=== PATIENT | female | born 1970 | race Caucasian/White ===

== ENCOUNTER 2019-08-19 17:18 | Emergency (ER) | payer MEDICARE, MEDICAID, SELFPAY | END 2019-08-19 21:50 | disposition home or self-care (01) | PROVIDERS: Emergency Provider Emergency Medicine; PCP Internal Medicine; Visit Provider Emergency Medicine | DX: M79.7 Fibromyalgia (principal); K50.90 Crohn's disease, unspecified, without complications; K74.60 Unspecified cirrhosis of liver; F17.210 Nicotine dependence, cigarettes, uncomplicated; R94.31 Abnormal electrocardiogram [ECG] [EKG]; R82.998 Other abnormal findings in urine | CPT/HCPCS: 36415; 71046; 80053; 81001; 81025; 82550; 83690; 84484; 85025; 85610; 85730; 87086; 87088; 93005; 96361; 96374; 96375; 99284; A9270; J2270; J2405; J7030 ==

== ENCOUNTER 2019-11-29 08:06 | Outpatient (CLI) | payer MEDICARE, MEDICAID, SELFPAY ==
[2019-11-29 08:34] LABS: Basophils Absolute Auto 0.1 K/mm3 (0.0-0.1); Basophils Percent Auto 0.7 % (0.2-1.2); Eosinophils Absolute Auto 0.1 K/mm3 (0-0.3); Eosinophils Percent Auto 1.1 % (0-4.4); Hematocrit 36.4 % (37.0-47.0); Hemoglobin 11.3 g/dL (12.0-15.0); Immature Granulocyte Absolute 0.04 K/mm3 (0.00-0.031); Immature Granulocyte Percent A 0.4 % (0-0.5); Lymphocytes Absolute Auto 1.31 K/mm3 (0.9-3.2); Lymphocytes Percent Auto 14.7 % (18.3-44.2); Mean Corpuscular Hemoglobin 23.7 pg (26-34); Mean Corpuscular Volume 76.5 fl (80-100); Mean Platelet Volume 9.1 fl (7.4-10.4); Monocytes Absolute Auto 0.8 K/mm3 (0.1-0.6); Monocytes Percent Auto 8.4 % (2.6-8.5); Neutrophils Absolute Auto 6.7 K/mm3 (1.3-6.7); Neutrophils Percent Auto 74.7 % (45.5-73.1); Platelet Count Result 533 k/mm3 (150-375); Red Blood Count 4.76 M/mm3 (4.2-5.4); Red Cell Distribution Width 18.6 % (11.5-14.5); White Blood Count 8.9 K/mm3 (4.5-10.0)
[2019-11-29 08:37] LABS: Blood Urea Nitrogen 11 mg/dL (8-26); Carbon Dioxide 21 mmol/L (22-30); Chloride 101 mmol/L (98-109); Estimated Glomerular Filt Rate > 60; Glucose 95 mg/dL (70-105); Potassium 3.9 mmol/L (3.5-4.9); Sodium 136 mmol/L (138-146)
[2019-11-29 11:58] LABS: Alanine Aminotransferase 24 U/L (4-35); Albumin Level 4.1 g/dL (3.5-5.1); Alkaline Phosphatase 335 U/L (38-126); Aspartate Amino Transferase 29 U/L (14-36); Bilirubin,Total 0.7 mg/dL (0.2-1.3); Blood Urea Nitrogen 12 mg/dL (7-17); Carbon Dioxide 19 mmol/L (22-30); Chloride 97 mmol/L (98-107); Estimated Glomerular Filt Rate > 60; Glucose 97 mg/dL (65-105); Potassium 4.1 mmol/L (3.4-5.0); Sodium 135 mmol/L (137-145)
== END 2019-11-29 08:07 | disposition home or self-care (01) ==
LOC: ANHLAB 08:16
PROVIDERS: PCP Internal Medicine; Visit Provider Internal Medicine Hematology & Oncology
DX: D64.9 Anemia, unspecified (principal)
CPT/HCPCS: 36415; 80048; 80053; 84443; 85025

== ENCOUNTER 2020-01-16 10:43 | Outpatient (CLI) | payer MEDICARE, MEDICAID, SELFPAY ==
[2020-01-16 10:58] LABS: Hematocrit 34.7 % (37.0-47.0); Hemoglobin 10.5 g/dL (12.0-15.0); Mean Corpuscular HGB Conc 30.3 g/dl (32-36); Mean Corpuscular Hemoglobin 23.6 pg (26-34); Mean Corpuscular Volume 78.2 fl (80-100); Mean Platelet Volume 9.3 fl (7.4-10.4); Platelet Count Result 379 k/mm3 (150-375); Red Blood Count 4.44 M/mm3 (4.2-5.4); White Blood Count 9.5 K/mm3 (4.5-10.0)
[2020-01-16 12:24] LABS: Iron 32 ug/dL (37-170)
[2020-01-16 12:33] LABS: Percent Iron Saturation 11 % (20-50)
[2020-01-16 13:31] LABS: Folic Acid 6.2 ng/mL (2.76->20)
== END 2020-01-16 10:44 | disposition home or self-care (01) ==
PROVIDERS: PCP Internal Medicine; Visit Provider Internal Medicine Hematology & Oncology
DX: D64.9 Anemia, unspecified (principal)
CPT/HCPCS: 36415; 82607; 82728; 82746; 83540; 83550; 85027

== ENCOUNTER 2020-03-20 13:12 | Outpatient (CLI) | payer MEDICARE, MEDICAID, SELFPAY ==
--- NOTE | ~2020-03-20 | XR_ITS ---
XR chest 2V DATE: 03/20/2020 14:53 INDICATION: Constipation TECHNIQUE: PA and lateral views COMPARISON: 08/19/2019 PA and lateral chest FINDINGS: Normal heart size. No hilar or mediastinal enlargement. No pleural effusion or pulmonary vascular congestion or pneumothorax. There is discoid atelectasis and/or scarring in both lung bases. Surgical clips, right upper quadrant, likely due to cholecystectomy. IMPRESSION: Bibasilar discoid atelectasis and/or scarring Reviewed, dictated and finalized at location A.
--- NOTE | ~2020-03-20 | XR_ITS ---
EXAMINATION: XR abdomen obstructive series DATE: 03/20/2020 14:52 INDICATION: Constipation TECHNIQUE: Upright and supine views of the abdomen were obtained. COMPARISON: None. FINDINGS: The bowel gas pattern is nonspecific. There are no dilated loops of bowel. Cholecystectomy clips are noted. There is an IUD in the pelvis. The visualized osseous structures are unremarkable. T here is atelectasis or scarring of the visualized lung bases. IMPRESSION: 1. Nonspecific bowel gas pattern without acute abnormality identified. Reviewed, dictated and finalized at location A.
[2020-03-20 13:31] LABS: Hematocrit 41.3 % (37.0-47.0); Hemoglobin 13.1 g/dL (12.0-15.0); Mean Corpuscular HGB Conc 31.7 g/dl (32-36); Mean Corpuscular Hemoglobin 26.4 pg (26-34); Mean Corpuscular Volume 83.1 fl (80-100); Mean Platelet Volume 9.3 fl (7.4-10.4); Platelet Count Result 363 k/mm3 (150-375); Red Blood Count 4.97 M/mm3 (4.2-5.4); Red Cell Distribution Width 19.2 % (11.5-14.5); White Blood Count 10.2 K/mm3 (4.5-10.0)
[2020-03-20 17:22] LABS: Iron 42 ug/dL (37-170)
[2020-03-20 17:33] LABS: Percent Iron Saturation 19 % (20-50)
[2020-03-20 18:30] LABS: Folic Acid 6.8 ng/mL (2.76->20); Vitamin B12 > 1000.0 pg/mL (239-931)
== END 2020-03-20 13:13 | disposition home or self-care (01) ==
PROVIDERS: PCP Internal Medicine; Visit Provider Internal Medicine Hematology & Oncology
DX: K59.00 Constipation, unspecified (principal); D64.9 Anemia, unspecified
CPT/HCPCS: 36415; 71046; 74019; 82607; 82728; 82746; 83540; 83550; 85027

== ENCOUNTER 2020-07-12 13:32 | Observation (INO) | payer MEDICARE, MEDICAID, SELFPAY ==
--- NOTE | ~2020-07-12 | XR_ITS ---
EXAMINATION: XR chest 1V portable EXAM DATE: 07/12/2020 17:05 INDICATION: Shortness of breath for 3 months. Right-sided abdominal pain. Weakness. TECHNIQUE: Portable AP frontal chest x-ray was obtained. Comparison is made to prior examination from 03/20/2020. FINDINGS: Some linear bibasilar scarring or atelectasis unchanged. The lungs are otherwise clear. Th ere are no pleural effusions. The cardiomediastinal silhouette is within normal limits. There is no pneumothorax suspected. The bones and soft tissues are unremarkable. IMPRESSION: Linear bibasilar atelectasis or scarring unchanged. Reviewed, dictated and finalized at location A.
--- NOTE | ~2020-07-12 | CT_ITS ---
EXAMINATION: CT abdomen pelvis w con DATE: 07/12/2020 16:25 INDICATION: Right abdominal pain TECHNIQUE: Computed tomography (CT) of the abdomen and pelvis was performed with 100 cc Omnipaque 350 intravenous contrast. Automated exposure control and iterative reconstruction technique were employe d. Exam dose: 320.60 mGy-cm total exam DLP. COMPARISON: 07/29/2019 CT abdomen pelvis FINDINGS: There is discoid atelectasis and/or scarring at both lung bases Normal heart size. There is trace pericardial fluid. No pleural effusion. Status post cholecystectomy. No hepatic, splenic, pancreatic, and adrenal space-occupying mass lesion . The left kidney appears normal. There is a large right parapelvic renal cyst. This was present on 07/29/2019. However, there is interv al patchy diminished attenuation of the parenchyma of the right kidney involving particularly the mid to upper right kidney, likely due to pyelonephritis. No urinary tract calculus or hydroureteronephrosis is evident. Normal caliber of the abdominal aorta. There are shotty nonenlarged periaortic and aortocaval lymph n odes, likely reactive. There is moderate diffuse thickening of the wall of the urinary bladder. An IUD is noted within the uterus. Status post right colectomy. No bowel obstruction or intraperitoneal free air is detected. A wire is again noted at the posterior aspect of the rectum with some surrounding soft tissue thicken ing; recommend correlation clinically. There are erosive changes at the sacroiliac joints bilaterally. There is moderate anterior wedge compression fracture deformity at T11. IMPRESSION: Abnormal patchy diminished attenuation of the mid to upper right renal parenchyma, likel y due to pyelonephritis Right parapelvic renal cyst Status post cholecystectomy Centimeters right colectomy IUD within uterus Erosive changes of the sacroiliac joints bilaterally Moderate anterior wedge compression fracture deformity at T11, apparently chronic Reviewed, dictated and finalized at Location A. Reviewed, dictated and finalized at location A. IMPRESSION: Abnormal patchy diminished attenuation of the mid to upper right r enal parenchyma, likely due to pyelonephritis Right parapelvic renal cyst Status post cholecystectomy Centimeters right colectomy IUD within uterus Erosive changes of the sacroiliac joints bilaterally Moderate anterior wedge compression fracture deformity at T11, apparently chron ic
--- NOTE | 2020-07-12 13:56 | ECG_ITS ---
Measurements Intervals [place] Rate: 104 P: 61 PA: 152 QRS: -40 QRSD: 85 T: 33 QT: 335 QTc: 441 Interpretive Statements SINUS TACHYCARDIA LEFT AXIS DEVIATION CANNOT RULE OUT SEPTAL INFARCT, AGE INDETERMINATE BORDERLINE T WAVE ABNORMALITY- INFERIOR LEADS ABNORMAL ECG Electronically Signed On 07-12-2020 14:44:02 CDT by Roosevelt Ford D.O.
--- NOTE | 2020-07-12 14:00 | ED.ABDPAIN ---
HPI - Abdominal Pain General Chief Complaint: Urogenital-Female Stated Complaint: Low BP/? UTI Time Seen by Provider: 07/12/20 13:36 Source: patient Mode of arrival: ambulatory Limitations: no limitations History of Present Illness HPI narrative: This patient is a 49 year old female who presents for evaluation of low blood pressure and UTI. She reports she has been having pain with urination for 1 week, but she did not think much of it. Today her home health nurse sent her to ER because her BP was low. Patient is unsure of the blood pressure. She reports chronic right upper abdominal pain that is unchanged. She does complain of being lightheaded and dizziness. She denies nausea, vomiting , fever or chills. She also denies chest pain, cough or sob. She notes she was [facility] involving her chrohn's disease. She states she has rectally that is draining. Related Data Home Medications Medication Instructions Recorded Confirmed duloxetine 30 mg PO BID 07/12/20 07/12/20 ziprasidone HCl [Geodon] 40 mg PO BID 07/12/20 07/12/20 Allergies Allergy/AdvReac Type Severity Reaction Status Date / Time infliximab Allergy Severe Anaphylactic Verified 07/12/20 14:14 Shock Review of Systems Review of Systems: All systems reviewed & are unremarkable except as noted in HPI and below Constitutional: Constitutional: Denies chills, Reports fatigue and Denies fever(s) Cardiovascular: Cardiovascular: Denies chest pain Respiratory: Respiratory: Denies cough and Denies dyspnea Gastrointestinal: Gastrointestinal: Reports abdominal pain and Reports nausea Genitourinary: Genitourinary: Reports dysuria PMF Past Medical History Medical History Anemia iron deficiency anemia Anxiety Arthritis Colostomy in place Crohn's colitis chronic diarrhea Crohn's related arthritis (~1984) Depression Elevated CK-MB level IBS (irritable bowel syndrome) Migraine Surgical History Surgical History H/O hernia repair History of colectomy on the right History of colostomy reversal Hx of cholecystectomy Family History Family History (Updated 07/12/20 @ 20:45 by Edna Hernandez NP) Daughter Accidental Social History Social History (Updated 07/12/20 @ 20:47 by Edna Hernandez NP) Social History: she is disabled and lives with her boyfriend. She had 1 daughter who due to an accidental at the age of 17. She is single. She is on disability. She occasionally uses marijuana maybe 1 to 2 times a month. She smokes half pack a cigarettes a day. She occasionally drinks alcoholic beverages 2 to 3 times a month. She desires to be a full code and does not have power criminal attorney. Smoking packs per day: 0.5 Smoking cigarettes per day: 10.0 Years smoked: 25 Smoking pack-years: 12.50 Tobacco type: cigarettes Alcohol intake: never Substance use: current Substance use type: marijuana Gender identity (if verbalized by the patient): Female Spiritual care concerns: No Exam Const: General: no acute distress and alert Orientation/consciousness: patient oriented x3 HENMT: Head: atraumatic Face and sinus: face symmetric Mouth: Yes Normal oral and palatal mucosa present, Yes lip normal and Yes oropharynx normal Throat: posterior oropharynx normal and tonsils normal Eyes: Pupils: Equal, round and reactive pupils present EOM: EOMs intact bilaterally Chest: Chest palpation & inspection: normal inspection of the chest Resp: Effort & Inspection: normal respiratory effort and no retractions Auscultation: clear to auscultation bilaterally Cardio: Rate: tachycardic Rhythm: regular rhythm Heart sounds: no murmurs GI: GI Palp: Yes Soft to palpation, Yes Tenderness to palpation present (GI) (RUQ), No Guarding due to palpation present (GI), No
[2020-07-12 14:09] VITALS: BP 101/63; PULSE 109; RESP 24; TEMP 36.5; O2SAT 97
[2020-07-12] MEDS: LACTATED RINGERS 1,000 ML 999 ML IV CONT ×2 (14:32→16:35)
[2020-07-12 14:44] LABS: Basophils Absolute Auto 0.1 K/mm3 (0.0-0.1); Basophils Percent Auto 0.4 % (0.2-1.2); Eosinophils Absolute Auto 0.2 K/mm3 (0-0.3); Eosinophils Percent Auto 1.1 % (0-4.4); Hematocrit 39.6 % (37.0-47.0); Hemoglobin 13.2 g/dL (12.0-15.0); Immature Granulocyte Absolute 0.06 K/mm3 (0.00-0.031); Immature Granulocyte Percent A 0.4 % (0-0.5); Lymphocytes Absolute Auto 1.78 K/mm3 (0.9-3.2); Lymphocytes Percent Auto 12.5 % (18.3-44.2); Mean Corpuscular HGB Conc 33.3 g/dl (32-36); Mean Corpuscular Hemoglobin 28.6 pg (26-34); Mean Corpuscular Volume 85.9 fl (80-100); Mean Platelet Volume 9.3 fl (7.4-10.4); Monocytes Absolute Auto 1.5 K/mm3 (0.1-0.6); Monocytes Percent Auto 10.7 % (2.6-8.5); Neutrophils Absolute Auto 10.7 K/mm3 (1.3-6.7); Neutrophils Percent Auto 74.9 % (45.5-73.1); Platelet Count Result 416 k/mm3 (150-375); Red Blood Count 4.61 M/mm3 (4.2-5.4); Red Cell Distribution Width 15.9 % (11.5-14.5); White Blood Count 14.3 K/mm3 (4.5-10.0)
[2020-07-12 14:51] LABS: INR 1.3; Prothrombin Time 15.8 Seconds (11.1-14.7)
[2020-07-12 14:52] LABS: Partial Thromboplastin Time 35.6 SECONDS (22.3-36.8)
[2020-07-12 14:55] LABS: Lactic Acid Reflex 1.9 mmol/L (0.7-2.1)
[2020-07-12 15:00] LABS: Alanine Aminotransferase 21 U/L (4-35); Albumin Level 3.6 g/dL (3.5-5.1); Alkaline Phosphatase 301 U/L (38-126); Anion Gap 10 mmol/L (8-16); Aspartate Amino Transferase 29 U/L (14-36); Bilirubin,Total 0.6 mg/dL (0.2-1.3); Blood Urea Nitrogen 14 mg/dL (7-17); Calcium 9.1 mg/dL (8.4-10.2); Carbon Dioxide 23 mmol/L (22-30); Chloride 102 mmol/L (98-107); Estimated Glomerular Filt Rate > 60; Glucose 136 mg/dL (65-105); Lipase 125 U/L (23-300); Potassium 2.7 mmol/L (3.4-5.0); Sodium 135 mmol/L (137-145)
[2020-07-12 15:03] LABS: Add Urine Microscopic? YES; Appearance Urine Clear (Clear); Bacteria Urine Trace /hpf; Bilirubin Urine Negative (Negative); Blood Urine 2+ (Negative); Color Urine Yellow (Yellow); Glucose Urine UA Negative (Negative); Ketones Urine Negative (Negative); Leukocyte Esterase Ur 3+ LEU/UL (Negative); Mucus Urine Rare /lpf; Nitrate Urine Positive (Negative); Protein Urine Negative (Negative); Specific Grav Ur 1.012 (1.001-1.035); Urobilinogen Urine Negative mg/dL (<2.0); WBC Clumps Urine Present /HPF; WBC Urine 31-50 /hpf
[2020-07-12 15:08] LABS: CRP 17.6 mg/dL (<1.0)
[2020-07-12 15:19] VITALS: BP 99/75; PULSE 90; RESP 20; O2SAT 99
[2020-07-12] MEDS: ONDANSETRON INJ 4 MG/2 ML VIAL IV PUSH (16:37)
[2020-07-12] MEDS: MORPHINE SULFATE 4 MG/ML INJ IV PUSH (16:37)
[2020-07-12 17:34] VITALS: BP 98/67; PULSE 92; RESP 24; O2SAT 96
[2020-07-12 17:45] VITALS: BP 97/69; PULSE 85; RESP 24; O2SAT 96
[2020-07-12 18:05] VITALS: BP 103/69; PULSE 58; RESP 14; TEMP 36.8; O2SAT 100
--- NOTE | 2020-07-12 18:10 | ADMGEN ---
This patient, Anne Winston, was admitted to 2 Medical Room 246-01. Patient/family oriented to hospital policies and general routines including ID bracelet, bed and alarms, visiting hours, pain management, procedures, bathroom and other care routines, personal items, smoking policy, room service/diet, and visiting hours. Valuables list has been completed. Information on how to activate the Rapid Response Team has been discussed. Patient/Family are encouraged to report perceived risks to care and to ask questions if they do not understand what they are told or what they should do.
[2020-07-12 18:47] VITALS: BMI 26.1
[2020-07-12] MEDS: SODIUM CHLORIDE 0.9% IV 1,000 ML 125 ML IV CONT (18:48)
[2020-07-12 20:00] VITALS: BP 103/66; PULSE 90; PULSE 91; RESP 20; TEMP 37; O2SAT 99
--- NOTE | 2020-07-12 20:37 | PM.IMHP ---
H&P: HPI History of Present Illness Date/Time: 07/12/20 20:37 Chief complaint: sepsis,pyelonephritis Narrative: Anne Winston is a 49 year old female Who has been dealing with Crohn's disease for many years. She had a colostomy at 1 time and then had a take down. The patient was at [facility] in April and had what she please to be a colectomy on April 16 of this year. The patient stated this surgery was performed due to her Crohn's disease. She stated she has not been on any medication for her Crohn since then. She was okay for a little bit and then started to have diarrhea again. She has chronic diarrhea from her Crohn's disease. She is not due to follow-up with her GI specialist until September. She started having some right flank pain with nausea and diarrhea. She was told today by home health that she was having some low blood pressure. She has been having some burning with urination for at least 1 week and the right flank pain. She also has chronic right upper abdominal pain which is unchanged. She has been complaining of feeling lightheaded and dizzy. No nausea vomiting no fever no chills. Her potassium was found to be 2.7 and is getting supplemented now. Abdominal and pelvis CT was read as abnormal patchy diminished attenuation of the mid to upper right renal parenchyma likely pyelonephritis. Status post colectomy status post cholecystectomy. IUD in the uterus. Erosive changes at the sacroiliac joints bilaterally. Moderate anterior wedge compression fracture deformity at T11 apparently chronic. Her white count was noted to be 14.3. Her C reactive protein is 17.6. Leukocyte esterase 3+ in her urine wbc's 31-50 in her urine. Patient is being admitted for pyelonephritis. She was started on lactated Ringer's, IV Tylenol supplement with potassium IV, IV ceftriaxone, Zofran, and morphine. Date of service 07/12/2020 Review of Systems Review of Systems: All systems reviewed & are unremarkable except as noted in HPI and below Constitutional: Constitutional: Reports as per HPI and Reports no additional constitutional complaints Eyes: Eyes: Reports as per HPI and Reports no additional eye complaints ENT: Reports system reviewed and no additional complaints, except as documented and Reports Normal hearing present Cardiovascular: Cardiovascular: Reports no additional cardiovascular complaints Respiratory: Respiratory: Reports no additional respiratory complaints and Reports no additional respiratory complaints Gastrointestinal: Gastrointestinal: Reports as per HPI and Reports no additional gastrointestinal complaints Musculoskeletal: Musculoskeletal: Reports no additional musculoskeletal complaints Integumentary/Breasts: Skin/Breast: Reports system reviewed and no additional complaints, except as docu and Reports as per HPI Neurologic: Reports system reviewed and no additional complaints, except as documented, Reports as per HPI and Reports Normal hearing present Psychiatric: Psychiatric: Reports no additional psychiatric complaints and Reports as per HPI Endocrine: Endocrine: Reports no additional endocrine complaints Hematologic/Lymphatic: Hematologic/Lymphatic: Reports no additional hematologic/lymphatic complaints Allergic/Immunologic: Allergic/Immunologic: Reports no additional allergic/immunologic complaints REPLACED BY [facility] Past Medical History Medical History (Updated 07/12/20 @ 20:54 by Edna Hernandez NP) Anemia iron deficiency anemia Anxiety Arthritis Colostomy in place Crohn's colitis chronic diarrhea Crohn's related arthritis (~1984) Depression Elevated CK-MB level IBS (irritable bowel syndrome) Migraine Surgical History Surgical History (Updated 07/12/20 @ 20:45 by Edna Hernandez NP) H/O hernia repair History of colectomy on the right History of colostomy reversal Hx of cholecystectomy Family History Family History (Updated 07/12/20 @ 20:45 by Edna Hernandez NP) Zonia
[2020-07-13] VITALS: PULSE 91
[2020-07-13 01:19] LABS: Anion Gap 5 mmol/L (8-16); Blood Urea Nitrogen 7 mg/dL (7-17); Calcium 8.2 mg/dL (8.4-10.2); Carbon Dioxide 25 mmol/L (22-30); Chloride 102 mmol/L (98-107); Estimated Glomerular Filt Rate > 60; Glucose 96 mg/dL (65-105); Potassium 3.7 mmol/L (3.4-5.0); Sodium 132 mmol/L (137-145)
[2020-07-13] MEDS: SODIUM CHLORIDE 0.9% IV 1,000 ML 125 ML IV CONT ×3 (03:22→21:13)
[2020-07-13 04:00] VITALS: BP 105/61; PULSE 100; PULSE 90; RESP 18; TEMP 35.6; O2SAT 94
[2020-07-13 05:02] LABS: Basophils Percent Auto 0.3 % (0.2-1.2); Eosinophils Absolute Auto 0.2 K/mm3 (0-0.3); Eosinophils Percent Auto 1.3 % (0-4.4); Hematocrit 33.5 % (37.0-47.0); Hemoglobin 10.9 g/dL (12.0-15.0); Immature Granulocyte Absolute 0.06 K/mm3 (0.00-0.031); Immature Granulocyte Percent A 0.5 % (0-0.5); Lymphocytes Absolute Auto 1.58 K/mm3 (0.9-3.2); Mean Corpuscular HGB Conc 32.5 g/dl (32-36); Mean Corpuscular Hemoglobin 28.3 pg (26-34); Mean Platelet Volume 9.2 fl (7.4-10.4); Monocytes Absolute Auto 1.2 K/mm3 (0.1-0.6); Monocytes Percent Auto 9.6 % (2.6-8.5); Neutrophils Absolute Auto 9.1 K/mm3 (1.3-6.7); Neutrophils Percent Auto 75.3 % (45.5-73.1); Platelet Count Result 328 k/mm3 (150-375); Red Blood Count 3.85 M/mm3 (4.2-5.4); Red Cell Distribution Width 15.9 % (11.5-14.5); White Blood Count 12.2 K/mm3 (4.5-10.0)
[2020-07-13 06:36] LABS: Alanine Aminotransferase 15 U/L (4-35); Albumin Level 2.8 g/dL (3.5-5.1); Alkaline Phosphatase 240 U/L (38-126); Anion Gap 7 mmol/L (8-16); Aspartate Amino Transferase 27 U/L (14-36); Bilirubin,Total 0.5 mg/dL (0.2-1.3); Blood Urea Nitrogen 6 mg/dL (7-17); Calcium 8.3 mg/dL (8.4-10.2); Carbon Dioxide 20 mmol/L (22-30); Chloride 106 mmol/L (98-107); Estimated Glomerular Filt Rate > 60; Glucose 95 mg/dL (65-105); Magnesium 1.5 mg/dL (1.6-2.3); Potassium 3.6 mmol/L (3.4-5.0); Sodium 133 mmol/L (137-145)
[2020-07-13 06:55] LABS: Thyroid Stimulating Hormone Reflex 0.971 uIU/mL (0.465-4.68)
[2020-07-13 08:00] VITALS: PULSE 77
--- NOTE | 2020-07-13 09:01 | PM.IMPN ---
Progress Note: A&P Assessment and Plan (1) Sepsis: Code(s): A41.9 - Sepsis, unspecified organism Status: Acute Assessment and Plan: Supported by tachycardia and leukocytosis. The source is likely acute pyelonephritis. Lactic acid was normal at 1.5. Blood cultures were obtained and are pending. Continue IV fluid hydration. (2) Pyelonephritis: Code(s): N12 - Tubulo-interstitial nephritis, not specified as acute or chronic Status: Acute Assessment and Plan: UA was grossly abnormal and CT abd/pelvis demonstrates patchy diminished attenuation of the mid to upper right renal parenchyma. She has right flank and abdominal pain. Clinical presentation is consistent with acute right pyelonephritis. Continue IV ceftriaxone. Continue tylenol PRN fever and analgesics PRN pain. Await urine cultures. (3) Hypokalemia: Code(s): E87.6 - Hypokalemia Status: Acute Assessment and Plan: Possibly secondary to chronic diarrhea. Potassium was 2.7 at presentation to the ED and improved to 3.6 today with replacement. Continue to monitor. Magnesium was also low and will be replaced. (4) Crohn's colitis: Code(s): K50.10 - Crohn's disease of large intestine without complications Status: Chronic Assessment and Plan: She reported a hx of colectomy [facility]. She is not on a maintenance regimen at this time. She does note chronic diarrhea but doesn't have any other acute complaints at this time. [facility] records were requested and GI was consulted. Input is appreciated. She is scheduled to follow-up with her pilot captain in September. (5) Anemia: Code(s): D64.9 - Anemia, unspecified Status: Chronic Assessment and Plan: She reports a hx of OSVALDO. Iron studies from 03/2020 were consistent with OSVALDO. She was seen by hematology and H&H were WNL at presentation. Mild decrease in H&H noted and likely dilutional. MCV normocytic. Continue to monitor closely. (6) Depression: Code(s): F32.9 - Major depressive disorder, single episode, unspecified Status: Chronic Assessment and Plan: Mood is stabe. Continue ziprasidone and duloxetine. (7) Alkaline phosphatase elevation: Code(s): R74.8 - Abnormal levels of other serum enzymes Status: Acute Assessment and Plan: Chronic. May be secondary to Chron's disease. Appreciate GI input. Time Spent With Patient Time with patient: 15 - 25 minutes Subjective Date/time seen: 07/13/20 09:01 Ms. Winston is a 49 y.o. female with PMH significant for Chron's colitis who is seen in follow-up for acute pyelonephritis. She c/o right flank pain/abdominal discomfort and nausea. She denies vomiting. Appetite is good and she was able to eat a majority of her breakfast today. She denies chest pain, palpitations, and dyspnea. She reports dysuria, urgency, and frequency. She denies headaches, dizziness, and lightheadedness. She reports chronic diarrhea due to her Chron's. No melena or hematochezia. She has no other complaints today. Review of Systems Review of Systems: All systems reviewed & are unremarkable except as noted in HPI and below Exam Narrative: Exam Narrative: General: Pleasant, well-developed and well-nourished 49 y.o. female lying semi-recumbent in bed eating breakfast in no acute distress. HEENT: Normocephalic and atraumatic. Sclerae anicteric. Conjunctivae and lids normal. EOMI. Oral mucosa moist. Neck: Supple without lymphadenopathy or masses. Cardiac: Regular rate and rhythm. S1 and S2 normal. Lungs: Lungs are clear to auscultation bilaterally. Abdomen: Bowel sounds positive. Abdomen is soft, non-distended, and tender to the right upper and lower quadrants as well as the suprapubic area. No guarding or rebound. : Right CVA tenderness. Musculoskeletal: No joint erythema, swelling, or tenderness. ROM within normal limits. Extremities: No significant lo
[2020-07-13] MEDS: DULoxetine HCL 30 MG CAPSULE.DR PO ×2 (09:13→16:11)
[2020-07-13] MEDS: ziprasidone HCL 20 MG CAPSULE 40 MG PO ×2 (09:13→16:11)
[2020-07-13] MEDS: MAGNESIUM SULF 2 GM/WATER 50ML 2 GM/50 ML BAG IVPB (09:14)
--- NOTE | 2020-07-13 11:12 | WPDGICN ---
Assessment and Plan Assessment and plan (1) Crohn's disease: Code(s): K50.90 - Crohn's disease, unspecified, without complications Status: Acute Assessment and Plan: Patient has a long history of Crohn's disease described as terminal ileitis as long with proximal colon inflammation perianal disease she is status post recent right hemicolectomy with resection of the ileum and proximal colon. She has a colonoscopy as recent as 1 month ago with no evidence of residual disease at present. All anti Crohn's disease medications have been held since that time. She is scheduled to follow-up with her established button sewer hand in September. Would recommend observation at this time. (2) History of colectomy: Code(s): Z90.49 - Acquired absence of other specified parts of digestive tract Status: Acute Assessment and Plan: Colectomy was performed in April of 2020. With resection of known Crohn's disease. She previously had a colostomy after perforation by previous endoscopy. (3) Pyelonephritis: Code(s): N12 - Tubulo-interstitial nephritis, not specified as acute or chronic Status: Acute (4) Alkaline phosphatase elevation: Code(s): R74.8 - Abnormal levels of other serum enzymes Status: Acute Assessment and Plan: Elevated alkaline phosphatase of uncertain etiology. Unlikely to be related to Crohn's disease. Would recommend fractionation of alkaline phosphatase to establish whether bone or liver fraction is causing elevation. GI Consult Note Consult date/time: 07/13/20 11:12 HPI: Anne Winston is a 49 year old female Seen in evaluation at the request of hospitalist service. Patient has a history of Crohn's disease for many years. Patient has a history of colon perforation after colonoscopy in the past and had a colostomy bag about 5 years ago. She has had Crohn's disease felt involved mainly the terminal ileum and proximal colon as well as perianal disease. She underwent right colon resection of her known Crohn's disease in April of this year. Since that time previous biologic agents were discontinued. Currently on no medications for her Crohn's disease she underwent a colonoscopy 1 month ago at [facility] that was unremarkable. With no evidence of residual Crohn's disease no active disease evident. Patient apparently did well except is developed right flank pain right-sided pain dysuria fever all consistent with pyelonephritis. For this reason she was admitted to the hospital. Review of Systems Review of Systems: All systems reviewed & are unremarkable except as noted in HPI and below PMFSH Past Medical History Medical History Anemia iron deficiency anemia Anxiety Arthritis Colostomy in place Crohn's colitis chronic diarrhea Crohn's related arthritis (~1984) Depression Elevated CK-MB level IBS (irritable bowel syndrome) Migraine Surgical History Surgical History H/O hernia repair History of colectomy on the right History of colostomy reversal Hx of cholecystectomy Family History Family History Daughter Accidental Social History Social History Social History: she is disabled and lives with her boyfriend. She had 1 daughter who due to an accidental at the age of 17. She is single. She is on disability. She occasionally uses marijuana maybe 1 to 2 times a month. She smokes half pack a cigarettes a day. She occasionally drinks alcoholic beverages 2 to 3 times a month. She desires to be a full code and does not have power civil rights attorney. Smoking packs per day: 0.5 Smoking cigarettes per day: 10.0 Years smoked: 25 Smoking pack-years: 12.50 Tobacco type: cigarettes Alcohol intake: never Substance use: c
[2020-07-13 14:00] VITALS: BP 125/83; PULSE 74; RESP 18; TEMP 36.9; O2SAT 98
[2020-07-13] MEDS: MORPHINE SULFATE 2 MG/ML INJ IV PUSH (14:48)
[2020-07-13] MEDS: CALCIUM CARBONATE (TUMS) 500 MG (200 MG ELEMENTAL) PO (17:04)
[2020-07-13] MEDS: KETOROLAC 15 MG/ML VIAL (*BKC) IV PUSH (21:53)
[2020-07-13 22:00] VITALS: BP 101/61; PULSE 97; RESP 20; TEMP 36.7; O2SAT 98
[2020-07-14] MEDS: SODIUM CHLORIDE 0.9% IV 1,000 ML 125 ML IV CONT ×3 (03:34→20:46)
[2020-07-14 06:00] VITALS: BP 109/76; PULSE 76; RESP 20; TEMP 36.6; O2SAT 99
[2020-07-14 06:08] LABS: Basophils Percent Auto 0.2 % (0.2-1.2); Eosinophils Absolute Auto 0.2 K/mm3 (0-0.3); Eosinophils Percent Auto 2.3 % (0-4.4); Hematocrit 34.1 % (37.0-47.0); Hemoglobin 10.8 g/dL (12.0-15.0); Immature Granulocyte Absolute 0.04 K/mm3 (0.00-0.031); Immature Granulocyte Percent A 0.5 % (0-0.5); Lymphocytes Absolute Auto 1.58 K/mm3 (0.9-3.2); Mean Corpuscular HGB Conc 31.7 g/dl (32-36); Mean Corpuscular Hemoglobin 28.2 pg (26-34); Mean Platelet Volume 9.7 fl (7.4-10.4); Monocytes Percent Auto 11.9 % (2.6-8.5); Neutrophils Absolute Auto 5.5 K/mm3 (1.3-6.7); Neutrophils Percent Auto 66.1 % (45.5-73.1); Platelet Count Result 302 k/mm3 (150-375); Red Blood Count 3.83 M/mm3 (4.2-5.4); Red Cell Distribution Width 16.1 % (11.5-14.5); White Blood Count 8.3 K/mm3 (4.5-10.0)
[2020-07-14] MEDS: KETOROLAC 15 MG/ML VIAL (*BKC) IV PUSH ×3 (06:35→18:37)
[2020-07-14 06:49] LABS: Erythrocyte Sedimentation Rate 69 mm/hr (0-20)
[2020-07-14 06:59] LABS: Anion Gap 6 mmol/L (8-16); Blood Urea Nitrogen 4 mg/dL (7-17); CRP 16.8 mg/dL (<1.0); Calcium 8.1 mg/dL (8.4-10.2); Carbon Dioxide 21 mmol/L (22-30); Chloride 109 mmol/L (98-107); Estimated Glomerular Filt Rate > 60; Glucose 98 mg/dL (65-105); Magnesium 1.9 mg/dL (1.6-2.3); Potassium 3.4 mmol/L (3.4-5.0); Sodium 136 mmol/L (137-145)
--- NOTE | 2020-07-14 07:34 | WPDGIPROGNO ---
Progress Note: A&P Additional Plan Patient continues to note right-sided abdominal pain. No difficulties with bowel movements. Pain with movement. Some dysuria described. Physical exam reveals her to be alert. Comfortable at rest. Abdomen bowel sounds are present soft tender in the right abdomen. She has concomitant flank pain. Impression 1. Crohn's disease. Status post resection of terminal ileum and right colon. Currently on no medications. Recent endoscopy revealed no active disease. She will follow-up with GI service at [facility] in September. No additional therapy warranted at this time. 2. Pyelonephritis. Currently under therapy directed by primary care service. Continue antibiotics intravenously for now. Subjective Date/time seen: 07/14/20 07:34 Objective Data Vital Signs Vital Signs: Vital Signs - 24 hr 07/13/20 08:00 07/13/20 14:00 07/13/20 22:00 Temperature 98.5 F 98.1 F Pulse Rate 77 74 97 Respiratory Rate 18 20 Blood Pressure 125/83 101/61 Pulse Oximetry 98 98 07/14/20 06:00 Temperature 97.9 F Pulse Rate 76 Respiratory Rate 20 Blood Pressure 109/76 Pulse Oximetry 99 Intake/Output Intake/Output: Intake & Output 07/11/20 07/12/20 07/13/20 07/14/20 23:59 23:59 23:59 23:59 Intake Total 2615 4840 2000 Output Total 2450 1300 Balance 2615 2390 700 Meds/Results Medications: Active Medications Generic Name Dose Route Start Last Admin Trade Name Freq PRN Reason Stop Dose Admin Hydrocodone Bitart/Acetaminophen 1 tab 07/12/20 18:46 07/14/20 03:32 [place] 5-325 Mg PO 1 tab Q6H PRN Administration Pain Rated 4-6 Calcium Carbonate 200 mg 07/13/20 16:59 07/13/20 17:04 Tums PO 200 mg Q6H PRN Administration Indigestion Duloxetine HCl 30 mg 07/13/20 09:00 07/13/20 16:11 Cymbalta PO 30 mg BID MIGUEL ANGEL Administration Sodium Chloride 1,000 mls @ 125 mls/hr 07/12/20 17:10 07/14/20 03:34 Normal Saline Iv IV CONT 125 mls/hr .Q8H MIGUEL ANGEL Administration Ceftriaxone Sodium/Dextrose 1 gm in 50 mls @ 100 mls/hr 07/13/20 16:00 07/13/20 16:45 Rocephin 1 Gm/D5w 50 Ml IVPB Infused Q24H MIGUEL ANGEL Infusion Ketorolac Tromethamine 15 mg 07/12/20 20:32 07/14/20 06:35 Toradol Inj IV PUSH 15 mg Q6H PRN Administration Pain Rated 4-6 Morphine Sulfate 2 mg 07/13/20 14:21 07/13/20 14:48 Morphine Sulfate Inj IV PUSH 2 mg Q4H PRN Administration Pain Rated 7-10 Ondansetron HCl 4 mg 07/12/20 17:09 Zofran Inj IV PUSH Q4H PRN Nausea Ziprasidone 40 mg 07/13/20 09:00 07/13/20 16:11 Geodon PO 40 mg BID MIGUEL ANGEL Administration Radiology Results: ITS Impressions Abdomen/Pelvis CT 07/12/20 16:28 IMPRESSION: Abnormal patchy diminished attenuation of the mid to upper right renal parenchyma, likely due to pyelonephritis Right parapelvic renal cyst Status post cholecystectomy Centimeters right colectomy IUD within uterus Erosive changes of the sacroiliac joints bilaterally Moderate anterior wedge compression fracture deformity at T11, apparently chronic Chest X-Ray 07/12/20 17:09 IMPRESSION: Linear bibasilar atelectasis or scarring unchanged. Labs Labs: Laboratory Results - last 24 hr 07/14/20 07/14/20 07/14/20 05:33 05:33 05:33 WBC 8.3 RBC 3.83 L Hgb 10.8 L Hct 34.1 L MCV 89.0 MCH 28.2 MCHC 31.7 L RDW 16.1 H Plt Count 302 MPV 9.7 Immature Gran % (Auto) 0.5 Neut % (Auto) 66.1 Lymph % (Auto) 19.0 [place] % (Auto) 11.9 H Eos % (Auto) 2.3 Baso % (Auto) 0.2 Lymph # (Auto) 1.58 [place] # (Auto) 1.0 H Eos # (Auto) 0.2 Baso # (Auto) 0.0 Abs Immat Gran (auto) 0.04 H Absolute Neuts (auto) 5.5 Absolute Nucleated RBC 0.0 Nucleated RBC % 0.0 ESR 69 H Sodium 136 L Potassium 3.4 Chloride 109 H Carbon Dioxide 21 L Anion Gap 6 L BUN 4 L Creatinine 0.50 L Estim Cre
[2020-07-14] MEDS: DULoxetine HCL 30 MG CAPSULE.DR PO ×2 (09:23→16:27)
[2020-07-14] MEDS: ziprasidone HCL 20 MG CAPSULE 40 MG PO ×2 (09:23→16:27)
--- NOTE | 2020-07-14 09:30 | PM.IMPN ---
Progress Note: A&P Assessment and Plan (1) Sepsis: Code(s): A41.9 - Sepsis, unspecified organism Status: Acute Assessment and Plan: Supported by tachycardia and leukocytosis. The source is likely acute pyelonephritis. Lactic acid was normal at 1.5. Blood cultures were obtained and reveal NGTD. Continue IV fluid hydration. (2) Pyelonephritis: Code(s): N12 - Tubulo-interstitial nephritis, not specified as acute or chronic Status: Acute Assessment and Plan: UA was grossly abnormal and CT abd/pelvis demonstrates patchy diminished attenuation of the mid to upper right renal parenchyma. She has right flank and abdominal pain. Clinical presentation is consistent with acute right pyelonephritis. Urine culture demonstrates E. coli susceptible to ceftriaxone. Continue IV ceftriaxone. Continue tylenol PRN fever and analgesics PRN pain. (3) Hypokalemia: Code(s): E87.6 - Hypokalemia Status: Acute Assessment and Plan: Possibly secondary to chronic diarrhea. Potassium was 2.7 at presentation to the ED and improved with replacement. Continue to monitor. Magnesium was also low replaced. Mag is normal today. (4) Crohn's colitis: Code(s): K50.10 - Crohn's disease of large intestine without complications Status: Chronic Assessment and Plan: She reported a hx of colectomy 04/16/2020 at [facility]. She is not on a maintenance regimen at this time. She does note chronic diarrhea but doesn't have any other acute complaints at this time. U records were requested and GI was consulted. Input is appreciated. GI has recommended she follow-up with GI at [facility] in September. (5) Anemia: Code(s): D64.9 - Anemia, unspecified Status: Chronic Assessment and Plan: She reports a hx of OSVALDO. Iron studies from 03/2020 were consistent with OSVALDO. She was seen by hematology and H&H were WNL at presentation. Mild decrease in H&H noted and likely dilutional. MCV normocytic. Continue to monitor closely. (6) Depression: Code(s): F32.9 - Major depressive disorder, single episode, unspecified Status: Chronic Assessment and Plan: Mood is stabe. Continue ziprasidone and duloxetine. (7) Alkaline phosphatase elevation: Code(s): R74.8 - Abnormal levels of other serum enzymes Status: Acute Assessment and Plan: Chronic. CT abd/pelvis demonstrated erosive change of the bilateral SI joints. Imaging findings and ALP elevation are concerning for underlying bone pathology/ankylosing spondylitis. ESR elevated at 69 and CRP elevated at 16.8. HLA-B27 was ordered and pending. Appreciate GI input. Fractionation of alkaline phosphatase was ordered to further delineate bone vs liver source. (8) Wheezing: Code(s): R06.2 - Wheezing Status: Acute Assessment and Plan: She has diffuse wheezes. CXR without acute abnormalities. She has 25 pack-year smoking hx. I have recommended she follow-up outpatient for formal pulmonary function testing if felt necessary by her PCP. Add albuterol PRN. She needs to stop smoking immediately and verbalized understanding. (9) Metabolic acidosis, NAG, bicarbonate losses: Code(s): E87.2 - Acidosis Status: Acute Assessment and Plan: Likely secondary to chronic diarrhea. Subjective Date/time seen: 07/14/20 09:30 Ms. Winston is a 49 y.o. female with PMH significant for Chron's colitis who is seen in follow-up for acute pyelonephritis. She feels better today. Appetite is good and she is not having any further nausea or vomiting. Her right upper abdominal and right flank pain have improved significantly. Dysuria is mild but much improved. She denies subjective fever and chills. Review of Systems Review of Systems: All systems reviewed & are unremarkable except as noted in HPI and below Exam Narrative: Exam Narrative: General: Pleasant, well-developed and well-
[2020-07-14 10:48] VITALS: PULSE 68; RESP 18
[2020-07-14] MEDS: ALBUTEROL SULFATE NEB 2.5 MG/0.5 ML INH INHALATION (10:48)
[2020-07-14 10:57] VITALS: PULSE 71; RESP 18
[2020-07-14 14:00] VITALS: BP 96/63; PULSE 78; RESP 18; TEMP 36.3; O2SAT 98
[2020-07-14 22:00] VITALS: BP 104/70; PULSE 81; RESP 18; TEMP 36.4; O2SAT 97
[2020-07-15] MEDS: KETOROLAC 15 MG/ML VIAL (*BKC) IV PUSH (00:28)
[2020-07-15] MEDS: SODIUM CHLORIDE 0.9% IV 1,000 ML 125 ML IV CONT (04:16)
[2020-07-15 05:39] LABS: Basophils Percent Auto 0.4 % (0.2-1.2); Eosinophils Absolute Auto 0.2 K/mm3 (0-0.3); Eosinophils Percent Auto 2.4 % (0-4.4); Hematocrit 30.1 % (37.0-47.0); Hemoglobin 9.5 g/dL (12.0-15.0); Immature Granulocyte Absolute 0.04 K/mm3 (0.00-0.031); Immature Granulocyte Percent A 0.5 % (0-0.5); Lymphocytes Absolute Auto 1.51 K/mm3 (0.9-3.2); Lymphocytes Percent Auto 17.8 % (18.3-44.2); Mean Corpuscular HGB Conc 31.6 g/dl (32-36); Mean Corpuscular Hemoglobin 28.1 pg (26-34); Mean Corpuscular Volume 89.1 fl (80-100); Mean Platelet Volume 9.6 fl (7.4-10.4); Monocytes Absolute Auto 0.7 K/mm3 (0.1-0.6); Monocytes Percent Auto 8.5 % (2.6-8.5); Neutrophils Percent Auto 70.4 % (45.5-73.1); Platelet Count Result 301 k/mm3 (150-375); Red Blood Count 3.38 M/mm3 (4.2-5.4); Red Cell Distribution Width 15.9 % (11.5-14.5); White Blood Count 8.5 K/mm3 (4.5-10.0)
[2020-07-15 05:58] LABS: Anion Gap 6 mmol/L (8-16); Blood Urea Nitrogen 4 mg/dL (7-17); Calcium 7.7 mg/dL (8.4-10.2); Carbon Dioxide 21 mmol/L (22-30); Chloride 110 mmol/L (98-107); Estimated Glomerular Filt Rate > 60; Glucose 94 mg/dL (65-105); Magnesium 1.6 mg/dL (1.6-2.3); Potassium 3.3 mmol/L (3.4-5.0); Sodium 137 mmol/L (137-145)
[2020-07-15 06:00] VITALS: BP 102/63; PULSE 76; RESP 16; TEMP 36.9; O2SAT 98
[2020-07-15] MEDS: DULoxetine HCL 30 MG CAPSULE.DR PO (07:43)
[2020-07-15] MEDS: POTASSIUM CHLORIDE 20 MEQ TABLET 40 MEQ PO (07:43)
[2020-07-15] MEDS: ziprasidone HCL 20 MG CAPSULE 40 MG PO (07:43)
--- NOTE | 2020-07-15 08:59 | PM.DS ---
DS: Admitting Diagnosis Admitting Diagnosis Admitting Diagnosis: sepsis,pyelonephritis DS: Discharge Diagnosis Discharge Diagnosis (1) Pyelonephritis: Code(s): N12 - Tubulo-interstitial nephritis, not specified as acute or chronic Status: Acute Assessment and Plan: Discharge Summary (Date of service 07/15/20): Mrs. Winston is a 49 y.o. female with PMH significant for Chron's disease s/p terminal ileum and right colon resection, anemia, anxiety, and depression who presented to the emergency department for the evaluation of right sided flank pain. UA was grossly abnormal and CT abd/pelvis demonstrated patchy diminished attenuation of the mid to upper right renal parenchyma. Urine culture demonstrated E. coli susceptible to ceftriaxone. Her symptoms improved significantly with antibiotic therapy and she was afebrile. She was tolerating PO intake well. She was discharged home on PO cefdinir. She was discharged in stable condition on the afternoon of 07/15/20. ALP was elevated. Dr. Gomez with GI was on board and ordered fractionation of ALP which showed elevated macrohepatic ALP with results available after the patient had already discharged. I called to notify her PCP's office of this finding and spoke with Dr. Lamb's nurse, David, at 4:44 PM 07/23/20. I asked her to notify Dr. Lamb of this finding. I provided my phone number so that he could call with any questions. She will need to follow-up with her PCP and GI for further evaluation given macrohepatic ALP isoenzyme can indicated metastatic carcinoma to the liver, hepatitis, cirrhosis, or other liver disease. HLA-B27 was also ordered given evidence of erosive change of the bilateral SI joints and could not be resulted given improper specimen. I discussed this with David as well and recommended they repeat this testing outpatient (2) Sepsis: Code(s): A41.9 - Sepsis, unspecified organism Status: Acute Assessment and Plan: Supported by tachycardia and leukocytosis. The source is likely acute pyelonephritis. Lactic acid was normal at 1.5. Blood cultures were obtained and revealed no growth. (3) Hypokalemia: Code(s): E87.6 - Hypokalemia Status: Resolved Assessment and Plan: Possibly secondary to chronic diarrhea. Potassium was 2.7 at presentation to the ED and improved with replacement. Magnesium was also low and replaced. Levels normalized. She was given orders for repeat labs. (4) Crohn's colitis: Code(s): K50.10 - Crohn's disease of large intestine without complications Status: Chronic Assessment and Plan: She reported a hx of colectomy 04/16/2020 at [facility]. She is not on a maintenance regimen. She noted chronic diarrhea but did not have any other acute complaints. GI was consulted and recommended she follow-up with GI at [facility] in September. (5) Anemia: Code(s): D64.9 - Anemia, unspecified Status: Chronic Assessment and Plan: She reports a hx of OSVALDO. Iron studies from 03/2020 were consistent with OSVALDO. She was seen by hematology and H&H were WNL at presentation. Mild decrease in H&H noted and likely dilutional. MCV normocytic. (6) Depression: Code(s): F32.9 - Major depressive disorder, single episode, unspecified Status: Chronic Assessment and Plan: Ziprasidone and duloxetine were continued. (7) Alkaline phosphatase elevation: Code(s): R74.8 - Abnormal levels of other serum enzymes Status: Acute Assessment and Plan: Chronic. CT abd/pelvis demonstrated erosive change of the bilateral SI joints. Imaging findings and ALP elevation are concerning for underlying bone pathology/ankylosing spondylitis. ESR elevated at 69 and CRP elevated at 16.8. HLA-B27 was ordered and pending. Fractionation of alkaline phosphatase was ordered by Dr. Gomez to further delineate bone vs liver source. At the time of this dictation, HLA-B27 could not be resulted
[2020-07-19 04:07] LABS: Alkaline Phosphatase 243 U/L (31-125); Macrohepatic Isoenzymes 23 % (<=0)
== END 2020-07-15 11:18 | disposition home health service (06) ==
LOC: ANHED 17:17 → ANH2MED 17:22
PROVIDERS: Internal Medicine Gastroenterology; Nurse Practitioner; Admitting Provider Hospitalist; Emergency Provider General Practice; PCP Internal Medicine; Visit Provider Physician Assistant
DX: A41.9 Sepsis, unspecified organism (principal); N12 Tubulo-interstitial nephritis, not specified as acute or chronic; E87.6 Hypokalemia; K50.10 Crohn's disease of large intestine without complications; D64.9 Anemia, unspecified; R74.8 Abnormal levels of other serum enzymes; E87.2 Acidosis; R06.2 Wheezing; F41.9 Anxiety disorder, unspecified; F32.9 Major depressive disorder, single episode, unspecified; F17.210 Nicotine dependence, cigarettes, uncomplicated; Z23 Encounter for immunization; Z90.49 Acquired absence of other specified parts of digestive tract
CPT/HCPCS: 36415; 51701; 71045; 74177; 80048; 80053; 81001; 81025; 83605; 83690; 83735; 84075; 84080; 84443; 85025; 85610; 85652; 85730; 86140; 86812; 87040; 87077; 87086; 87088; 87186; 90471; 90686; 93005; 94640; 96361; 96365; 96366; 96367; 96368; 96375; 96376; 99285; A9270; G0008; G0378; J0131; J0696; J1885; J2270; J2405; J3475; J3480; J7030; J7120; Q9967

== ENCOUNTER 2020-08-06 16:16 | Outpatient (CLI) | payer MEDICARE, MEDICAID, SELFPAY ==
--- NOTE | ~2020-08-06 | XR_ITS ---
EXAMINATION: XR hip BI 2V w AP pelvis, XR lumbar spine 2-3V DATE: 08/06/2020 17:12 INDICATION: Enteropathic arthropathy. TECHNIQUE: 1. Anteroposterior, lateral and cone-down lateral lumbosacral views of the lumbar spine were obtained . 2. Anteroposterior view of the pelvis and anteroposterior and frog-leg lateral views of the left hip and anteroposterior and frog-leg lateral views of the right hip and were obtained. COMPARISON: CT abdomen and pelvis dated 07/12/2020 FINDINGS: Lumbar spine: Negligible lumbar levocurvature. Sagittal alignment is normal.. Chronic T11 compression fracture with 20% anterior vertebral body height loss. Chronic Schmorl's node with surrounding sclerosis along the anterior inferior endplate of L1. Lumbar vertebral body heights are otherwise normal. Disc heights a re normal. Tiny endplate osteophytes at L3-L4 and L4-L5. Cholecystectomy clips at the right upper rich drant. Pelvis and bilateral hips: Bone alignment is normal. No fracture or suspected avascular necrosis. Bilateral hip joint spaces are normal. Relatively symmetric bilateral sacroiliitis with erosions along the articular cortices resul ting in mild widening of portions of the joint spaces and with underlying subarticular sclerosis whic h would be consistent with the provided history of enteropathic arthritis. Mild osteitis pubis. Right supra-acetabular bone island. IUD in expected position in the central pelvis. Loop of wire or suture projecting over the pubic symphysis located posterior to the rectum on prior CT. Heterotopic ossific ation in the subcutaneous fat at the anterior right thigh. IMPRESSION: 1. Chronic T11 compression fracture and chronic Schmorl's node along the inferior endplate of L1. 2. 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 Reviewed, dictated and finalized at location A. IMPRESSION: 1. Chronic T11 compression fracture and chronic Schmorl's node along the inferi or endplate of L1. 2. Symmetric bilateral sacroiliitis consistent with given history of enteropath ic arthritis.
--- NOTE | ~2020-08-06 | XR_ITS ---
EXAMINATION: HAND-FLACO ARTHRITIS 3+VIEWS DATE: 08/06/2020 17:12 INDICATION: Unspecified osteoarthritis at the hands. TECHNIQUE: Posteroanterior, lateral, and oblique views of the left and of the right hands as well as a ballcatchers view of both hands were obtained. COMPARISON: None. FINDINGS: Bone alignment is normal at both hands and wrists. No fracture. Mild polyarticular osteoarthritis ladan racterized by minimal joint space narrowing and small marginal osteophytes with typical distribution at the bilateral hands thickening at the triscaphe and first carpal metacarpal joints, multiple metac arpophalangeal joints with radial sided predominance and multiple interphalangeal joints with distal predominance. Single small well-defined lucency with thin sclerotic margins at the radial base of the right third proximal phalanx could represent either a chronic erosion or degenerative cystic change. No other lesions suspicious for erosions identified. Bone island at the head of the right third meta carpal. Soft tissues are unremarkable. IMPRESSION: 1. 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 2. Single lucent lesion at the base of the right third proximal phalanx most likely degenerative cyst ic change although differential includes chronic inflammatory erosion which could be seen in the sett ing of a crystalline arthropathy such as gout or calcium pyrophosphate deposition (CPPD) disease. Cou ld not absolutely exclude rheumatoid arthritis although this would be considered less likely. Reviewed, dictated and finalized at location A. IMPRESSION: 1. 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 2. Single lucent lesion at the base of the right third proximal phalanx most li amparo degenerative cystic change although differential includes chronic inflamma tory erosion which could be seen in the setting of a crystalline arthropathy gordon ch as gout or calcium pyrophosphate deposition (CPPD) disease. Could not absolu tely exclude rheumatoid arthritis although this would be considered less likely .
[2020-08-06 17:41] LABS: Hematocrit 40.6 % (37.0-47.0); Hemoglobin 13.2 g/dL (12.0-15.0); Mean Corpuscular HGB Conc 32.5 g/dl (32-36); Mean Corpuscular Hemoglobin 29.3 pg (26-34); Mean Corpuscular Volume 90.2 fl (80-100); Mean Platelet Volume 9.5 fl (7.4-10.4); Platelet Count Result 393 k/mm3 (150-375); Red Cell Distribution Width 16.8 % (11.5-14.5); White Blood Count 14.4 K/mm3 (4.5-10.0)
[2020-08-06 17:49] LABS: Alanine Aminotransferase 42 U/L (4-35); Alkaline Phosphatase 217 U/L (38-126); Anion Gap 10 mmol/L (8-16); Aspartate Amino Transferase 36 U/L (14-36); Bilirubin,Total 0.4 mg/dL (0.2-1.3); Blood Urea Nitrogen 16 mg/dL (7-17); CRP 3.5 mg/dL (<1.0); Calcium 9.4 mg/dL (8.4-10.2); Carbon Dioxide 26 mmol/L (22-30); Chloride 103 mmol/L (98-107); Creatine Kinase 22 U/L (30-135); Estimated Glomerular Filt Rate > 60; Glucose 92 mg/dL (65-105); Lactate Dehydrogenase 371 U/L (313-618); Potassium 3.7 mmol/L (3.4-5.0); Sodium 139 mmol/L (137-145)
[2020-08-06 18:01] LABS: Complement C3 117 mg/dL (88-165); Rheumatoid Factor < 8.6 IU/ML (<12)
[2020-08-06 18:15] LABS: Erythrocyte Sedimentation Rate 25 mm/hr (0-20)
[2020-08-10 09:55] LABS: ANA Cascade Screen Negative (Negative)
[2020-08-10 22:37] LABS: Anti Cyclic Citrullinated Pept <16 Units (<20)
[2020-08-11 12:33] LABS: Aldolase 7.6 U/L (<=8.1)
== END 2020-08-06 16:17 | disposition home or self-care (01) ==
PROVIDERS: PCP Internal Medicine; Visit Provider Internal Medicine
DX: M48.54XA Collapsed vertebra, not elsewhere classified, thoracic region, initial encounter for fracture (principal); M51.46 Schmorl's nodes, lumbar region; M19.042 Primary osteoarthritis, left hand; M19.041 Primary osteoarthritis, right hand; M89.9 Disorder of bone, unspecified; M07.60 Enteropathic arthropathies, unspecified site; K50.90 Crohn's disease, unspecified, without complications; R74.8 Abnormal levels of other serum enzymes; M79.7 Fibromyalgia
CPT/HCPCS: 36415; 72100; 73130; 73521; 80053; 82085; 82550; 83615; 85027; 85652; 86038; 86140; 86160; 86200; 86430

== ENCOUNTER 2020-09-24 07:38 | Outpatient (CLI) | payer MEDICARE, MEDICAID, SELFPAY ==
--- NOTE | ~2020-09-24 | DEXA_ITS ---
Bone Density Report Name: Anne Winston Age: 50 Sex: Female Ethnicity: White Date of : 1970 Indication: postmenopausal; height loss; prior fracture; Referring Provider: Toyin Lei Study: Bone densitometry was performed. Exam Date: September 24, 2020 Accession number: [id number] Bone Density: Region BMD T-score Z-score Classification AP Spine (L1-L4) 0.922 -1.1 -0.4 Osteopenia Femoral Neck (Left) 0.796 -0.5 0.3 Normal Total Hip (Left) 1.027 0.7 1.2 Normal Total Hip Bilateral Avg 1.024 0.7 1.2 Normal Femoral Neck (Right) 0.866 0.2 0.9 Normal Total Hip (Right) 1.019 0.6 1.1 Normal World Health Organization criteria for BMD impression classify patients as: Normal (T-score at or above -1.0), Osteopenia (T-score between -1.0 and -2.5), or Osteoporosis (T-score at or below -2.5). 10-year Fracture Risk: FRAX not reported because: Prior hip or vertebral fracture Previous Exams: Region Exam Age BMD T-score BMD Change BMD Change Date g/cm2 vs Baseline vs Previous AP Spine(L1-L4) 09/24/2020 50 0.922 -1.1 -0.008(-0.9%)# -0.054(-5.5%)# 01/06/2012 41 0.976 -0.6 0.046(4.9%)# -0.010(-1.0%)# 06/26/2008 37 0.987 -0.5 0.056(6.0%)* 0.056(6.0%)* 12/03/2005 35 0.931 -1.1 Total Hip(Left) 09/24/2020 50 1.027 0.7 -0.076(-6.9%)# -0.112(-9.9%)# 01/06/2012 41 1.140 1.6 0.036(3.3%)# -0.007(-0.6%)# 06/26/2008 37 1.147 1.7 0.043(3.9%)* 0.043(3.9%)* 12/03/2005 35 1.103 1.3 Total Hip(Right) 09/24/2020 50 1.019 0.6 -0.059(-5.5%)# -0.119(-10.5%) 01/06/2012 41 1.138 1.6 0.060(5.6%)# -0.003(-0.3%)# 06/26/2008 37 1.142 1.6 0.064(5.9%)* 0.064(5.9%)* 12/03/2005 35 1.078 1.1 *Denotes significance at 95% confidence level, LSC for AP Spine = 0.022 g/cm2, LSC for Total Hip = 0.027 g/cm2 Clinical Information Provided by Patient: Have had a previous hip or vertebral fracture Has had a low trauma fracture Smokes Patient maximum height was 60 Menopause Age: 30 No regular weight bearing exercise Does not regularly consume dairy products Drinks caffeinated beverages Onset of menses at age 12 Number of children 1 Impression: The patient has low bone mass, based on the Total Spine T-score. The patient has risk factors, including: smoking, previous fracture. No significant bone loss was observed. Discussion: INCREASED RISK OF FRACTURE DUE TO HISTORY OF FRACTURE. The patient'
== END 2020-09-24 07:39 | disposition home or self-care (01) ==
PROVIDERS: PCP Internal Medicine; Visit Provider Nurse Practitioner Adult Health
DX: Z78.0 Asymptomatic menopausal state (principal); M85.88 Other specified disorders of bone density and structure, other site
CPT/HCPCS: 77080

== ENCOUNTER 2020-10-11 15:53 | Emergency (ER) | payer MEDICARE, MEDICAID, SELFPAY ==
--- NOTE | ~2020-10-11 | XR_ITS ---
EXAMINATION: XR ribs LT 2V INDICATION: Left chest pain after fall TECHNIQUE: 3 views of the left ribs were obtained. COMPARISON: None. FINDINGS: There are acute fractures of the left fifth through seventh ribs. There is mild chronic ate lectasis of the left lung base. No pleural effusion or pneumothorax is identified. The cardiomediasti nal silhouette is normal. Mild osteoarthritis is noted in the left shoulder. Surgical clips in the ri [facility] upper quadrant are likely from prior cholecystectomy. IMPRESSION: 1. Acute fractures of the left fifth through seventh ribs. Reviewed, dictated and finalized at location A. EL SLAGMAN
--- NOTE | ~2020-10-11 | XR_ITS ---
EXAMINATION: XR lumbar spine 2-3V DATE: 10/11/2020 17:00 INDICATION: Low back pain TECHNIQUE: Anteroposterior and lateral views of the lumbar spine, and cone-down lateral view of the l umbosacral junction were obtained. COMPARISON: 08/06/2020 FINDINGS: There is no fracture, dislocation, or subluxation in the lumbar spine. A chronic T11 compre ssion fracture is unchanged. The lumbar vertebral body heights are maintained. A chronic Schmorl node is noted along the inferior endplate of L1. Surgical clips in the right upper quadrant are likely fr om prior cholecystectomy. Bilateral sacroiliitis is again seen, consistent with history of enteropath ic arthritis. An IUD is noted. IMPRESSION: 1. No acute osseous abnormality. Reviewed, dictated and finalized at location A. FRAME TENDER
[2020-10-11 15:58] VITALS: BP 107/89; PULSE 83; RESP 20; TEMP 36.3; O2SAT 99
--- NOTE | 2020-10-11 16:25 | ED.GENADULT ---
HPI - General Adult General Chief complaint: Back Pain/Injury Stated complaint: back pain Time Seen by Provider: 10/11/20 16:06 Source: patient Mode of arrival: ambulatory Limitations: no limitations History of Present Illness HPI narrative: Patient is here for evaluation and treatment of pain after a fall in her bathtub 3 days ago. States that she fell sideways and hit her left ribs and lower back. She is been taking Tylenol for pain. She has complex medical history and takes Cymbalta and gabapentin for pain as well. She denies any bowel or bladder dysfunction. She has not called her physician about this pain. Onset (ago): day(s) Location: chest (left ribs) Severity: severe Quality: sharp Pain Consistency: constant Relieving factors: none Exacerbating factors: movement Treatments prior to arrival: NSAID Related Data Home Medications Medication Instructions Recorded Confirmed ziprasidone HCl [Geodon] 40 mg PO BID 07/12/20 07/12/20 acetaminophen 500 mg tablet 500 mg PO Q6H PRN 08/21/20 diphenoxylate-atropine 2.5 1 tablet PO TID 08/21/20 mg-0.025 mg tablet docusate sodium 100 mg capsule 100 mg PO DAILY 08/21/20 duloxetine 60 mg capsule,delayed 60 mg PO DAILY 08/21/20 release ferrous sulfate 325 mg (65 mg 325 mg PO BID 08/21/20 iron) tablet hydroxyzine HCl 50 mg tablet 50 mg PO BID 08/21/20 mecobalamin (vitamin B12) 1,000 1,000 mcg PO DAILY 08/21/20 mcg chewable tablet topiramate 25 mg sprinkle capsule 25 mg PO BID 08/21/20 vedolizumab 300 mg intravenous 300 mg IV ONCE 08/21/20 solution zolpidem 10 mg tablet 10 mg PO ONCE 08/21/20 Allergies Allergy/AdvReac Type Severity Reaction Status Date / Time infliximab Allergy Severe Anaphylactic Verified 07/12/20 14:14 Shock Review of Systems Review of Systems: All systems reviewed & are unremarkable except as noted in HPI and below PMFSH Past Medical History Medical History (Updated 10/11/20 @ 17:21 by Lisa Christina PA-C) Anemia iron deficiency anemia Anxiety Arthritis Colostomy in place Crohn's colitis chronic diarrhea Crohn's related arthritis (~1984) Depression Elevated CK-MB level IBS (irritable bowel syndrome) Migraine Surgical History Surgical History H/O hernia repair History of colectomy on the right History of colostomy reversal Hx of cholecystectomy Family History Family History Daughter Accidental Social History Social History Social History: she is disabled and lives with her boyfriend. She had 1 daughter who due to an accidental at the age of 17. She is single. She is on disability. She occasionally uses marijuana maybe 1 to 2 times a month. She smokes half pack a cigarettes a day. She occasionally drinks alcoholic beverages 2 to 3 times a month. She desires to be a full code and does not have power state attorney. Smoking packs per day: 0.5 Smoking cigarettes per day: 10.0 Years smoked: 25 Smoking pack-years: 12.50 Tobacco type: cigarettes Alcohol intake: never Substance use: current Substance use type: marijuana Gender identity (if verbalized by the patient): Female Spiritual care concerns: No Exam Const: General: alert Orientation/consciousness: patient oriented x3 Other: appears in pain HENMT: Head: normal to inspection Eyes: Pupils: Equal, round and reactive pupils present Resp: Effort & Inspection: normal respiratory effort Auscultation: clear to auscultation bilaterally Cardio: Rate: regular rate Rhythm: regular rhythm GI: GI Palp: Yes Soft to palpation Skin: General skin exam: normal color Other: no bruising Neuro: Other: strenght is good, and equal in both lower extremities. Able to stand without assistance. Extrem: General: normal to inspection Course Course Em
[2020-10-11] MEDS: KETOROLAC (*BKC) 60 MG/2 ML VIAL IM (17:20)
== END 2020-10-11 17:30 | disposition home or self-care (01) ==
PROVIDERS: Emergency Provider Emergency Medicine; PCP Internal Medicine
DX: S22.42XA Multiple fractures of ribs, left side, initial encounter for closed fracture (principal); D50.9 Iron deficiency anemia, unspecified; M19.90 Unspecified osteoarthritis, unspecified site; Z93.3 Colostomy status; K50.90 Crohn's disease, unspecified, without complications; F32.9 Major depressive disorder, single episode, unspecified; F41.9 Anxiety disorder, unspecified; F17.210 Nicotine dependence, cigarettes, uncomplicated; W18.2XXA Fall in (into) shower or empty bathtub, initial encounter
CPT/HCPCS: 71100; 72100; 96372; 99284; J1885

== ENCOUNTER 2022-01-09 08:49 | Outpatient (CLI) | payer MEDICARE, MEDICAID, SELFPAY ==
[2022-01-09 09:29] LABS: Basophils Percent Auto 0.4 % (0.2-1.2); Eosinophils Absolute Auto 0.2 K/mm3 (0-0.3); Eosinophils Percent Auto 2.5 % (0-4.4); Hematocrit 43.3 % (37.0-47.0); Hemoglobin 13.8 g/dL (12.0-15.0); Immature Granulocyte Absolute 0.03 K/mm3 (0.00-0.031); Immature Granulocyte Percent A 0.4 % (0-0.5); Lymphocytes Absolute Auto 1.35 K/mm3 (0.9-3.2); Lymphocytes Percent Auto 15.8 % (18.3-44.2); Mean Corpuscular HGB Conc 31.9 g/dl (32-36); Mean Corpuscular Hemoglobin 27.7 pg (26-34); Mean Corpuscular Volume 86.8 fl (80-100); Mean Platelet Volume 9.7 fl (7.4-10.4); Monocytes Absolute Auto 0.7 K/mm3 (0.1-0.6); Monocytes Percent Auto 8.3 % (2.6-8.5); Neutrophils Absolute Auto 6.2 K/mm3 (1.3-6.7); Neutrophils Percent Auto 72.6 % (45.5-73.1); Platelet Count Result 314 k/mm3 (150-375); Red Blood Count 4.99 M/mm3 (4.2-5.4); Red Cell Distribution Width 15.9 % (11.5-14.5); White Blood Count 8.5 K/mm3 (4.5-10.0)
[2022-01-09 09:33] LABS: Blood Urea Nitrogen 26 mg/dL (8-26); Carbon Dioxide 27 mmol/L (22-30); Chloride 99 mmol/L (98-109); Estimated Glomerular Filt Rate > 60; Glucose 94 mg/dL (70-105); Potassium 3.5 mmol/L (3.5-4.9); Sodium 141 mmol/L (138-146)
[2022-01-09 11:50] LABS: Alanine Aminotransferase 33 U/L (4-35); Albumin Level 4.2 g/dL (3.5-5.1); Alkaline Phosphatase 190 U/L (38-126); Anion Gap 9 mmol/L (8-16); Aspartate Amino Transferase 42 U/L (14-36); Bilirubin,Total 0.4 mg/dL (0.2-1.3); Blood Urea Nitrogen 26 mg/dL (7-17); Calcium 9.2 mg/dL (8.4-10.2); Carbon Dioxide 29 mmol/L (22-30); Chloride 101 mmol/L (98-107); Estimated Glomerular Filt Rate > 60; Glucose 94 mg/dL (65-110); Potassium 3.5 mmol/L (3.4-5.0); Sodium 139 mmol/L (137-145)
== END 2022-01-09 08:50 | disposition home or self-care (01) ==
LOC: ANHLAB 09:13
PROVIDERS: PCP Internal Medicine; Visit Provider Internal Medicine Hematology & Oncology
DX: D50.8 Other iron deficiency anemias (principal)
CPT/HCPCS: 36415; 80053; 85025

== ENCOUNTER 2022-08-18 12:41 | Inpatient (IN) | payer MEDICARE, MEDICAID, SELFPAY ==
--- NOTE | ~2022-08-18 | CT_ITS ---
EXAMINATION: CT abdomen pelvis wo con DATE: 08/26/2022 09:51 INDICATION: Abdomen pain. Worsening nausea. TECHNIQUE: Computed tomography (CT) of the abdomen and pelvis was performed without intravenous contr ast. The dose-length product was 334.49 mGy-cm. Automated exposure control and iterative reconstructi on technique were employed. COMPARISON: CT dated 08/18/2022. FINDINGS: Lung bases are unremarkable. Heart size is normal. No significant pleural or pericardial ef fusion. No significant vascular abnormality. There is nodular appearance to the liver surface, suspic ious for cirrhosis. There are cholecystectomy clips. The spleen, pancreas, adrenal glands and left ki dney are unremarkable. There is nonobstructing right nephrolithiasis. There is mild dilation of the r ight renal pelvis without significant dilation of the ureter. Cannot exclude UPJ obstruction. There i s an IUD in the uterus. There are a few scattered air-fluid levels in the small bowel and colon, poss ibly ileus. No definite obstruction. There is mild retroperitoneal lymphadenopathy, likely reactive. No free air or free fluid. There are coarse dystrophic calcifications in the perianal location. There are small left perianal fistula. There is erosive changes along the sacroiliac joints, consistent wi th sacroiliitis. Mild chronic wedge compression deformity of T11. IMPRESSION: 1. Abnormal perianal soft tissue extending to the skin surface containing dystrophic calcifications a nd at least one perianal fistula. 2: Nonobstructing right nephrolithiasis with possible UPJ obstruction. 3: Cirrhosis of the liver. Reviewed, dictated and finalized at location B. IMPRESSION: 1. Abnormal perianal soft tissue extending to the skin surface containing dystr ophic calcifications and at least one perianal fistula. 2: Nonobstructing right nephrolithiasis with possible UPJ obstruction. 3: Cirrhosis of the liver.
--- NOTE | ~2022-08-18 | CT_ITS ---
EXAMINATION: CT abdomen pelvis w con DATE: 08/18/2022 15:06 INDICATION: Abdominal pain. TECHNIQUE: Computed tomography (CT) of the abdomen and pelvis was performed with 100 mL Omnipaque 350 intravenous contrast. Automated exposure control and iterative reconstruction technique were employe d. The dose-length product was 342.09 mGy-cm. COMPARISON: CT abdomen and pelvis 07/12/2020 FINDINGS: The visualized portions of the lung bases demonstrate mild atelectasis. No pleural effusion . The heart size is normal. No pericardial effusion. The liver demonstrates surface nodularity, consi stent with cirrhosis. There are changes of cholecystectomy. The spleen, pancreas, adrenal glands, and left kidney are normal. There is cortical thinning of right kidney. There is a 3.2 cm cyst in right kidney. There is an intrauterine device in expected position. There is diverticulosis of the colon wi thout evidence of diverticulitis. There is intermittent wall thickening of the descending colon. Ther e are changes of right hemicolectomy. There is mild retroperitoneal lymphadenopathy, likely reactive. There are multiple perianal fistulas. Some of the fistulas have loops of radiopaque material that ma y be for drainage. 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 There is a chronic burst fracture of T11. There is mild lumbar spondylosis. IMPRESSION: 1. Multiple perianal fistulas. Some of the fistulas have loops of radiopaque material that may be for drainage. 2. Intermittent wall thickening of the descending colon, consistent with Crohn disease. 3. Cirrhosis of the liver. Reviewed, dictated and finalized at location B. IMPRESSION: 1. Multiple perianal fistulas. Some of the fistulas have loops of radiopaque ma terial that may be for drainage. 2. Intermittent wall thickening of the descending colon, consistent with Crohn disease. 3. Cirrhosis of the liver.
--- NOTE | ~2022-08-18 | XR_ITS ---
XR chest 2V 08/28/2022 09:46 Indication: Shortness of breath. History of smoking. Procedure: PA and lateral views the chest Comparison: Comparison to multiple prior studies sequentially, with oldest reviewed study dated 08/02. Findings: There is a new masslike density overlying the left mid thorax, suspicious for bronchogenic carcinoma. Recommend correlation with CT. There is right upper lobe atelectasis/scarring. No pleural effusion or pneumothorax. There are multiple wedge deformities of the thoracic spine, likely chronic. Accentuated kyphosis. Impression: 1: New masslike density left upper thorax, concerning for bronchogenic carcinoma. Correlation with CT recommended. Reviewed, dictated and finalized at location B. Impression: 1: New masslike density left upper thorax, concerning for bronchogenic carcinom a. Correlation with CT recommended.
--- NOTE | ~2022-08-18 | CT_ITS ---
EXAMINATION: CT brain wo con DATE: 08/28/2022 09:50 INDICATION: Hyponatremia TECHNIQUE: Computed tomography (CT) of the head was performed without intravenous contrast. The dose- length product was 605.33 mGy-cm. Automated exposure control and iterative reconstruction technique w ere employed. COMPARISON: CT dated 07/01/2011 FINDINGS: Normal brain parenchymal volume. There are scattered mild periventricular and subcortical w mahin matter changes, most likely related to small vessel ischemic disease (microangiopathy). No ventr iculomegaly or midline shift. Basilar cisterns are patent. Normal mohan-white differentiation. No acut e hemorrhage, infarction, mass or mass effect. There is mild mucosal thickening of the left maxillary sinus. No depressed skull fractures. Mastoids are pneumatized. IMPRESSION: 1. No acute intracranial abnormality. 2: Mild chronic age-related findings. Reviewed, dictated and finalized at location B.
[2022-08-18 12:58] VITALS: BP 103/72; PULSE 76; RESP 18; TEMP 36.8; O2SAT 95
[2022-08-18 13:21] LABS: Basophils Absolute Auto 0.1 K/mm3 (0.0-0.1); Basophils Percent Auto 0.7 % (0.2-1.2); Eosinophils Absolute Auto 0.2 K/mm3 (0-0.3); Eosinophils Percent Auto 2.9 % (0-4.4); Hematocrit 41.2 % (37.0-47.0); Hemoglobin 13.7 g/dL (12.0-15.0); Immature Granulocyte Absolute 0.04 K/mm3 (0.00-0.031); Immature Granulocyte Percent A 0.5 % (0-0.5); Lymphocytes Absolute Auto 1.48 K/mm3 (0.9-3.2); Lymphocytes Percent Auto 19.4 % (18.3-44.2); Mean Corpuscular HGB Conc 33.3 g/dl (32-36); Mean Corpuscular Hemoglobin 30.4 pg (26-34); Mean Corpuscular Volume 91.6 fl (80-100); Mean Platelet Volume 8.7 fl (7.4-10.4); Monocytes Absolute Auto 0.7 K/mm3 (0.1-0.6); Monocytes Percent Auto 8.5 % (2.6-8.5); Neutrophils Absolute Auto 5.2 K/mm3 (1.3-6.7); Platelet Count Result 422 k/mm3 (150-375); Red Cell Distribution Width 14.4 % (11.5-14.5); White Blood Count 7.6 K/mm3 (4.5-10.0)
[2022-08-18 13:30] LABS: Alanine Aminotransferase 26 U/L (6-35); Albumin Level 3.9 g/dL (3.5-5.1); Alkaline Phosphatase 197 U/L (38-126); Anion Gap 13 mmol/L (8-16); Aspartate Amino Transferase 29 U/L (14-36); Bilirubin,Total 0.4 mg/dL (0.2-1.3); Blood Urea Nitrogen 30 mg/dL (7-17); Calcium 9.2 mg/dL (8.4-10.2); Carbon Dioxide 24 mmol/L (22-30); Chloride 104 mmol/L (98-107); Estimated Glomerular Filt Rate > 60; Glucose 131 mg/dL (65-110); Lipase 66 U/L (23-300); Potassium 3.8 mmol/L (3.4-5.0); Sodium 141 mmol/L (137-145)
[2022-08-18 13:48] LABS: Appearance Urine Slightly Cloudy (Clear); Bilirubin Urine Negative (Negative); Blood Urine Negative (Negative); Color Urine Yellow (Yellow); Glucose Urine UA Negative (Negative); Ketones Urine Trace mg/dL (Negative); Leukocyte Esterase Ur 1+ LEU/UL (Negative); Nitrate Urine Negative (Negative); Protein Urine Negative (Negative); Urobilinogen Urine 0.2 mg/dL (<2.0); pH Urine 5.5 (5.0-9.0)
[2022-08-18 13:57] LABS: Mucus Urine Rare /lpf; Squamous Epithelial Cell Urine Many /hpf (Few)
[2022-08-18 13:58] LABS: Add Urine Microscopic? YES
[2022-08-18 15:26] LABS: INR 1.4; Partial Thromboplastin Time 35.6 SECONDS (22.3-36.8); Prothrombin Time 16.7 Seconds (11.1-14.7)
--- NOTE | 2022-08-18 15:35 | ED.ABDPAIN ---
HPI - Abdominal Pain General Chief Complaint: Abdominal Pain Stated Complaint: left side pain, bright red blood in stool Time Seen by Provider: 08/18/22 14:47 Source: patient Mode of arrival: ambulatory Limitations: no limitations History of Present Illness HPI narrative: This is a 52 year old female that presents to the ER for bloody diarrhea noted since yesterday. Reports left side pain. Denies fever, vomiting, or dysuria. Related Data Home Medications Medication Instructions Recorded Confirmed duloxetine 60 mg capsule,delayed 60 mg PO DAILY 08/21/20 04/15/22 release ferrous sulfate 325 mg (65 mg 325 mg PO BID 08/21/20 04/15/22 iron) tablet (Feosol) hydroxyzine HCl 50 mg tablet 50 mg PO BID 08/21/20 04/15/22 zolpidem 10 mg tablet (Ambien) 10 mg PO ONCE 08/21/20 04/15/22 bupropion HCl 300 mg 24 hr tablet, 300 mg PO QAM 04/07/22 04/15/22 extended release celecoxib 100 mg capsule 100 mg PO BID 04/07/22 04/15/22 dicyclomine 10 mg capsule 10 mg PO BID PRN Diarrhea 04/07/22 04/15/22 gabapentin 300 mg capsule 300 mg PO TID 04/07/22 04/15/22 naltrexone 50 mg tablet 50 mg PO DAILY 04/07/22 04/15/22 tizanidine 4 mg tablet 4 mg PO BID PRN Muscle Spasm 04/07/22 04/15/22 topiramate 50 mg tablet 50 mg PO BID 04/07/22 04/15/22 trazodone 50 mg tablet 50 mg PO HS 04/07/22 04/15/22 vedolizumab 300 mg intravenous 300 mg IV MONTHLY 04/07/22 04/15/22 solution (Entyvio) ziprasidone HCl 60 mg capsule 60 mg PO DAILY 04/07/22 04/15/22 ziprasidone HCl 80 mg capsule 80 mg PO HS 04/07/22 04/15/22 Allergies Allergy/AdvReac Type Severity Reaction Status Date / Time infliximab Allergy Severe Anaphylactic Verified 04/07/22 12:10 Shock Review of Systems Review of Systems: CONSTITUTIONAL: Denies fever GASTROINTESTINAL: Reports abdominal pain, nausea, and diarrhea. Denies vomiting GENITOURINARY: Denies dysuria or hematuria. All systems reviewed & are unremarkable except as noted in HPI and below PMFSH Past Medical History Medical History (Updated 08/18/22 @ 18:18 by Shwetha Major PA-C) Anemia iron deficiency anemia Anxiety Arthritis Colostomy in place Crohn's colitis chronic diarrhea Crohn's related arthritis (~1984) Depression Elevated CK-MB level IBS (irritable bowel syndrome) Migraine Surgical History Surgical History H/O hernia repair History of colectomy on the right History of colostomy reversal Hx of cholecystectomy Family History Family History Daughter Accidental Social History Social History (Updated 08/18/22 @ 15:37 by Shwetha Major PA-C) Social History: she is disabled and lives with her boyfriend. She had 1 daughter who due to an accidental at the age of 17. She is single. She is on disability. She occasionally uses marijuana maybe 1 to 2 times a month. She smokes half pack a cigarettes a day. She occasionally drinks alcoholic beverages 2 to 3 times a month. She desires to be a full code and does not have power ip technology transactions attorney. Smoking packs per day: 0.5 Smoking cigarettes per day: 10.0 Years smoked: 30 Smoking pack-years: 15.00 Smoking status: Former smoker Tobacco type: cigarettes Alcohol intake: never Substance use: current Substance use type: marijuana Gender identity (if verbalized by the patient): Female Spiritual care concerns: No Exam Narrative: GENERAL: Well-appearing, well-nourished, and in no acute distress. HEAD: Normocephalic, atraumatic. EYES: EOMI. CHEST: Clear to auscultation. No respiratory distress. No wheezes rales or rhonchi HEART: Regular rate and rhythm. No murmur heard. Normal peripheral pulses. ABDOMEN: Soft, nondistended, normal active bowel sounds. Tender to palpation throughout the left side of the abdomen, without guarding EXTREMITIES: Normal range of motion. No edema. SKIN: Warm, dry, no rash. NEURO: No f
[2022-08-18] MEDS: SODIUM CHLORIDE 0.9% IV 500 ML 999 ML IV CONT (15:46)
[2022-08-18] MEDS: ONDANSETRON INJ 4 MG/2 ML VIAL IV PUSH ×2 (15:55→21:23)
[2022-08-18] MEDS: MORPHINE SULFATE (*CRX) 2 MG/ML INJ IV PUSH (15:55)
[2022-08-18 16:49] VITALS: BP 102/62; PULSE 62; RESP 18; O2SAT 99
[2022-08-18] MEDS: SODIUM CHLORIDE 0.9% IV 1,000 ML 999 ML IV CONT (17:19)
[2022-08-18] MEDS: DICYCLOMINE HCL INJ 20 MG/2 ML VIAL IM (17:22)
[2022-08-18 19:13] LABS: SARS-CoV-2 RNA PCR Negative
[2022-08-18 19:25] LABS: Hemoglobin 12.9 g/dL (12.0-15.0)
[2022-08-18 20:30] VITALS: BMI 30.2
--- NOTE | 2022-08-18 20:30 | PM.IMHP ---
H&P: HPI History of Present Illness Date/Time: 08/18/222029 Chief Complaint: Left sided pain, melana Narrative: Patient is a 52-year-old female with a past medical history of Crohn's disease, and anemia, depression who presented to the ED with complaints of bloody diarrhea since yesterday. patient stated that for a few hours she was having nothing but bloody diarrhea. She did state that she was able to go to bed last night and got up this morning she was having more maroon diarrhea however she is having severe pain of the abdomen. She has not had any nausea or vomiting. She also has anemia and couple days due to the fact that she did know what was going on with her. She also claims she had a scope about 3-4 weeks ago. She currently rates her pain a 10/10 states that she can not jump out the window to make herself feel better. Currently her H&H is stable she denies any kind of chest pain, shortness a breath. She did state that she is very weak and just does not have any energy. She also denies any headaches however she is having lightheadedness and dizziness. She denies any abnormal swelling of her bilateral lower extremities. She is currently stable at this time. GI has been consulted CT does show consistency with Crohn's disease. Patient is being admitted to the hospitalist service under observation Review of Systems Review of Systems: All systems reviewed & are unremarkable except as noted in HPI and below PMFSH Past Medical History Medical History Anemia iron deficiency anemia Anxiety Arthritis Colostomy in place Crohn's colitis chronic diarrhea Crohn's related arthritis (~1984) Depression Elevated CK-MB level IBS (irritable bowel syndrome) Migraine Surgical History Surgical History H/O hernia repair History of colectomy on the right History of colostomy reversal Hx of cholecystectomy Family History Family History Daughter Accidental Social History Social History Social History: she is disabled and lives with her boyfriend. She had 1 daughter who due to an accidental at the age of 17. She is single. She is on disability. She occasionally uses marijuana maybe 1 to 2 times a month. She smokes half pack a cigarettes a day. She occasionally drinks alcoholic beverages 2 to 3 times a month. She desires to be a full code and does not have power health care attorney. Smoking packs per day: 0.5 Smoking cigarettes per day: 10.0 Years smoked: 30 Smoking pack-years: 15.00 Smoking status: Former smoker Tobacco type: cigarettes Alcohol intake: never Substance use: current Substance use type: marijuana Gender identity (if verbalized by the patient): Female Spiritual care concerns: No Meds Home Medications and Allergies Home Medications Medication Instructions Recorded Confirmed Type duloxetine 60 mg capsule,delayed 60 mg PO DAILY 08/21/20 04/15/22 History release ferrous sulfate 325 mg (65 mg 325 mg PO BID 08/21/20 04/15/22 History iron) tablet (Feosol) hydroxyzine HCl 50 mg tablet 50 mg PO BID 08/21/20 04/15/22 History zolpidem 10 mg tablet (Ambien) 10 mg PO ONCE 08/21/20 04/15/22 History bupropion HCl 300 mg 24 hr tablet, 300 mg PO QAM 04/07/22 04/15/22 History extended release celecoxib 100 mg capsule 100 mg PO BID 04/07/22 04/15/22 History dicyclomine 10 mg capsule 10 mg PO BID PRN Diarrhea 04/07/22 04/15/22 History gabapentin 300 mg capsule 300 mg PO TID 04/07/22 04/15/22 History naltrexone 50 mg tablet 50 mg PO DAILY 04/07/22 04/15/22 History tizanidine 4 mg tablet 4 mg PO BID PRN Muscle Spasm 04/07/22 04/15/22 History topiramate 50 mg tablet 50 mg PO BID 04/07/22 04/15/22 History trazodone 50 mg tablet 50 mg PO HS 04/07/22 04/15/22 H
[2022-08-18] MEDS: HYDROmorphone HCL INJ (*CRX) 1 MG/ML SYR IV PUSH (21:23)
[2022-08-18] MEDS: PANTOPRAZOLE SODIUM IV 40 MG VIAL IV PUSH (21:27)
[2022-08-18 21:28] VITALS: BP 101/73; PULSE 78; RESP 19; TEMP 36.6; O2SAT 100
[2022-08-18] MEDS: SODIUM CHLORIDE 0.9% IV 1,000 ML 125 ML IV CONT (21:30)
[2022-08-19] VITALS (10 sets, daily range): BP systolic 88–140; BP diastolic 67–80; PULSE 74–90; RESP 15–18; TEMP 35.8–36.7; O2SAT 96–98
[2022-08-19] MEDS: HYDROmorphone HCL INJ (*CRX) 1 MG/ML SYR IV PUSH ×3 (00:56→11:30)
[2022-08-19 01:30] LABS: Hematocrit 35.1 % (37.0-47.0)
[2022-08-19] MEDS: SODIUM CHLORIDE 0.9% IV 1,000 ML 125 ML IV CONT ×3 (05:37→21:34)
[2022-08-19 06:14] LABS: Basophils Absolute Auto 0.1 K/mm3 (0.0-0.1); Basophils Percent Auto 0.7 % (0.2-1.2); Eosinophils Absolute Auto 0.3 K/mm3 (0-0.3); Eosinophils Percent Auto 3.6 % (0-4.4); Hematocrit 34.3 % (37.0-47.0); Hemoglobin 11.7 g/dL (12.0-15.0); Immature Granulocyte Absolute 0.04 K/mm3 (0.00-0.031); Immature Granulocyte Percent A 0.5 % (0-0.5); Lymphocytes Absolute Auto 2.17 K/mm3 (0.9-3.2); Lymphocytes Percent Auto 25.9 % (18.3-44.2); Mean Corpuscular HGB Conc 34.1 g/dl (32-36); Mean Corpuscular Hemoglobin 30.5 pg (26-34); Mean Corpuscular Volume 89.6 fl (80-100); Mean Platelet Volume 8.6 fl (7.4-10.4); Monocytes Absolute Auto 0.7 K/mm3 (0.1-0.6); Monocytes Percent Auto 8.5 % (2.6-8.5); Neutrophils Absolute Auto 5.1 K/mm3 (1.3-6.7); Neutrophils Percent Auto 60.8 % (45.5-73.1); Platelet Count Result 336 k/mm3 (150-375); Red Blood Count 3.83 M/mm3 (4.2-5.4); White Blood Count 8.4 K/mm3 (4.5-10.0)
[2022-08-19 06:33] LABS: Alanine Aminotransferase 24 U/L (6-35); Albumin Level 3.3 g/dL (3.5-5.1); Alkaline Phosphatase 180 U/L (38-126); Anion Gap 11 mmol/L (8-16); Aspartate Amino Transferase 25 U/L (14-36); Bilirubin,Total 0.2 mg/dL (0.2-1.3); Blood Urea Nitrogen 19 mg/dL (7-17); Calcium 8.2 mg/dL (8.4-10.2); Carbon Dioxide 18 mmol/L (22-30); Chloride 110 mmol/L (98-107); Estimated Glomerular Filt Rate > 60; Glucose 92 mg/dL (65-110); Magnesium 1.5 mg/dL (1.6-2.3); Potassium 3.9 mmol/L (3.4-5.0); Sodium 139 mmol/L (137-145)
[2022-08-19 07:21] LABS: Iron 102 ug/dL (37-170)
[2022-08-19 07:34] LABS: Percent Iron Saturation 45 % (20-50)
[2022-08-19 07:49] LABS: Transferrin 154 mg/dL (206-381)
[2022-08-19] MEDS: ENOXAPARIN 40 MG/0.4 ML SYRINGE SUB-Q (08:00)
[2022-08-19] MEDS: PANTOPRAZOLE SODIUM IV 40 MG VIAL IV PUSH (08:00)
[2022-08-19 08:27] LABS: Folic Acid 14.6 ng/mL (2.76->20)
[2022-08-19 12:39] LABS: Hematocrit 37.4 % (37.0-47.0); Hemoglobin 12.6 g/dL (12.0-15.0)
--- NOTE | 2022-08-19 13:08 | PM.IMPN ---
Progress Note: A&P Assessment and Plan (1) Acute GI bleeding: Code(s): K92.2 - Gastrointestinal hemorrhage, unspecified Status: Acute Assessment and Plan: Appreciate GI consultation, continue PPI, colonoscopy planned for tomorrow Pain uncontrolled, will discontinue Dilaudid and try fentanyl (2) Inflammatory bowel disease (Crohn's disease): Qualifiers: Digestive disease complication type: with rectal bleeding Gastrointestinal tract location: large intestine Qualified Code(s): K50.111 - Crohn's disease of large intestine with rectal bleeding Code(s): K50.90 - Crohn's disease, unspecified, without complications Status: Acute Assessment and Plan: Continue home medications, start prednisone (3) Iron deficiency anemia: Code(s): D50.9 - Iron deficiency anemia, unspecified Status: Acute Assessment and Plan: Monitor, stable (4) Anxiety and depression: Code(s): F41.9 - Anxiety disorder, unspecified; F32.A - Depression, unspecified Status: Acute Assessment and Plan: Continue home medications, stable Plan DVT prophylaxis with Lovenox GI prophylaxis with PPI Code status full code Subjective Date/time seen: 08/19/22 13:08 Interval history: Patient with significant pain bloody diarrhea. No overnight events noted. No chest pain or shortness of breath. No fevers or chills. Review of Systems Review of Systems: 12 point review of systems was assessed and was negative except as noted in the HPI Exam Narrative: General: No acute distress, alert and oriented per baseline HEENT: Atraumatic, normocephalic, mucous membranes moist CV: Regular rate and rhythm, S1, S2 Lungs: Clear to auscultation bilaterally, no rales or crackles noted, no wheezes, good air entry Abdomen: Soft, diffusely tender to palpation, no rebounding or guarding Extremities: Normal to inspection Skin: No rashes noted, no lesions or wounds seen Psych: Euthymic, normal affect Objective Data Vital Signs Vital Signs: Vital Signs - 24 hr 08/18/22 16:49 08/18/22 21:28 08/19/22 00:00 Temperature 97.9 F Pulse Rate 62 78 80 Respiratory Rate 18 19 Blood Pressure 102/62 101/73 Pulse Oximetry 99 100 Oxygen Delivery 08/19/22 04:00 08/19/22 05:44 08/19/22 06:18 Temperature 97.8 F Pulse Rate 78 77 81 Respiratory Rate 18 17 Blood Pressure 88/67 L 103/78 Pulse Oximetry 97 96 Oxygen Delivery 08/19/22 08:00 08/19/22 08:00 08/19/22 12:00 Temperature Pulse Rate 90 82 Respiratory Rate Blood Pressure Pulse Oximetry Oxygen Delivery Room Air Intake/Output Intake/Output: Intake & Output 08/16/22 08/17/22 08/18/22 08/19/22 23:59 23:59 23:59 23:59 Intake Total 1700 2200 Balance 1700 2200 Meds/Results Medications: Active Medications Generic Name Dose Route Start Last Admin Trade Name Freq PRN Reason Stop Dose Admin Hydrocodone Bitart/Acetaminophen 1 tab 08/18/22 19:33 Hydrocodone/Acetaminophen (*Crx) 5-325 Mg Tablet PO Q4H PRN Moderate Pain (4-6) Bupropion HCl 300 mg 08/19/22 14:00 Bupropion Hcl Xl (24 Hr) 150 Mg Tabcr PO QAM MIGUEL ANGEL Dicyclomine HCl 10 mg 08/19/22 13:03 Dicyclomine Hcl 10 Mg Capsule PO BID PRN Diarrhea Duloxetine HCl 60 mg 08/19/22 17:00 Duloxetine Hcl 60 Mg Capsule.Dr PO BID MIGUEL ANGEL Enoxaparin Sodium 40 mg 08/19/22 09:00 08/19/22 08:00 Enoxaparin 40 Mg/0.4 Ml Syringe SUB-Q 40 mg DAILY MIGUEL ANGEL Administration Ferrous Sulfate 325 mg 08/19/22 17:00 Ferrous Sulfate 324 Mg Tablet PO BID MIGUEL ANGEL Gabapentin 300 mg 08/19/22 17:00 Gabapentin 300 Mg Capsule PO TID MIGUEL ANGEL Hydromorphone HCl 1 mg 08/18/22 20:37 08/19/22 11:30 Hydromorphone Hcl Inj (*Crx) 1 Mg/Ml Syr IV PUSH 1 mg Q3H PRN Administration Pain Rated 7-10 Hydroxyzine HCl 50 mg 08/19/22 17:00 Hydroxyzine Hcl 25 Mg
--- NOTE | 2022-08-19 13:19 | WPDGICN ---
Assessment and Plan Assessment and plan (1) Acute GI bleeding: Code(s): K92.2 - Gastrointestinal hemorrhage, unspecified Status: Acute Assessment and Plan: Patient with new lower GI bleeding. Presumably from Crohn's disease she is known to have perianal disease. Previously had a right hemicolectomy. Currently on Entyvio plus Humira. She has had perirectal Seton placed in the past because of perianal Crohn's disease. Follow-up colonoscopy suggested because of significant lower GI bleeding. I will plan this tomorrow unless she has transfer back to [facility] where she should follow for ongoing medical care. despite patient significant lower GI bleeding her hemoglobin has remained stable. As stated will assess with colonoscopy. (2) History of colectomy: Code(s): Z90.49 - Acquired absence of other specified parts of digestive tract Status: Acute (3) Crohn's disease: Code(s): K50.90 - Crohn's disease, unspecified, without complications Status: Acute Assessment and Plan: Patient with Crohn's disease monitored and followed at [facility]. Currently on Entyvio plus Humira. Will add a course of Flagyl given her known perianal disease and unclear source of active rectal bleeding at this time. GI Consult Note Consult date/time: 08/19/22 13:19 Reason for consult: lower GI bleeding and Crohn's disease HPI: Anne Winston is a 52 year old female I am asked to see because of bloody stools. Patient gives a history of being diagnosed with Crohn's disease at least 25 years ago. Patient reports a right hemicolectomy and partial resection of the distal small bowel approximately 8 years ago. Most recently she has been followed at [facility]. She is known to have perianal Crohn's disease and has had setons placed intermittently by surgery depending on recurrent abscess formation over the last 4 years. She states within the last 1 month had a colonoscopy at [facility] and was told things look stable. Current medications include a combination of Entyvio plus Humira plus gabapentin. Patient reports previous significant allergy to Remicade. Patient's family history is noncontributory. Patient was in her usual state of health until Thursday when she began to pass a large amount of bloody diarrhea. This continued until she was admitted to the hospital. Her hemoglobin has remained stable however. White count also remains stable. Review of Systems Review of Systems: Review of systems noncontributory. [facility] Past Medical History Medical History Anemia iron deficiency anemia Anxiety Arthritis Colostomy in place Crohn's colitis chronic diarrhea Crohn's related arthritis (~1984) Depression Elevated CK-MB level IBS (irritable bowel syndrome) Migraine Surgical History Surgical History H/O hernia repair History of colectomy on the right History of colostomy reversal Hx of cholecystectomy Family History Family History Daughter Accidental Social History Social History Social History: she is disabled and lives with her boyfriend. She had 1 daughter who due to an accidental at the age of 17. She is single. She is on disability. She occasionally uses marijuana maybe 1 to 2 times a month. She smokes half pack a cigarettes a day. She occasionally drinks alcoholic beverages 2 to 3 times a month. She desires to be a full code and does not have power hand deicer element winder. Smoking packs per day: 0.5 Smoking cigarettes per day: 10.0 Years smoked: 25 Smoking pack-years: 12.50 Smoking status: Current every day smoker Tobacco type: cigarettes Alcohol intake: current Drinks per week: 2 Substance use:
[2022-08-19] MEDS: metroNIDAZOLE 1000MG/ISO 200ML 1,000 MG/200 ML BAG 100 MG IVPB (14:23)
[2022-08-19] MEDS: buPROPion HCL XL (24 HR) 150 MG TABCR 300 MG PO (14:23)
[2022-08-19] MEDS: predniSONE 20 MG TABLET 40 MG PO (14:23)
[2022-08-19] MEDS: fentaNYL CITRATE INJ (*CRX) 100 MCG/2 ML VIAL 25 MCG IV PUSH (14:47)
[2022-08-19] MEDS: PEG (High)/E-LYTE SOLN 4,000 ML BTL 4000 ML PO (15:12)
[2022-08-19] MEDS: HYDROcodone/acetaminophen (*CRX) 5-325 MG TABLET 1 TAB PO ×2 (16:06→21:35)
[2022-08-19] MEDS: DULoxetine HCL 60 MG CAPSULE.DR PO (16:06)
[2022-08-19] MEDS: GABAPENTIN 300 MG CAPSULE PO (16:06)
[2022-08-19] MEDS: FERROUS SULFATE 324 MG TABLET PO (16:06)
[2022-08-19] MEDS: MAGNESIUM SULF 2 GM/WATER 50ML 2 GM/50 ML BAG IVPB (16:06)
[2022-08-19] MEDS: hydrOXYzine HCL 25 MG TABLET 50 MG PO (16:06)
[2022-08-19] MEDS: DICYCLOMINE HCL 10 MG CAPSULE PO (18:59)
[2022-08-19] MEDS: PANTOPRAZOLE 40 MG TABLET PO (21:34)
[2022-08-19] MEDS: TOPIRAMATE 25 MG TABLET 50 MG PO (21:34)
[2022-08-19] MEDS: ZOLPIDEM TARTRATE (*CRX) 5 MG TABLET 10 MG PO (21:35)
[2022-08-19] MEDS: traZODone HCL 50 MG TABLET PO (21:35)
[2022-08-19] MEDS: ZIPRASIDONE HCL 80 MG CAPSULE PO (21:35)
[2022-08-20] VITALS (11 sets, daily range): BP systolic 103–120; BP diastolic 70–73; PULSE 73–88; RESP 16–24; TEMP 35.7–36.4; O2SAT 94–100
[2022-08-20] MEDS: GABAPENTIN 300 MG CAPSULE PO ×3 (09:08→18:09)
[2022-08-20] MEDS: PANTOPRAZOLE SODIUM IV 40 MG VIAL IV PUSH ×2 (09:08→20:23)
[2022-08-20] MEDS: DULoxetine HCL 60 MG CAPSULE.DR PO ×2 (09:08→18:10)
[2022-08-20] MEDS: TOPIRAMATE 25 MG TABLET 50 MG PO ×2 (09:09→20:23)
[2022-08-20] MEDS: fentaNYL CITRATE INJ (*CRX) 100 MCG/2 ML VIAL 25 MCG IV PUSH (10:09)
--- NOTE | 2022-08-20 11:40 | PC.NURSE ---
To GI Lab via [facility].
[2022-08-20] MEDS: LACTATED RINGERS 1,000 ML 150 ML IV CONT (12:00)
--- NOTE | 2022-08-20 12:10 | WPDANESEPPF ---
Anes - Initial Pre Proc Eval Procedure: Operation Date: 08/20/22 12:30 Proposed Procedures p Colonoscopy - Julian Gomez MD Date/Time: 08/20/22 12:10 Surgeon: Henrique Sy MD Pre Op Diagnosis: GI bleed, Crohn's flare Patient Data Age: 52 Gender: F Height: 1.42 m Weight: 61.2 kg Last Vital Signs Temp 97.6 F 08/20/22 12:05 Pulse 84 08/20/22 12:05 Resp 18 08/20/22 12:05 BP 120/70 08/20/22 12:05 Pulse Ox 100 08/20/22 12:05 O2 Del Method Room Air 08/20/22 12:05 Allergies Allergy/AdvReac Type Severity Reaction Status Date / Time infliximab Allergy Severe Anaphylactic Verified 04/07/22 12:10 Shock Home Medications Medication Instructions Recorded Confirmed Type duloxetine 60 mg capsule,delayed 60 mg PO BID 08/21/20 08/18/22 History release ferrous sulfate 325 mg (65 mg 325 mg PO BID 08/21/20 08/18/22 History iron) tablet (Feosol) hydroxyzine HCl 50 mg tablet 50 mg PO BID 08/21/20 08/18/22 History zolpidem 10 mg tablet (Ambien) 10 mg PO HS 08/21/20 08/18/22 History bupropion HCl 300 mg 24 hr tablet, 300 mg PO QAM 04/07/22 08/18/22 History extended release celecoxib 100 mg capsule 100 mg PO BID 04/07/22 08/18/22 History dicyclomine 10 mg capsule 10 mg PO BID PRN Diarrhea 04/07/22 08/18/22 History gabapentin 300 mg capsule 300 mg PO TID 04/07/22 08/18/22 History tizanidine 4 mg tablet 4 mg PO Q8-12H PRN Muscle Spasm 04/07/22 08/18/22 History topiramate 50 mg tablet 50 mg PO BID 04/07/22 08/18/22 History trazodone 50 mg tablet 50 mg PO HS 04/07/22 08/18/22 History ziprasidone HCl 80 mg capsule 80 mg PO 1XD 04/07/22 08/18/22 History azelastine 0.05 % eye drops 1 drp EACH EYE 2XD 08/18/22 08/18/22 History cariprazine 1.5 mg capsule 1.5 mg PO 1XD 08/18/22 08/18/22 History (Vraylar) esomeprazole magnesium 40 mg 40 mg PO QAM 08/18/22 08/18/22 History capsule,delayed release Laboratory Tests 08/19/22 08/20/22 12:30 06:25 Hgb 12.6 g/dL g/dL (12.0-15.0) Hct 37.4 % % (37.0-47.0) Magnesium 2.0 mg/dL mg/dL (1.6-2.3) Patient hx anesthesia problems: none Family hx anesthesia problems: none Results Review: All pre-operative results and documents have been reviewed as part of the pre-operative evaluation. [facility] Past Medical History Medical History Anemia iron deficiency anemia Anxiety Arthritis Colostomy in place Crohn's colitis chronic diarrhea Crohn's related arthritis (~1984) Depression Elevated CK-MB level IBS (irritable bowel syndrome) Migraine Surgical History Surgical History H/O hernia repair History of colectomy on the right History of colostomy reversal Hx of cholecystectomy Family History Family History Daughter Accidental Social History Social History Social History: she is disabled and lives with her boyfriend. She had 1 daughter who due to an accidental at the age of 17. She is single. She is on disability. She occasionally uses marijuana maybe 1 to 2 times a month. She smokes half pack a cigarettes a day. She occasionally drinks alcoholic beverages 2 to 3 times a month. She desires to be a full code and does not have power mergers and acquisitions attorney. Smoking packs per day: 0.5 Smoking cigarettes per day: 10.0 Years smoked: 25 Smoking pack-years: 12.50 Smoking status: Current every day smoker Tobacco type: cigarettes Alcohol intake: current Drinks per week: 2 Substance use: current Substance use type: marijuana Gender identity (if verbalized by the patient): Female Spiritual care concerns: No Has the Lack of Transportation Kept You From Medical Appointments or From Getting Medications?: No Within the Past 12 Months, Were You Worried Whether You
--- NOTE | 2022-08-20 13:35 | PC.NURSE ---
Back from GI Lab via stretcher.
--- NOTE | 2022-08-20 13:56 | PM.IMPN ---
Progress Note: A&P Assessment and Plan (1) Acute GI bleeding: Code(s): K92.2 - Gastrointestinal hemorrhage, unspecified Status: Acute Assessment and Plan: GI consulted. On PPI. Status post colonoscopy 08/20/2022: And your colic anastomosis was present in the right colon. Right colon was previously removed. The segment was removed due to Crohn's disease. Multiple superficial still at ulcers were visualized in the sigmoid colon. The ulcers appeared at the depth of 35 mm to 45 mm from the annulus. The ulcers produced a stigmata of bleeding. Multiple cold forceps biopsies were taken from the sigmoid for pathology. Send the biopsies to pathology. 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 Recommendation would to obtain stool cultures to rule out associated infection. Trial of Flagyl antibiotic which may help as anti-inflammatories and against the Crohn's disease. Start IV Solu-Medrol Will hold Lovenox Follow-up with [facility] [place] status with. (2) Inflammatory bowel disease (Crohn's disease): Qualifiers: Digestive disease complication type: with rectal bleeding Gastrointestinal tract location: large intestine Qualified Code(s): K50.111 - Crohn's disease of large intestine with rectal bleeding Code(s): K50.90 - Crohn's disease, unspecified, without complications Status: Acute Assessment and Plan: Continue home medications on Humira and Entyvio at home (3) Iron deficiency anemia: Code(s): D50.9 - Iron deficiency anemia, unspecified Status: Acute Assessment and Plan: Monitor, stable (4) Anxiety and depression: Code(s): F41.9 - Anxiety disorder, unspecified; F32.A - Depression, unspecified Status: Acute Assessment and Plan: Continue home medications, stable Plan DVT prophylaxis with Lovenox will hold Lovenox due to bleeding colonic ulcers GI prophylaxis with PPI Code status full code Subjective Date/time seen: 08/20/22 13:56 Interval history: Continues to have abdominal pain slightly better than on admission. No further bloody stool. She is going for colonoscopy today. Denies any chest pain or shortness of breath. Review of Systems Review of Systems: All systems reviewed & are unremarkable except as noted in HPI and below Exam Narrative: General: No acute distress, alert and oriented per baseline HEENT: Atraumatic, normocephalic, mucous membranes moist CV: Regular rate and rhythm, S1, S2 Lungs: Clear to auscultation bilaterally, no rales or crackles noted, no wheezes, good air entry Abdomen: Soft, diffusely tender to palpation, no rebounding or guarding Extremities: Normal to inspection Skin: No rashes noted, no lesions or wounds seen Psych: Euthymic, normal affect Objective Data Vital Signs Vital Signs: Vital Signs - 24 hr 08/19/22 14:00 08/19/22 16:00 08/19/22 22:00 Temperature 96.4 F L 98.0 F Pulse Rate 78 74 80 Respiratory Rate 15 18 Blood Pressure 99/69 L 140/80 Pulse Oximetry 97 98 Oxygen Delivery 08/19/22 20:00 08/20/22 00:00 08/20/22 04:00 Temperature Pulse Rate 75 77 76 Respiratory Rate Blood Pressure Pulse Oximetry Oxygen Delivery 08/20/22 09:05 08/20/22 12:05 08/20/22 12:57 Temperature 97.6 F Pulse Rate 84 77 Respiratory Rate 18 16 Blood Pressure 120/70 105/71 Pulse Oximetry 100 98 Oxygen Delivery Room Air Room Air Room Air 08/20/22 13:07 08/20/22 13:17 Temperature Pulse Rate 73 74 Respiratory Rate 16 20 Blood Pressure 106/71 103/73 Pulse Oximetry 94 99 Oxygen Delivery Room Air Room Air Intake/Output Intake/Output: Intake & Output 08/17/22 08/18/22 08/19/22 08/20/22 23:59 23:59 23:59 23:59 Intake Total 1700 4110 Output Total 300 Balance 1700 4110 -300 Meds/Results Medications: Active Medications Generic Name Dose Route Start
[2022-08-20] MEDS: HYDROcodone/acetaminophen (*CRX) 5-325 MG TABLET 1 TAB PO ×3 (14:38→22:12)
[2022-08-20] MEDS: FERROUS SULFATE 324 MG TABLET PO (14:41)
[2022-08-20] MEDS: buPROPion HCL XL (24 HR) 150 MG TABCR 300 MG PO (14:41)
[2022-08-20] MEDS: methylPREDNISolone SOD SUCC 125 MG VIAL 60 MG IV PUSH ×2 (14:42→22:12)
[2022-08-20] MEDS: hydrOXYzine HCL 25 MG TABLET 50 MG PO (18:13)
[2022-08-20] MEDS: ZIPRASIDONE HCL 80 MG CAPSULE PO (20:23)
[2022-08-20] MEDS: ZOLPIDEM TARTRATE (*CRX) 5 MG TABLET 10 MG PO (20:23)
[2022-08-20] MEDS: traZODone HCL 50 MG TABLET PO (20:24)
[2022-08-20] MEDS: SODIUM CHLORIDE 0.9% IV 1,000 ML 75 ML IV CONT ×2 (22:13→22:14)
[2022-08-21] VITALS (9 sets, daily range): BP systolic 104–139; BP diastolic 70–80; PULSE 71–114; RESP 16–20; TEMP 36.6–36.7; O2SAT 95–98
[2022-08-21] MEDS: HYDROcodone/acetaminophen (*CRX) 5-325 MG TABLET 1 TAB PO ×5 (05:29→22:05)
[2022-08-21] MEDS: methylPREDNISolone SOD SUCC 125 MG VIAL 60 MG IV PUSH ×3 (06:27→22:06)
[2022-08-21 06:56] LABS: Basophils Percent Auto 0.2 % (0.2-1.2); Hemoglobin 12.9 g/dL (12.0-15.0); Immature Granulocyte Absolute 0.14 K/mm3 (0.00-0.031); Immature Granulocyte Percent A 2.3 % (0-0.5); Lymphocytes Absolute Auto 0.62 K/mm3 (0.9-3.2); Lymphocytes Percent Auto 10.1 % (18.3-44.2); Mean Corpuscular HGB Conc 34.9 g/dl (32-36); Mean Corpuscular Hemoglobin 30.8 pg (26-34); Mean Corpuscular Volume 88.3 fl (80-100); Mean Platelet Volume 8.6 fl (7.4-10.4); Monocytes Absolute Auto 0.1 K/mm3 (0.1-0.6); Monocytes Percent Auto 1.3 % (2.6-8.5); Neutrophils Absolute Auto 5.3 K/mm3 (1.3-6.7); Neutrophils Percent Auto 86.1 % (45.5-73.1); Platelet Count Result 298 k/mm3 (150-375); Red Blood Count 4.19 M/mm3 (4.2-5.4); Red Cell Distribution Width 13.7 % (11.5-14.5); White Blood Count 6.1 K/mm3 (4.5-10.0)
[2022-08-21 07:17] LABS: Alanine Aminotransferase 26 U/L (6-35); Alkaline Phosphatase 190 U/L (38-126); Anion Gap 12 mmol/L (8-16); Aspartate Amino Transferase 23 U/L (14-36); Bilirubin,Total 0.3 mg/dL (0.2-1.3); Blood Urea Nitrogen 10 mg/dL (7-17); Calcium 9.1 mg/dL (8.4-10.2); Carbon Dioxide 18 mmol/L (22-30); Chloride 104 mmol/L (98-107); Estimated Glomerular Filt Rate > 60; Glucose 148 mg/dL (65-110); Magnesium 1.6 mg/dL (1.6-2.3); Potassium 3.7 mmol/L (3.4-5.0); Sodium 134 mmol/L (137-145)
--- NOTE | 2022-08-21 07:57 | WPDANESPN ---
Anes - Prog Note Post-Op Date/Time: 08/21/22 07:57 Cardiovascular status: normal Respiratory status: normal Airway patency: baseline Mental status: baseline Post-Op hydration status: normal Vital Signs: Last Vital Signs Temp 36.6 C 08/21/22 06:00 Pulse 71 08/21/22 06:00 Resp 20 08/21/22 06:00 BP 139/80 08/21/22 06:00 Pulse Ox 95 08/21/22 06:00 O2 Del Method Room Air 08/20/22 20:00 Pain Score (VAS): 0 I/O: Intake & Output 08/20/22 08/20/22 08/21/22 15:59 23:59 07:59 Intake Total 2350 550 Output Total 900 Balance 1450 550 Laboratory Tests 08/21/22 06:51 08/21/22 06:51 08/21/22 08/21/22 06:51 06:51 WBC 6.1 RBC 4.19 L Hgb 12.9 Hct 37.0 MCV 88.3 MCH 30.8 MCHC 34.9 RDW 13.7 Plt Count 298 MPV 8.6 Immature Gran % (Auto) 2.3 H Neut % (Auto) 86.1 H Lymph % (Auto) 10.1 L [place] % (Auto) 1.3 L Eos % (Auto) 0.0 Baso % (Auto) 0.2 Lymph # (Auto) 0.62 L [place] # (Auto) 0.1 Eos # (Auto) 0.0 Baso # (Auto) 0.0 Abs Immat Gran (auto) 0.14 H Absolute Neuts (auto) 5.3 Absolute Nucleated RBC 0.0 Nucleated RBC % 0.0 Sodium 134 L Potassium 3.7 Chloride 104 Carbon Dioxide 18 L Anion Gap 12 BUN 10 D Creatinine 0.60 L Estim Creat Clear Calc Not Reportable Estimated GFR > 60 Glucose 148 H Calcium 9.1 Magnesium 1.6 Total Bilirubin 0.3 AST 23 ALT 26 Alkaline Phosphatase 190 H Total Protein 8.0 Albumin 4.0 Post-procedural complaints: none Patient Feedback: Patient satisfied with anesthetic care.
--- NOTE | 2022-08-21 08:07 | WPDGIPROGNO ---
Progress Note: A&P Assessment and Plan (1) Crohn's disease: Code(s): K50.90 - Crohn's disease, unspecified, without complications Status: Acute Assessment and Plan: Patient appears to have active Crohn's colitis in the left colon. Significant ulcerations noted this is where bleeding and pain emanates. Infectious etiology could precipitate this. Therefore continuing Flagyl is indicated for 7-10 days. Steroids have been started as she is poorly responsive to current medications. When able to take tolerate diet we will change to oral prednisone and discharged on tapering dose. She should continue her biologic agents as previously prescribed at this time. Await final histology from colonoscopy biopsies. (2) Iron deficiency anemia: Code(s): D50.9 - Iron deficiency anemia, unspecified Status: Acute Assessment and Plan: Iron deficiency anemia most likely related to blood loss from active colitis diarrhea and bleeding associated with this. Iron replacement can start. Subjective Date/time seen: 08/21/22 08:07 Patient alert this morning. Continues to noted left-sided abdominal pain. This appears to correlate with colitis identified by endoscopy. Most likely Crohn's colitis but infectious etiology not excluded. Review of Systems Review of Systems: Review of systems noncontributory. Exam Narrative: Physical exam reveals patient to be alert. Comfortable at rest. HEENT exam reveals no icterus. Lungs are clear. Heart without murmur. Abdomen bowel sounds present soft mild tenderness on the left abdomen. Objective Data Vital Signs Vital Signs: Vital Signs - 24 hr 08/20/22 09:05 08/20/22 12:05 08/20/22 12:57 Temperature 97.6 F Pulse Rate 84 77 Respiratory Rate 18 16 Blood Pressure 120/70 105/71 Pulse Oximetry 100 98 Oxygen Delivery Room Air Room Air Room Air 08/20/22 13:07 08/20/22 13:17 08/20/22 14:00 Temperature 96.3 F L Pulse Rate 73 74 75 Respiratory Rate 16 20 18 Blood Pressure 106/71 103/73 107/72 Pulse Oximetry 94 99 98 Oxygen Delivery Room Air Room Air 08/20/22 16:00 08/20/22 21:50 08/20/22 20:00 Temperature 97.4 F L Pulse Rate 76 88 88 Respiratory Rate 24 H Blood Pressure 109/72 Pulse Oximetry 95 Oxygen Delivery 08/20/22 20:00 08/21/22 00:00 08/21/22 04:00 Temperature Pulse Rate 88 77 72 Respiratory Rate 24 H Blood Pressure Pulse Oximetry 95 Oxygen Delivery Room Air 08/21/22 06:00 Temperature 97.8 F Pulse Rate 71 Respiratory Rate 20 Blood Pressure 139/80 Pulse Oximetry 95 Oxygen Delivery Intake/Output Intake/Output: Intake & Output 08/18/22 08/19/22 08/20/22 08/21/22 23:59 23:59 23:59 23:59 Intake Total 1700 4110 2350 550 Output Total 1200 Balance 1700 4110 1150 550 Meds/Results Medications: Active Medications Generic Name Dose Route Start Last Admin Trade Name Freq PRN Reason Stop Dose Admin Hydrocodone Bitart/Acetaminophen 1 tab 08/18/22 19:33 08/21/22 05:29 Hydrocodone/Acetaminophen (*Crx) 5-325 Mg Tablet PO 1 tab Q4H PRN Administration Moderate Pain (4-6) Bupropion HCl 300 mg 08/19/22 14:00 08/20/22 14:41 Bupropion Hcl Xl (24 Hr) 150 Mg Tabcr PO 300 mg QAM MIGUEL ANGEL Administration Dicyclomine HCl 10 mg 08/19/22 13:03 08/19/22 18:59 Dicyclomine Hcl 10 Mg Capsule PO 10 mg BID PRN Administration Diarrhea Duloxetine HCl 60 mg 08/19/22 17:00 08/20/22 18:10 Duloxetine Hcl 60 Mg Capsule.Dr PO 60 mg BID MIGUEL ANGEL Administration Enoxaparin Sodium 40 mg 08/19/22 09:00 08/19/22 08:00 Enoxaparin 40 Mg/0.4 Ml Syringe SUB-Q 40 mg DAILY MIGUEL ANGEL Administration Fentanyl Citrate 25 mcg 08/19/22 14:30 08/20/22 10:09 Fentanyl Citrate Inj (*Crx) 100 Mcg/2 Ml Vial IV PUSH 25 mcg Q4H PRN Administration Pain Rated 7-10 Ferrous Sulfate 324 mg 08/19/22 17:00 08/20/22 18:10 Ferrous Sulfate 324 Mg Tablet PO Not Given BID
[2022-08-21] MEDS: DULoxetine HCL 60 MG CAPSULE.DR PO ×2 (08:16→16:48)
[2022-08-21] MEDS: buPROPion HCL XL (24 HR) 150 MG TABCR 300 MG PO (08:16)
[2022-08-21] MEDS: GABAPENTIN 300 MG CAPSULE PO ×3 (08:18→16:48)
[2022-08-21] MEDS: TOPIRAMATE 25 MG TABLET 50 MG PO ×2 (08:18→20:19)
[2022-08-21] MEDS: PANTOPRAZOLE SODIUM IV 40 MG VIAL IV PUSH ×2 (08:19→22:14)
[2022-08-21] MEDS: hydrOXYzine HCL 25 MG TABLET 50 MG PO ×2 (08:21→16:50)
[2022-08-21 09:00] LABS: Toxigenic C. Diff NEGATIVE (NEGATIVE)
[2022-08-21] MEDS: metroNIDAZOLE 500 MG/ISO 100ML 500 MG/100 ML BAG 100 MG IVPB ×3 (09:33→22:06)
--- NOTE | 2022-08-21 14:59 | PM.IMPN ---
Progress Note: A&P Assessment and Plan (1) Acute GI bleeding: Code(s): K92.2 - Gastrointestinal hemorrhage, unspecified Status: Acute Assessment and Plan: GI consulted. On PPI. Status post colonoscopy 08/20/2022: And your colic anastomosis was present in the right colon. Right colon was previously removed. The segment was removed due to Crohn's disease. Multiple superficial still at ulcers were visualized in the sigmoid colon. The ulcers appeared at the depth of 35 mm to 45 mm from the annulus. The ulcers produced a stigmata of bleeding. Multiple cold forceps biopsies were taken from the sigmoid for pathology. Send the biopsies to pathology. 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 Recommendation would to obtain stool cultures to rule out associated infection. Trial of Flagyl antibiotic which may help as anti-inflammatories and against the Crohn's disease. Start IV Solu-Medrol. Also had Flagyl as requested by GI Follow-up with [facility] which she follows up with (2) Inflammatory bowel disease (Crohn's disease): Qualifiers: Digestive disease complication type: with rectal bleeding Gastrointestinal tract location: large intestine Qualified Code(s): K50.111 - Crohn's disease of large intestine with rectal bleeding Code(s): K50.90 - Crohn's disease, unspecified, without complications Status: Acute Assessment and Plan: Continue home medications on Humira and Entyvio at home (3) Iron deficiency anemia: Code(s): D50.9 - Iron deficiency anemia, unspecified Status: Acute Assessment and Plan: Monitor, stable (4) Anxiety and depression: Code(s): F41.9 - Anxiety disorder, unspecified; F32.A - Depression, unspecified Status: Acute Assessment and Plan: Continue home medications, stable Plan DVT prophylaxis with Lovenox will hold Lovenox due to bleeding colonic ulcers GI prophylaxis with PPI Code status full code Subjective Date/time seen: 08/21/22 14:59 Interval history: patient continues to have abdominal pain. Still have blood in her stool. labs were reviewed. No shortness of breath or chest pain Review of Systems Review of Systems: All systems reviewed & are unremarkable except as noted in HPI and below Exam Narrative: General: No acute distress, alert and oriented per baseline HEENT: Atraumatic, normocephalic, mucous membranes moist CV: Regular rate and rhythm, S1, S2 Lungs: Clear to auscultation bilaterally, no rales or crackles noted, no wheezes, good air entry Abdomen: Soft, diffusely tender to palpation, no rebounding or guarding Extremities: Normal to inspection Skin: No rashes noted, no lesions or wounds seen Psych: Euthymic, normal affect Objective Data Vital Signs Vital Signs: Vital Signs - 24 hr 08/20/22 16:00 08/20/22 21:50 08/20/22 20:00 Temperature 97.4 F L Pulse Rate 76 88 88 Respiratory Rate 24 H Blood Pressure 109/72 Pulse Oximetry 95 Oxygen Delivery 08/20/22 20:00 08/21/22 00:00 08/21/22 04:00 Temperature Pulse Rate 88 77 72 Respiratory Rate 24 H Blood Pressure Pulse Oximetry 95 Oxygen Delivery Room Air 08/21/22 06:00 08/21/22 08:15 08/21/22 14:00 Temperature 97.8 F 98.1 F Pulse Rate 71 93 Respiratory Rate 20 17 Blood Pressure 139/80 107/77 Pulse Oximetry 95 97 Oxygen Delivery Room Air Intake/Output Intake/Output: Intake & Output 08/18/22 08/19/22 08/20/22 08/21/22 23:59 23:59 23:59 23:59 Intake Total 1700 4110 2350 1270 Output Total 1200 300 Balance 1700 4110 1150 970 Meds/Results Medications: Active Medications Generic Name Dose Route Start Last Admin Trade Name Freq PRN Reason Stop Dose Admin Hydrocodone Bitart/Acetaminophen 1 tab 08/18/22 19:33 08/21/22 13:27 Hydrocodone/Acetaminophen (*Crx) 5-325 Mg Tablet PO 1 tab
[2022-08-21] MEDS: traZODone HCL 50 MG TABLET PO (20:19)
[2022-08-21] MEDS: ZIPRASIDONE HCL 80 MG CAPSULE PO (20:19)
[2022-08-21] MEDS: ZOLPIDEM TARTRATE (*CRX) 5 MG TABLET 10 MG PO (20:22)
[2022-08-21 20:57] LABS: Glucose Point of Care 138 mg/dl (65-105)
[2022-08-21] MEDS: SODIUM CHLORIDE 0.9% IV 1,000 ML 75 ML IV CONT (22:15)
--- NOTE | 2022-08-21 22:18 | PC.NURSE ---
stool sample recollected and sent to lab for analysis.
[2022-08-22] VITALS (9 sets, daily range): BP systolic 106–129; BP diastolic 67–83; PULSE 67–88; RESP 16–20; TEMP 36.3–36.7; O2SAT 96–98
[2022-08-22] MEDS: HYDROcodone/acetaminophen (*CRX) 5-325 MG TABLET 1 TAB PO ×5 (03:00→20:03)
--- NOTE | 2022-08-22 04:14 | PC.NURSE ---
norco 5/325 mg PO given at 3am while system down, mar still down.
[2022-08-22] MEDS: methylPREDNISolone SOD SUCC 125 MG VIAL 60 MG IV PUSH ×3 (05:10→21:56)
[2022-08-22] MEDS: metroNIDAZOLE 500 MG/ISO 100ML 500 MG/100 ML BAG 100 MG IVPB ×3 (05:11→21:56)
[2022-08-22] MEDS: DULoxetine HCL 60 MG CAPSULE.DR PO ×2 (08:37→16:18)
[2022-08-22] MEDS: GABAPENTIN 300 MG CAPSULE PO ×3 (08:37→16:18)
[2022-08-22] MEDS: buPROPion HCL XL (24 HR) 150 MG TABCR 300 MG PO (08:38)
[2022-08-22] MEDS: FERROUS SULFATE 324 MG TABLET PO ×2 (08:38→16:18)
[2022-08-22] MEDS: DICYCLOMINE HCL 10 MG CAPSULE PO (08:38)
[2022-08-22] MEDS: hydrOXYzine HCL 25 MG TABLET 50 MG PO ×2 (08:38→16:18)
[2022-08-22] MEDS: TOPIRAMATE 25 MG TABLET 50 MG PO ×2 (08:38→20:03)
[2022-08-22] MEDS: PANTOPRAZOLE SODIUM IV 40 MG VIAL IV PUSH ×2 (08:39→20:03)
--- NOTE | 2022-08-22 12:01 | WPDGIPROGNO ---
Progress Note: A&P Assessment and Plan (1) Inflammatory bowel disease (Crohn's disease): Qualifiers: Digestive disease complication type: with rectal bleeding Gastrointestinal tract location: large intestine Qualified Code(s): K50.111 - Crohn's disease of large intestine with rectal bleeding Code(s): K50.90 - Crohn's disease, unspecified, without complications Status: Acute Assessment and Plan: Patient with ongoing left-sided abdominal pain and diarrhea peers to be related to Crohn's colitis. Patient has been on biologic agents in these will be continued. Currently followed at [facility]. Now on IV Solu-Medrol. Plan to change to oral prednisone with a tapering dose as her pain and diarrhea improved. Ultimately would advise that she follow-up with [facility] as previously scheduled. Given her flare of disease would ask that she follow-up over the next several weeks there. I will be out of town, follow-up with [facility] advised. 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 Because of perianal disease would give her a course of Flagyl for 7-10 days. Stool cultures are pending to exclude any infection contributing to her diarrhea. Subjective Date/time seen: 08/22/22 12:01 Patient alert. Still complains of left-sided abdominal pain and diarrhea stools. This appears to correlate with ulcers in the colon related to Crohn's disease. Review of Systems Review of Systems: Review of systems noncontributory. Exam Narrative: Physical exam reveals patient to be alert. Vital signs stable. HEENT exam unremarkable. Patient anicteric. Lungs are clear. Heart without murmur. Abdomen bowel sounds present soft [id number] tenderness in left abdomen. Objective Data Vital Signs Vital Signs: Vital Signs - 24 hr 08/21/22 14:00 08/21/22 16:00 08/21/22 21:12 Temperature 98.1 F 98.1 F Pulse Rate 93 88 84 Respiratory Rate 17 16 Blood Pressure 107/77 104/70 Pulse Oximetry 97 98 Oxygen Delivery 08/21/22 20:00 08/21/22 20:00 08/22/22 00:00 Temperature Pulse Rate 88 82 Respiratory Rate Blood Pressure Pulse Oximetry Oxygen Delivery Room Air 08/22/22 04:00 08/22/22 06:00 08/22/22 09:00 Temperature 98.1 F Pulse Rate 74 80 Respiratory Rate 16 Blood Pressure 106/67 Pulse Oximetry 98 Oxygen Delivery Room Air 08/22/22 08:00 Temperature Pulse Rate 86 Respiratory Rate Blood Pressure Pulse Oximetry Oxygen Delivery Intake/Output Intake/Output: Intake & Output 08/19/22 08/20/22 08/21/22 08/22/22 23:59 23:59 23:59 23:59 Intake Total 4110 2350 3170 440 Output Total 1200 300 250 Balance 4110 1150 2870 190 Meds/Results Medications: Active Medications Generic Name Dose Route Start Last Admin Trade Name Freq PRN Reason Stop Dose Admin Hydrocodone Bitart/Acetaminophen 1 tab 08/18/22 19:33 08/22/22 08:39 Hydrocodone/Acetaminophen (*Crx) 5-325 Mg Tablet PO 1 tab Q4H PRN Administration Moderate Pain (4-6) Bupropion HCl 300 mg 08/19/22 14:00 08/22/22 08:38 Bupropion Hcl Xl (24 Hr) 150 Mg Tabcr PO 300 mg QAM MIGUEL ANGEL Administration Dicyclomine HCl 10 mg 08/19/22 13:03 08/22/22 08:38 Dicyclomine Hcl 10 Mg Capsule PO 10 mg BID PRN Administration Diarrhea Duloxetine HCl 60 mg 08/19/22 17:00 08/22/22 08:37 Duloxetine Hcl 60 Mg Capsule.Dr PO 60 mg BID MIGUEL ANGEL Administration Enoxaparin Sodium 40 mg 08/19/22 09:00 08/19/22 08:00 Enoxaparin 40 Mg/0.4 Ml Syringe SUB-Q 40 mg DAILY MIGUEL ANGEL Administration Fentanyl Citrate 25 mcg 08/19/22 14:30 08/20/22 10:09 Fentanyl Citrate Inj (*Crx) 100 Mcg/2 Ml Vial IV PUSH 25
[2022-08-22] MEDS: SODIUM CHLORIDE 0.9% IV 1,000 ML 75 ML IV CONT (12:47)
--- NOTE | 2022-08-22 14:21 | PM.IMPN ---
Progress Note: A&P Assessment and Plan (1) Acute GI bleeding: Code(s): K92.2 - Gastrointestinal hemorrhage, unspecified Status: Acute Assessment and Plan: GI consulted. On PPI. Status post colonoscopy 08/20/2022: And your colic anastomosis was present in the right colon. Right colon was previously removed. The segment was removed due to Crohn's disease. Multiple superficial still at ulcers were visualized in the sigmoid colon. The ulcers appeared at the depth of 35 mm to 45 mm from the annulus. The ulcers produced a stigmata of bleeding. Multiple cold forceps biopsies were taken from the sigmoid for pathology. Send the biopsies to pathology. 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 Recommendation would to obtain stool cultures to rule out associated infection. Trial of Flagyl antibiotic which may help as anti-inflammatories and against the Crohn's disease. Started onIV Solu-Medrol. Also had Flagyl as requested by GI Follow-up with [facility] which she follows up with Stool studies pending Reviewed biopsy report will stop IV fluid today On regular diet as tolerated (2) Inflammatory bowel disease (Crohn's disease): Qualifiers: Digestive disease complication type: with rectal bleeding Gastrointestinal tract location: large intestine Qualified Code(s): K50.111 - Crohn's disease of large intestine with rectal bleeding Code(s): K50.90 - Crohn's disease, unspecified, without complications Status: Acute Assessment and Plan: Continue home medications on Humira and Entyvio at home (3) Iron deficiency anemia: Code(s): D50.9 - Iron deficiency anemia, unspecified Status: Acute Assessment and Plan: Monitor, stable (4) Anxiety and depression: Code(s): F41.9 - Anxiety disorder, unspecified; F32.A - Depression, unspecified Status: Acute Assessment and Plan: Continue home medications, stable Plan DVT prophylaxis with Lovenox will hold Lovenox due to bleeding colonic ulcers GI prophylaxis with PPI Code status full code Subjective Date/time seen: 08/22/22 14:21 Interval history: Patient feels a little better. Blood in stool is slowing down. reviewed biopsy results with the patient Review of Systems Review of Systems: All systems reviewed & are unremarkable except as noted in HPI and below Exam Narrative: General: No acute distress, alert and oriented per baseline HEENT: Atraumatic, normocephalic, mucous membranes moist CV: Regular rate and rhythm, S1, S2 Lungs: Clear to auscultation bilaterally, no rales or crackles noted, no wheezes, good air entry Abdomen: Soft, diffusely tender to palpation, no rebounding or guarding Extremities: Normal to inspection Skin: No rashes noted, no lesions or wounds seen Psych: Euthymic, normal affect Objective Data Vital Signs Vital Signs: Vital Signs - 24 hr 08/21/22 16:00 08/21/22 21:12 08/21/22 20:00 Temperature 98.1 F Pulse Rate 88 84 Respiratory Rate 16 Blood Pressure 104/70 Pulse Oximetry 98 Oxygen Delivery Room Air 08/21/22 20:00 08/22/22 00:00 08/22/22 04:00 Temperature Pulse Rate 88 82 74 Respiratory Rate Blood Pressure Pulse Oximetry Oxygen Delivery 08/22/22 06:00 08/22/22 09:00 08/22/22 08:00 Temperature 98.1 F Pulse Rate 80 86 Respiratory Rate 16 Blood Pressure 106/67 Pulse Oximetry 98 Oxygen Delivery Room Air Intake/Output Intake/Output: Intake & Output 08/19/22 08/20/22 08/21/22 08/22/22 23:59 23:59 23:59 23:59 Intake Total 4110 2350 3170 1440 Output Total 1200 300 250 Balance 4110 1150 2870 1190 Meds/Results Medications: Active Medications Generic Name Dose Route Start Last Admin Trade Name Freq PRN Reason Stop Dose Admin Hydrocodone Bitart/Acetaminophen 1 tab 08/18/22 19:33 08/22/22 12:47 [place]
[2022-08-22] MEDS: ZIPRASIDONE HCL 80 MG CAPSULE PO (20:03)
[2022-08-22] MEDS: traZODone HCL 50 MG TABLET PO (20:03)
[2022-08-22] MEDS: ZOLPIDEM TARTRATE (*CRX) 5 MG TABLET 10 MG PO (20:04)
[2022-08-23] VITALS (9 sets, daily range): BP systolic 104–127; BP diastolic 62–77; PULSE 69–87; RESP 18–20; TEMP 36.3–36.4; O2SAT 96–97
[2022-08-23] MEDS: HYDROcodone/acetaminophen (*CRX) 5-325 MG TABLET 1 TAB PO ×5 (01:08→21:31)
[2022-08-23] MEDS: DICYCLOMINE HCL 10 MG CAPSULE PO (01:10)
[2022-08-23] MEDS: TIZANIDINE HCL 4 MG TABLET PO (01:30)
[2022-08-23] MEDS: methylPREDNISolone SOD SUCC 125 MG VIAL 60 MG IV PUSH (05:40)
[2022-08-23] MEDS: metroNIDAZOLE 500 MG/ISO 100ML 500 MG/100 ML BAG 100 MG IVPB ×3 (05:41→21:46)
--- NOTE | 2022-08-23 08:04 | WPDGIPROGNO ---
Progress Note: A&P Assessment and Plan (1) Inflammatory bowel disease (Crohn's disease): Qualifiers: Digestive disease complication type: with rectal bleeding Gastrointestinal tract location: large intestine Qualified Code(s): K50.111 - Crohn's disease of large intestine with rectal bleeding Code(s): K50.90 - Crohn's disease, unspecified, without complications Status: Acute Assessment and Plan: Patient with ongoing left-sided abdominal pain and diarrhea peers to be related to Crohn's colitis. Patient has been on biologic agents in these will be continued. Currently followed at [facility]. Now on IV Solu-Medrol. Plan to change to oral prednisone with a tapering dose as her pain and diarrhea improved. Ultimately would advise that she follow-up with [facility] as previously scheduled. Given her flare of disease would ask that she follow-up over the next several weeks there. I will be out of town, follow-up with [facility] advised. 08/23/2022 still having pain when she tries to eat, so will go slowly on diet. The plan is to transition to oral steroids. Will start prednisone b.i.d. and taper Solu-Medrol. Dr. Gomez will be back in town Thursday, otherwise there is no GI coverage from now until then. 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 Because of perianal disease would give her a course of Flagyl for 7-10 days. Stool cultures are pending to exclude any infection contributing to her diarrhea. 08/23/2022 her stools are still quite loose. She has not used Imodium in the past, relies on dicyclomine. I told her it would be okay to take some to slow things down which might help with her discomfort as well Subjective Date/time seen: 08/23/22 08:04 She she started on regular diet and had a cheeseburger yesterday. She states that it was not good . She had significant mid abdominal pain. She decided on her own to go back to full liquids. She is having small stools but no longer seen blood like she was on admission. Review of Systems Review of Systems: All systems reviewed & are unremarkable except as noted in HPI and below Exam Const: General: alert Orientation/consciousness: patient oriented x3 Resp: Auscultation: clear to auscultation bilaterally Cardio: Rhythm: regular rhythm GI: GI Palp: Yes Soft to palpation and Yes Tenderness to palpation present (GI) ( Mild tenderness mid abdomen) Auscultation: normal bowel sounds Neuro: General: patient oriented x3 Objective Data Vital Signs Vital Signs: Vital Signs - 24 hr 08/22/22 09:00 08/22/22 14:00 08/22/22 12:00 Temperature 36.3 C L Pulse Rate 67 80 Respiratory Rate 20 Blood Pressure 109/73 Pulse Oximetry 97 Oxygen Delivery Room Air 08/22/22 16:00 08/22/22 20:33 08/22/22 20:00 Temperature 36.4 C L Pulse Rate 79 84 84 Respiratory Rate 20 20 Blood Pressure 129/83 Pulse Oximetry 96 96 Oxygen Delivery Room Air 08/22/22 20:00 08/23/22 00:00 08/23/22 04:00 Temperature Pulse Rate 88 77 76 Respiratory Rate Blood Pressure Pulse Oximetry Oxygen Delivery 08/23/22 06:00 Temperature 36.4 C Pulse Rate 69 Respiratory Rate 20 Blood Pressure 104/62 Pulse Oximetry 96 Oxygen Delivery Intake/Output Intake/Output: Intake & Output 08/20/22 08/21/22 08/22/22 08/23/22 23:59 23:59 23:59 23:59 Intake Total 2350 3170 3380 350 Output Total 1200 837 287 4465 Balance 1150 2870 3130 -650 Meds/Results Medications: Active Medications Generic Name Dose Route Start Last Admin Trade Name Freq PRN Reason Stop Dose Admin Bupropion HCl 300 mg 08/19/22 14:00 08/22/22 08:38 Bupropion Hcl Xl (24 Hr) 150
[2022-08-23] MEDS: buPROPion HCL XL (24 HR) 150 MG TABCR 300 MG PO (09:14)
[2022-08-23] MEDS: DULoxetine HCL 60 MG CAPSULE.DR PO ×2 (09:14→16:30)
[2022-08-23] MEDS: PANTOPRAZOLE SODIUM IV 40 MG VIAL IV PUSH ×2 (09:15→21:40)
[2022-08-23] MEDS: FERROUS SULFATE 324 MG TABLET PO ×2 (09:15→16:30)
[2022-08-23] MEDS: GABAPENTIN 300 MG CAPSULE PO ×3 (09:15→16:30)
[2022-08-23] MEDS: TOPIRAMATE 25 MG TABLET 50 MG PO ×2 (09:15→21:40)
[2022-08-23] MEDS: hydrOXYzine HCL 25 MG TABLET 50 MG PO ×2 (09:29→16:30)
[2022-08-23] MEDS: methylPREDNISolone SOD SUCC 40 MG VIAL IV PUSH ×2 (12:29→21:42)
--- NOTE | 2022-08-23 15:21 | PM.IMPN ---
Progress Note: A&P Assessment and Plan (1) Acute GI bleeding: Code(s): K92.2 - Gastrointestinal hemorrhage, unspecified Status: Acute Assessment and Plan: GI consulted. On PPI. Status post colonoscopy 08/20/2022: And your colic anastomosis was present in the right colon. Right colon was previously removed. The segment was removed due to Crohn's disease. Multiple superficial still at ulcers were visualized in the sigmoid colon. The ulcers appeared at the depth of 35 mm to 45 mm from the annulus. The ulcers produced a stigmata of bleeding. Multiple cold forceps biopsies were taken from the sigmoid for pathology. Send the biopsies to pathology. 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 Recommendation would to obtain stool cultures to rule out associated infection. Trial of Flagyl antibiotic which may help as anti-inflammatories and against the Crohn's disease. Started onIV Solu-Medrol. Also had Flagyl as requested by GI Follow-up with [facility] which she follows up with Stool studies with bending over and ferrous side. C diff is negative. Stool calprotectin pending Reviewed biopsy report On regular diet as tolerated (2) Inflammatory bowel disease (Crohn's disease): Qualifiers: Digestive disease complication type: with rectal bleeding Gastrointestinal tract location: large intestine Qualified Code(s): K50.111 - Crohn's disease of large intestine with rectal bleeding Code(s): K50.90 - Crohn's disease, unspecified, without complications Status: Acute Assessment and Plan: Continue home medications on Humira and Entyvio at home (3) Iron deficiency anemia: Code(s): D50.9 - Iron deficiency anemia, unspecified Status: Acute Assessment and Plan: Monitor, stable (4) Anxiety and depression: Code(s): F41.9 - Anxiety disorder, unspecified; F32.A - Depression, unspecified Status: Acute Assessment and Plan: Continue home medications, stable Plan DVT prophylaxis with Lovenox will hold Lovenox due to bleeding colonic ulcers GI prophylaxis with PPI Code status full code Subjective Date/time seen: 08/23/22 15:21 Interval history: She is about the same today. Bleeding in stool has slowed down. Abdominal pain persist. She did not tolerate her food that she is eating has slowed down to more soft diet now. No nausea vomiting. Remains afebrile. Review of Systems Review of Systems: All systems reviewed & are unremarkable except as noted in HPI and below Exam Narrative: General: No acute distress, alert and oriented per baseline HEENT: Atraumatic, normocephalic, mucous membranes moist CV: Regular rate and rhythm, S1, S2 Lungs: Clear to auscultation bilaterally, no rales or crackles noted, no wheezes, good air entry Abdomen: Soft, tender to palpation mostly to left lower quadrant, no rebounding or guarding Extremities: Normal to inspection Skin: No rashes noted, no lesions or wounds seen Psych: Euthymic, normal affect Objective Data Vital Signs Vital Signs: Vital Signs - 24 hr 08/22/22 16:00 08/22/22 20:33 08/22/22 20:00 Temperature 97.5 F L Pulse Rate 79 84 84 Respiratory Rate 20 20 Blood Pressure 129/83 Pulse Oximetry 96 96 Oxygen Delivery Room Air 08/22/22 20:00 08/23/22 00:00 08/23/22 04:00 Temperature Pulse Rate 88 77 76 Respiratory Rate Blood Pressure Pulse Oximetry Oxygen Delivery 08/23/22 06:00 08/23/22 08:00 08/23/22 08:00 Temperature 97.6 F Pulse Rate 69 83 Respiratory Rate 20 Blood Pressure 104/62 Pulse Oximetry 96 Oxygen Delivery Room Air 08/23/22 12:00 Temperature Pulse Rate 83 Respiratory Rate Blood Pressure Pulse Oximetry Oxygen Delivery Intake/Output Intake/Output: Intake & Output 08/20/22 08/21/22 08/22/22 08/23/22 23:59 23:59 23:59 23:59 Intake
[2022-08-23] MEDS: traZODone HCL 50 MG TABLET PO (21:41)
[2022-08-23] MEDS: ZIPRASIDONE HCL 80 MG CAPSULE PO (21:42)
[2022-08-23] MEDS: ZOLPIDEM TARTRATE (*CRX) 5 MG TABLET 10 MG PO (21:46)
[2022-08-24] VITALS (9 sets, daily range): BP systolic 120–134; BP diastolic 72–85; PULSE 67–94; RESP 16–18; TEMP 36.4–36.6; O2SAT 95–97
[2022-08-24] MEDS: HYDROcodone/acetaminophen (*CRX) 5-325 MG TABLET 1 TAB PO ×6 (03:01→20:53)
[2022-08-24] MEDS: methylPREDNISolone SOD SUCC 40 MG VIAL IV PUSH (05:18)
[2022-08-24] MEDS: metroNIDAZOLE 500 MG/ISO 100ML 500 MG/100 ML BAG 100 MG IVPB ×3 (05:18→20:54)
[2022-08-24 08:06] LABS: Basophils Absolute Auto 0.1 K/mm3 (0.0-0.1); Basophils Percent Auto 0.4 % (0.2-1.2); Hematocrit 38.2 % (37.0-47.0); Hemoglobin 13.7 g/dL (12.0-15.0); Immature Granulocyte Absolute 0.74 K/mm3 (0.00-0.031); Immature Granulocyte Percent A 6.5 % (0-0.5); Immature Platelet Fraction Pct 4.4 % (0.9-11.2); Lymphocytes Absolute Auto 1.16 K/mm3 (0.9-3.2); Lymphocytes Percent Auto 10.2 % (18.3-44.2); Mean Corpuscular HGB Conc 35.9 g/dl (32-36); Mean Corpuscular Hemoglobin 31.2 pg (26-34); Mean Platelet Volume 9.1 fl (7.4-10.4); Monocytes Absolute Auto 0.4 K/mm3 (0.1-0.6); Monocytes Percent Auto 3.6 % (2.6-8.5); Neutrophils Percent Auto 79.3 % (45.5-73.1); Platelet Count Result 293 k/mm3 (150-375); Red Blood Count 4.39 M/mm3 (4.2-5.4); Red Cell Distribution Width 13.6 % (11.5-14.5); White Blood Count 11.4 K/mm3 (4.5-10.0)
[2022-08-24 08:11] LABS: Alanine Aminotransferase 30 U/L (6-35); Albumin Level 3.8 g/dL (3.5-5.1); Alkaline Phosphatase 120 U/L (38-126); Anion Gap 16 mmol/L (8-16); Aspartate Amino Transferase 27 U/L (14-36); Bilirubin,Total 0.5 mg/dL (0.2-1.3); Blood Urea Nitrogen 14 mg/dL (7-17); Calcium 8.6 mg/dL (8.4-10.2); Carbon Dioxide 17 mmol/L (22-30); Chloride 91 mmol/L (98-107); Estimated Glomerular Filt Rate > 60; Glucose 127 mg/dL (65-110); Magnesium 1.6 mg/dL (1.6-2.3); Potassium 3.2 mmol/L (3.4-5.0); Sodium 124 mmol/L (137-145)
[2022-08-24] MEDS: GABAPENTIN 300 MG CAPSULE PO ×3 (08:17→16:11)
[2022-08-24] MEDS: predniSONE 20 MG TABLET 40 MG PO ×2 (08:18→16:11)
[2022-08-24] MEDS: TOPIRAMATE 25 MG TABLET 50 MG PO ×2 (08:18→20:54)
[2022-08-24] MEDS: DULoxetine HCL 60 MG CAPSULE.DR PO ×2 (08:18→16:11)
[2022-08-24] MEDS: buPROPion HCL XL (24 HR) 150 MG TABCR 300 MG PO (08:19)
[2022-08-24] MEDS: FERROUS SULFATE 324 MG TABLET PO ×2 (08:19→16:11)
[2022-08-24] MEDS: PANTOPRAZOLE SODIUM IV 40 MG VIAL IV PUSH ×2 (08:19→20:54)
[2022-08-24] MEDS: DICYCLOMINE HCL 10 MG CAPSULE PO (08:19)
[2022-08-24] MEDS: hydrOXYzine HCL 25 MG TABLET 50 MG PO ×2 (08:21→16:10)
[2022-08-24] MEDS: POTASSIUM CHLORIDE INJ 40 MEQ in SODIUM CHLORIDE 0.9% IV 500 ML 130 MEQ IVPB (09:09)
--- NOTE | 2022-08-24 13:36 | PM.IMPN ---
Progress Note: A&P Assessment and Plan (1) Acute GI bleeding: Code(s): K92.2 - Gastrointestinal hemorrhage, unspecified Status: Acute Assessment and Plan: GI consulted. On PPI. Status post colonoscopy 08/20/2022: And your colic anastomosis was present in the right colon. Right colon was previously removed. The segment was removed due to Crohn's disease. Multiple superficial still at ulcers were visualized in the sigmoid colon. The ulcers appeared at the depth of 35 mm to 45 mm from the annulus. The ulcers produced a stigmata of bleeding. Multiple cold forceps biopsies were taken from the sigmoid for pathology. Send the biopsies to pathology. 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 Recommendation would to obtain stool cultures to rule out associated infection. Trial of Flagyl antibiotic which may help as anti-inflammatories and against the Crohn's disease. Started onIV Solu-Medrol. Also had Flagyl as requested by GI Follow-up with [facility] which she follows up with Stool studies with bending over and ferrous side. C diff is negative. Stool calprotectin pending Reviewed biopsy report On regular diet as tolerated Will switch IV Solu-Medrol to prednisone as advised. (2) Inflammatory bowel disease (Crohn's disease): Qualifiers: Digestive disease complication type: with rectal bleeding Gastrointestinal tract location: large intestine Qualified Code(s): K50.111 - Crohn's disease of large intestine with rectal bleeding Code(s): K50.90 - Crohn's disease, unspecified, without complications Status: Acute Assessment and Plan: Continue home medications on Humira and Entyvio at home (3) Iron deficiency anemia: Code(s): D50.9 - Iron deficiency anemia, unspecified Status: Acute Assessment and Plan: Monitor, stable (4) Anxiety and depression: Code(s): F41.9 - Anxiety disorder, unspecified; F32.A - Depression, unspecified Status: Acute Assessment and Plan: Continue home medications, stable (5) Hyponatremia: Code(s): E87.1 - Hypo-osmolality and hyponatremia Status: Acute Assessment and Plan: sodium level dipped down to 124 today. Previous level few days back was 134 She looks euvolemic however will give a trial of normal saline infusion Will monitor sodium level regularly Check urine sodium and osmolality could also be SIADH due to ongoing nausea (6) Hypokalemia: Code(s): E87.6 - Hypokalemia Status: Resolved Assessment and Plan: replace Plan DVT prophylaxis with Lovenox will hold Lovenox due to bleeding colonic ulcers GI prophylaxis with PPI Code status full code Subjective Date/time seen: 08/24/22 13:36 Interval history: she thinks her bleeding per rectum has almost stopped now. Abdominal pain persist may be slightly better today. She only ate broth yesterday continues to feel nauseated. No fever chills. Lab abnormality noted this morning. Remains afebrile. Review of Systems Review of Systems: All systems reviewed & are unremarkable except as noted in HPI and below Exam Narrative: General: No acute distress, alert and oriented per baseline HEENT: Atraumatic, normocephalic, mucous membranes moist CV: Regular rate and rhythm, S1, S2 Lungs: Clear to auscultation bilaterally, no rales or crackles noted, no wheezes, good air entry Abdomen: Soft, tender to palpation mostly to left lower quadrant, no rebounding or guarding Extremities: Normal to inspection Skin: No rashes noted, no lesions or wounds seen Psych: Euthymic, normal affect Objective Data Vital Signs Vital Signs: Vital Signs - 24 hr 08/23/22 16:00 08/23/22 14:00 08/23/22 19:49 Temperature 97.4 F L 97.6 F Pulse Rate 85 83 85 Respiratory Rate 20 18 Blood Pressure 116/77 127/76 Pulse Oximetry 97 97 Oxygen Delivery
[2022-08-24] MEDS: SODIUM CHLORIDE 0.9% IV 1,000 ML 100 ML IV CONT (13:56)
[2022-08-24 15:25] LABS: Anion Gap 15 mmol/L (8-16); Blood Urea Nitrogen 14 mg/dL (7-17); Calcium 8.5 mg/dL (8.4-10.2); Carbon Dioxide 16 mmol/L (22-30); Chloride 95 mmol/L (98-107); Estimated Glomerular Filt Rate > 60; Glucose 140 mg/dL (65-110); Potassium 3.6 mmol/L (3.4-5.0); Sodium 126 mmol/L (137-145)
[2022-08-24 20:49] LABS: Anion Gap 12 mmol/L (8-16); Blood Urea Nitrogen 15 mg/dL (7-17); Calcium 8.2 mg/dL (8.4-10.2); Carbon Dioxide 15 mmol/L (22-30); Chloride 96 mmol/L (98-107); Estimated Glomerular Filt Rate > 60; Glucose 152 mg/dL (65-110); Potassium 3.4 mmol/L (3.4-5.0); Sodium 123 mmol/L (137-145)
[2022-08-24] MEDS: ZIPRASIDONE HCL 80 MG CAPSULE PO (20:54)
[2022-08-24] MEDS: traZODone HCL 50 MG TABLET PO (20:54)
[2022-08-24] MEDS: ZOLPIDEM TARTRATE (*CRX) 5 MG TABLET 10 MG PO (20:55)
[2022-08-25] VITALS (9 sets, daily range): BP systolic 130–138; BP diastolic 85–97; PULSE 68–93; RESP 20–21; TEMP 35.8–36.2; O2SAT 98–100
[2022-08-25] MEDS: HYDROcodone/acetaminophen (*CRX) 5-325 MG TABLET 1 TAB PO ×6 (02:50→20:39)
[2022-08-25] MEDS: SODIUM CHLORIDE 0.9% IV 1,000 ML 100 ML IV CONT (05:21)
[2022-08-25] MEDS: metroNIDAZOLE 500 MG/ISO 100ML 500 MG/100 ML BAG 100 MG IVPB ×3 (05:21→20:39)
--- NOTE | 2022-08-25 07:00 | WPDGIPROGNO ---
Progress Note: A&P Assessment and Plan (1) Inflammatory bowel disease (Crohn's disease): Qualifiers: Digestive disease complication type: with rectal bleeding Gastrointestinal tract location: large intestine Qualified Code(s): K50.111 - Crohn's disease of large intestine with rectal bleeding Code(s): K50.90 - Crohn's disease, unspecified, without complications Status: Acute Assessment and Plan: Patient with ongoing left-sided abdominal pain and diarrhea peers to be related to Crohn's colitis. Patient has been on biologic agents in these will be continued. Currently followed at [facility]. Now on IV Solu-Medrol. Plan to change to oral prednisone with a tapering dose as her pain and diarrhea improved. Ultimately would advise that she follow-up with [facility] as previously scheduled. Given her flare of disease would ask that she follow-up over the next several weeks there. I will be out of town, follow-up with [facility] advised. 08/23/2022 still having pain when she tries to eat, so will go slowly on diet. The plan is to transition to oral steroids. Will start prednisone b.i.d. and taper Solu-Medrol. 08/25/2022 still unable to eat without discomfort. Even when not eating she has significant diffuse abdominal pain. It is perplexing given the fact that her abdomen is soft with palpation. We will cut her back to clear liquid diet. Hopefully resting her got will ameliorate some of the symptoms. She has been switched over to oral steroids. 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 Because of perianal disease would give her a course of Flagyl for 7-10 days. Stool cultures are pending to exclude any infection contributing to her diarrhea. 08/23/2022 her stools are still quite loose. She has not used Imodium in the past, relies on dicyclomine. I told her it would be okay to take some to slow things down which might help with her discomfort as well (3) Hyponatremia: Code(s): E87.1 - Hypo-osmolality and hyponatremia Status: Acute Assessment and Plan: sodium has dropped gradually. One hundred twenty-three yesterday. Subjective Date/time seen: 08/25/22 07:00 she is still quite uncomfortable. She states that hydrocodone drops a pain level by about 2 points. She is still receiving it every 3 hours or so. I told her that I would like to increase the intervals in between and I think that if we rest her got we would have a better chance of making her comfortable. She admitted that she was not able to eat much on her regular diet in fact has been primarily ordering broth. She tried a cheeseburger which made her pain worse. She is no longer having diarrhea. When she does have a stool that is a small amount of semi-liquid material without blood. Exam Const: General: alert Orientation/consciousness: patient oriented x3 Resp: Auscultation: clear to auscultation bilaterally Cardio: Rhythm: regular rhythm GI: Inspection: normal to inspection and scar GI Palp: Yes abdominal tenderness ( Minimal tenderness with palpation), Yes Soft to palpation and No Guarding due to palpation present (GI) Auscultation: normal bowel sounds Neuro: General: patient oriented x3 Objective Data Vital Signs Vital Signs: Vital Signs - 24 hr 08/24/22 08:15 08/24/22 08:00 08/24/22 12:00 Temperature Pulse Rate 94 83 Respiratory Rate Blood Pressure Pulse Oximetry Oxygen Delivery Room Air 08/24/22 14:00 08/24/22 16:00 08/24/22 21:48 Temperature 36.6 C 36.4 C Pulse Rate 85 87 89 Respiratory Rate 16 18 Blood Pressure 129/82 134/85 Pulse Oximetry 97 97 Oxygen Delivery 08/24/22 20:00 08/24
[2022-08-25 07:59] LABS: Basophils Absolute Auto 0.1 K/mm3 (0.0-0.1); Basophils Percent Auto 0.5 % (0.2-1.2); Eosinophils Percent Auto 0.1 % (0-4.4); Hematocrit 36.5 % (37.0-47.0); Immature Granulocyte Absolute 0.71 K/mm3 (0.00-0.031); Immature Granulocyte Percent A 4.7 % (0-0.5); Lymphocytes Absolute Auto 1.65 K/mm3 (0.9-3.2); Lymphocytes Percent Auto 10.9 % (18.3-44.2); Mean Corpuscular HGB Conc 35.6 g/dl (32-36); Mean Corpuscular Hemoglobin 29.9 pg (26-34); Mean Corpuscular Volume 83.9 fl (80-100); Mean Platelet Volume 8.5 fl (7.4-10.4); Monocytes Absolute Auto 1.1 K/mm3 (0.1-0.6); Neutrophils Absolute Auto 11.7 K/mm3 (1.3-6.7); Neutrophils Percent Auto 76.8 % (45.5-73.1); Platelet Count Result 308 k/mm3 (150-375); Red Blood Count 4.35 M/mm3 (4.2-5.4); Red Cell Distribution Width 13.7 % (11.5-14.5); White Blood Count 15.2 K/mm3 (4.5-10.0)
[2022-08-25 08:12] LABS: Alanine Aminotransferase 26 U/L (6-35); Albumin Level 3.5 g/dL (3.5-5.1); Alkaline Phosphatase 127 U/L (38-126); Anion Gap 8 mmol/L (8-16); Aspartate Amino Transferase 27 U/L (14-36); Bilirubin,Total 0.4 mg/dL (0.2-1.3); Blood Urea Nitrogen 13 mg/dL (7-17); Calcium 8.3 mg/dL (8.4-10.2); Carbon Dioxide 19 mmol/L (22-30); Chloride 95 mmol/L (98-107); Estimated Glomerular Filt Rate > 60; Glucose 82 mg/dL (65-110); Potassium 2.9 mmol/L (3.4-5.0); Sodium 122 mmol/L (137-145)
[2022-08-25 08:13] LABS: Anion Gap 9 mmol/L (8-16); Blood Urea Nitrogen 13 mg/dL (7-17); Calcium 8.3 mg/dL (8.4-10.2); Carbon Dioxide 19 mmol/L (22-30); Chloride 95 mmol/L (98-107); Estimated Glomerular Filt Rate > 60; Glucose 82 mg/dL (65-110); Sodium 123 mmol/L (137-145)
[2022-08-25] MEDS: DULoxetine HCL 60 MG CAPSULE.DR PO ×2 (09:17→16:55)
[2022-08-25] MEDS: predniSONE 20 MG TABLET 40 MG PO ×2 (09:18→16:54)
[2022-08-25] MEDS: buPROPion HCL XL (24 HR) 150 MG TABCR 300 MG PO (09:18)
[2022-08-25] MEDS: DICYCLOMINE HCL 10 MG CAPSULE PO (09:18)
[2022-08-25] MEDS: GABAPENTIN 300 MG CAPSULE PO ×3 (09:18→16:54)
[2022-08-25] MEDS: FERROUS SULFATE 324 MG TABLET PO ×2 (09:19→16:55)
[2022-08-25] MEDS: PANTOPRAZOLE SODIUM IV 40 MG VIAL IV PUSH ×2 (09:19→20:38)
[2022-08-25] MEDS: TOPIRAMATE 25 MG TABLET 50 MG PO ×2 (09:19→20:38)
[2022-08-25] MEDS: hydrOXYzine HCL 25 MG TABLET 50 MG PO ×2 (09:28→16:54)
--- NOTE | 2022-08-25 15:46 | PM.IMPN ---
Progress Note: A&P Assessment and Plan (1) Acute GI bleeding: Code(s): K92.2 - Gastrointestinal hemorrhage, unspecified Status: Acute Assessment and Plan: GI consulted. On PPI. Status post colonoscopy 08/20/2022: And your colic anastomosis was present in the right colon. Right colon was previously removed. The segment was removed due to Crohn's disease. Multiple superficial still at ulcers were visualized in the sigmoid colon. The ulcers appeared at the depth of 35 mm to 45 mm from the annulus. The ulcers produced a stigmata of bleeding. Multiple cold forceps biopsies were taken from the sigmoid for pathology. Send the biopsies to pathology. 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 Recommendation would to obtain stool cultures to rule out associated infection. Trial of Flagyl antibiotic which may help as anti-inflammatories and against the Crohn's disease. Started onIV Solu-Medrol. Also had Flagyl as requested by GI Follow-up with [facility] which she follows up with Stool studies with bending over and ferrous side. C diff is negative. Stool calprotectin pending Reviewed biopsy report On regular diet as tolerated Will switch IV Solu-Medrol to prednisone as advised. (2) Inflammatory bowel disease (Crohn's disease): Qualifiers: Digestive disease complication type: with rectal bleeding Gastrointestinal tract location: large intestine Qualified Code(s): K50.111 - Crohn's disease of large intestine with rectal bleeding Code(s): K50.90 - Crohn's disease, unspecified, without complications Status: Acute Assessment and Plan: Continue home medications on Humira and Entyvio at home (3) Iron deficiency anemia: Code(s): D50.9 - Iron deficiency anemia, unspecified Status: Acute Assessment and Plan: Monitor, stable (4) Anxiety and depression: Code(s): F41.9 - Anxiety disorder, unspecified; F32.A - Depression, unspecified Status: Acute Assessment and Plan: Continue home medications, stable (5) Hyponatremia: Code(s): E87.1 - Hypo-osmolality and hyponatremia Status: Acute Assessment and Plan: sodium level dipped down to 124 Previous level few days back was 134 She looks euvolemic however will give a trial of normal saline infusion na level low at 122. will add salt tablet 1 gm bid. rehceck again in evening. nephrology consult. could also be SIADH due to ongoing nausea (6) Hypokalemia: Code(s): E87.6 - Hypokalemia Status: Resolved Assessment and Plan: replace Plan DVT prophylaxis with Lovenox will hold Lovenox due to bleeding colonic ulcers GI prophylaxis with PPI Code status full code Subjective Date/time seen: 08/25/22 15:46 Interval history: feeling a bit better. no nausea, vmoiting. was on liquid tyeserdea. abdomen is improving. no fever, chills. Review of Systems Review of Systems: All systems reviewed & are unremarkable except as noted in HPI and below Exam Narrative: General: No acute distress, alert and oriented per baseline HEENT: Atraumatic, normocephalic, mucous membranes moist CV: Regular rate and rhythm, S1, S2 Lungs: Clear to auscultation bilaterally, no rales or crackles noted, no wheezes, good air entry Abdomen: Soft, very mild tender to palpation mostly to left lower quadrant, no rebounding or guarding Extremities: Normal to inspection Skin: No rashes noted, no lesions or wounds seen Psych: Euthymic, normal affect Objective Data Vital Signs Vital Signs: Vital Signs - 24 hr 08/24/22 16:00 08/24/22 21:48 08/24/22 20:00 Temperature 97.6 F Pulse Rate 87 89 85 Respiratory Rate 18 Blood Pressure 134/85 Pulse Oximetry 97 Oxygen Delivery 08/24/22 20:00 08/25/22 00:00 08/25/22 04:00 Temperature Pulse Rate 73 68 Respiratory Rate Blood Pres
[2022-08-25] MEDS: POTASSIUM CHLORIDE 20 MEQ TABLET 40 MEQ PO (16:54)
[2022-08-25] MEDS: SODIUM CHLORIDE 500 MG TABLET 1000 MG PO (17:00)
[2022-08-25 17:14] LABS: Urea Random Urine 310 MG/DL
[2022-08-25 17:28] LABS: Sodium Urine Random 147 meq/L
[2022-08-25 18:37] LABS: Anion Gap 18 mmol/L (8-16); Blood Urea Nitrogen 11 mg/dL (7-17); Calcium 8.5 mg/dL (8.4-10.2); Carbon Dioxide 15 mmol/L (22-30); Chloride 90 mmol/L (98-107); Estimated Glomerular Filt Rate > 60; Glucose 124 mg/dL (65-110); Potassium 3.3 mmol/L (3.4-5.0); Sodium 123 mmol/L (137-145)
[2022-08-25 19:04] LABS: Thyroid Stimulating Hormone Reflex 0.146 uIU/mL (0.465-4.68)
[2022-08-25] MEDS: ZOLPIDEM TARTRATE (*CRX) 5 MG TABLET 10 MG PO (20:39)
[2022-08-25] MEDS: traZODone HCL 50 MG TABLET PO (20:39)
[2022-08-25] MEDS: ZIPRASIDONE HCL 80 MG CAPSULE PO (20:39)
[2022-08-26] VITALS (10 sets, daily range): BP systolic 96–127; BP diastolic 67–84; PULSE 71–100; RESP 16–18; TEMP 35.9–36.6; O2SAT 98–100; BMI 30.2
[2022-08-26] MEDS: HYDROcodone/acetaminophen (*CRX) 5-325 MG TABLET 1 TAB PO ×6 (03:15→22:34)
[2022-08-26 04:42] LABS: Free T4 Free Thyroxine Reflex 1.04 ng/dL (0.78-2.19)
[2022-08-26] MEDS: metroNIDAZOLE 500 MG/ISO 100ML 500 MG/100 ML BAG 100 MG IVPB ×3 (05:18→21:21)
[2022-08-26 05:33] LABS: Total Triiodothyronine (T3) 0.73 NG/ML (0.97-1.69)
[2022-08-26] MEDS: PANTOPRAZOLE SODIUM IV 40 MG VIAL IV PUSH ×2 (08:47→20:20)
[2022-08-26] MEDS: TOPIRAMATE 25 MG TABLET 50 MG PO ×2 (08:48→20:20)
[2022-08-26] MEDS: GABAPENTIN 300 MG CAPSULE PO ×3 (08:48→16:40)
[2022-08-26] MEDS: predniSONE 20 MG TABLET 40 MG PO ×2 (08:48→16:40)
[2022-08-26] MEDS: DICYCLOMINE HCL 10 MG CAPSULE PO ×2 (08:49→13:38)
[2022-08-26] MEDS: buPROPion HCL XL (24 HR) 150 MG TABCR 300 MG PO (08:49)
[2022-08-26] MEDS: FERROUS SULFATE 324 MG TABLET PO ×2 (08:49→16:39)
[2022-08-26] MEDS: hydrOXYzine HCL 25 MG TABLET 50 MG PO ×2 (09:05→16:40)
[2022-08-26] MEDS: SODIUM CHLORIDE 500 MG TABLET 1000 MG PO ×2 (09:09→16:41)
[2022-08-26] MEDS: DULoxetine HCL 60 MG CAPSULE.DR PO ×2 (09:09→16:39)
--- NOTE | 2022-08-26 09:34 | PM.IMPN ---
Progress Note: A&P Assessment and Plan (1) Acute GI bleeding: Code(s): K92.2 - Gastrointestinal hemorrhage, unspecified Status: Acute Assessment and Plan: GI consulted. On PPI. Status post colonoscopy 08/20/2022: And your colic anastomosis was present in the right colon. Right colon was previously removed. The segment was removed due to Crohn's disease. Multiple superficial still at ulcers were visualized in the sigmoid colon. The ulcers appeared at the depth of 35 mm to 45 mm from the annulus. The ulcers produced a stigmata of bleeding. Multiple cold forceps biopsies were taken from the sigmoid for pathology. Send the biopsies to pathology. 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 Recommendation would to obtain stool cultures to rule out associated infection. Trial of Flagyl antibiotic which may help as anti-inflammatories and against the Crohn's disease. Started onIV Solu-Medrol. Also had Flagyl as requested by GI Follow-up with [facility] which she follows up with Stool studies with pending over and ferrous side. C diff is negative. Stool calprotectin pending Reviewed biopsy report On regular diet as tolerated switched from IV Solu-Medrol to prednisone as advised. (2) Inflammatory bowel disease (Crohn's disease): Qualifiers: Digestive disease complication type: with rectal bleeding Gastrointestinal tract location: large intestine Qualified Code(s): K50.111 - Crohn's disease of large intestine with rectal bleeding Code(s): K50.90 - Crohn's disease, unspecified, without complications Status: Acute Assessment and Plan: Continue home medications on Humira and Entyvio at home (3) Iron deficiency anemia: Code(s): D50.9 - Iron deficiency anemia, unspecified Status: Acute Assessment and Plan: Monitor, stable (4) Anxiety and depression: Code(s): F41.9 - Anxiety disorder, unspecified; F32.A - Depression, unspecified Status: Acute Assessment and Plan: Continue home medications, stable (5) Hyponatremia: Code(s): E87.1 - Hypo-osmolality and hyponatremia Status: Acute Assessment and Plan: sodium level dipped down to 124 Previous level few days back was 134 She looks euvolemic however will give a trial of normal saline infusion na level low at 122. will add salt tablet 1 gm bid. rehceck again in evening. nephrology consult. could also be SIADH due to ongoing nausea nephrology consult for hyponatremia (6) Hypokalemia: Code(s): E87.6 - Hypokalemia Status: Resolved Assessment and Plan: replace (7) Metabolic acidosis, NAG, bicarbonate losses: Code(s): E87.2 - Acidosis Status: Acute Assessment and Plan: worsened. start bicarb drip. check lactic acid level. monitor roderick get repeat ct abdomen and pelvis today Plan DVT prophylaxis with Lovenox will hold Lovenox due to bleeding colonic ulcers GI prophylaxis with PPI Code status full code Subjective Date/time seen: 08/26/22 09:34 Interval history: patient feeling about the same. she is having some loose stools. had an episode of nausea and almost threw up with it this am, abodminal pain is rated at 3 this am. no fever, chlls. Review of Systems Review of Systems: All systems reviewed & are unremarkable except as noted in HPI and below Exam Narrative: General: No acute distress, alert and oriented per baseline HEENT: Atraumatic, normocephalic, mucous membranes moist CV: Regular rate and rhythm, S1, S2 Lungs: Clear to auscultation bilaterally, no rales or crackles noted, no wheezes, good air entry Abdomen: Soft, mild tender to palpation mostly to left lower quadrant, no rebounding or guarding Extremities: Normal to inspection Skin: No rashes noted, no lesions or wounds seen Psych: Euthymic, normal affect Objective Data Vit
[2022-08-26] MEDS: ONDANSETRON INJ 4 MG/2 ML VIAL IV PUSH (10:01)
[2022-08-26 10:30] LABS: Basophils Percent Auto 0.2 % (0.2-1.2); Eosinophils Percent Auto 0.1 % (0-4.4); Hematocrit 37.8 % (37.0-47.0); Hemoglobin 13.3 g/dL (12.0-15.0); Immature Granulocyte Absolute 0.39 K/mm3 (0.00-0.031); Immature Granulocyte Percent A 2.4 % (0-0.5); Lymphocytes Absolute Auto 1.04 K/mm3 (0.9-3.2); Lymphocytes Percent Auto 6.4 % (18.3-44.2); Mean Corpuscular HGB Conc 35.2 g/dl (32-36); Mean Corpuscular Hemoglobin 30.9 pg (26-34); Mean Corpuscular Volume 87.7 fl (80-100); Mean Platelet Volume 8.4 fl (7.4-10.4); Monocytes Absolute Auto 1.1 K/mm3 (0.1-0.6); Monocytes Percent Auto 6.6 % (2.6-8.5); Neutrophils Absolute Auto 13.6 K/mm3 (1.3-6.7); Neutrophils Percent Auto 84.3 % (45.5-73.1); Platelet Count Result 257 k/mm3 (150-375); Red Blood Count 4.31 M/mm3 (4.2-5.4); Red Cell Distribution Width 14.5 % (11.5-14.5); White Blood Count 16.2 K/mm3 (4.5-10.0)
[2022-08-26] MEDS: SODIUM BICARBONATE 8.4% 150 MEQ in DEXTROSE 5% 1,000 ML 950 ML 75 MEQ IV CONT (10:34)
[2022-08-26 10:42] LABS: Lactic Acid Reflex 2.7 mmol/L (0.7-2.0)
[2022-08-26 10:51] LABS: Alanine Aminotransferase 26 U/L (6-35); Albumin Level 3.7 g/dL (3.5-5.1); Alkaline Phosphatase 97 U/L (38-126); Anion Gap 13 mmol/L (8-16); Aspartate Amino Transferase 26 U/L (14-36); Bilirubin,Total 0.5 mg/dL (0.2-1.3); Blood Urea Nitrogen 9 mg/dL (7-17); Calcium 7.7 mg/dL (8.4-10.2); Carbon Dioxide 21 mmol/L (22-30); Chloride 86 mmol/L (98-107); Estimated Glomerular Filt Rate > 60; Glucose 99 mg/dL (65-110); Magnesium 1.5 mg/dL (1.6-2.3); Potassium 3.5 mmol/L (3.4-5.0); Sodium 120 mmol/L (137-145)
[2022-08-26] MEDS: MAGNESIUM SULF 2 GM/WATER 50ML 2 GM/50 ML BAG IVPB (11:24)
[2022-08-26] MEDS: POTASSIUM CHLORIDE INJ 40 MEQ in SODIUM CHLORIDE 0.9% IV 500 ML 130 MEQ IVPB (12:25)
[2022-08-26 13:28] LABS: Reflex Lactic Acid Yes or No Add Lactic
[2022-08-26 14:07] LABS: Lactic Acid 1.2 mmol/L (0.7-2.0)
--- NOTE | 2022-08-26 15:16 | PM.CNNEP ---
Assessment and Plan Assessment and plan (1) Hyponatremia: Code(s): E87.1 - Hypo-osmolality and hyponatremia Status: Acute Assessment and Plan: patient has a low sodium. This is been going on for at least 12 years. It is not low every time we check it but occasionally it is low. She is on duloxetine and Wellbutrin both of which can make the sodium level low. She also drinks lots of fluid, not only water but also ensure to support her nutrition. The Ensure does have some sodium and some osmoles in it in the form of calories so it is not quite like drinking free water but still there is some free water contained there in over and above the same amount of calories would be contained in solid food. she also may have been a bit dehydrated along the way as well because of her diarrhea. She might have some chronic decreased free water excretion due to her meds. If she does not drink a lot of fluid this may be hit in because she does not overwhelm her free water excretory ability. However if she eats less and drinks more water than this would on mask this issue and make the serum sodium drop. Being dehydrated would just make all of this worse. The patient could have low cortisol levels as well contributing to it. I will check a cortisol level. At this point I would continue the free water restriction. See what happens with the sodium level. Consider 3% saline if he keeps going down. (2) Acute GI bleeding: Code(s): K92.2 - Gastrointestinal hemorrhage, unspecified Status: Acute Assessment and Plan: The patient is being seen by Dr. Gomez. (3) Inflammatory bowel disease (Crohn's disease): Qualifiers: Digestive disease complication type: with rectal bleeding Gastrointestinal tract location: large intestine Qualified Code(s): K50.111 - Crohn's disease of large intestine with rectal bleeding Code(s): K50.90 - Crohn's disease, unspecified, without complications Status: Acute Assessment and Plan: The patient has Crohn's disease. This is likely causing her admission issues. (4) Metabolic acidosis: Code(s): E87.20 - Acidosis, unspecified Status: Acute Assessment and Plan: She has a metabolic acidosis. Her baseline anion gap seems to be anywhere from 5-10. Her anion gap was as high as 18 at 1 point but generally here has been 10-15. She did have a mildly high lactic acid level. she of course has the diarrhea which would also cause an anion gap. She is getting a bicarb drip. History of Present Illness Reason for Consult Consult date: 08/26/22 Chief Complaint Chief complaint: GI bleed, Crohn's flare History of Present Illness Narrative: Anne is a very pleasant 52-year-old lady who has multiple medical problems including Crohn's disease, anemia, chronic intermittent hyponatremia, anxiety, depression, irritable bowel syndrome, migraines, arthritis. The patient came into the hospital on the with the left-sided abdominal pain and bloody stools. She had several days of blood in the stool. She also had abdominal pain. It did not get better so she decided to come to the ER. She is followed at [facility] for her disorders but they did not have a bed so she was admitted here. GI saw the patient. He had a colonoscopy which did show some ulcerations in the sigmoid colon. She has been treated supportively and the GI bleeding is better. The pain in the belly is also better however not gone. On admission her sodium level was normal. On the it was mildly low at 134 but then on the it was 124. She was placed on a fluid restriction and the sodium level actually dropped to 120 today so renal consultation was requested. Her sugar is okay. She denies any NURSE SANE issues. She has never had a stroke or a tumor. She denies any pulmonary symptoms. She has never had lung problems or any lesions in her chest cavi
--- NOTE | 2022-08-26 15:35 | WPDGIPROGNO ---
Progress Note: A&P Assessment and Plan (1) Inflammatory bowel disease (Crohn's disease): Qualifiers: Digestive disease complication type: with rectal bleeding Gastrointestinal tract location: large intestine Qualified Code(s): K50.111 - Crohn's disease of large intestine with rectal bleeding Code(s): K50.90 - Crohn's disease, unspecified, without complications Status: Acute Assessment and Plan: Patient with ongoing left-sided abdominal pain and diarrhea peers to be related to Crohn's colitis. Patient has been on biologic agents in these will be continued. Currently followed at [facility]. Now on IV Solu-Medrol. Plan to change to oral prednisone with a tapering dose as her pain and diarrhea improved. Ultimately would advise that she follow-up with [facility] as previously scheduled. Given her flare of disease would ask that she follow-up over the next several weeks there. I will be out of town, follow-up with [facility] advised. 08/23/2022 still having pain when she tries to eat, so will go slowly on diet. The plan is to transition to oral steroids. Will start prednisone b.i.d. and taper Solu-Medrol. 08/25/2022 still unable to eat without discomfort. Even when not eating she has significant diffuse abdominal pain. It is perplexing given the fact that her abdomen is soft with palpation. We will cut her back to clear liquid diet. Hopefully resting her got will ameliorate some of the symptoms. She has been switched over to oral steroids. 08/26/2022 Patient is still not eating without discomfort. Plan to allow regular diet she can pick and shoes. Advance diet as tolerated. Anticipate going home on oral tapering dose of prednisone. She will continue her biologic agents in follow-up with [facility] GI service with whom she is established. 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 Because of perianal disease would give her a course of Flagyl for 7-10 days. Stool cultures are pending to exclude any infection contributing to her diarrhea. 08/23/2022 her stools are still quite loose. She has not used Imodium in the past, relies on dicyclomine. I told her it would be okay to take some to slow things down which might help with her discomfort as well (3) Hyponatremia: Code(s): E87.1 - Hypo-osmolality and hyponatremia Status: Acute Assessment and Plan: sodium has dropped gradually. One hundred twenty-three yesterday. Subjective Date/time seen: 08/26/22 15:35 Patient alert and fairly comfortable today. Diarrhea has lessened no further bleeding. She still complains of discomfort in the left abdomen but this has subsided over the weekend Review of Systems Review of Systems: review of systems noncontributory. Objective Data Vital Signs Vital Signs: Vital Signs - 24 hr 08/25/22 16:00 08/25/22 22:00 08/25/22 20:00 Temperature 97.2 F L Pulse Rate 81 93 79 Respiratory Rate 20 Blood Pressure 136/97 H Pulse Oximetry 98 Oxygen Delivery 08/25/22 20:00 08/26/22 00:00 08/26/22 04:00 Temperature Pulse Rate 100 74 Respiratory Rate Blood Pressure Pulse Oximetry Oxygen Delivery Room Air 08/26/22 06:00 08/26/22 08:00 08/26/22 12:00 Temperature 97.0 F L Pulse Rate 80 78 83 Respiratory Rate 16 Blood Pressure 127/84 Pulse Oximetry 100 Oxygen Delivery 08/26/22 14:00 Temperature 96.7 F L Pulse Rate 71 Respiratory Rate 16 Blood Pressure 96/73 L Pulse Oximetry 98 Oxygen Delivery Intake/Output Intake/Output: Intake & Output 08/23/22 08/24/22 08/25/22 08/26/22 23:59 23:59 23:59 23:59 Intake Total 2360 3940 3630 7794 Output Total
[2022-08-26 17:49] LABS: Cholesterol 106 mg/dL (0-200)
[2022-08-26 18:01] LABS: Anion Gap 13 mmol/L (8-16); Blood Urea Nitrogen 9 mg/dL (7-17); Calcium 7.6 mg/dL (8.4-10.2); Carbon Dioxide 17 mmol/L (22-30); Chloride 88 mmol/L (98-107); Estimated Glomerular Filt Rate > 60; Glucose 195 mg/dL (65-110); Potassium 3.4 mmol/L (3.4-5.0); Sodium 118 mmol/L (137-145)
[2022-08-26 18:21] LABS: Cortisol Random 5.99 ug/dL
[2022-08-26 18:32] LABS: Creatinine Urine 50.4 mg/dL; Total Protein Urine Random 16 mg/dL; Ur Ttl Prot Creatinine Ratio 0.32 mg/mg (0-0.20)
[2022-08-26] MEDS: SODIUM CHLORIDE 3% 180 ML 30 ML IV CONT (18:57)
[2022-08-26] MEDS: ZIPRASIDONE HCL 80 MG CAPSULE PO (20:20)
[2022-08-26] MEDS: traZODone HCL 50 MG TABLET PO (20:20)
[2022-08-26] MEDS: ZOLPIDEM TARTRATE (*CRX) 5 MG TABLET 10 MG PO (20:21)
[2022-08-26 22:56] LABS: Anion Gap 12 mmol/L (8-16); Blood Urea Nitrogen 9 mg/dL (7-17); Calcium 7.4 mg/dL (8.4-10.2); Carbon Dioxide 17 mmol/L (22-30); Chloride 89 mmol/L (98-107); Estimated Glomerular Filt Rate > 60; Glucose 88 mg/dL (65-110); Potassium 3.5 mmol/L (3.4-5.0); Sodium 118 mmol/L (137-145)
[2022-08-27] VITALS (7 sets, daily range): BP systolic 94–116; BP diastolic 65–71; PULSE 72–105; RESP 16–17; TEMP 35.9–36.7; O2SAT 99–100
[2022-08-27] MEDS: HYDROcodone/acetaminophen (*CRX) 5-325 MG TABLET 1 TAB PO ×7 (02:07→22:23)
[2022-08-27] MEDS: metroNIDAZOLE 500 MG/ISO 100ML 500 MG/100 ML BAG 100 MG IVPB (05:03)
[2022-08-27 07:06] LABS: Basophils Absolute Auto 0.1 K/mm3 (0.0-0.1); Basophils Percent Auto 0.4 % (0.2-1.2); Hematocrit 40.6 % (37.0-47.0); Hemoglobin 14.2 g/dL (12.0-15.0); Immature Granulocyte Absolute 0.31 K/mm3 (0.00-0.031); Immature Granulocyte Percent A 2.7 % (0-0.5); Lymphocytes Absolute Auto 0.47 K/mm3 (0.9-3.2); Mean Corpuscular Hemoglobin 30.2 pg (26-34); Mean Corpuscular Volume 86.4 fl (80-100); Mean Platelet Volume 8.7 fl (7.4-10.4); Monocytes Absolute Auto 0.5 K/mm3 (0.1-0.6); Monocytes Percent Auto 4.6 % (2.6-8.5); Neutrophils Absolute Auto 10.3 K/mm3 (1.3-6.7); Neutrophils Percent Auto 88.3 % (45.5-73.1); Platelet Count Result 267 k/mm3 (150-375); Red Cell Distribution Width 14.4 % (11.5-14.5); White Blood Count 11.6 K/mm3 (4.5-10.0)
--- NOTE | 2022-08-27 07:10 | PM.PNNEP ---
Progress Note: A&P Assessment and Plan (1) Hyponatremia: Code(s): E87.1 - Hypo-osmolality and hyponatremia Status: Acute Assessment and Plan: patient has a low sodium. This is been going on for at least 12 years. It is not low every time it but occasionally it is low. etiology of the low sodium is probably multifactorial. She is on duloxetine on Wellbutrin with her GI issues she is often dehydrated. If she eats fewer osmoles and drinks lots of water this could add to the issues as well. Cortisol level is only 5 but she is on steroids. TSH is okay. Will get a chest x-ray and a CT of the head to rule out other etiologies urine electrolytes are non pre renal. She was not on diuretics. Yesterday her sodium dropped from 120-118. The bicarbonate infusion was discontinued. She was given 3% saline overnight. Will see what her sodium level is today. She continues on fluid restriction as well. She is on salt tablets. Consider low-dose diuretics if her sodium still does not get better. (2) Acute GI bleeding: Code(s): K92.2 - Gastrointestinal hemorrhage, unspecified Status: Acute Assessment and Plan: The patient is being seen by Dr. Gomez. (3) Inflammatory bowel disease (Crohn's disease): Qualifiers: Digestive disease complication type: with rectal bleeding Gastrointestinal tract location: large intestine Qualified Code(s): K50.111 - Crohn's disease of large intestine with rectal bleeding Code(s): K50.90 - Crohn's disease, unspecified, without complications Status: Acute Assessment and Plan: The patient has Crohn's disease. This is likely causing her admission issues. She continues to have diarrhea (4) Metabolic acidosis: Code(s): E87.20 - Acidosis, unspecified Status: Acute Assessment and Plan: She continues to have diarrhea. she is on oral bicarb and off the bicarb drip. Subjective Date/time seen: 08/27/22 07:10 Interval history: Anne is feeling better today. Belly pain is improved no nausea. Review of Systems Cardiovascular: Cardiovascular: Reports no additional cardiovascular complaints Respiratory: Respiratory: Reports no additional respiratory complaints Gastrointestinal: Gastrointestinal: Reports no additional gastrointestinal complaints Genitourinary: Genitourinary: Reports no additional female genitourinary complaints Exam Narrative: WDWN in NAD skin no rash head ncat lungs clear cor reg no rub abd BS+ Mildly tender and soft ext no edema. Objective Data Vital Signs Vital Signs: Vital Signs - 24 hr 08/26/22 08:00 08/26/22 12:00 08/26/22 14:00 Temperature 35.9 C L Pulse Rate 78 83 71 Respiratory Rate 16 Blood Pressure 96/73 L Pulse Oximetry 98 Oxygen Delivery 08/26/22 16:00 08/26/22 17:35 08/26/22 19:11 Temperature 36.6 C Pulse Rate 76 85 Respiratory Rate 18 Blood Pressure 108/80 106/67 Pulse Oximetry 99 Oxygen Delivery 08/26/22 20:15 08/27/22 03:13 08/26/22 20:00 Temperature 36.4 C Pulse Rate 105 H 90 Respiratory Rate 16 Blood Pressure 109/66 Pulse Oximetry 100 Oxygen Delivery Room Air 08/27/22 00:00 08/27/22 04:00 Temperature Pulse Rate 75 72 Respiratory Rate Blood Pressure Pulse Oximetry Oxygen Delivery Intake/Output Intake/Output: Intake & Output 08/24/22 08/25/22 08/26/22 08/27/22 23:59 23:59 23:59 23:59 Intake Total 2660 2540 2294 420 Output Total 1700 3200 1900 500 Balance 960 -660 394 -80 Meds/Results Medications: Active Medications Generic Name Dose Route Start Last Admin Trade Name Freq PRN Reason Stop Dose Admin Hydrocodone Bitart/Acetaminophen 1 tab 08/23/22 08:04 08/27/22 05:04 Hydrocodone/Acetaminophen (*Crx) 5-325 Mg Tablet PO 1 tab Q3-4H PRN Administration Moderate Pain (4-6) Bupropion HCl 300 mg 08/19/22 14:00 08/03
[2022-08-27 07:20] LABS: Alanine Aminotransferase 24 U/L (6-35); Albumin Level 3.9 g/dL (3.5-5.1); Alkaline Phosphatase 105 U/L (38-126); Anion Gap 13 mmol/L (8-16); Aspartate Amino Transferase 19 U/L (14-36); Bilirubin,Total 0.4 mg/dL (0.2-1.3); Blood Urea Nitrogen 7 mg/dL (7-17); Calcium 7.9 mg/dL (8.4-10.2); Carbon Dioxide 20 mmol/L (22-30); Chloride 86 mmol/L (98-107); Estimated Glomerular Filt Rate > 60; Glucose 113 mg/dL (65-110); Magnesium 1.9 mg/dL (1.6-2.3); Phosphorus 2.1 mg/dL (2.5-4.5); Potassium 3.3 mmol/L (3.4-5.0); Sodium 119 mmol/L (137-145)
[2022-08-27 07:39] LABS: Anisocytosis 1+ (NORMAL); Platelet Estimate Adequate (Adequate)
[2022-08-27 07:44] LABS: Schistocytes None Seen (NORMAL)
--- NOTE | 2022-08-27 08:14 | WPDGIPROGNO ---
Progress Note: A&P Assessment and Plan (1) Crohn's disease: Code(s): K50.90 - Crohn's disease, unspecified, without complications Status: Acute Assessment and Plan: Patient with rather significant Crohn's disease. She has active colitis identified by colonoscopy in the left colon. Significant ulcerations are present. This accounts for her diarrhea and ongoing left-sided abdominal pain. Gradual improvement has been noted. Patient already on biologic agents. These will be continued. Steroids have been started now on oral prednisone. Will continue 40 mg p.o. daily until this improves and then taper by 5 mg once weekly. [facility]up at [facility] anticipated. Patient has a past medical history of right hemicolectomy for Crohn's disease. 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 Plan to switch to oral Flagyl for its anti-inflammatory effect also for benefit perianal Crohn's disease. This will be changed to oral medication is this is preferable. Suggest advancing diet as tolerated and increasing activity. Hopefully patient can be discharged soon. Fecal calprotectin was ordered but should be elevated as we know her colon is inflamed from visual exam at time colonoscopy. (2) History of colectomy: Code(s): Z90.49 - Acquired absence of other specified parts of digestive tract Status: Acute Assessment and Plan: Partial colectomy may contribute to her ongoing diarrhea. (3) Hyponatremia: Code(s): E87.1 - Hypo-osmolality and hyponatremia Status: Acute Assessment and Plan: Hyponatremia noted. Sodium 119 today. Nephrology following. She may need fluid restriction. Subjective Date/time seen: 08/27/22 08:14 patient alert this morning. Apparently had some nausea with regular diet yesterday. [place] regurgitation but no emesis. Currently placed on a clear liquid diet. Patient anxious to have somewhat more solid foods. She denies any blood in her stools. Diarrhea has lessened. She still has some left abdominal pain but this is lessened. Review of Systems Review of Systems: Review of systems noncontributory. Exam Narrative: Physical exam reveals patient be alert. Vital signs are stable. She is afebrile and anicteric. Lungs are clear. Heart without murmur. Abdomen is soft. Bowel sounds are present. Mild tenderness in the left abdomen is noted. Objective Data Vital Signs Vital Signs: Vital Signs - 24 hr 08/26/22 12:00 08/26/22 14:00 08/26/22 16:00 Temperature 96.7 F L Pulse Rate 83 71 76 Respiratory Rate 16 Blood Pressure 96/73 L Pulse Oximetry 98 Oxygen Delivery 08/26/22 17:35 08/26/22 19:11 08/26/22 20:15 Temperature 97.8 F Pulse Rate 85 Respiratory Rate 18 Blood Pressure 108/80 106/67 Pulse Oximetry 99 Oxygen Delivery Room Air 08/27/22 03:13 08/26/22 20:00 08/27/22 00:00 Temperature 97.6 F Pulse Rate 105 H 90 75 Respiratory Rate 16 Blood Pressure 109/66 Pulse Oximetry 100 Oxygen Delivery 08/27/22 04:00 Temperature Pulse Rate 72 Respiratory Rate Blood Pressure Pulse Oximetry Oxygen Delivery Intake/Output Intake/Output: Intake & Output 08/24/22 08/25/22 08/26/22 08/27/22 23:59 23:59 23:59 23:59 Intake Total 2660 2540 2294 420 Output Total 1700 3200 1900 500 Balance 960 -660 394 -80 Meds/Results Medications: Active Medications Generic Name Dose Route Start Last Admin Trade Name Freq PRN Reason Stop Dose Admin Hydrocodone Bitart/Acetaminophen 1 tab 08/23/22 08:04 08/27/22 07:32 Hydrocodone/Acetaminophen (*Crx) 5-325 Mg Tablet PO 1 tab Q3-4H PRN Administration Moderate Pain (4-6) Bupropion HCl 300 mg 08/19/22 14:00 08/26/22 08:49 Bupropion Hcl Xl (24 Hr) 150 Mg Tabcr PO 300 mg QAM MIGUEL ANGEL Administration Dicyclomine HCl 10 mg 08/19/22 13:03 08/26/22 13:38 Dicyclomine Hcl 10 Mg Capsule PO 10 mg BID PRN Administration
[2022-08-27] MEDS: FERROUS SULFATE 324 MG TABLET PO ×2 (09:00→17:50)
[2022-08-27] MEDS: GABAPENTIN 300 MG CAPSULE PO ×3 (09:00→17:50)
[2022-08-27] MEDS: TOPIRAMATE 25 MG TABLET 50 MG PO ×2 (09:00→21:44)
[2022-08-27] MEDS: DULoxetine HCL 60 MG CAPSULE.DR PO (09:00)
[2022-08-27] MEDS: SODIUM CHLORIDE 500 MG TABLET 1000 MG PO ×2 (09:00→17:49)
[2022-08-27] MEDS: SODIUM BICARBONATE TAB 650 MG TABLET 1300 MG PO ×2 (09:00→17:50)
[2022-08-27] MEDS: buPROPion HCL XL (24 HR) 150 MG TABCR 300 MG PO (09:00)
[2022-08-27] MEDS: PANTOPRAZOLE 40 MG TABLET PO (09:00)
[2022-08-27] MEDS: hydrOXYzine HCL 25 MG TABLET 50 MG PO ×2 (09:05→17:50)
[2022-08-27 10:34] LABS: Anion Gap 11 mmol/L (8-16); Blood Urea Nitrogen 7 mg/dL (7-17); Calcium 7.7 mg/dL (8.4-10.2); Carbon Dioxide 17 mmol/L (22-30); Chloride 89 mmol/L (98-107); Estimated Glomerular Filt Rate > 60; Glucose 148 mg/dL (65-110); Potassium 3.1 mmol/L (3.4-5.0); Sodium 117 mmol/L (137-145)
--- NOTE | 2022-08-27 10:43 | PM.IMPN ---
Progress Note: A&P Assessment and Plan (1) Acute GI bleeding: Code(s): K92.2 - Gastrointestinal hemorrhage, unspecified Status: Acute Assessment and Plan: GI bleed secondary to colitis and Crohn's exacerbation, appreciate GI consultation, continue PPI, prednisone and Flagyl per their recommendations follow-up with outpatient [facility] at discharge (2) Inflammatory bowel disease (Crohn's disease): Qualifiers: Digestive disease complication type: with rectal bleeding Gastrointestinal tract location: large intestine Qualified Code(s): K50.111 - Crohn's disease of large intestine with rectal bleeding Code(s): K50.90 - Crohn's disease, unspecified, without complications Status: Acute Assessment and Plan: Continue home medications on Humira and Entyvio at home also on prednisone daily (3) Iron deficiency anemia: Code(s): D50.9 - Iron deficiency anemia, unspecified Status: Acute Assessment and Plan: Monitor, stable (4) Anxiety and depression: Code(s): F41.9 - Anxiety disorder, unspecified; F32.A - Depression, unspecified Status: Acute Assessment and Plan: Continue home medications, stable (5) Hyponatremia: Code(s): E87.1 - Hypo-osmolality and hyponatremia Status: Acute Assessment and Plan: appreciate nephrology consultation, suspect SIADH, continue salt tabs, fluid restriction and monitoring, may need 3% saline infusion will place bupropion and Cymbalta on hold for now until sodium resolves a bit more (6) Hypokalemia: Code(s): E87.6 - Hypokalemia Status: Resolved Assessment and Plan: replace and recheck (7) Metabolic acidosis, NAG, bicarbonate losses: Code(s): E87.2 - Acidosis Status: Acute Assessment and Plan: started on bicarb tabs twice daily by Nephrology, stable (8) Colitis: Code(s): K52.9 - Noninfective gastroenteritis and colitis, unspecified Status: Acute Assessment and Plan: continue Flagyl, started on August 19, 2022, on day 9 today, would anticipate stopping abx at day 10-14? appreciate GI consultation Plan DVT prophylaxis with Lovenox GI prophylaxis with PPI Code status full code Subjective Date/time seen: 08/27/22 10:43 Interval history: No overnight events. No blood in stool. No cramping or abdominal pain. Requesting to have her diet advanced. No chest pain or shortness of breath. No fevers or chills. She does admit to some nausea with diarrhea. Review of Systems Review of Systems: 12 point review of systems was assessed and was negative except as noted in the HPI Exam Narrative: General: No acute distress, alert and oriented per baseline HEENT: Atraumatic, normocephalic, mucous membranes moist CV: Regular rate and rhythm, S1, S2 Lungs: Clear to auscultation bilaterally, no rales or crackles noted, no wheezes, good air entry Abdomen: Soft, nontender, nondistended Extremities: Normal to inspection Skin: No rashes noted, no lesions or wounds seen Psych: Euthymic, normal affect Objective Data Vital Signs Vital Signs: Vital Signs - 24 hr 08/26/22 12:00 08/26/22 14:00 08/26/22 16:00 Temperature 96.7 F L Pulse Rate 83 71 76 Respiratory Rate 16 Blood Pressure 96/73 L Pulse Oximetry 98 Oxygen Delivery 08/26/22 17:35 08/26/22 19:11 08/26/22 20:15 Temperature 97.8 F Pulse Rate 85 Respiratory Rate 18 Blood Pressure 108/80 106/67 Pulse Oximetry 99 Oxygen Delivery Room Air 08/27/22 03:13 08/26/22 20:00 08/27/22 00:00 Temperature 97.6 F Pulse Rate 105 H 90 75 Respiratory Rate 16 Blood Pressure 109/66 Pulse Oximetry 100 Oxygen Delivery 08/27/22 04:00 08/27/22 08:00 Temperature Pulse Rate 72 Respiratory Rate Blood Pressure Pulse Oximetry Oxygen Delivery Room Air Intake/Output Intake/Output: Intake & Outpu
[2022-08-27] MEDS: ONDANSETRON INJ 4 MG/2 ML VIAL IV PUSH ×2 (12:06→17:49)
[2022-08-27] MEDS: metroNIDAZOLE 250 MG TABLET 500 MG PO ×2 (14:25→21:44)
[2022-08-27 16:57] LABS: Anion Gap 11 mmol/L (8-16); Blood Urea Nitrogen 8 mg/dL (7-17); Calcium 7.9 mg/dL (8.4-10.2); Carbon Dioxide 19 mmol/L (22-30); Chloride 86 mmol/L (98-107); Estimated Glomerular Filt Rate > 60; Glucose 66 mg/dL (65-110); Potassium 3.2 mmol/L (3.4-5.0); Sodium 116 mmol/L (137-145)
[2022-08-27 21:11] LABS: Anion Gap 9 mmol/L (8-16); Blood Urea Nitrogen 8 mg/dL (7-17); Calcium 7.9 mg/dL (8.4-10.2); Carbon Dioxide 23 mmol/L (22-30); Chloride 85 mmol/L (98-107); Estimated Glomerular Filt Rate > 60; Glucose 81 mg/dL (65-110); Potassium 3.2 mmol/L (3.4-5.0); Sodium 117 mmol/L (137-145)
[2022-08-27] MEDS: traZODone HCL 50 MG TABLET PO (21:44)
[2022-08-27] MEDS: ZOLPIDEM TARTRATE (*CRX) 5 MG TABLET 10 MG PO (21:44)
[2022-08-27] MEDS: ZIPRASIDONE HCL 80 MG CAPSULE PO (21:44)
--- NOTE | 2022-08-27 23:59 | PC.NURSE ---
[facility] called to see if patient still needed a bed, No bed available at this time.
[2022-08-28] VITALS (7 sets, daily range): BP systolic 91–101; BP diastolic 59–65; PULSE 69–88; RESP 16–20; TEMP 35.8–36.1; O2SAT 98–99
[2022-08-28] MEDS: metroNIDAZOLE 250 MG TABLET 500 MG PO ×3 (05:18→21:39)
[2022-08-28] MEDS: HYDROcodone/acetaminophen (*CRX) 5-325 MG TABLET 1 TAB PO ×4 (05:18→21:40)
--- NOTE | 2022-08-28 08:17 | PM.PNNEP ---
Progress Note: A&P Assessment and Plan (1) Hyponatremia: Code(s): E87.1 - Hypo-osmolality and hyponatremia Status: Acute Assessment and Plan: patient has a low sodium. This is been going on for at least 12 years. It is not low every time it but occasionally it is low. etiology of the low sodium is probably multifactorial. She is on duloxetine on Wellbutrin with her GI issues she is often dehydrated. If she eats fewer osmoles and drinks lots of water this could add to the issues as well. Cortisol level is only 5 but she is on steroids. TSH is okay. Will get a chest x-ray and a CT of the head to rule out other etiologies urine electrolytes are non pre renal. She was not on diuretics. sodium level is not improving with current measures. will make sure nursing calls with every sodium level. will give 3% saline again today to bring the sodium up into the 120s. will enhance the fluid restriction.. she is on trazodone. will hold this. continue the NaCl tabs and add furosemide. (2) Acute GI bleeding: Code(s): K92.2 - Gastrointestinal hemorrhage, unspecified Status: Acute Assessment and Plan: The patient is being seen by Dr. Gomez. (3) Inflammatory bowel disease (Crohn's disease): Qualifiers: Digestive disease complication type: with rectal bleeding Gastrointestinal tract location: large intestine Qualified Code(s): K50.111 - Crohn's disease of large intestine with rectal bleeding Code(s): K50.90 - Crohn's disease, unspecified, without complications Status: Acute Assessment and Plan: The patient has Crohn's disease. This is likely causing her admission issues. She continues to have diarrhea (4) Metabolic acidosis: Code(s): E87.20 - Acidosis, unspecified Status: Acute Assessment and Plan: She continues to have diarrhea. co2 is up to 23 today. on sodium bicarb tabs. check another bicarb tomorrow. Subjective Date/time seen: 08/28/22 08:17 Interval history: Anne is feeling better today. Belly pain is improved but still somewhat troublesome no nausea. Exam Narrative: WDWN in NAD. thinking okay skin no rash head ncat lungs clear cor reg no rub abd BS+ Mildly tender and soft ext no edema. Objective Data Vital Signs Vital Signs: Vital Signs - 24 hr 08/27/22 14:02 08/27/22 12:00 08/27/22 22:00 Temperature 36.7 C 35.9 C L Pulse Rate 75 72 81 Respiratory Rate 16 17 Blood Pressure 94/65 L 116/71 Pulse Oximetry 100 99 08/28/22 06:00 Temperature 35.8 C L Pulse Rate 73 Respiratory Rate 16 Blood Pressure 94/59 L Pulse Oximetry 99 Intake/Output Intake/Output: Intake & Output 08/25/22 08/26/22 08/27/22 08/28/22 23:59 23:59 23:59 23:59 Intake Total 2540 2294 2270 550 Output Total 3200 1900 1600 1050 Balance -660 394 670 -500 Meds/Results Medications: Active Medications Generic Name Dose Route Start Last Admin Trade Name Freq PRN Reason Stop Dose Admin Hydrocodone Bitart/Acetaminophen 1 tab 08/23/22 08:04 08/28/22 05:18 Hydrocodone/Acetaminophen (*Crx) 5-325 Mg Tablet PO 1 tab Q3-4H PRN Administration Moderate Pain (4-6) Bupropion HCl 300 mg 08/19/22 14:00 08/27/22 09:00 Bupropion Hcl Xl (24 Hr) 150 Mg Tabcr PO 300 mg QAM MIGUEL ANGEL Administration Dicyclomine HCl 10 mg 08/19/22 13:03 08/26/22 13:38 Dicyclomine Hcl 10 Mg Capsule PO 10 mg BID PRN Administration Diarrhea Duloxetine HCl 60 mg 08/19/22 17:00 08/27/22 09:00 Duloxetine Hcl 60 Mg Capsule.Dr PO 60 mg BID MIGUEL ANGEL Administration Enoxaparin Sodium 40 mg 08/19/22 09:00 08/19/22 08:00 Enoxaparin 40 Mg/0.4 Ml Syringe SUB-Q 40 mg DAILY MIGUEL ANGEL Administration Fentanyl Citrate 25 mcg 08/19/22 14:30 08/20/22 10:09 Fentanyl Citrate Inj (*Crx) 100 Mcg/2 Ml Vial IV PUSH 25 mcg Q4H PRN Administration Pain Rated 7-10
[2022-08-28] MEDS: FUROSEMIDE 10 MG TABLET PO ×3 (08:56→21:41)
[2022-08-28] MEDS: GABAPENTIN 300 MG CAPSULE PO ×3 (08:56→18:09)
[2022-08-28] MEDS: SODIUM CHLORIDE 3% 180 ML 30 ML IV CONT (08:56)
[2022-08-28] MEDS: SODIUM CHLORIDE 500 MG TABLET 1000 MG PO ×2 (08:58→18:08)
[2022-08-28] MEDS: SODIUM BICARBONATE TAB 650 MG TABLET 1300 MG PO ×2 (09:01→18:09)
[2022-08-28] MEDS: predniSONE 20 MG TABLET 40 MG PO (09:01)
[2022-08-28] MEDS: FERROUS SULFATE 324 MG TABLET PO ×2 (09:04→18:09)
[2022-08-28] MEDS: TOPIRAMATE 25 MG TABLET 50 MG PO ×2 (09:04→21:39)
[2022-08-28] MEDS: PANTOPRAZOLE 40 MG TABLET PO (09:05)
[2022-08-28] MEDS: hydrOXYzine HCL 25 MG TABLET 50 MG PO ×2 (09:05→18:09)
[2022-08-28] MEDS: ONDANSETRON INJ 4 MG/2 ML VIAL IV PUSH ×2 (10:31→21:41)
--- NOTE | 2022-08-28 11:37 | PM.IMPN ---
Progress Note: A&P Assessment and Plan (1) Acute GI bleeding: Code(s): K92.2 - Gastrointestinal hemorrhage, unspecified Status: Acute Assessment and Plan: GI bleed secondary to colitis and Crohn's exacerbation, appreciate GI consultation, continue PPI, prednisone and Flagyl per their recommendations, improving follow-up with outpatient [facility] at discharge (2) Inflammatory bowel disease (Crohn's disease): Qualifiers: Digestive disease complication type: with rectal bleeding Gastrointestinal tract location: large intestine Qualified Code(s): K50.111 - Crohn's disease of large intestine with rectal bleeding Code(s): K50.90 - Crohn's disease, unspecified, without complications Status: Acute Assessment and Plan: Continue home medications on Humira and Entyvio at home also on prednisone while here (3) Iron deficiency anemia: Code(s): D50.9 - Iron deficiency anemia, unspecified Status: Acute Assessment and Plan: Monitor, stable (4) Anxiety and depression: Code(s): F41.9 - Anxiety disorder, unspecified; F32.A - Depression, unspecified Status: Acute Assessment and Plan: Continue home medications, stable (5) Hyponatremia: Code(s): E87.1 - Hypo-osmolality and hyponatremia Status: Acute Assessment and Plan: appreciate nephrology consultation, suspect SIADH, continue salt tabs, fluid restriction and monitoring, may need 3% saline infusion will place bupropion, trazodone, Cymbalta on hold for now until sodium resolves a bit more (6) Hypokalemia: Code(s): E87.6 - Hypokalemia Status: Resolved Assessment and Plan: replace and recheck (7) Metabolic acidosis, NAG, bicarbonate losses: Code(s): E87.2 - Acidosis Status: Acute Assessment and Plan: started on bicarb tabs twice daily by Nephrology, stable (8) Colitis: Code(s): K52.9 - Noninfective gastroenteritis and colitis, unspecified Status: Acute Assessment and Plan: continue Flagyl, started on August 19, 2022, on day 10 today, would anticipate stopping abx at day 10-14? appreciate GI consultation Plan DVT prophylaxis with Lovenox GI prophylaxis with PPI Code status full code Subjective Date/time seen: 08/28/22 11:37 Interval history: Still with significant mucousy diarrhea. No blood in her stool. No overnight events noted. No chest pain or shortness of breath. No fevers or chills. Some nausea, no emesis. Review of Systems Review of Systems: 12 point review of systems was assessed and was negative except as noted in the HPI Exam Narrative: General: No acute distress, alert and oriented per baseline HEENT: Atraumatic, normocephalic, mucous membranes moist CV: Regular rate and rhythm, S1, S2 Lungs: Clear to auscultation bilaterally, no rales or crackles noted, no wheezes, good air entry Abdomen: Soft, nontender, nondistended Extremities: Normal to inspection Skin: No rashes noted, no lesions or wounds seen Psych: Euthymic, normal affect Objective Data Vital Signs Vital Signs: Vital Signs - 24 hr 08/27/22 14:02 08/27/22 12:00 08/27/22 22:00 Temperature 98.0 F 96.6 F L Pulse Rate 75 72 81 Respiratory Rate 16 17 Blood Pressure 94/65 L 116/71 Pulse Oximetry 100 99 Oxygen Delivery 08/28/22 06:00 08/28/22 08:00 08/28/22 08:00 Temperature 96.5 F L Pulse Rate 73 69 Respiratory Rate 16 Blood Pressure 94/59 L Pulse Oximetry 99 Oxygen Delivery Room Air Intake/Output Intake/Output: Intake & Output 08/25/22 08/26/22 08/27/22 08/28/22 23:59 23:59 23:59 23:59 Intake Total 2540 2294 2270 990 Output Total 3200 1900 1600 1050 Balance -660 394 670 -60 Meds/Results Medications: Active Medications Generic Name Dose Route Start Last Admin Trade Name Freq PRN Reason Stop Dose Admin Hydrocodone Bitart/Acetaminophen
--- NOTE | 2022-08-28 12:22 | WPDGIPROGNO ---
Progress Note: A&P Assessment and Plan (1) Hyponatremia: Code(s): E87.1 - Hypo-osmolality and hyponatremia Status: Acute Assessment and Plan: Patient with low sodium. This may be making her feel poorly. Appreciate Nephrology consultation. Fluid restriction in progress. (2) History of colectomy: Code(s): Z90.49 - Acquired absence of other specified parts of digestive tract Status: Acute Assessment and Plan: Patient has a history of right hemicolectomy because of Crohn's disease. Perhaps this contributes to her ongoing diarrhea. (3) Crohn's disease: Code(s): K50.90 - Crohn's disease, unspecified, without complications Status: Acute Assessment and Plan: Patient with a known history of Crohn's disease. She has a prior history of right hemicolectomy. Perianal disease with setons currently in place after drainage of fistulas. (4) Crohn's colitis: Code(s): K50.10 - Crohn's disease of large intestine without complications Status: Chronic Assessment and Plan: Patient found to have active Crohn's colitis with ulcerations in the left colon at time of recent colonoscopy. This accounts for diarrhea and bleeding. Likely accounts for abdominal pain. Plan to advance diet as tolerated. Continue biologic agents. She currently is on prednisone oral steroid agents supplementing this. Anticipate follow-up with [facility] GI service where she is currently established. Subjective Date/time seen: 08/28/22 12:22 Patient reports ongoing loose stools. No blood described in her stools. She continues to complain of abdominal pain cramping but this occurs an hour and half after eating. Currently on full liquid diet pairs to be tolerating it adequately. No fever described. Review of Systems Review of Systems: Review of systems noncontributory. Exam Narrative: Physical exam reveals patient be alert. Vital signs stable. She is afebrile. HEENT exam reveals no icterus. Lungs are clear. Heart without murmur. Abdomen is soft. Bowel sounds are present she appears more tender on the left abdomen. No masses encountered. Objective Data Vital Signs Vital Signs: Vital Signs - 24 hr 08/27/22 14:02 08/27/22 22:00 08/28/22 06:00 Temperature 98.0 F 96.6 F L 96.5 F L Pulse Rate 75 81 73 Respiratory Rate 16 17 16 Blood Pressure 94/65 L 116/71 94/59 L Pulse Oximetry 100 99 99 Oxygen Delivery 08/28/22 08:00 08/28/22 08:00 Temperature Pulse Rate 69 Respiratory Rate Blood Pressure Pulse Oximetry Oxygen Delivery Room Air Intake/Output Intake/Output: Intake & Output 08/25/22 08/26/22 08/27/22 08/28/22 23:59 23:59 23:59 23:59 Intake Total 2540 2294 2270 990 Output Total 3200 1900 1600 1050 Balance -660 394 670 -60 Meds/Results Medications: Active Medications Generic Name Dose Route Start Last Admin Trade Name Freq PRN Reason Stop Dose Admin Hydrocodone Bitart/Acetaminophen 1 tab 08/23/22 08:04 08/28/22 05:18 Hydrocodone/Acetaminophen (*Crx) 5-325 Mg Tablet PO 1 tab Q3-4H PRN Administration Moderate Pain (4-6) Bupropion HCl 300 mg 08/19/22 14:00 08/27/22 09:00 Bupropion Hcl Xl (24 Hr) 150 Mg Tabcr PO 300 mg QAM MIGUEL ANGEL Administration Dicyclomine HCl 10 mg 08/19/22 13:03 08/26/22 13:38 Dicyclomine Hcl 10 Mg Capsule PO 10 mg BID PRN Administration Diarrhea Duloxetine HCl 60 mg 08/19/22 17:00 08/27/22 09:00 Duloxetine Hcl 60 Mg Capsule.Dr PO 60 mg BID MIGUEL ANGEL Administration Enoxaparin Sodium 40 mg 08/19/22 09:00 08/19/22 08:00 Enoxaparin 40 Mg/0.4 Ml Syringe SUB-Q 40 mg DAILY MIGUEL ANGEL Administration Fentanyl Citrate 25 mcg 08/19/22 14:30 08/20/22 10:09 Fentanyl Citrate Inj (*Crx) 100 Mcg/2 Ml Vial IV PUSH 25 mcg Q4H PRN Administration Pain Rated 7-10 Ferrous Sulfate 324 mg 08/19/22 17:00 08/28/22 09:04 Ferrous Sulfate 324 Mg Tablet P
[2022-08-28 13:28] LABS: Sodium 119 mmol/L (137-145)
[2022-08-28] MEDS: SODIUM CHLORIDE 3% 120 ML 60 ML IV CONT (14:39)
[2022-08-28 18:03] LABS: Osmolality, Urine 458 mOsm/kg (50-1200)
[2022-08-28 18:04] LABS: Sodium 124 mmol/L (137-145)
[2022-08-28] MEDS: ZIPRASIDONE HCL 80 MG CAPSULE PO (21:39)
[2022-08-28] MEDS: ZOLPIDEM TARTRATE (*CRX) 5 MG TABLET 10 MG PO (21:40)
[2022-08-28 22:08] LABS: Sodium 126 mmol/L (137-145)
[2022-08-29] VITALS (7 sets, daily range): BP systolic 78–108; BP diastolic 58–70; PULSE 70–103; RESP 18–19; TEMP 36–37.2; O2SAT 98–99
[2022-08-29] MEDS: HYDROcodone/acetaminophen (*CRX) 5-325 MG TABLET 1 TAB PO ×4 (04:43→20:45)
[2022-08-29] MEDS: metroNIDAZOLE 250 MG TABLET 500 MG PO ×2 (06:14→14:52)
[2022-08-29] MEDS: FUROSEMIDE 10 MG TABLET PO (06:14)
[2022-08-29 07:31] LABS: Basophils Absolute Auto 0.1 K/mm3 (0.0-0.1); Basophils Percent Auto 0.4 % (0.2-1.2); Eosinophils Percent Auto 0.3 % (0-4.4); Hematocrit 36.4 % (37.0-47.0); Hemoglobin 13.1 g/dL (12.0-15.0); Immature Granulocyte Absolute 0.25 K/mm3 (0.00-0.031); Immature Granulocyte Percent A 1.8 % (0-0.5); Lymphocytes Absolute Auto 1.63 K/mm3 (0.9-3.2); Mean Corpuscular Hemoglobin 30.7 pg (26-34); Mean Corpuscular Volume 85.2 fl (80-100); Mean Platelet Volume 8.8 fl (7.4-10.4); Monocytes Absolute Auto 1.3 K/mm3 (0.1-0.6); Monocytes Percent Auto 9.4 % (2.6-8.5); Neutrophils Absolute Auto 10.3 K/mm3 (1.3-6.7); Neutrophils Percent Auto 76.1 % (45.5-73.1); Platelet Count Result 277 k/mm3 (150-375); Red Blood Count 4.27 M/mm3 (4.2-5.4); Red Cell Distribution Width 15.1 % (11.5-14.5); White Blood Count 13.6 K/mm3 (4.5-10.0)
[2022-08-29 07:32] LABS: Alanine Aminotransferase 25 U/L (6-35); Albumin Level 3.5 g/dL (3.5-5.1); Alkaline Phosphatase 84 U/L (38-126); Anion Gap 11 mmol/L (8-16); Aspartate Amino Transferase 37 U/L (14-36); Bilirubin,Total 0.5 mg/dL (0.2-1.3); Blood Urea Nitrogen 10 mg/dL (7-17); Calcium 8.1 mg/dL (8.4-10.2); Carbon Dioxide 25 mmol/L (22-30); Chloride 90 mmol/L (98-107); Estimated Glomerular Filt Rate > 60; Glucose 83 mg/dL (65-110); Potassium 2.8 mmol/L (3.4-5.0); Sodium 126 mmol/L (137-145)
--- NOTE | 2022-08-29 07:56 | PM.IMPN ---
Progress Note: A&P Assessment and Plan (1) Acute GI bleeding: Code(s): K92.2 - Gastrointestinal hemorrhage, unspecified Status: Acute Assessment and Plan: GI bleed secondary to colitis and Crohn's exacerbation, appreciate GI consultation, continue PPI, prednisone and Flagyl per their recommendations, improving follow-up with outpatient [facility] at discharge (2) Inflammatory bowel disease (Crohn's disease): Qualifiers: Digestive disease complication type: with rectal bleeding Gastrointestinal tract location: large intestine Qualified Code(s): K50.111 - Crohn's disease of large intestine with rectal bleeding Code(s): K50.90 - Crohn's disease, unspecified, without complications Status: Acute Assessment and Plan: Continue home medications on Humira and Entyvio at home also on prednisone while here (3) Iron deficiency anemia: Code(s): D50.9 - Iron deficiency anemia, unspecified Status: Acute Assessment and Plan: Monitor, stable (4) Anxiety and depression: Code(s): F41.9 - Anxiety disorder, unspecified; F32.A - Depression, unspecified Status: Acute Assessment and Plan: Continue home medications, stable (5) Hyponatremia: Code(s): E87.1 - Hypo-osmolality and hyponatremia Status: Acute Assessment and Plan: appreciate nephrology consultation, suspect SIADH, continue salt tabs, fluid restriction and monitoring, may need 3% saline infusion being given desmopressin and D5W today, monitor will place bupropion, trazodone, Cymbalta on hold for now until sodium resolves a bit more (6) Hypokalemia: Code(s): E87.6 - Hypokalemia Status: Resolved Assessment and Plan: replace and recheck (7) Metabolic acidosis, NAG, bicarbonate losses: Code(s): E87.2 - Acidosis Status: Acute Assessment and Plan: started on bicarb tabs twice daily by Nephrology, stable (8) Colitis: Code(s): K52.9 - Noninfective gastroenteritis and colitis, unspecified Status: Acute Assessment and Plan: continue Flagyl, started on August 19, 2022, on day 11 today, would anticipate stopping abx at day 10-14? appreciate GI consultation Plan DVT prophylaxis with Lovenox GI prophylaxis with PPI Code status full code Subjective Date/time seen: 08/29/22 07:56 Interval history: No blood in her stool. No overnight events noted. No chest pain or shortness of breath. No fevers or chills. Some nausea, no emesis. Continued diarrhea. Review of Systems Review of Systems: 12 point review of systems was assessed and was negative except as noted in the HPI Exam Narrative: General: No acute distress, alert and oriented per baseline HEENT: Atraumatic, normocephalic, mucous membranes moist CV: Regular rate and rhythm, S1, S2 Lungs: Clear to auscultation bilaterally, no rales or crackles noted, no wheezes, good air entry Abdomen: Soft, nontender, nondistended Extremities: Normal to inspection Skin: No rashes noted, no lesions or wounds seen Psych: Euthymic, normal affect Objective Data Vital Signs Vital Signs: Vital Signs - 24 hr 08/28/22 08:00 08/28/22 08:00 08/28/22 12:00 Temperature Pulse Rate 69 80 Respiratory Rate Blood Pressure Pulse Oximetry Oxygen Delivery Room Air 08/28/22 14:00 08/28/22 16:00 08/28/22 20:00 Temperature 97.0 F L Pulse Rate 88 86 78 Respiratory Rate 20 Blood Pressure 101/65 Pulse Oximetry 98 Oxygen Delivery Intake/Output Intake/Output: Intake & Output 08/26/22 08/27/22 08/28/22 08/29/22 23:59 23:59 23:59 23:59 Intake Total 2294 2270 1770 Output Total 1900 1600 2950 Balance 394 670 -1180 Meds/Results Medications: Active Medications Generic Name Dose Route Start Last Admin Trade Name Freq PRN Reason Stop Dose Admin Hydrocodone Bitart/Acetaminophen 1 tab 08/23/22
[2022-08-29] MEDS: SODIUM CHLORIDE 500 MG TABLET 1000 MG PO (09:30)
[2022-08-29] MEDS: hydrOXYzine HCL 25 MG TABLET 50 MG PO ×2 (09:31→16:22)
[2022-08-29] MEDS: SODIUM BICARBONATE TAB 650 MG TABLET 1300 MG PO (09:32)
[2022-08-29] MEDS: GABAPENTIN 300 MG CAPSULE PO ×3 (09:32→16:22)
[2022-08-29] MEDS: TOPIRAMATE 25 MG TABLET 50 MG PO ×2 (09:32→20:44)
[2022-08-29] MEDS: PANTOPRAZOLE 40 MG TABLET PO (09:32)
[2022-08-29] MEDS: FERROUS SULFATE 324 MG TABLET PO ×2 (09:33→16:22)
[2022-08-29] MEDS: predniSONE 20 MG TABLET 40 MG PO (09:33)
[2022-08-29] MEDS: POTASSIUM CHLORIDE 20 MEQ TABLET 40 MEQ PO (10:00)
--- NOTE | 2022-08-29 11:35 | PM.PNNEP ---
Progress Note: A&P Assessment and Plan (1) Hyponatremia: Code(s): E87.1 - Hypo-osmolality and hyponatremia Status: Acute Assessment and Plan: patient has a low sodium. This is been going on for at least 12 years. It is not low every time it but occasionally it is low. etiology of the low sodium is probably multifactorial. She is on duloxetine on Wellbutrin with her GI issues she is often dehydrated. If she eats fewer osmoles and drinks lots of water this could add to the issues as well. Cortisol level is only 5 but she is on steroids. TSH is okay. Will get a chest x-ray and a CT of the head to rule out other etiologies urine electrolytes are non pre renal. She was not on diuretics. She is off of her trazodone and antidepressants. She is on fluid restriction, sodium bicarbonate, furosemide, and sodium chloride tablets. sodium level finally osmani to 126. This is an increment from 119-126 which is 7. Will repeat the sodium soon and the nurses will call me. (2) Acute GI bleeding: Code(s): K92.2 - Gastrointestinal hemorrhage, unspecified Status: Acute Assessment and Plan: The patient is being seen by Dr. Gomez. (3) Inflammatory bowel disease (Crohn's disease): Qualifiers: Digestive disease complication type: with rectal bleeding Gastrointestinal tract location: large intestine Qualified Code(s): K50.111 - Crohn's disease of large intestine with rectal bleeding Code(s): K50.90 - Crohn's disease, unspecified, without complications Status: Acute Assessment and Plan: The patient has Crohn's disease. This is likely causing her admission issues. She continues to have diarrhea (4) Metabolic acidosis: Code(s): E87.20 - Acidosis, unspecified Status: Acute Assessment and Plan: She continues to have diarrhea. co2 is up to 25. Stop the sodium chloride. Subjective Date/time seen: 08/29/22 11:35 Interval history: Anne is feeling better today. Belly pain is improved but still somewhat troublesome but I always have belly pain eager for discharge. Exam Narrative: WDWN in NAD. thinking okay skin no rash head ncat lungs clear cor reg no rub abd BS+ Mildly tender and soft ext no edema. Objective Data Vital Signs Vital Signs: Vital Signs - 24 hr 08/28/22 12:00 08/28/22 14:00 08/28/22 16:00 Temperature 36.1 C L Pulse Rate 80 88 86 Respiratory Rate 20 Blood Pressure 101/65 Pulse Oximetry 98 08/28/22 20:00 08/28/22 22:00 08/29/22 06:00 Temperature 35.8 C L 36.0 C L Pulse Rate 78 74 83 Respiratory Rate 20 19 Blood Pressure 91/62 L 102/68 Pulse Oximetry 98 99 Intake/Output Intake/Output: Intake & Output 08/26/22 08/27/22 08/28/22 08/29/22 23:59 23:59 23:59 23:59 Intake Total 2294 2270 1770 200 Output Total 1900 1600 2950 950 Balance 394 912 -7145 -475 Meds/Results Medications: Active Medications Generic Name Dose Route Start Last Admin Trade Name Freq PRN Reason Stop Dose Admin Hydrocodone Bitart/Acetaminophen 1 tab 08/23/22 08:04 08/29/22 09:31 Hydrocodone/Acetaminophen (*Crx) 5-325 Mg Tablet PO 1 tab Q3-4H PRN Administration Moderate Pain (4-6) Bupropion HCl 300 mg 08/19/22 14:00 08/27/22 09:00 Bupropion Hcl Xl (24 Hr) 150 Mg Tabcr PO 300 mg QAM MIGUEL ANGEL Administration Dicyclomine HCl 10 mg 08/19/22 13:03 08/26/22 13:38 Dicyclomine Hcl 10 Mg Capsule PO 10 mg BID PRN Administration Diarrhea Duloxetine HCl 60 mg 08/19/22 17:00 08/27/22 09:00 Duloxetine Hcl 60 Mg Capsule.Dr PO 60 mg BID MIGUEL ANGEL Administration Enoxaparin Sodium 40 mg 08/19/22 09:00 08/19/22 08:00 Enoxaparin 40 Mg/0.4 Ml Syringe SUB-Q 40 mg DAILY MIGUEL ANGEL Administration Ferrous Sulfate 324 mg 08/19/22 17:00 08/29/22 09:33 Ferrous Sulfate 324 Mg Tablet PO 324 mg BID MIGUEL ANGEL Administration Furos
[2022-08-29 11:49] LABS: Magnesium 1.8 mg/dL (1.6-2.3); Sodium 128 mmol/L (137-145)
--- NOTE | 2022-08-29 12:07 | PCNFU ---
Nutrition Follow-Up Complete: Inadequate oral intake related to diet order and altered GI function as evidenced by NPO status and pt report of not tolerating solid foods at this time. Goal:Advance diet as tolerated. Pt is progressing towards goal. Continue with same goal Pt current nutrition is Full liquids, noted a 1000ml fluid restriction. Nutrition recommendation: Add Ensure compact TID to trays Last recorded weight is 61.2 kg -stable. Bowel Motility: +BM 08/27 Labs Reviewed: Na:126, K:2.8 Meds Noted: lasiz, lovenox, protonix, prednisone Skin: WNL Additional Notes: Pt diet advanced to full liquids, 1000ml restriction. Intake good and tolerating however noted difficult to get in needed calories due to fluid restriction. Recommend Ensure Compact TID on trays, 120ml per shake. Monitor for diet advancement, tolerance, intake, wt, labs. Follow up in 3 days.
--- NOTE | 2022-08-29 13:14 | WPDGIPROGNO ---
Progress Note: A&P Assessment and Plan (1) Inflammatory bowel disease (Crohn's disease): Qualifiers: Digestive disease complication type: with rectal bleeding Gastrointestinal tract location: large intestine Qualified Code(s): K50.111 - Crohn's disease of large intestine with rectal bleeding Code(s): K50.90 - Crohn's disease, unspecified, without complications Status: Acute Assessment and Plan: Patient known to have Crohn's disease. Previous right hemicolectomy. She has perianal disease with setons in place. Documented to have ulcerations in the left colon by recent colonoscopy. This likely attributed to the left abdominal pain and diarrhea. The symptoms improving. She remains on biologic agents start is an outpatient previously. Now on supplemental prednisone. Anticipate her to follow up with GI service at [facility] where she is followed. Because of ongoing pain will obtain an upper GI and small-bowel follow-through to search for Crohn's disease in this portion of her intestines. (2) History of colectomy: Code(s): Z90.49 - Acquired absence of other specified parts of digestive tract Status: Acute Assessment and Plan: Patient with prior history of right hemicolectomy. Likely contributes to her diarrhea. (3) Hyponatremia: Code(s): E87.1 - Hypo-osmolality and hyponatremia Status: Acute Assessment and Plan: Patient followed by Nephrology. Currently on a fluid restriction. Low sodium, likely contributes to her nausea. Subjective Date/time seen: 08/29/22 13:14 Patient up ambulating in the room today. Noticed diarrhea has lessened. Denies any bleeding. Abdominal pain remains on the left side of the abdomen but milder. Patient complains more of nausea at present. Review of Systems Review of Systems: Review of systems noncontributory. Exam Narrative: Physical exam reveals patient to be alert. Vital signs stable. She is anicteric afebrile. Lungs are clear. Heart without murmur. Abdomen bowel sounds present soft mild tenderness on left abdomen. Objective Data Vital Signs Vital Signs: Vital Signs - 24 hr 08/28/22 14:00 08/28/22 16:00 08/28/22 20:00 Temperature 97.0 F L Pulse Rate 88 86 78 Respiratory Rate 20 Blood Pressure 101/65 Pulse Oximetry 98 08/28/22 22:00 08/29/22 06:00 Temperature 96.5 F L 96.8 F L Pulse Rate 74 83 Respiratory Rate 20 19 Blood Pressure 91/62 L 102/68 Pulse Oximetry 98 99 Intake/Output Intake/Output: Intake & Output 08/26/22 08/27/22 08/28/22 08/29/22 23:59 23:59 23:59 23:59 Intake Total 2294 2270 1770 200 Output Total 1900 1600 2950 950 Balance 394 728 -3599 -602 Meds/Results Medications: Active Medications Generic Name Dose Route Start Last Admin Trade Name Freq PRN Reason Stop Dose Admin Hydrocodone Bitart/Acetaminophen 1 tab 08/23/22 08:04 08/29/22 09:31 Hydrocodone/Acetaminophen (*Crx) 5-325 Mg Tablet PO 1 tab Q3-4H PRN Administration Moderate Pain (4-6) Bupropion HCl 300 mg 08/19/22 14:00 08/27/22 09:00 Bupropion Hcl Xl (24 Hr) 150 Mg Tabcr PO 300 mg QAM MIGUEL ANGEL Administration Desmopressin Acetate 0.1 mg 08/29/22 13:00 Desmopressin Acetate 0.1 Mg Tablet PO DAILY MIGUEL ANGEL Dicyclomine HCl 10 mg 08/19/22 13:03 08/26/22 13:38 Dicyclomine Hcl 10 Mg Capsule PO 10 mg BID PRN Administration Diarrhea Duloxetine HCl 60 mg 08/19/22 17:00 08/27/22 09:00 Duloxetine Hcl 60 Mg Capsule.Dr PO 60 mg BID MIGUEL ANGEL Administration Enoxaparin Sodium 40 mg 08/19/22 09:00 08/19/22 08:00 Enoxaparin 40 Mg/0.4 Ml Syringe SUB-Q 40 mg DAILY MIGUEL ANGEL Administration Ferrous Sulfate 324 mg 08/19/22 17:00 08/29/22 09:33 Ferrous Sulfate 324 Mg Tablet PO 324 mg BID MIGUEL ANGEL Administration Gabapentin 300 mg 08/19/22 17:00 08/29/22 09:32 Gabapentin 300 Mg Capsule PO 300 mg TID MIGUEL ANGEL Administration Hydroxyzine
[2022-08-29] MEDS: DESMOPRESSIN ACETATE 0.1 MG TABLET PO (14:51)
[2022-08-29] MEDS: POTASSIUM CHLORIDE 20 MEQ TABLET 80 MEQ PO (14:51)
--- NOTE | 2022-08-29 17:29 | PC.NURSE ---
pt stated that she believes that she had about 1 tablespoon of blood in her stool when she went prior. I asked if it was diarrhea to which she initially replied yes but as she continued discussing it she stated that it was quite large and was formed. She further stated that it was more like a couple of streak of bright red blood.
[2022-08-29 18:46] LABS: Sodium 123 mmol/L (137-145)
--- NOTE | 2022-08-29 18:57 | PM.TDS ---
Transfer Discharge Sum: Prov Provider Date of admission: 08/19/22 09:10 Primary care physician: Elizabeth Lamb, Admitting clinician: Wolfgang Valencia MD Consults: 08/18/22 18:13 Consult to Physician Routine Comment: spoke to dr @0900 (,) Consulting Provider: Julian Gomez Reason for consultation: GI bleed, Crohn's flare. Has provider been notified: Yes 08/26/22 09:30 Consult to Physician Routine Comment: spoke to office @0529 (,) Consulting Provider: Cyril Jessica scallop [facility]red[facility] group to consult: nephrology Reason for consultation: hyponatremia Has provider been notified: Yes DS: Admitting Diagnosis Discharge Date August 29, 2022 Admitting Diagnosis abdominal pain with diarrhea DS: Discharge Diagnosis Discharge Diagnosis (1) Acute GI bleeding: Code(s): K92.2 - Gastrointestinal hemorrhage, unspecified Status: Acute Assessment and Plan: GI bleed secondary to colitis and Crohn's exacerbation, appreciate GI consultation, continue PPI, prednisone and Flagyl per their recommendations, improving follow-up with outpatient [facility] at discharge (2) Inflammatory bowel disease (Crohn's disease): Qualifiers: Digestive disease complication type: with rectal bleeding Gastrointestinal tract location: large intestine Qualified Code(s): K50.111 - Crohn's disease of large intestine with rectal bleeding Code(s): K50.90 - Crohn's disease, unspecified, without complications Status: Acute Assessment and Plan: Continue home medications on Humira and Entyvio at home also on prednisone while here stool studies negative for infectious etiology (3) Iron deficiency anemia: Code(s): D50.9 - Iron deficiency anemia, unspecified Status: Acute Assessment and Plan: Monitor, stable (4) Anxiety and depression: Code(s): F41.9 - Anxiety disorder, unspecified; F32.A - Depression, unspecified Status: Acute Assessment and Plan: Continue home medications, stable (5) Hyponatremia: Code(s): E87.1 - Hypo-osmolality and hyponatremia Status: Acute Assessment and Plan: appreciate nephrology consultation, suspect SIADH?, continue salt tabs, fluid restriction and monitoring, may need 3% saline infusion being given desmopressin and D5W today, monitor will place bupropion, trazodone, Cymbalta on hold for now until sodium resolves a bit more (6) Hypokalemia: Code(s): E87.6 - Hypokalemia Status: Resolved Assessment and Plan: replace and recheck (7) Metabolic acidosis, NAG, bicarbonate losses: Code(s): E87.2 - Acidosis Status: Acute Assessment and Plan: started on bicarb tabs twice daily by Nephrology, stable (8) Colitis: Code(s): K52.9 - Noninfective gastroenteritis and colitis, unspecified Status: Acute Assessment and Plan: continue Flagyl, started on August 19, 2022, on day 11 today, would anticipate stopping abx at day 10-14? appreciate GI consultation (9) Cirrhosis: Code(s): K74.60 - Unspecified cirrhosis of liver Status: Acute Assessment and Plan: stable (10) Chest mass: Code(s): R22.2 - Localized swelling, mass and lump, trunk Status: Acute Assessment and Plan: mass noted on chest x-ray concerning for bronchogenic carcinoma, patient will need a CT chest to follow-up on this (11) Perianal fistula due to Crohn's disease: Code(s): K50.913 - Crohn's disease, unspecified, with fistula Status: Acute Assessment and Plan: appreciate GI consultation (12) Nephrolithiasis: Code(s): N20.0 - Calculus of kidney Status: Acute Assessment and Plan: good urine output, appears to be nonobstructing, monitor Plan DVT prophylaxis with Lovenox GI prophylaxis with PPI Code status full code Transfer Discharge Sum: Med Medication
[2022-08-29 20:10] LABS: Calprotectin, Stool 1690 mcg/g
[2022-08-29] MEDS: ZIPRASIDONE HCL 80 MG CAPSULE PO (20:44)
[2022-08-29] MEDS: ZOLPIDEM TARTRATE (*CRX) 5 MG TABLET 10 MG PO (20:45)
[2022-08-30] MEDS: HYDROcodone/acetaminophen (*CRX) 5-325 MG TABLET 1 TAB PO (01:04)
[2022-08-30] MEDS: metroNIDAZOLE 250 MG TABLET 500 MG PO (01:04)
--- NOTE | 2022-08-30 03:38 | NBADM ---
Addendum entered by Joanne Sullivan RN 09/01/22 13:23: Initial note put in by RN by mistake. Note was intended to be and admission note. Addendum entered by Joanne Sullivan RN 09/01/22 13:20: This patient, Anne Winston, was admitted to 3 Med Surg Room 319-01. Patient/family oriented to hospital policies and general routines including ID bracelet, bed and alarms, visiting hours, pain management, procedures, bathroom and other care routines, personal items, smoking policy, room service/diet, and visiting hours. Information on how to activate the Rapid Response Team has been discussed. Patient/Family are encouraged to report perceived risks to care and to ask questions if they do not understand what they are told or what they should do. Original Note: This patient Anne Winston was born on [birth year] at 09:10. Apgars / .
--- NOTE | 2022-08-30 03:38 | PC.NURSE ---
Patient left going to [facility] at 0225am picked up by [facility] and taken on stretcher. Patient IV was removed from left forearm, no complaint of pain, discomfort or SOB and patient VS were stable. Patient took all belongings she has in possession.
== END 2022-08-30 02:30 | disposition short-term general hospital (02) | DRG 386 ==
LOC: ANHED 18:18 → ANH3MEDSUR 19:10
PROVIDERS: Internal Medicine; Internal Medicine Gastroenterology; Internal Medicine Nephrology; Nurse Practitioner; Physician Assistant; Admitting Provider Internal Medicine; Emergency Provider Emergency Medicine; PCP Internal Medicine; Visit Provider Student in an Organized Health Care Education/Training Program
PROC: 0DJD8ZZ Inspection of Lower Intestinal Tract, Via Natural or Artificial Opening Endoscopic (ICD-10-PCS; CPT 45378; principal; 2022-08-20 12:30)
DX: K50.111 Crohn's disease of large intestine with rectal bleeding (principal); E22.2 Syndrome of inappropriate secretion of antidiuretic hormone; K63.3 Ulcer of intestine; E87.20 Acidosis, unspecified; K50.113 Crohn's disease of large intestine with fistula; K52.9 Noninfective gastroenteritis and colitis, unspecified; D50.9 Iron deficiency anemia, unspecified; E87.6 Hypokalemia; F41.9 Anxiety disorder, unspecified; F32.A Depression, unspecified; F17.210 Nicotine dependence, cigarettes, uncomplicated; K74.60 Unspecified cirrhosis of liver; K63.89 Other specified diseases of intestine; M19.90 Unspecified osteoarthritis, unspecified site; N20.0 Calculus of kidney; R22.2 Localized swelling, mass and lump, trunk; Z93.3 Colostomy status; Z90.49 Acquired absence of other specified parts of digestive tract; Z20.822 Contact with and (suspected) exposure to COVID-19
CPT/HCPCS: 36415; 70450; 71046; 74176; 74177; 80048; 80053; 81001; 81025; 82465; 82533; 82570; 82607; 82728; 82746; 82948; 83540; 83550; 83605; 83690; 83735; 83935; 83993; 84100; 84156; 84295; 84300; 84439; 84443; 84466; 84480; 84540; 85014; 85018; 85025; 85055; 85610; 85730; 86140; 87045; 87086; 87088; 87177; 87209; 87269; 87272; 87427; 87493; 88305; 88342; 89055; 96361; 96365; 96372; 96375; 96376; 99285; A9270; C9113; C9803; G0378; J0131; J0500; J1170; J1650; J2270; J2405; J2704; J2920; J2930; J3010; J3475; J3480; J7030; J7040; J7060; J7070; J7120; J7131; J7512; Q9967; U0003; U0005

== ENCOUNTER 2022-09-12 10:53 | Inpatient (IN) | payer MEDICARE, MEDICAID, SELFPAY ==
[2022-09-12] VITALS (40 sets, daily range): BP systolic 80–124; BP diastolic 58–82; PULSE 107–159; RESP 18–39; TEMP 36.7–37; O2SAT 95–100; BMI 27.1
--- NOTE | ~2022-09-12 | US_ITS ---
EXAMINATION: US venous doppler [facility] DATE: 09/24/2022 18:21 INDICATION: Difference in temperature and pulse to BLE . TECHNIQUE: Grayscale images without and with compression and Doppler images of the bilateral lower ex tremity veins were obtained. COMPARISON: None FINDINGS: The right common femoral vein, profunda (deep) femoral vein, femoral vein, popliteal vein, peroneal v ein, posterior tibial veins, gastrocnemius vein, and greater saphenous vein are patent. The left common femoral vein, profunda femoral vein, femoral vein, popliteal vein, peroneal vein, pos terior tibial veins, gastrocnemius vein, and greater saphenous vein are patent. IMPRESSION: 1. Patent bilateral lower extremity veins. No evidence of deep venous thrombosis. Reviewed, dictated and finalized at location K. DING SERVICES TECHNICIAN IMPRESSION: 1. Patent bilateral lower extremity veins. No evidence of deep venous thrombos is.
--- NOTE | ~2022-09-12 | XR_ITS ---
EXAMINATION: XR chest 1V portable DATE: 09/19/2022 05:56 INDICATION: Acute respiratory failure. ARDS. TECHNIQUE: A single frontal view of the chest was obtained. COMPARISON: Chest one view 09/18/2022 FINDINGS: The patient is rotated to her left. There are airspace opacities in all lung zones bilatera lly. There are small pleural effusions. No pneumothorax. The heart size is normal. The endotracheal t ube tip is 1.4 cm above the chris. The nasogastric tube tip is beyond the inferior margin of the rad iograph, but at least to the stomach. There is a right internal jugular port with tip at superior cav oatrial junction. A left upper extremity peripherally inserted central venous catheter (PICC) is seen with tip in the superior vena cava. IMPRESSION: 1. Stable diffuse lung disease, consistent with pulmonary edema versus pneumonia versus acute respira tory distress syndrome (ARDS). 2. Stable small pleural effusions. Reviewed, dictated and finalized at location A. D MARKETING TEAM LEADER IMPRESSION: 1. Stable diffuse lung disease, consistent with pulmonary edema versus pneumoni a versus acute respiratory distress syndrome (ARDS). 2. Stable small pleural effusions.
--- NOTE | ~2022-09-12 | XR_ITS ---
EXAMINATION: XR chest 1V portable DATE: 09/20/2022 06:09 INDICATION: Intubated TECHNIQUE: frontal view of the chest was obtained. COMPARISON: Chest radiograph dated 09/19/2022 FINDINGS: Endotracheal tube tip 2.7 cm above the chris. Nasogastric tube extends below the left hemidiaphragm with distal tip collimated off the study. Right internal jugular central venous port catheter with d istal tip at the caudal superior vena cava. Left upper extremity peripherally inserted central venous catheter (PICC) tip at the mid superior vena cava. Patient is rotated towards the left. No significant change in scattered airspace opacities throughout both lungs. Unchanged small bilateral pleural effusions. No pneumothorax. Heart size is normal. IMPRESSION: 1. Unchanged scattered opacities throughout both lungs which could represent pulmonary edema, pneumon ia or acute respiratory distress syndrome (ARDS). 2. Small bilateral pleural effusions. Reviewed, dictated and finalized at location A. NESS SERVICES ASSISTANT IMPRESSION: 1. Unchanged scattered opacities throughout both lungs which could represent pu lmonary edema, pneumonia or acute respiratory distress syndrome (ARDS). 2. Small bilateral pleural effusions.
--- NOTE | ~2022-09-12 | XR_ITS ---
EXAMINATION: XR chest 1V portable DATE: 09/23/2022 05:50 INDICATION: Acute respiratory failure. ARDS. TECHNIQUE: A single frontal view of the chest was obtained. COMPARISON: Chest single view 09/22/2022 FINDINGS: There are patchy airspace opacities in all lung zones bilaterally. No pleural effusion or p neumothorax. The heart size is normal. The endotracheal tube tip is 3.2 cm above the chris. A left u pper extremity peripherally inserted central venous catheter (PICC) is seen with tip in the superior vena cava. There is a right internal jugular port with tip at superior cavoatrial junction. The nasog astric tube tip is beyond the inferior margin of the radiograph, but at least to the stomach. Surgica l clips in the right upper quadrant are likely from cholecystectomy. IMPRESSION: 1. Diffuse lung disease with slight improvement, consistent with pneumonia versus pulmonary edema gee joe acute respiratory distress syndrome (ARDS). Reviewed, dictated and finalized at location A. ETARY IMPRESSION: 1. Diffuse lung disease with slight improvement, consistent with pneumonia vers us pulmonary edema versus acute respiratory distress syndrome (ARDS).
--- NOTE | ~2022-09-12 | XR_ITS ---
EXAMINATION: XR chest ET placement DATE: 09/16/2022 09:09 INDICATION: Intubation. TECHNIQUE: A single frontal view of the chest was obtained. COMPARISON: Chest single view 3:24 AM FINDINGS: There are airspace opacities throughout the lungs bilaterally. No pleural effusion or pneum othorax. The heart size is normal. The endotracheal tube tip is in right mainstem bronchus. The nasog astric tube tip is beyond the inferior margin of the radiograph, but at least to the stomach. A left upper extremity peripherally inserted central venous catheter (PICC) is seen with tip in the superior vena cava. There is a right internal jugular port with tip in proximal right atrium. IMPRESSION: 1. Endotracheal tube tip in right mainstem bronchus. 2. Stable diffuse lung disease, consistent with pneumonia without or with superimposed pulmonary derrick a. Reviewed, dictated and finalized at location A. BOATBUILDER APPRENTICE IMPRESSION: 1. Endotracheal tube tip in right mainstem bronchus. 2. Stable diffuse lung disease, consistent with pneumonia without or with super imposed pulmonary edema.
--- NOTE | ~2022-09-12 | XR_ITS ---
EXAMINATION: XR chest 1V portable DATE: 09/21/2022 05:29 INDICATION: Acute respiratory failure. ARDS. TECHNIQUE: frontal view of the chest was obtained. COMPARISON: Chest radiograph dated 09/20/2022 FINDINGS: Endotracheal tube tip 3.4 cm above the chris. Nasogastric tube extends into the stomach with distal tip collimated beyond the inferior margin of the [id number]. Right internal jugular central venous port catheter with distal tip at the caudal superior vena cava. Left upper extremity peripherally in serted central venous catheter (PICC) tip at the mid superior vena cava. Persistent patchy airspace opacities throughout both lungs which could represent pulmonary edema, pne umonia, acute respiratory distress syndrome (ARDS) or some combination thereof. Likely small bilatera l pleural effusions. No pneumothorax. Heart size is normal. IMPRESSION: 1. Unchanged scattered opacities throughout both lungs which could represent pulmonary edema, pneumon ia or acute respiratory distress syndrome (ARDS). 2. Likely small bilateral pleural effusions. Reviewed, dictated and finalized at location A. N WINDER IMPRESSION: 1. Unchanged scattered opacities throughout both lungs which could represent pu lmonary edema, pneumonia or acute respiratory distress syndrome (ARDS). 2. Likely small bilateral pleural effusions.
--- NOTE | ~2022-09-12 | CT_ITS ---
EXAMINATION: CT chest abdomen pelvis wo con DATE: 09/23/2022 09:13 INDICATION: Fever. TECHNIQUE: Computed tomography (CT) of the chest, abdomen, and pelvis was performed without intraveno us contrast. Automated exposure control and iterative reconstruction technique were employed. The dos e-length product was 947.18 mGy-cm. COMPARISON: Chest CT 09/12/2022, CT abdomen and pelvis 09/12/2022 FINDINGS: CHEST CT: There are airspace opacities in all lobes with relative sparing of left lower lobe. There is crazy pa ving in right upper lobe, right middle lobe, and right lower lobe. There are mild groundglass opaciti es in left lower lobe. There are small right and trace left pleural effusions. The heart size is norm al. No pericardial effusion. There is a right internal jugular port with tip in right atrium. A left upper extremity peripherally inserted central venous catheter (PICC) is seen with tip at the superior cavoatrial junction. There is an endotracheal tube tip in expected position above the chris. The na sogastric tube tip is in the distal stomach. There is kyphosis of thoracic spine. There are chronic b urst fractures of T6, T9, and T11. ABDOMEN/PELVIS CT: The liver demonstrates surface nodularity, consistent with cirrhosis. There are changes of cholecyste ctomy. The spleen, pancreas, adrenal glands, and left kidney are normal. There is a 3.4 cm cyst in ri ght kidney. There is a 3 mm stone in right kidney. There is an intrauterine device in expected positi on. There are multiple perianal fistulas. Some of the fistulas have loops of radiopaque material that may be for drainage. There is diverticulosis of the colon without evidence of diverticulitis. There is intermittent wall thickening of descending colon. There are no pathologically enlarged lymph nodes . There is no free intraperitoneal fluid. Body wall edema is noted. There is a benign bone island in right ilium. 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 IMPRESSION: 1. Diffuse lung disease, likely some combination of pneumonia, pulmonary edema, and diffuse alveolar damage. 2. Small right and trace left pleural effusions. 3. Cirrhosis of the liver. 4. Multiple perianal fistulas again seen. Some of the fistulas have loops of radiopaque material that may be for drainage. 5. Intermittent wall thickening of the descending colon, consistent with Crohn disease. Reviewed, dictated and finalized at location A. HYSICAL DATA TECHNICIAN IMPRESSION: 1. Diffuse lung disease, likely some combination of pneumonia, pulmonary edema, and diffuse alveolar damage. 2. Small right and trace left pleural effusions. 3. Cirrhosis of the liver. 4. Multiple perianal fistulas again seen. Some of the fistulas have loops of ra diopaque material that may be for drainage. 5. Intermittent wall thickening of the descending colon, consistent with Crohn disease.
--- NOTE | ~2022-09-12 | XR_ITS ---
EXAMINATION: XR chest 1V portable DATE: 09/22/2022 05:38 INDICATION: Acute respiratory failure. ARDS. TECHNIQUE: A single frontal view of the chest was obtained. COMPARISON: Chest single view 09/21/2022 FINDINGS: The patient is rotated to her left. There are airspace opacities in all lung zones bilatera lly. No pleural effusion or pneumothorax. The heart size is normal. The endotracheal tube tip is 1.5 cm above the chris. The nasogastric tube tip is beyond the inferior margin of the radiograph, but at least to the stomach. There is a right internal jugular port with tip at superior cavoatrial junctio n. A left upper extremity peripherally inserted central venous catheter (PICC) is seen with tip in th e superior vena cava. IMPRESSION: 1. Diffuse lung disease with worsening on the right, consistent with pneumonia versus pulmonary edema versus acute respiratory distress syndrome (ARDS). Reviewed, dictated and finalized at location A. ARD/STEWARDESS TH[employer] CLASS
--- NOTE | ~2022-09-12 | CT_ITS ---
EXAMINATION: CTA chest PE protocol DATE: 09/12/2022 16:42 INDICATION: Shortness of breath. Chest pain. Fever. Tachycardia, tachypnea. Lung cancer. Neutropenia. TECHNIQUE: Computed tomography angiography (CTA) of the chest was performed with 100 mL Omnipaque-350 intravenous contrast timed to evaluate the pulmonary arteries. Coronal maximum intensity projection 3D-reconstructions were created by the technologist. Automated exposure control and iterative reconst ruction technique were employed. Exam dose: 296.69 mGy-cm total exam DLP. COMPARISON: 09/12/2022 2 view chest FINDINGS: Examination is limited by motion artifact. The pulmonary arteries are moderately opacified. There is evidence of scattered segmental and subsegmental pulmonary artery filling defects including right upper and particularly right lower lobes. There is left perihilar soft tissue density likely due to mass lesion and/or adenopathy encasing and constricting the left upper lobe bronchus and pulmonary artery, with left postobstructive upper lobe atelectasis/consolidation. Probable discoid scarring in both apical areas. There is discoid atelectasis and/or scarring in the m iddle and both lower lobes. No thoracic aortic aneurysm or dissection. Borderline heart size. No pericardial effusion. Normal morphology of the adrenal glands. Status post cholecystectomy. Severe anterior wedge compression fracture deformity of T6 and moderate loss of height and anterior w edging of T9 and T11. IMPRESSION: Right upper and primarily right lower lobe segmental and subsegmental pulmonary emboli Left perihilar mass and/or adenopathy with encasement and constriction of the left upper lobe pulmona ry artery and bronchus, with postobstructive left upper lobe atelectasis/consolidation Reviewed, dictated and finalized at Location A. Reviewed, dictated and finalized at location A. STRATEGY IMPRESSION: Right upper and primarily right lower lobe segmental and subsegmen lani pulmonary emboli Left perihilar mass and/or adenopathy with encasement and constriction of the l eft upper lobe pulmonary artery and bronchus, with postobstructive left upper l obe atelectasis/consolidation
--- NOTE | ~2022-09-12 | XR_ITS ---
EXAMINATION: XR chest 1V portable DATE: 09/17/2022 06:16 INDICATION: Intubation. TECHNIQUE: A single frontal view of the chest was obtained. COMPARISON: Chest single view 09/16/2022 FINDINGS: There are airspace opacities throughout the lungs bilaterally. There are small pleural effu sions. No pneumothorax. The heart size is normal. The endotracheal tube tip is 3.9 cm above the nikia a. A left upper extremity peripherally inserted central venous catheter (PICC) is seen with tip in th e superior vena cava. There is a right internal jugular port with tip at superior cavoatrial junction . The nasogastric tube tip is beyond the inferior margin of the radiograph, but at least to the stoma ch. Surgical clips in the right upper quadrant are likely from cholecystectomy. IMPRESSION: 1. Stable diffuse lung disease, consistent with pneumonia without or with superimposed pulmonary derrick a. 2. Small pleural effusions. Reviewed, dictated and finalized at location A. NT KILN OPERATOR IMPRESSION: 1. Stable diffuse lung disease, consistent with pneumonia without or with super imposed pulmonary edema. 2. Small pleural effusions.
--- NOTE | ~2022-09-12 | XR_ITS ---
XR chest 1V portable DATE: 09/25/2022 06:02 INDICATION: Left lung cancer. Pneumonia. Pulmonary embolism. Mechanical ventilation. TECHNIQUE: Portable upright AP chest on 09/21/2022 at 0518 hours COMPARISON: 09/24/2022 portable AP chest at 0540 hours 09/23/2022 CT chest FINDINGS: ET and NG tubes in satisfactory position. Left upper extremity PIC catheter tip overlies gordon perior vena cava. Right Port-A-Cath catheter tip is situated near the superior cavoatrial junction. Extensive bilateral patchy pulmonary infiltrates and consolidation, mild improvement, primarily in th e right, since 09/24/2022. No pleural effusion or pulmonary vascular congestion or pneumothorax is evident. Diffuse osteopenia. IMPRESSION: Mild improvement of pulmonary infiltrates, primarily in the right, since 09/24/2022 Reviewed, dictated and finalized at location A. ALL PROFESSIONAL
--- NOTE | ~2022-09-12 | US_ITS ---
EXAMINATION: US art doppler w press LE BI DATE: 09/24/2022 19:40 INDICATION: Differences in temperature and pulses to the bilateral lower extremities TECHNIQUE: Segmental pressures and plethysmographic and Doppler waveforms of the brachial and lower e xtremity arteries were obtained. COMPARISON: None. FINDINGS: Right brachial artery pressure of 104 mm Hg. Left brachial artery pressures unable to be obtained due to the presence of an intravenous catheter at the left upper extremity. The right and left high-thig h pressure indices are 1.21 and 1.19, respectively (normal > 1.2). The right ankle-brachial index (KEZIA) is 1.22 (normal >= 0.9-1). The right great toe-brachial index (T BI) was unable to be obtained due to no dopplerable pulse at the right great toe (normal >= 0.6-0.8). The segmental pressure gradients in the more proximal right lower limb are normal (normal gradients <= 20-30 mmHg between adjacent levels on the same leg or the same levels on the two legs). Arterial w aveforms are triphasic at the right common femoral, superficial femoral, popliteal and dorsalis pedis arteries and biphasic in the right posterior tibial artery with brisk systolic upstrokes throughout. The left KEZIA is 0.95. The left TBI is 0.57. The left lower extremity segmental pressure gradients are increased between the left dorsalis pedis artery and the left [id number] popliteal artery. Arter ial waveforms are biphasic with brisk systolic upstrokes throughout. IMPRESSION: 1. 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 2. Normal right KEZIA but no dopplerable pulse in the right great toe. Reviewed, dictated and finalized at location A. H CHECKER IMPRESSION: 1. 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 2. Normal right KEZIA but no dopplerable pulse in the right great toe.
--- NOTE | ~2022-09-12 | XR_ITS ---
EXAMINATION: XR abdomen obstructive series DATE: 09/17/2022 10:28 INDICATION: Adynamic ileus. TECHNIQUE: Upright and supine views of the abdomen on 3 radiographs were obtained. COMPARISON: Abdomen radiograph 09/16/2022 FINDINGS: There are no dilated loops of bowel. There is a paucity of stool in the colon. A catheter o verlies the bladder. There is an intrauterine device in expected position. The nasogastric tube tip i s in the proximal duodenum. Surgical clips in the right upper quadrant are likely from cholecystectom y. No free intraperitoneal gas. There are airspace opacities in all lung zones bilaterally. There is a right internal jugular port with tip at superior cavoatrial junction. A left upper extremity periph erally inserted central venous catheter (PICC) is seen with tip in the superior vena cava. IMPRESSION: 1. Normal bowel gas pattern. 2. Nasogastric tube tip in the proximal duodenum. 3. Diffuse lung disease, consistent with pneumonia without or with pulmonary edema. Reviewed, dictated and finalized at location A. RAL CARGO CLERK IMPRESSION: 1. Normal bowel gas pattern. 2. Nasogastric tube tip in the proximal duodenum. 3. Diffuse lung disease, consistent with pneumonia without or with pulmonary ed julio.
--- NOTE | ~2022-09-12 | XR_ITS ---
EXAMINATION: XR chest 1V portable DATE: 09/16/2022 09:41 INDICATION: Endotracheal tube repositioning. TECHNIQUE: A single frontal view of the chest was obtained. COMPARISON: Chest single view 09/16/2022 at 8:59 AM FINDINGS: There are airspace opacities in all lung zones bilaterally. There is mild elevation of left hemidiaphragm. No pleural effusion or pneumothorax. The heart size is normal. The endotracheal tube tip is 3.5 cm above the chris. There is a right internal jugular port with tip at superior cavoatria l junction. The nasogastric tube tip is beyond the inferior margin of the radiograph, but at least to the stomach. Surgical clips in the right upper quadrant are likely from cholecystectomy. A left uppe r extremity peripherally inserted central venous catheter (PICC) is seen with tip in the superior katey a cava. IMPRESSION: 1. Stable diffuse lung disease, consistent with pneumonia without or with superimposed pulmonary derrick a. Reviewed, dictated and finalized at location A. K WRITING MACHINE OPERATOR IMPRESSION: 1. Stable diffuse lung disease, consistent with pneumonia without or with super imposed pulmonary edema.
--- NOTE | ~2022-09-12 | XR_ITS ---
EXAMINATION: XR chest 1V portable DATE: 09/24/2022 06:16 INDICATION: Intubation. TECHNIQUE: A single frontal view of the chest was obtained. COMPARISON: Chest single view 09/23/2022 FINDINGS: The patient is rotated to her left. There are airspace opacities in all lung zones bilatera lly. No pleural effusion or pneumothorax. The heart size is normal. The endotracheal tube tip is 3.0 cm above the chris. The nasogastric tube tip is beyond the inferior margin of the radiograph, but at least to the stomach. There is a right internal jugular port with tip in proximal right atrium. IMPRESSION: 1. Stable diffuse lung disease, consistent with pneumonia versus pulmonary edema versus acute respira tory distress syndrome (ARDS). Reviewed, dictated and finalized at location A. RAL DISTRICT CLERK IMPRESSION: 1. Stable diffuse lung disease, consistent with pneumonia versus pulmonary derrick a versus acute respiratory distress syndrome (ARDS).
--- NOTE | ~2022-09-12 | US_ITS ---
EXAMINATION: US venous doppler [facility] DATE: 09/13/2022 10:03 INDICATION: Shortness of breath TECHNIQUE: Gu scale images without and with compression and Doppler images of the bilateral lower e xtremity veins were obtained. COMPARISON: None FINDINGS: The right common femoral vein, profunda femoral vein, femoral vein, popliteal vein, peroneal trunk, p osterior tibial veins, and greater saphenous vein are patent. The left common femoral vein, profunda femoral vein, femoral vein, popliteal vein, peroneal trunk, po sterior tibial veins, and greater saphenous vein are patent. IMPRESSION: 1. Patent bilateral lower extremity veins. No evidence of deep venous thrombosis. Reviewed, dictated and finalized at location A. SSMENT MANAGER IMPRESSION: 1. Patent bilateral lower extremity veins. No evidence of deep venous thrombosi s.
--- NOTE | ~2022-09-12 | CT_ITS ---
EXAMINATION: CT abdomen pelvis w con DATE: 09/12/2022 13:41 INDICATION: Left lower quadrant abdominal pain. TECHNIQUE: Computed tomography (CT) of the abdomen and pelvis was performed with 100 mL Omnipaque 350 intravenous contrast. Automated exposure control and iterative reconstruction technique were employe d. The dose-length product was 254.80 mGy-cm. COMPARISON: CT abdomen and pelvis 08/26/2022 FINDINGS: The visualized portions of the lung bases demonstrate mild atelectasis. There are airspace opacities in lingula. There is a small left pleural effusion. The heart size is normal. There is a ca theter tip in right atrium. No pericardial effusion. There is surface nodularity of the liver, consis tent with cirrhosis. The spleen is normal. There are changes of cholecystectomy. The pancreas, adrena l glands, and left kidney are normal. There is a 3.2 cm cyst in right kidney. There is an intrauterin e device in expected position. There is diverticulosis of the colon without evidence of diverticuliti s. There is intermittent wall thickening of the descending colon. There is an ileocolic anastomosis. There are multiple perianal fistulas. Some of the fistulas have loops of radiopaque material that may be for drainage. There are no pathologically enlarged lymph nodes. There is no free intraperitoneal fluid. 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 There is a chronic burst fracture of T11. There is a chronic compression fracture of T9. IMPRESSION: 1. Airspace opacities in lingula, consistent with atelectasis versus pneumonia. 2. Small left pleural effusion. 3. Cirrhosis of the liver. 4. Intermittent wall thickening of the descending colon, consistent with Crohn disease. 5. Multiple perianal fistulas again seen. Some of the fistulas have loops of radiopaque material that may be for drainage. Reviewed, dictated and finalized at location A. NT PROSECUTION PARALEGAL IMPRESSION: 1. Airspace opacities in lingula, consistent with atelectasis versus pneumonia. 2. Small left pleural effusion. 3. Cirrhosis of the liver. 4. Intermittent wall thickening of the descending colon, consistent with Crohn disease. 5. Multiple perianal fistulas again seen. Some of the fistulas have loops of ra diopaque material that may be for drainage.
--- NOTE | ~2022-09-12 | XR_ITS ---
EXAMINATION: XR chest 1V portable DATE: 09/18/2022 05:54 INDICATION: Intubation. TECHNIQUE: A single frontal view of the chest was obtained. COMPARISON: Chest single view 09/17/2022 FINDINGS: There are airspace opacities in all lung zones bilaterally. There are small pleural effusio ns. No pneumothorax. The heart size is normal. The endotracheal tube tip is 3.5 cm above the chris. The nasogastric tube tip is beyond the inferior margin of the radiograph, but at least to the stomach . A left upper extremity peripherally inserted central venous catheter (PICC) is seen with tip in the superior vena cava. There is a right internal jugular port with tip at superior cavoatrial junction. IMPRESSION: 1. Stable diffuse lung disease, consistent with pulmonary edema versus pneumonia versus acute respira tory distress syndrome (ARDS). 2. Small pleural effusions with worsening on the right. Reviewed, dictated and finalized at location A. PULLER IMPRESSION: 1. Stable diffuse lung disease, consistent with pulmonary edema versus pneumoni a versus acute respiratory distress syndrome (ARDS). 2. Small pleural effusions with worsening on the right.
--- NOTE | ~2022-09-12 | XR_ITS ---
EXAMINATION: XR chest 1V portable DATE: 09/16/2022 03:33 INDICATION: Increased oxygen demand. TECHNIQUE: A single frontal view of the chest was obtained. COMPARISON: Chest single view 09/12/2022, chest CT 09/12/2022 FINDINGS: There are airspace opacities throughout the lungs bilaterally. There is a small left pleura l effusion. No pneumothorax. The heart size is normal. There is a right internal jugular port with ti p in superior vena cava. A left upper extremity peripherally inserted central venous catheter (PICC) is seen with tip in the superior vena cava. Surgical clips in the right upper quadrant are likely fro m cholecystectomy. IMPRESSION: 1. Diffuse lung disease with marked worsening on the right, consistent with pneumonia without or with superimposed pulmonary edema. 2. Small left pleural effusion. Reviewed, dictated and finalized at location A. ITY ASSURANCE CLERK IMPRESSION: 1. Diffuse lung disease with marked worsening on the right, consistent with pne umonia without or with superimposed pulmonary edema. 2. Small left pleural effusion.
--- NOTE | ~2022-09-12 | XR_ITS ---
EXAMINATION: XR chest 2V DATE: 09/12/2022 12:38 INDICATION: Lung cancer presenting with chest pain, shortness of breath and fever TECHNIQUE: AP and lateral views of the chest were obtained. COMPARISON: Chest radiograph dated 08/28/2022 FINDINGS: New right internal jugular central venous port catheter with distal tip at the caudal superior vena c hannah. Volume loss in the left hemithorax with increased elevation of the left hemidiaphragm. There is increasing diffuse hazy airspace opacity throughout the left hemithorax with new patchy airspace opac ities at the anterolateral left lung and some linear likely lingular atelectasis at the anterobasilar left lower lung. Decrease in size of a central masslike opacity projecting over the left hilum. Pos sible small left pleural effusion at the posterior sulcus. Right lung is now clear. No pneumothorax o r right-sided pleural effusion. The left side of the previously normal cardiac silhouette is obscured . Increasing thoracic kyphosis with a few age-indeterminate compression fractures in the mid and lowe r thoracic spine unchanged since the study from 2 weeks prior but which appear new since 08/19/2019. IMPRESSION: 1. Decreased left lung volume with elevation left hemidiaphragm and increased diffuse hazy opacity th roughout the left lung which likely represents atelectasis as there is only a possible very small lef t pleural effusion evident on the lateral projection. 2. Decrease in size of a left perihilar mass may represent response to treatment of a reported lung c ancer. 3. New patchy airspace opacities at the anterolateral left hemithorax which could represent either at electasis or pneumonia. Reviewed, dictated and finalized at location A. E ASSEMBLER IMPRESSION: 1. Decreased left lung volume with elevation left hemidiaphragm and increased d iffuse hazy opacity throughout the left lung which likely represents atelectasi s as there is only a possible very small left pleural effusion evident on the l ateral projection. 2. Decrease in size of a left perihilar mass may represent response to treatmen t of a reported lung cancer. 3. New patchy airspace opacities at the anterolateral left hemithorax which cou ld represent either atelectasis or pneumonia.
--- NOTE | ~2022-09-12 | XR_ITS ---
EXAMINATION: XR abdomen NG/feed tube insert DATE: 09/16/2022 09:09 INDICATION: Orogastric tube placement. TECHNIQUE: A semiupright view of the abdomen was obtained. COMPARISON: Abdomen radiographs 03/20/2020 FINDINGS: The lower abdomen is excluded. The nasogastric tube tip is in the distal stomach or proxima l duodenum. IMPRESSION: 1. Nasogastric tube tip in the distal stomach or proximal duodenum. Reviewed, dictated and finalized at location A. SIS WIRER
--- NOTE | 2022-09-12 11:14 | ECG_ITS ---
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
[2022-09-12 11:59] LABS: Eosinophils Percent Auto 1.6 % (0-4.4); Hematocrit 33.3 % (37.0-47.0); Hemoglobin 10.9 g/dL (12.0-15.0); Lymphocytes Absolute Auto 0.53 K/mm3 (0.9-3.2); Lymphocytes Percent Auto 86.9 % (18.3-44.2); Mean Corpuscular HGB Conc 32.7 g/dl (32-36); Mean Corpuscular Hemoglobin 30.5 pg (26-34); Mean Corpuscular Volume 93.3 fl (80-100); Mean Platelet Volume 9.8 fl (7.4-10.4); Monocytes Percent Auto 6.6 % (2.6-8.5); Neutrophils Percent Auto 4.9 % (45.5-73.1); Platelet Count Result 104 k/mm3 (150-375); Red Blood Count 3.57 M/mm3 (4.2-5.4); Red Cell Distribution Width 13.5 % (11.5-14.5)
--- NOTE | 2022-09-12 11:59 | ED.FEVER ---
HPI - Fever General Chief Complaint: Fever <SHAKA Gresham Last Filed: 09/12/22 19:15> Stated Complaint: fever and headache <SHAKA Gresham Last Filed: 09/12/22 19:15> Time Seen by Provider: 09/12/22 11:14 <Rika Preciado PA-C - Last Filed: 09/12/22 19:15> Source: patient and family <SHAKA Gresham Last Filed: 09/12/22 19:15> Mode of arrival: ambulatory <SHAKA Gresham Last Filed: 09/12/22 19:15> Limitations: no limitations <SHAKA Gresham Last Filed: 09/12/22 19:15> History of Present Illness HPI Narrative: Patient is a 52-year-old female who presents the ED with multiple complaints. Patient was recently hospitalized for GIB associated with Crohn's disease, diagnosed with lung cancer, transferred to [facility], and received her first round of chemotherapy last week. Oncologist is Dr. Alton Recinos at [facility]. Family members at bedside assisted in providing information. They report patient had nausea and vomiting last night, a subjective fever and headache this morning, and increased shortness of breath with exertion. Patient was given Zofran and Tylenol 500 mg prior to arrival, afebrile upon arrival. Patient was recently provided with oxygen, wears 2 L nasal cannula when ambulating. She has not had to increase her oxygen requirements. Patient denies any abdominal pain, chest pain, diarrhea, constipation. <SHAKA Gresham Last Filed: 09/12/22 19:15> Related Data Home Medications: Home Medications Medication Instructions Recorded Confirmed duloxetine 60 mg capsule,delayed 60 mg PO BID 08/21/20 08/18/22 release ferrous sulfate 325 mg (65 mg 325 mg PO BID 08/21/20 08/18/22 iron) tablet (Feosol) hydroxyzine HCl 50 mg tablet 50 mg PO BID 08/21/20 08/18/22 zolpidem 10 mg tablet (Ambien) 10 mg PO HS 08/21/20 08/18/22 bupropion HCl 300 mg 24 hr tablet, 300 mg PO QAM 04/07/22 08/18/22 extended release celecoxib 100 mg capsule 100 mg PO BID 04/07/22 08/18/22 dicyclomine 10 mg capsule 10 mg PO BID PRN Diarrhea 04/07/22 08/18/22 gabapentin 300 mg capsule 300 mg PO TID 04/07/22 08/18/22 tizanidine 4 mg tablet 4 mg PO Q8-12H PRN Muscle Spasm 04/07/22 08/18/22 topiramate 50 mg tablet 50 mg PO BID 04/07/22 08/18/22 trazodone 50 mg tablet 50 mg PO HS 04/07/22 08/18/22 ziprasidone HCl 80 mg capsule 80 mg PO 1XD 04/07/22 08/18/22 azelastine 0.05 % eye drops 1 drp EACH EYE 2XD 08/18/22 08/18/22 cariprazine 1.5 mg capsule 1.5 mg PO 1XD 08/18/22 08/18/22 (Vraylar) esomeprazole magnesium 40 mg 40 mg PO QAM 08/18/22 08/18/22 capsule,delayed release <SHAKA Gresham Last Filed: 09/12/22 19:15> Allergies/Adverse Reactions: Allergies Allergy/AdvReac Type Severity Reaction Status Date / Time infliximab Allergy Severe Anaphylactic Verified 04/07/22 12:10 Shock <Rika Preciado PA-C - Last Filed: 09/12/22 19:15> Review of Systems Review of Systems: CONSTITUTIONAL: Reports subjective fever. ENT: Denies rhinorrhea, congestion, sore throat. CARDIOVASCULAR: Denies chest pain. RESPIRATORY: Reports MURPHY. GASTROINTESTINAL: Reports N/V. Denies abdominal pain, constipation, or diarrhea. NEUROLOGIC: Reports LORENZO. Denies numbness, or weakness. <Rika Preciado PA-C - Last Filed: 09/12/22 19:15> All systems reviewed & are unremarkable except as noted in HPI and below <SHAKA Gresham Last Filed: 09/12/22 19:15> [facility] Past Medical History Medical History: Medical History Anemia iron deficiency anemia Anxiety Arthritis Cirrhosis Colostomy in place Crohn's colitis chronic diarrhea Crohn's related arthritis (~1984) Depression Elevated CK-MB level IBS (irritable bowel syndrome) Metabolic acidosis Migraine <Rika Preciado PA-C - Last Filed: 09/12/22 19:15> Surgical History Surgical Histo
[2022-09-12 12:10] LABS: Alanine Aminotransferase 59 U/L (6-35); Albumin Level 3.7 g/dL (3.5-5.1); Alkaline Phosphatase 125 U/L (38-126); Anion Gap 10 mmol/L (8-16); Aspartate Amino Transferase 44 U/L (14-36); Blood Urea Nitrogen 30 mg/dL (7-17); Calcium 9.1 mg/dL (8.4-10.2); Carbon Dioxide 23 mmol/L (22-30); Chloride 98 mmol/L (98-107); Estimated Glomerular Filt Rate > 60; Glucose 109 mg/dL (65-110); Lactic Acid Reflex 1.3 mmol/L (0.7-2.0); Potassium 3.6 mmol/L (3.4-5.0); Sodium 131 mmol/L (137-145)
[2022-09-12 12:19] LABS: White Blood Count 0.6 K/mm3 (4.5-10.0)
[2022-09-12 12:20] LABS: INR 1.3; Prothrombin Time 15.6 Seconds (11.1-14.7)
[2022-09-12 12:21] LABS: Partial Thromboplastin Time 28.3 SECONDS (22.3-36.8)
[2022-09-12 12:23] LABS: Troponin I < 0.012 ng/mL (0.000-0.034)
[2022-09-12 12:44] LABS: Hypochromasia 1+ (NORMAL)
[2022-09-12 12:45] LABS: Schistocytes None Seen (NORMAL); Tear Drop Cells 1+ (NORMAL)
[2022-09-12 12:47] LABS: Influenza A QL RT-PCR Negative (Negative); Influenza B QL RT-PCR Negative (Negative); SARS-CoV-2 RNA PCR Negative
[2022-09-12 13:22] LABS: Appearance Urine Slightly Cloudy (Clear); Bilirubin Urine Negative (Negative); Blood Urine Negative (Negative); Glucose Urine UA Negative (Negative); Ketones Urine Negative (Negative); Leukocyte Esterase Ur Negative LEU/UL (Negative); Nitrate Urine Negative (Negative); Protein Urine Negative (Negative); Specific Grav Ur 1.015 (1.001-1.035); Urobilinogen Urine 0.2 mg/dL (<2.0)
[2022-09-12 13:38] LABS: Mucus Urine Rare /lpf; Squamous Epithelial Cell Urine Rare /hpf (Few); WBC Urine 0-3 /hpf
[2022-09-12] MEDS: oxyCODONE HCL (*CRX) 5 MG TAB IR PO (14:13)
[2022-09-12 14:31] LABS: Add Urine Microscopic? YES; Color Urine Dark Yellow (Yellow)
[2022-09-12] MEDS: SODIUM CHLORIDE 0.9% IV 1,000 ML 999 ML IV CONT ×2 (18:01→22:28)
[2022-09-12] MEDS: HEPARIN SODIUM 5,000 UNITS/ML VIAL 3500 UNITS IV PUSH (18:12)
[2022-09-12] MEDS: HEPARIN SOD/D5W 100 UNITS/ML 25,000 UNITS/250 ML BAG 8 UNITS IV CONT (18:12)
[2022-09-12] MEDS: fentaNYL CITRATE INJ (*CRX) 100 MCG/2 ML VIAL 50 MCG IV PUSH (19:56)
--- NOTE | 2022-09-12 21:10 | PM.IMHP ---
H&P: HPI History of Present Illness Date/Time: 09/12/22 21:10 Chief Complaint: fever and headache Narrative: this is a 52 year old female with multiple complaints. The patient was recently transferred from this Hospital on 08/29/2022. She went to [facility] . This patient has had a history of a previous right hemicolectomy. The patient had been admitted here last month for GI bleed. She has no of Crohn's disease and a previous hemo collected the patient initially was sent to [facility] due to her Crohn's. While she was here on her chest x-ray a new masslike density in the left upper thorax was concerning for bronchogenic carcinoma. The patient has been receiving chemotherapy she had her 1st from last week. Her oncologist is Dr. Alton Eaton at [facility]. The patient was having nausea vomiting last night. She had a subjective fever and headache this morning she was increased with shortness of breath. The patient wears oxygen at 2 L per nasal cannula at home. The patient was given Zofran and Tylenol pop on arrival. The patient does complain of some abdominal pain. Her temperature was 37.0? C. Patient has had tachycardia today. Her respirations have been than the upper 20s. Heart rates been in the 120s to 130s. U suggested that the patient be placed on cefepime and vancomycin. The patient was given a oxycodone earlier started on cefepime and 1 L of IV fluids. She was also given fentanyl and started on heparin drip in the emergency room. Patient's white count is 0.6. Hemoglobin 10.9 and 33.3. Platelets 104. Sodium 131. She is negative for influenza a B and COVID. Chest CT when his read as IMPRESSION:? Right upper and primarily right lower lobe segmental and subsegmental pulmonary emboli Left perihilar mass and/or adenopathy with encasement and constriction of the left upper lobe pulmonary artery and bronchus, with postobstructive left upper lobe atelectasis/consolidation. It was reported that the patient is being accepted at [facility] we are just awaiting a bed. The patient initially was admitted for observation status and is now inpatient status. Date of service is 09/12/2022. Review of Systems Review of Systems: See HPI the patient is rolling around in the bed in pain and is not giving me much information. All systems reviewed & are unremarkable except as noted in HPI and below Constitutional: Constitutional: Reports as per HPI and Reports no additional constitutional complaints Eyes: Eyes: Reports as per HPI and Reports no additional eye complaints ENT: Reports system reviewed and no additional complaints, except as documented and Reports Normal hearing present Cardiovascular: Cardiovascular: Reports no additional cardiovascular complaints Respiratory: Respiratory: Reports no additional respiratory complaints and Reports no additional respiratory complaints Gastrointestinal: Gastrointestinal: Reports as per HPI and Reports no additional gastrointestinal complaints Musculoskeletal: Musculoskeletal: Reports no additional musculoskeletal complaints Integumentary/Breasts: Skin/Breast: Reports system reviewed and no additional complaints, except as docu and Reports as per HPI Neurologic: Reports system reviewed and no additional complaints, except as documented, Reports as per HPI and Reports Normal hearing present Psychiatric: Psychiatric: Reports no additional psychiatric complaints and Reports as per HPI Endocrine: Endocrine: Reports no additional endocrine complaints Hematologic/Lymphatic: Hematologic/Lymphatic: Reports no additional hematologic/lymphatic complaints Allergic/Immunologic: Allergic/Immunologic: Reports no additional allergic/immunologic complaints [facility] Past Medical History Medical History (Updated 09/12/22 @ 23:07 by Edna Hernandez NP) Anemia iron deficiency anemia Anxiety Arthritis Cirrhosis Colostomy in place Counseling on health promotion and disease prevention Crohn's colitis chronic diarrh
[2022-09-12] MEDS: GABAPENTIN 300 MG CAPSULE PO (21:23)
[2022-09-12] MEDS: SODIUM CHLORIDE 0.9% IV 1,000 ML 100 ML IV CONT (22:29)
--- NOTE | 2022-09-12 23:39 | ADMGEN ---
This patient, Anne Winston, was admitted to IMU Room 201-01 on 09/12/22 at 2307. Patient/family oriented to hospital policies and general routines including ID bracelet, bed and alarms, visiting hours, pain management, procedures, bathroom and other care routines, personal items, smoking policy, room service/diet, and visiting hours. Information on how to activate the Rapid Response Team has been discussed. Patient/Family are encouraged to report perceived risks to care and to ask questions if they do not understand what they are told or what they should do.
[2022-09-13] VITALS (21 sets, daily range): BP systolic 76–105; BP diastolic 43–64; PULSE 99–121; RESP 16–24; TEMP 36.2–37.6; O2SAT 97–100
--- NOTE | 2022-09-13 | ECHO_ITS ---
Patient Info Name: Anne Winston Age: 52 years : 1970 Gender: Female Ht: 58 in Wt: 125 lbs BSA: 1.54 m2 HR: 114 bpm BP: 99 / 64 mmHg Heart Rhythm: Sinus Rhythm Technical Quality: Fair Exam Date: 09/13/2022 8:39 AM Exam Location: [facility] Room: 201 Patient Status: Inpatient Admit Date: 09/12/2022 Staff Ordering Physician: Edna Hernandez NP Avionic Technician: Rea Treviño RDCS Attending Provider: Ginger John MD Referring Physician: David COX; Exam Type: CA echo doppler color flow Study Info Indications - PE Complete two-dimensional, color flow and Doppler transthoracic echocardiogram is performed. Summary 1. Complete two-dimensional, color flow and Doppler transthoracic echocardiogram is performed. 2. Normal left ventricular size and hyperdynamic systolic function. 3. Normal right ventricular size and contractility. 4. No valvular dysfunction. 5. No stigmata of pulmonary hypertension. 6. Lack of tricuspid regurgitation jet results an inability to accurately measure RV systolic pressure. Left Ventricle Left ventricular chamber dimension is normal. Left ventricular systolic function is hyperdynamic, estimated at >70%. The left ventricular diastolic function is grade I diastolic dysfunction. Right Ventricle Right ventricular chamber dimension is normal. Left Atria Left atrial chamber dimension is mildly enlarged. Right Atria Right atrial chamber dimension is normal. Aortic Valve The aortic valve is normal. Pulmonic Valve The pulmonic valve is normal. Mitral Valve The mitral valve has normal leaflets. Tricuspid Valve The tricuspid valve leaflets are normal. Pericardium/Pleural The pericardium appears normal. Aorta The aortic root size at the sinus of Valsalva is normal. Left Ventricular Outflow Tract Name Value Normal LVOT 2D LVOT Diameter 1.9 cm LVOT Doppler LVOT Peak Gradient 11 mmHg LVOT Mean Gradient 8 mmHg LVOT VTI 24 cm LVOT VTI/AV VTI Ratio 0.9 LVOT Stroke Volume 68 ml LVOT CO 22.4 l/min LVOT CI 14.6 l/min/m2 Pulmonic Valve Name Value Normal PV Doppler PV Peak Gradient 5 mmHg Mitral Valve Name Value Normal MV Doppler MV Decel [place] 414 cm/s2 MV PHT 56 ms MV Area (PHT) 3.9 cm2 4.0-5.0 M
[2022-09-13 00:41] LABS: Partial Thromboplastin Time 52.2 SECONDS (22.3-36.8)
[2022-09-13] MEDS: HEPARIN SODIUM 5,000 UNITS/ML VIAL 3500 UNITS IV PUSH (01:02)
[2022-09-13] MEDS: DICYCLOMINE HCL INJ 20 MG/2 ML VIAL IM (01:06)
[2022-09-13] MEDS: IPRATROPIUM BR 0.02% INH SOLN 0.5 MG/2.5 ML VIAL INHALATION ×3 (02:30→20:31)
[2022-09-13] MEDS: CENTRAL LINE FLUSH 10 ML IV PUSH ×3 (05:58→21:14)
[2022-09-13] MEDS: oxyCODONE HCL (*CRX) 2.5 MG TAB IR PO ×3 (06:50→18:46)
[2022-09-13 07:14] LABS: Hematocrit 25.5 % (37.0-47.0); Hemoglobin 8.5 g/dL (12.0-15.0); Immature Platelet Fraction Pct 3.7 % (0.9-11.2); Lymphocytes Percent Auto 76.9 % (18.3-44.2); Mean Corpuscular HGB Conc 33.3 g/dl (32-36); Mean Corpuscular Hemoglobin 30.8 pg (26-34); Mean Corpuscular Volume 92.4 fl (80-100); Mean Platelet Volume 10.3 fl (7.4-10.4); Monocytes Percent Auto 11.5 % (2.6-8.5); Neutrophils Percent Auto 11.6 % (45.5-73.1); Platelet Count Result 59 k/mm3 (150-375); Red Blood Count 2.76 M/mm3 (4.2-5.4); Red Cell Distribution Width 13.7 % (11.5-14.5)
[2022-09-13 07:33] LABS: Partial Thromboplastin Time 77.3 SECONDS (22.3-36.8)
--- NOTE | 2022-09-13 07:37 | PM.IMPN ---
Progress Note: A&P Assessment and Plan (1) Pulmonary embolism: Qualifiers: Pulmonary embolism type: multiple subsegmental (without acute cor pulmonale) Qualified Code(s): I26.94 - Multiple subsegmental pulmonary emboli without acute cor pulmonale Code(s): I26.99 - Other pulmonary embolism without acute cor pulmonale Status: Acute Assessment and Plan: Heparin drip, check echo and Dopplers pending Update: Platelets dropped in half, heparin drip discontinued, antibiotics ordered, Arixtra injection given (2) Mass of hilum: Code(s): R91.8 - Other nonspecific abnormal finding of lung field Status: Acute Assessment and Plan: PE with possible postobstructive pneumonia secondary to her underlying malignancy, oncology consultation pending Patient being treated for aggressive small cell lung cancer at [facility], due for chemotherapy (3) Pneumonia: Qualifiers: Laterality: left Lung location: upper lobe of lung Pneumonia type: due to unspecified organism Qualified Code(s): J18.9 - Pneumonia, unspecified organism Code(s): J18.9 - Pneumonia, unspecified organism Status: Acute Assessment and Plan: Continue vancomycin and cefepime, follow-up blood and sputum cultures (4) Perianal fistula due to Crohn's disease: Code(s): K50.913 - Crohn's disease, unspecified, with fistula Status: Acute Assessment and Plan: Transfer pending at [facility] Consult GI, patient due for Entyvio infusion, will see if we can get this for her (5) Hyponatremia: Code(s): E87.1 - Hypo-osmolality and hyponatremia Status: Acute Assessment and Plan: Stable, monitor (6) Anxiety and depression: Code(s): F41.9 - Anxiety disorder, unspecified; F32.A - Depression, unspecified Status: Acute Assessment and Plan: Continue Cymbalta (7) Anemia: Code(s): D64.9 - Anemia, unspecified Status: Chronic Assessment and Plan: Stable, baseline between 10 and 11 Plan DVT prophylaxis with heparin GI prophylaxis with PPI Code status full code Subjective Date/time seen: 09/13/22 07:37 Interval history: No overnight events noted. No chest pain or shortness of breath. No nausea, vomiting. No fevers or chills. Patient states she feels a little bit weak, she continues to have diarrhea, unchanged from last admission. She did miss her dose of Entyvio. She is due for chemotherapy. Review of Systems Review of Systems: 12 point review of systems was assessed and was negative except as noted in the HPI Exam Narrative: General: Weak appearing ill female, nontoxic, alert and oriented per baseline HEENT: Atraumatic, normocephalic, mucous membranes moist CV: Regular rate and rhythm, S1, S2 Lungs: Clear to auscultation bilaterally, no rales or crackles noted, no wheezes, good air entry Abdomen: Soft, nontender, nondistended Extremities: Normal to inspection Skin: No rashes noted, no lesions or wounds seen Psych: Euthymic, normal affect Objective Data Vital Signs Vital Signs: Vital Signs - 24 hr 09/12/22 10:56 09/12/22 11:56 09/12/22 11:31 Temperature 98.1 F Pulse Rate 123 H 112 H Respiratory Rate 28 H 28 H Blood Pressure 109/71 107/76 Pulse Oximetry 99 100 Oxygen Delivery Nasal Cannula Nasal Cannula Oxygen Flow Rate 2 2 09/12/22 14:47 09/12/22 15:01 09/12/22 15:16 Temperature Pulse Rate 115 H 117 H 114 H Respiratory Rate 25 H 22 H 26 H Blood Pressure 124/81 112/75 117/76 Pulse Oximetry 100 100 Oxygen Delivery Oxygen Flow Rate 09/12/22 15:17 09/12/22 15:30 09/12/22 15:31 Temperature Pulse Rate 116 H 117 H 117 H Respiratory Rate 33 H 25 H 34 H Blood Pressure 119/82 Pulse Oximetry Oxygen Delivery Oxygen Flow Rate 09/12/22 15:51 09/12/22 16:00 09/12/22 16:17 Temperature Pulse Rate 126 H 137 H 142 H Respiratory Rate 33 H 27 H 30 H Blood Pressure Pulse Oximet
[2022-09-13 07:38] LABS: White Blood Count 0.3 K/mm3 (4.5-10.0)
[2022-09-13] MEDS: PANTOPRAZOLE 40 MG TABLET PO (10:49)
[2022-09-13] MEDS: DULoxetine HCL 60 MG CAPSULE.DR PO ×2 (10:50→17:17)
[2022-09-13] MEDS: FERROUS SULFATE 324 MG TABLET PO ×2 (10:50→17:13)
[2022-09-13] MEDS: DICYCLOMINE HCL 10 MG CAPSULE PO ×2 (10:50→21:10)
[2022-09-13] MEDS: hydrOXYzine HCL 25 MG TABLET 50 MG PO ×2 (10:50→17:15)
[2022-09-13] MEDS: GABAPENTIN 300 MG CAPSULE PO ×3 (10:50→17:14)
[2022-09-13] MEDS: ZIPRASIDONE HCL 80 MG CAPSULE PO (10:50)
[2022-09-13] MEDS: buPROPion HCL XL (24 HR) 150 MG TABCR 300 MG PO (10:51)
[2022-09-13] MEDS: TOPIRAMATE 25 MG TABLET 50 MG PO ×2 (10:51→17:16)
[2022-09-13] MEDS: FONDAPARINUX SODIUM 5 MG/0.4 ML SYRINGE SUB-Q (11:29)
[2022-09-13] MEDS: FONDAPARINUX SODIUM 2.5 MG/0.5 ML SYRINGE SUB-Q (11:29)
[2022-09-13 12:40] LABS: Partial Thromboplastin Time 49.2 SECONDS (22.3-36.8)
[2022-09-13] MEDS: ACETAMINOPHEN 500 MG TABLET PO ×2 (14:12→21:10)
[2022-09-13] MEDS: traZODone HCL 50 MG TABLET PO (21:10)
[2022-09-14] VITALS (40 sets, daily range): BP systolic 72–136; BP diastolic 38–93; PULSE 59–129; RESP 17–36; TEMP 36.2–37.8; O2SAT 97–100
--- NOTE | 2022-09-14 00:49 | PC.NURSE ---
[facility] noninvasive hemodynamic monitoring reads at 5.5%. Pt is not fluid responsive.
--- NOTE | 2022-09-14 01:41 | PM.EVENT ---
Event Note Event Note Event Note: 09/14/2022 at 01:00 52-year-old female with past medical history of Crohn's disease with recent GI bleed and was recently started on chemotherapy for newly diagnosed lung cancer who presented to the ER with neutropenia and fever. Transfer was arranged for the [facility] to [facility] but no beds were available. Patient was admitted to IMU until a bed was available. The patient was treated with broad-spectrum antibiotics with cefepime and vancomycin. She received total of 3 L fluid bolus yesterday and 1 L of fluids at 100 mL else an hour that was stopped earlier today. She continues to have frequent watery diarrhea. Her temperature is 99.6. Her heart rate has not improved. She is on 3 L nasal cannula from her usual 2 L nasal cannula. The patient was lethargic and more somnolent than earlier in the day. Patient complains of rectal pain and lung pain. The patient had worsening thrombocytopenia earlier in the day and her heparin drip was discontinued and Arixtra was ordered. Nursing staff called to notify me the patient was hypotensive with systolic blood pressures 72/38. A cheetah score was performed and was 5% which indicated the patient was not fluid responsive. The patient had not received any pain medications since before shift change. Given the known GI losses for the patient I did reorder IV fluids with normal saline at 150 mL an hour. However at this time I feel the patient would be best served by transfer to the ICU and being placed on pressors with Levophed. I called [facility] transfer line and updated the mess to the change in the patient's condition. I am waiting for return call from the government sales manager. On physical exam patient was mildly tachypneic without accessory muscle use, skin was hot to touch, patient was tachycardic without obvious murmur, generalized pallor was noted, abdomen was distended with hyperactive bowel sounds, patient did not remark as stabbing pain with palpation. 30 minute spent in critical care activities Due to a high probability of clinically significant, life threatening deterioration, the patient required my highest level of preparedness to intervene emergently and I personally spent this critical care time directly and personally managing the patient. This critical care time included obtaining a history; examining the patient; pulse oximetry; ordering and review of studies; arranging urgent treatment with development of a management plan; evaluation of patient's response to treatment; frequent reassessment; and discussions with other providers. It was exclusive of separately billable procedures and treating other patients and teaching time. Please see Assessment and Plan section and the rest of the note for further information on patient assessment and treatment.
[2022-09-14] MEDS: NOREPINEPHRINE 8 MG/D5W 250 ML 8 MG/250 ML BAG 9.38 MG IV CONT (02:05)
--- NOTE | 2022-09-14 02:17 | PC.NURSE ---
This patient, Anne Winston, was transferred to ICU-01 on 09/14/22 at 0145. Personal belongings sent with patient. Report given to JORDAN Tadeo. Appropriate documentation sent with patient.
--- NOTE | 2022-09-14 02:18 | PC.NURSE ---
0208-Attempted to call Pt's sister, Marietta Winston with no answer. Left message to return call. 0210-Spoke to Pt's friend, Vesta Barakat and she was notified of Pt's transfer to ICU and updated with Pt's condition. Vesta states that she will attempt to get in touch with Pt's sister and Pt's mom regarding transfer and update them on her condition.
--- NOTE | 2022-09-14 02:25 | PC.NURSE ---
This patient, Anne Winston, was received from IMU 201 on 09/14/22 at 0145. Report received from Lima Beltran RN.
[2022-09-14] MEDS: SODIUM CHLORIDE 0.9% IV 1,000 ML 150 ML IV CONT ×4 (02:50→23:51)
[2022-09-14 06:10] LABS: Vancomycin Trough 11.4 ug/mL (10.0-20.0)
[2022-09-14 06:26] LABS: Eosinophils Percent Auto 2.9 % (0-4.4); Hematocrit 27.5 % (37.0-47.0); Hemoglobin 8.9 g/dL (12.0-15.0); Lymphocytes Absolute Auto 0.19 K/mm3 (0.9-3.2); Lymphocytes Percent Auto 55.9 % (18.3-44.2); Mean Corpuscular HGB Conc 32.4 g/dl (32-36); Mean Corpuscular Hemoglobin 30.6 pg (26-34); Mean Corpuscular Volume 94.5 fl (80-100); Mean Platelet Volume 10.6 fl (7.4-10.4); Monocytes Absolute Auto 0.1 K/mm3 (0.1-0.6); Monocytes Percent Auto 32.4 % (2.6-8.5); Neutrophils Percent Auto 8.8 % (45.5-73.1); Platelet Count Result 58 k/mm3 (150-375); Red Blood Count 2.91 M/mm3 (4.2-5.4); Red Cell Distribution Width 13.7 % (11.5-14.5)
[2022-09-14 06:39] LABS: Alanine Aminotransferase 37 U/L (6-35); Albumin Level 2.9 g/dL (3.5-5.1); Alkaline Phosphatase 98 U/L (38-126); Anion Gap 9 mmol/L (8-16); Aspartate Amino Transferase 23 U/L (14-36); Bilirubin,Total 1.3 mg/dL (0.2-1.3); Blood Urea Nitrogen 7 mg/dL (7-17); Calcium 6.8 mg/dL (8.4-10.2); Carbon Dioxide 21 mmol/L (22-30); Chloride 102 mmol/L (98-107); Estimated Glomerular Filt Rate > 60; Glucose 92 mg/dL (65-110); Magnesium 1.2 mg/dL (1.6-2.3); Potassium 2.1 mmol/L (3.4-5.0); Sodium 132 mmol/L (137-145)
[2022-09-14 06:50] LABS: White Blood Count 0.3 K/mm3 (4.5-10.0)
[2022-09-14] MEDS: CENTRAL LINE FLUSH 10 ML IV PUSH ×3 (07:01→21:13)
[2022-09-14] MEDS: IPRATROPIUM BR 0.02% INH SOLN 0.5 MG/2.5 ML VIAL INHALATION ×3 (07:37→19:23)
[2022-09-14 08:01] LABS: Phosphorus 2.5 mg/dL (2.5-4.5)
[2022-09-14] MEDS: KCL 40 MEQ/WATER 100 ML 100 ML 25 ML IVPB ×2 (08:22→16:24)
[2022-09-14] MEDS: MAGNESIUM SULF 4 GM/WATER100ML 4 GM/100 ML BAG IVPB (08:22)
[2022-09-14] MEDS: PANTOPRAZOLE 40 MG TABLET PO (08:29)
[2022-09-14] MEDS: TOPIRAMATE 25 MG TABLET 50 MG PO ×2 (08:29→16:28)
[2022-09-14] MEDS: ZIPRASIDONE HCL 80 MG CAPSULE PO (08:29)
[2022-09-14] MEDS: FONDAPARINUX SODIUM 5 MG/0.4 ML SYRINGE SUB-Q (08:30)
[2022-09-14] MEDS: buPROPion HCL XL (24 HR) 150 MG TABCR 300 MG PO (08:30)
[2022-09-14] MEDS: hydrOXYzine HCL 25 MG TABLET 50 MG PO ×2 (08:30→16:28)
[2022-09-14] MEDS: FONDAPARINUX SODIUM 2.5 MG/0.5 ML SYRINGE SUB-Q (08:30)
[2022-09-14] MEDS: FERROUS SULFATE 324 MG TABLET PO ×2 (08:30→16:29)
[2022-09-14] MEDS: GABAPENTIN 300 MG CAPSULE PO ×3 (08:30→16:29)
[2022-09-14] MEDS: DULoxetine HCL 60 MG CAPSULE.DR PO ×2 (08:30→16:29)
[2022-09-14] MEDS: POTASSIUM CHLORIDE 20 MEQ TABLET 80 MEQ PO (08:31)
[2022-09-14] MEDS: ACETAMINOPHEN 500 MG TABLET PO (08:31)
--- NOTE | 2022-09-14 08:41 | PM.IMPN ---
Progress Note: A&P Assessment and Plan (1) Septic shock: Code(s): A41.9 - Sepsis, unspecified organism; R65.21 - Severe sepsis with septic shock Status: Acute Assessment and Plan: neutropenia, hypotensive on pressors, likely 2/2 post obstructive pneumonia, on broad spectrum abx with IV vanc + imipenem on stress dosing steroids (2) Pulmonary embolism: Qualifiers: Pulmonary embolism type: multiple subsegmental (without acute cor pulmonale) Qualified Code(s): I26.94 - Multiple subsegmental pulmonary emboli without acute cor pulmonale Code(s): I26.99 - Other pulmonary embolism without acute cor pulmonale Status: Acute Assessment and Plan: Heparin drip, check echo and Dopplers pending Update: Platelets dropped in half, heparin drip discontinued, antibiotics ordered, Arixtra injection given (3) Mass of hilum: Code(s): R91.8 - Other nonspecific abnormal finding of lung field Status: Acute Assessment and Plan: PE with possible postobstructive pneumonia secondary to her underlying malignancy, oncology consultation pending Patient being treated for aggressive small cell lung cancer at [facility], due for chemotherapy (4) Pneumonia: Qualifiers: Laterality: left Lung location: upper lobe of lung Pneumonia type: due to unspecified organism Qualified Code(s): J18.9 - Pneumonia, unspecified organism Code(s): J18.9 - Pneumonia, unspecified organism Status: Acute Assessment and Plan: Continue vancomycin and cefepime, follow-up blood and sputum cultures (5) Perianal fistula due to Crohn's disease: Code(s): K50.913 - Crohn's disease, unspecified, with fistula Status: Acute Assessment and Plan: Transfer pending at [facility] Consult GI, patient due for Entyvio infusion, will see if we can get this for her (6) Hyponatremia: Code(s): E87.1 - Hypo-osmolality and hyponatremia Status: Acute Assessment and Plan: Stable, monitor (7) Anxiety and depression: Code(s): F41.9 - Anxiety disorder, unspecified; F32.A - Depression, unspecified Status: Acute Assessment and Plan: Continue Cymbalta (8) Anemia: Code(s): D64.9 - Anemia, unspecified Status: Chronic Assessment and Plan: Stable, baseline between 10 and 11 Plan DVT prophylaxis with heparin GI prophylaxis with PPI Code status full code Subjective Date/time seen: 09/14/22 08:41 Interval history: Patient feels very weak today. Overnight patient was transferred to the ICU for pressors due to hypotension. No chest pain or shortness of breath. No nausea, vomiting. No fevers or chills. She continues to have diarrhea. Review of Systems Review of Systems: 12 point review of systems was assessed and was negative except as noted in the HPI Exam Narrative: General: Weak appearing ill female, somnolent HEENT: Atraumatic, normocephalic, mucous membranes moist CV: Regular rate and rhythm, S1, S2 Lungs: Clear to auscultation bilaterally, no rales or crackles noted, no wheezes, good air entry Abdomen: Soft, nontender, nondistended Extremities: Normal to inspection Skin: No rashes noted, no lesions or wounds seen Psych: unable to assess due to somnolence Objective Data Vital Signs Vital Signs: Vital Signs - 24 hr 09/13/22 12:00 09/13/22 16:00 09/13/22 10:00 Temperature 98.2 F 97.2 F L Pulse Rate 119 H 110 H 108 H Respiratory Rate 20 22 H Blood Pressure 100/64 95/43 L Pulse Oximetry 99 100 Oxygen Delivery Oxygen Flow Rate 09/13/22 12:00 09/13/22 14:00 09/13/22 16:00 Temperature Pulse Rate 111 H 110 H 110 H Respiratory Rate Blood Pressure Pulse Oximetry Oxygen Delivery Oxygen Flow Rate 09/13/22 16:00 09/13/22 20:28 09/13/22 20:36 Temperature Pulse Rate 110 H 108 H 114 H Respiratory Rate 22 H 16 16 Blood Pressure Pulse Oximetry 100 Oxygen Delivery Nasal C
--- NOTE | 2022-09-14 09:12 | WPDCNINT ---
Assessment and Plan Assessment and plan (1) Septic shock: Code(s): A41.9 - Sepsis, unspecified organism; R65.21 - Severe sepsis with septic shock Status: Acute Assessment and Plan: Septic shock secondary to pneumonia which is likely postobstructive, peritonitis from perianal fistula and colitis She had received adequate amount of IV fluids on presentation and last night when she was hypotensive she was deemed not responsive to further IV fluid bolus by NICOM assessment Continue IV fluid infusion at current rate Add hydrocortisone stress dose At 25% albumin for intravascular volume expansion and minimize third-spacing Continue Levophed titration May need vasopressin Blood cultures have been sent and are pending Continue vancomycin. Change cefepime to imipenem Check lactic acid level (2) Perianal fistula due to Crohn's disease: Code(s): K50.913 - Crohn's disease, unspecified, with fistula Status: Acute Assessment and Plan: Patient has perianal fistula from a Crohn's disease CT scan showed Multiple perianal fistulas again seen. Some of the fistulas have loops of radiopaque material that may be for drainage. Change antibiotics to imipenem Will consult general surgery to see if patient needs drainage considering septic shock, significant pain and tenderness on abdomen Check lactic acid level (3) Neutropenia: Qualifiers: Neutropenia type: secondary to cancer chemotherapy Qualified Code(s): D70.1 - Agranulocytosis secondary to cancer chemotherapy; T45.1X5A - Adverse effect of antineoplastic and immunosuppressive drugs, initial encounter Code(s): D70.9 - Neutropenia, unspecified Status: Acute Assessment and Plan: Discussed with oncology. Will start filgrastim (4) Pneumonia: Qualifiers: Laterality: left Lung location: upper lobe of lung Pneumonia type: due to unspecified organism Qualified Code(s): J18.9 - Pneumonia, unspecified organism Code(s): J18.9 - Pneumonia, unspecified organism Status: Acute Assessment and Plan: Postobstructive pneumonia secondary to small-cell lung cancer See above (5) Small cell lung cancer: Code(s): C34.90 - Malignant neoplasm of unspecified part of unspecified bronchus or lung Status: Acute Assessment and Plan: Currently on chemotherapy (6) Pulmonary embolism: Qualifiers: Pulmonary embolism type: multiple subsegmental (without acute cor pulmonale) Qualified Code(s): I26.94 - Multiple subsegmental pulmonary emboli without acute cor pulmonale Code(s): I26.99 - Other pulmonary embolism without acute cor pulmonale Status: Acute Assessment and Plan: CT on admission showed PE She was started on heparin drip but heparin has been discontinued due to drop in her platelet count Currently on Arixtra Echocardiogram review a does not show RV strain She is hypertensive but this is likely secondary to sepsis and not from PE She is not a candidate for tPA due to anemia thrombocytopenia recent GI bleeding (7) Thrombocytopenia: Code(s): D69.6 - Thrombocytopenia, unspecified Status: Acute Assessment and Plan: Multifactorial thrombocytopenia secondary to myelosuppression, sepsis, medication She was on heparin and heparin was discontinued due to further drop in platelet count This is clinically does not fit with heparin-induced thrombocytopenia although it could be possible due to prior exposure from heparin Heparin induced antibody was sent Heparin was changed to Arixtra by internal medicine physician Will order serotonin release assay (8) Anemia: Code(s): D64.9 - Anemia, unspecified Status: Acute Assessment and Plan: Monitor hemoglobin and transfuse as necessary (9) Crohn's disease: Code(s): K50.90 - Crohn's disease, unspecified, without complications Status: Acute Assessment and Plan: Currently treatment is on hold
[2022-09-14] MEDS: oxyCODONE HCL (*CRX) 2.5 MG TAB IR PO ×2 (09:59→18:10)
[2022-09-14 10:00] LABS: Lactic Acid Reflex 3.3 mmol/L (0.7-2.0)
[2022-09-14] MEDS: FILGRASTIM-SNDZ 480 MCG/0.8 ML SYRINGE SUB-Q (10:01)
[2022-09-14] MEDS: HYDROCORTISONE SODIUM SUCCINATE 100 MG/2 ML VIAL IV PUSH ×2 (10:02→16:29)
[2022-09-14] MEDS: CALCIUM GLUC 2,000 MG/NS 100ML 2,000 MG/100 ML BAG 100 MG IVPB (10:08)
[2022-09-14] MEDS: ALBUMIN HUMAN 25% 25 GM/100 ML 100 ML IVPB ×3 (10:08→21:12)
[2022-09-14] MEDS: MORPHINE SULFATE (*CRX) 4 MG/ML INJ IV PUSH (12:00)
--- NOTE | 2022-09-14 12:22 | PM.CNGS ---
Assessment and Plan Assessment and plan (1) Perianal fistula due to Crohn's disease: Code(s): K50.913 - Crohn's disease, unspecified, with fistula Status: Acute Assessment and Plan: I was asked to evaluate patient's current situation with the perianal area. Careful exam with patient's nurse in her ICU bed reveals for vessel loops that were acting as setons. The most posterior 1 does have drainage around it and the patient is having significant liquid stools. ( Studies are being sent for C diff). There is generalized irritation of the surrounding skin most likely secondary to frequent stooling. I agree with a barrier cream to help with this. I do not see any undrained fistulas that require surgical intervention at this time. These are probably more inflamed at the moment in view of her pancytopenia and neutropenia related to her chemotherapy. Unfortunately this patient has multiple medical issues going on at the same time. However I do not believe that surgical intervention is needed to handle any things shown by her recent CT scan of the abdomen pelvis or from our examination this date. Have suggested that if she can tolerate we start her on b.i.d. Metamucil to try to solidify her stools. She did not know of any contraindications for this and has not tried it before. Agree with barrier cream that the nurses are applying to the perianal skin. Review of the patient's CT scan from 2 days ago also reveals some generalized soft tissue thickening near these known fistulous openings. However no obvious separate perianal abscess is present. Patient may have increased inflammation related to poor immune systems secondary to her pancytopenia careful local care and cleansing is indicated. Would recommend that when the patient transfers to [facility] that consult be placed for her her colorectal surgeon Dr. Montemayor (2) Pancytopenia: Code(s): D61.818 - Other pancytopenia Status: Acute Assessment and Plan: Most likely secondary to her recent chemotherapy. However, she states that she has not had chemotherapy for almost 4 weeks so hopefully her neutropenia would be recovering. Discussed with Dr. Jones and he does have her on Neupogen. I agree with this. (3) Pulmonary embolism: Qualifiers: Pulmonary embolism type: multiple subsegmental (without acute cor pulmonale) Qualified Code(s): I26.94 - Multiple subsegmental pulmonary emboli without acute cor pulmonale Code(s): I26.99 - Other pulmonary embolism without acute cor pulmonale Status: Acute Assessment and Plan: Recently identified on CT of the chest. Possible etiologies are clotting difficulties due to her cancer but also recent placement of a Port-A-Cath. Since the catheter is in the Superior vena cava system clotting around that could be an issue. (4) Anemia: Code(s): D64.9 - Anemia, unspecified Status: Acute Assessment and Plan: Follow H&H s. --- Apparently had recent GI bleed at last admission. History of Present Illness Consult details Consult date: 09/14/22 Reason for consult: other (Opinion regarding perianal inflammation and setons) Requesting physician: Hugo Jones MD Narrative: This is a 52 year old female with multiple complaints.? she is now inl ICU due to suspected sepsis and hypotension. She has a history of Crohn's disease and follows with a colorectal surgeon at [facility]. The patient was recently transferred from [facility] to [facility] on 08/29/2022.?? This patient has had a history of a previous right hemicolectomy due to her Crohn's.? The patient had been admitted here last month for GI bleed.? She has a known Hx of Crohn's disease and a previous Rt. hemicolectomy. The patient initially was sent to [facility] due to her Crohn's to care for her fairly severe disease which included multiple perianal fistulas. She states
[2022-09-14 12:35] LABS: Toxigenic C. Diff NEGATIVE (NEGATIVE)
[2022-09-14 12:45] LABS: Reflex Lactic Acid Yes or No Add Lactic
[2022-09-14 13:29] LABS: Lactic Acid 2.6 mmol/L (0.7-2.0)
--- NOTE | 2022-09-14 13:53 | WPDGICN ---
Assessment and Plan Assessment and plan (1) Septic shock: Code(s): A41.9 - Sepsis, unspecified organism; R65.21 - Severe sepsis with septic shock Status: Acute Assessment and Plan: she is currently in icu, had recent chemotherapy and now neutropenic fever on pressors and antibiotics by platform worker (2) Perianal fistula due to Crohn's disease: Code(s): K50.913 - Crohn's disease, unspecified, with fistula Status: Acute Assessment and Plan: recent colonoscopy by Dr Gomez, she normally sees GI in [facility]- pending transfer she says that entyvio is due (3) Neutropenic fever: Code(s): D70.9 - Neutropenia, unspecified; R50.81 - Fever presenting with conditions classified elsewhere Status: Acute Assessment and Plan: treated, will get neupogen monitor cbc (4) Small cell lung cancer: Code(s): C34.90 - Malignant neoplasm of unspecified part of unspecified bronchus or lung Status: Acute Assessment and Plan: immunocompromised, recent chemotherapy (5) Pulmonary embolism: Qualifiers: Pulmonary embolism type: multiple subsegmental (without acute cor pulmonale) Qualified Code(s): I26.94 - Multiple subsegmental pulmonary emboli without acute cor pulmonale Code(s): I26.99 - Other pulmonary embolism without acute cor pulmonale Status: Acute Assessment and Plan: new finding (6) Cirrhosis: Code(s): K74.60 - Unspecified cirrhosis of liver Status: Acute Assessment and Plan: she is seeing gi in [facility] Consult Note Consult date/time: 09/14/22 13:53 Reason for consult: crohn's, septic shock HPI: Anne Winston is a 52 year old female with Crohn's disease diagnosed at least 25 years ago with right hemicolectomy and partial resection of the distal small bowel approximately 8 years ago.? Most recently she has been followed at [facility].? Also perianal Crohn's disease and has had setons placed intermittently by surgery depending on recurrent abscess formation over the last 4 years with recent colonoscopy by Dr Gomez when she was admitted here to hospital, found to have ulcerations in the left colon and actually she was [facility] medical treatment about 2 weeks ago. Current medications include a combination of Entyvio (every 4 weeks per patient and last done about 5 weeks ago) plus Humira plus gabapentin. Also recent diagnosis of lung cancer for which she just recently received chemotherapy in [facility]. she is back again to the hospital with new onset of?fever and headache,also pain in the left lower quadrant of abdomen which is 8/10, sharp and radiates to her back.? ER evaluation with Chest CT showed PE, left upper lobe consolidation and CT abdomen showed cirrhosis of liver multiple perianal fistulas along with intermittent wall thickening of descending colon.? Patient was admitted on floor, treated with IV fluids and antibiotics but she was found to be neutropenic and then hypotensive, was transferred to ICU for vasopressor support. Patient is awaiting for transfer back again to [facility].? Review of Systems Review of Systems: CONSTITUTIONAL: Reports subjective fever. ENT: Denies rhinorrhea, congestion, sore throat. CARDIOVASCULAR: Denies chest pain. RESPIRATORY: Reports MURPHY. GASTROINTESTINAL: Reports N/V. Denies abdominal pain, constipation, or diarrhea. NEUROLOGIC: Reports LORENZO. Denies numbness, or weakness. Eyes: Eyes: Denies blurry vision ENT: Reports Normal hearing present Genitourinary: Genitourinary: Denies hematuria Psychiatric: Psychiatric: Denies behavioral changes [facility] Past Medical History Medical History (Updated 09/14/22 @ 14:01 by Rocael Triana MD) Anemia iron deficiency anemia Anxiety Arthritis Cirrhosis Colostomy in place Counseling on health promotion and disease prevention Crohn's colitis chronic diarrhea Crohn's related a
[2022-09-14 15:32] LABS: Anion Gap 13 mmol/L (8-16); Blood Urea Nitrogen 4 mg/dL (7-17); Calcium 8.1 mg/dL (8.4-10.2); Carbon Dioxide 18 mmol/L (22-30); Chloride 109 mmol/L (98-107); Estimated Glomerular Filt Rate > 60; Glucose 221 mg/dL (65-110); Magnesium 2.8 mg/dL (1.6-2.3); Phosphorus 1.6 mg/dL (2.5-4.5); Potassium 2.5 mmol/L (3.4-5.0); Sodium 140 mmol/L (137-145)
[2022-09-14] MEDS: POTASSIUM CHLORIDE 20 MEQ TABLET 40 MEQ PO (16:30)
[2022-09-15] VITALS (30 sets, daily range): BP systolic 94–145; BP diastolic 60–95; PULSE 84–103; RESP 16–33; TEMP 36–36.6; O2SAT 91–100
[2022-09-15] MEDS: HYDROCORTISONE SODIUM SUCCINATE 100 MG/2 ML VIAL IV PUSH ×3 (00:22→16:59)
[2022-09-15] MEDS: oxyCODONE HCL (*CRX) 2.5 MG TAB IR PO ×3 (01:01→19:37)
[2022-09-15] MEDS: IPRATROPIUM BR 0.02% INH SOLN 0.5 MG/2.5 ML VIAL INHALATION ×4 (02:08→19:40)
[2022-09-15] MEDS: ALBUMIN HUMAN 25% 25 GM/100 ML 100 ML IVPB (03:13)
[2022-09-15] MEDS: MORPHINE SULFATE (*CRX) 4 MG/ML INJ IV PUSH ×5 (03:21→22:33)
[2022-09-15 05:13] LABS: Alanine Aminotransferase 21 U/L (6-35); Albumin Level 3.2 g/dL (3.5-5.1); Alkaline Phosphatase 58 U/L (38-126); Anion Gap 13 mmol/L (8-16); Aspartate Amino Transferase 12 U/L (14-36); Bilirubin,Total 0.4 mg/dL (0.2-1.3); Blood Urea Nitrogen 7 mg/dL (7-17); Calcium 7.6 mg/dL (8.4-10.2); Carbon Dioxide 17 mmol/L (22-30); Chloride 115 mmol/L (98-107); Estimated Glomerular Filt Rate > 60; Glucose 103 mg/dL (65-110); Potassium 2.6 mmol/L (3.4-5.0); Sodium 145 mmol/L (137-145)
[2022-09-15] MEDS: CENTRAL LINE FLUSH 10 ML IV PUSH ×5 (05:51→22:34)
[2022-09-15] MEDS: POTASSIUM PHOS,M-BASIC-D-BASIC 40 MMOL in SODIUM CHLORIDE 0.9% IV 250 ML 43.89 MMOL IVPB (06:33)
[2022-09-15] MEDS: SODIUM BICARBONATE 8.4% 100 MEQ in DEXTROSE 5% 1,000 ML 1,000 ML 150 MEQ IV CONT (06:34)
[2022-09-15] MEDS: POTASSIUM CHLORIDE 20 MEQ TABLET 80 MEQ PO (06:36)
[2022-09-15] MEDS: buPROPion HCL XL (24 HR) 150 MG TABCR 300 MG PO (08:25)
[2022-09-15] MEDS: FONDAPARINUX SODIUM 2.5 MG/0.5 ML SYRINGE SUB-Q (08:25)
[2022-09-15] MEDS: DULoxetine HCL 60 MG CAPSULE.DR PO ×2 (08:25→16:59)
[2022-09-15] MEDS: ZIPRASIDONE HCL 80 MG CAPSULE PO (08:25)
[2022-09-15] MEDS: hydrOXYzine HCL 25 MG TABLET 50 MG PO ×2 (08:25→16:59)
[2022-09-15] MEDS: FONDAPARINUX SODIUM 5 MG/0.4 ML SYRINGE SUB-Q (08:25)
[2022-09-15] MEDS: PANTOPRAZOLE 40 MG TABLET PO (08:25)
[2022-09-15] MEDS: TOPIRAMATE 25 MG TABLET 50 MG PO ×2 (08:25→16:59)
[2022-09-15] MEDS: GABAPENTIN 300 MG CAPSULE PO ×3 (08:25→16:59)
[2022-09-15] MEDS: FERROUS SULFATE 324 MG TABLET PO ×2 (08:25→16:59)
[2022-09-15] MEDS: FILGRASTIM-SNDZ 480 MCG/0.8 ML SYRINGE SUB-Q (08:26)
[2022-09-15 08:45] LABS: Immature Granulocyte Absolute 0.03 K/mm3 (0.00-0.031); Immature Granulocyte Percent A 7.3 % (0-0.5); Immature Platelet Fraction Pct 5.8 % (0.9-11.2); Lymphocytes Absolute Auto 0.21 K/mm3 (0.9-3.2); Lymphocytes Percent Auto 51.2 % (18.3-44.2); Mean Corpuscular HGB Conc 32.1 g/dl (32-36); Mean Corpuscular Hemoglobin 30.8 pg (26-34); Mean Platelet Volume 10.9 fl (7.4-10.4); Monocytes Absolute Auto 0.1 K/mm3 (0.1-0.6); Neutrophils Absolute Auto 0.1 K/mm3 (1.3-6.7); Neutrophils Percent Auto 19.5 % (45.5-73.1); Platelet Count Result 38 k/mm3 (150-375); Red Blood Count 2.01 M/mm3 (4.2-5.4); Red Cell Distribution Width 14.2 % (11.5-14.5)
[2022-09-15 09:02] LABS: Phosphorus 2.2 mg/dL (2.5-4.5)
[2022-09-15] MEDS: KCL 20 MEQ/0.45% NS 1,000 ML 100 ML IV CONT (09:08)
--- NOTE | 2022-09-15 09:21 | WPDINTPN ---
Progress Note: A&P Assessment and Plan (1) Septic shock: Code(s): A41.9 - Sepsis, unspecified organism; R65.21 - Severe sepsis with septic shock Status: Acute Assessment and Plan: Septic shock secondary to pneumonia which is likely postobstructive, peritonitis from perianal fistula and colitis She had received adequate amount of IV fluids on presentation and last night when she was hypotensive she was deemed not responsive to further IV fluid bolus by NICOM assessment Continue IV fluid but decrease the rate 5 mL/hour Continue hydrocortisone stress dose Received 4 doses of 25% albumin for intravascular volume expansion and minimize third-spacing Blood cultures have been sent and are pending 09/14 Cefepime changed to imipenem Continue vancomycin and imipenem (2) Perianal fistula due to Crohn's disease: Code(s): K50.913 - Crohn's disease, unspecified, with fistula Status: Acute Assessment and Plan: Patient has perianal fistula from a Crohn's disease CT scan showed Multiple perianal fistulas again seen. Some of the fistulas have loops of radiopaque material that may be for drainage. 11/14 Change antibiotics to imipenem Patient was seen by general surgery and Dr. Mcbride recommends conservative management (3) Neutropenia: Qualifiers: Neutropenia type: secondary to cancer chemotherapy Qualified Code(s): D70.1 - Agranulocytosis secondary to cancer chemotherapy; T45.1X5A - Adverse effect of antineoplastic and immunosuppressive drugs, initial encounter Code(s): D70.9 - Neutropenia, unspecified Status: Acute Assessment and Plan: Discussed with oncology. Patient was started on filgrastim (4) Pneumonia: Qualifiers: Laterality: left Lung location: upper lobe of lung Pneumonia type: due to unspecified organism Qualified Code(s): J18.9 - Pneumonia, unspecified organism Code(s): J18.9 - Pneumonia, unspecified organism Status: Acute Assessment and Plan: Postobstructive pneumonia secondary to small-cell lung cancer See above (5) Small cell lung cancer: Code(s): C34.90 - Malignant neoplasm of unspecified part of unspecified bronchus or lung Status: Acute Assessment and Plan: Currently on chemotherapy (6) Pulmonary embolism: Qualifiers: Pulmonary embolism type: multiple subsegmental (without acute cor pulmonale) Qualified Code(s): I26.94 - Multiple subsegmental pulmonary emboli without acute cor pulmonale Code(s): I26.99 - Other pulmonary embolism without acute cor pulmonale Status: Acute Assessment and Plan: CT on admission showed PE She was started on heparin drip but heparin has been discontinued due to drop in her platelet count Currently on Arixtra Echocardiogram review a does not show RV strain She was hypotensive earlier but this is likely secondary to sepsis and not from PE She is not a candidate for tPA due to anemia thrombocytopenia recent GI bleeding (7) Thrombocytopenia: Code(s): D69.6 - Thrombocytopenia, unspecified Status: Acute Assessment and Plan: Multifactorial thrombocytopenia secondary to myelosuppression, sepsis, medication She was on heparin and heparin was discontinued due to further drop in platelet count This is clinically does not fit with heparin-induced thrombocytopenia although it could be possible due to prior exposure from heparin. Platelet count continues to decrease despite discontinuation of heparin Heparin induced antibody was sent and is pending Serotonin release assays pending Heparin was changed to Arixtra by internal medicine physician I will transfuse 1 unit of platelets since patient is on anticoagulation for PE and at risk of bleeding (8) Anemia: Code(s): D64.9 - Anemia, unspecified Status: Acute Assessment and Plan: Hemoglobin down to 6.2 will transfuse 1 unit of PRBC (9) Crohn's disease: Code(s): K50.90 - [facility]
[2022-09-15 09:23] LABS: White Blood Count 0.4 K/mm3 (4.5-10.0)
[2022-09-15 09:24] LABS: Hematocrit 19.3 % (37.0-47.0); Hemoglobin 6.2 g/dL (12.0-15.0)
[2022-09-15 09:25] LABS: Anisocytosis 1+ (NORMAL); Platelet Estimate Decreased (Adequate)
[2022-09-15 09:26] LABS: Burr Cells 1+ (NORMAL)
[2022-09-15 10:38] LABS: Schistocytes None Seen (NORMAL)
[2022-09-15] MEDS: SODIUM BICARBONATE TAB 650 MG TABLET PO ×2 (10:55→16:59)
[2022-09-15] MEDS: MORPHINE SULFATE (*CRX) 2 MG/ML INJ IV PUSH (10:56)
[2022-09-15] MEDS: LIDOCAINE HCL 1% PF INJ 5 ML VIAL INFILTRATE (11:15)
[2022-09-15] MEDS: CALCIUM GLUC 2,000 MG/NS 100ML 2,000 MG/100 ML BAG 100 MG IVPB (12:18)
--- NOTE | 2022-09-15 12:51 | PDONCCN ---
HPI - Date of Consult Date/Time: 09/15/22 12:51 Requesting Physician: Ginger John MD Primary Care Provider: Elizabeth LambMD - Consult Narrative Reason for consult: Pancytopenia Narrative: Anne Winston is a 52 year old female with history of recently diagnosed limited stage small cell lung cancer currently receiving chemotherapy at [facility] along with radiation therapy treatment. She also has a history of Crohn's disease and liver cirrhosis. Patient was seen in the office on March 12 for her history of microcytic anemia and pancytopenia. This patient has history of vitamin B12 deficiency and receives monthly B12 injections. She now came into the hospital with low-grade fever and chills along with diarrhea. She is complaining of tiredness and fatigue. She denies any melena hematochezia. Labs showed profound neutropenia as well as anemia with hemoglobin [place] 6.2[place] [address]. Patient was started on filgrastim for febrile neutropenia. I have reviewed CT chest finding that showed left perihilar mass and adenopathy as well as right upper and right lower lobes segmental and subsegmental pulmonary embolism. Doppler study showed no evidence of DVT. CT abdomen and pelvis was also performed due to left lower quadrant abdominal pain that showed finding of liver cirrhosis but no evidence of metastatic disease. Review of Systems - Review of Systems All systems reviewed & are unremarkable except as noted in HPI and bel - Neurologic Reports system reviewed and no additional complaints, except as documented, Reports hearing normal, Denies abnormal speech, Denies behavioral changes, Denies confusion [facility] Medical History: Medical History (Last Updated 09/14/22 @ 14:01 by Rocael Triana MD) Anemia iron deficiency anemia Anxiety Arthritis Cirrhosis Colostomy in place Counseling on health promotion and disease prevention Crohn's colitis chronic diarrhea Crohn's related arthritis Onset Date: ~1984 Depression Elevated CK-MB level Encounter for medication management Hypokalemia IBS (irritable bowel syndrome) Metabolic acidosis Migraine Nephrolithiasis Neutropenic fever Surgical History: Surgical History (Last Reviewed 09/14/22 @ 09:17 by Hugo Jones MD) H/O hernia repair History of colectomy on the right History of colostomy reversal History of lung biopsy Hx of cholecystectomy Family History: Family History (Last Reviewed 09/14/22 @ 09:17 by Hugo Jones MD) Daughter Accidental - Social History Social History: Social History (Last Reviewed 09/14/22 @ 09:17 by Hugo Jones MD) Gender Identity: Gender identity (if verbalized by the patient): Female Alcohol Use: Alcohol intake: never Drinks per week: 2 Substance Use: Substance use: current Substance use type: marijuana Last use: 08/12/22 Others: Spiritual care concerns: No Smoking Status: Smoking status: Former smoker Tobacco type: cigarettes Second hand tobacco smoke exposure: Yes Approximate Smoking End Date: 06/2022 Smoking Pack-years: Smoking packs per day: 0.5 Smoking cigarettes per day: 10.0 Years smoked: 20 Smoking pack-years: 10.00 Social Determinants of Health: Has the Lack of Transportation Kept You From Medical Appointments or From Getting Medications?: No Within the Past 12 Months, Were You Worried Whether Your Food Would Run Out Before You Got Money to Buy More?: Never True What is Your Housing Situation Today?: I Have Housing Are You Worried That in the Next 2 Months, You May Not Have Your Own Housing to Live In?: No Do You Have Trouble Paying Your Heating Or Electricity Bill?: No Do You Have Trouble Paying For Medicines?: No Are You Currently Unemployed and Looking for Work?: No Highest Level of Education Completed: High School Diploma/GED Do You Have Trouble With
[2022-09-15 14:09] LABS: Anion Gap 16 mmol/L (8-16); Blood Urea Nitrogen 8 mg/dL (7-17); Calcium 8.9 mg/dL (8.4-10.2); Carbon Dioxide 17 mmol/L (22-30); Chloride 113 mmol/L (98-107); Estimated Glomerular Filt Rate > 60; Glucose 116 mg/dL (65-110); Phosphorus 2.6 mg/dL (2.5-4.5); Potassium 3.4 mmol/L (3.4-5.0); Sodium 146 mmol/L (137-145)
[2022-09-15] MEDS: SODIUM CHLORIDE 0.9% IV 250 ML 30 ML IV CONT (14:43)
[2022-09-15] MEDS: POTASSIUM CHLORIDE 20 MEQ PACKET (FOR LIQUID) 40 MEQ PO (14:43)
[2022-09-15] MEDS: KCL 40 MEQ/WATER 100 ML 100 ML 25 ML IVPB (15:15)
--- NOTE | 2022-09-15 15:34 | WPDGIPROGNO ---
Progress Note: A&P Assessment and Plan (1) Small cell lung cancer: Code(s): C34.90 - Malignant neoplasm of unspecified part of unspecified bronchus or lung Status: Acute Assessment and Plan: Patient with new diagnosis of small cell lung cancer. Currently undergoing therapy by Oncology. Appears to be admitted with pancytopenia on basis of chemotherapy. May have a neutropenic fever or infection given her immunocompromised status. (2) Pancytopenia: Code(s): D61.818 - Other pancytopenia Status: Acute (3) Mass of hilum: Code(s): R91.8 - Other nonspecific abnormal finding of lung field Status: Acute (4) Pancytopenia: Code(s): D61.818 - Other pancytopenia Status: Acute (5) Perianal fistula due to Crohn's disease: Code(s): K50.913 - Crohn's disease, unspecified, with fistula Status: Acute Assessment and Plan: Patient with perianal Crohn's disease. She has had previous surgery. This currently appears fairly stable. Antibiotics such as Flagyl may be beneficial. Given that she is on other antibiotics will defer implementing this was immediately. She was discharged from our institution on Flagyl month ago. (6) History of colectomy: Code(s): Z90.49 - Acquired absence of other specified parts of digestive tract Status: Acute Assessment and Plan: Previous right hemicolectomy because of Crohn's disease. (7) Crohn's disease: Code(s): K50.90 - Crohn's disease, unspecified, without complications Status: Acute Assessment and Plan: Known to have active Crohn's disease in the left colon by recent colonoscopy. Currently not on medications aside from biologic agents. Currently routine use Entyvio and Humira on an intermittent routine basis. I would not add steroids at this time. Continue supportive care. Ultimately patient should be followed up with her established GI service [facility]. (8) Cirrhosis: Code(s): K74.60 - Unspecified cirrhosis of liver Status: Acute Assessment and Plan: Imaging studies suggest patient may have underlying cirrhosis of the liver. No evidence of metastatic disease. This appears compensated at this point. Etiology unclear. Subjective Date/time seen: 09/15/22 15:34 pain patient in the ICU. Appears very weak. Has a cough. Noted to have a low blood pressure. Patient currently has been undergoing chemotherapy for lung cancer. She reports she has continued loose stools but no blood in her stools. Rather vague abdominal discomfort. Patient known to me from hospital stay at our institution a month ago. She has a past medical history of Crohn's disease with a previous right hemicolectomy. She has perianal disease with previous anal fistulas she has setons in place test cyst with healing. These were placed at [facility] as followed by the [facility]. Patient had a colonoscopy which revealed active left-sided colitis consistent with her Crohn's disease 1 month ago. Patient now has diagnosis of lung cancer for which she is going treatment. Patient to has been on biologic agents including Entyvio with Humira plus gabapentin. Patient now admitted with a neutropenic fever. In apparent sepsis. Awaiting transfer back to [facility]. Review of Systems Review of Systems: review of symptoms the patient feels feverish. She has general malaise. Ongoing diarrhea. Exam Narrative: Physical exam reveals patient be awake and alert moderate generalized discomfort. HEENT exam reveals no obvious icterus. Lungs reveal bilateral rhonchi. Heart without murmur. Abdomen is soft. Bowel sounds are present mild diffuse tenderness nothing localized. No masses noted. Rectal exam deferred at this time. Patient has perianal setons in place. Objective Data Vital Signs Vital Signs: Vital Signs - 24 hr 09/14/22 16:25 09/14/22
[2022-09-15 19:04] LABS: Vancomycin Trough 19.3 ug/mL (10.0-20.0)
[2022-09-15] MEDS: SODIUM BICARBONATE 8.4% 100 MEQ in DEXTROSE 5% 1,000 ML 1,000 ML 75 MEQ IV CONT (19:18)
[2022-09-15] MEDS: FUROSEMIDE INJ 40 MG/4 ML VIAL 20 MG IV PUSH (20:00)
[2022-09-16] VITALS (41 sets, daily range): BP systolic 96–145; BP diastolic 63–97; PULSE 83–134; RESP 16–40; TEMP 36.1–37; O2SAT 91–100; BMI 21.1
[2022-09-16] MEDS: HYDROCORTISONE SODIUM SUCCINATE 100 MG/2 ML VIAL IV PUSH ×2 (01:35→09:59)
[2022-09-16] MEDS: ACETAMINOPHEN 500 MG TABLET PO (01:35)
[2022-09-16] MEDS: oxyCODONE HCL (*CRX) 2.5 MG TAB IR PO (01:35)
[2022-09-16] MEDS: IPRATROPIUM BR 0.02% INH SOLN 0.5 MG/2.5 ML VIAL INHALATION ×4 (01:42→20:22)
[2022-09-16] MEDS: MORPHINE SULFATE (*CRX) 4 MG/ML INJ IV PUSH (03:16)
[2022-09-16 03:40] LABS: Hematocrit 26.3 % (37.0-47.0); Hemoglobin 8.5 g/dL (12.0-15.0); Immature Platelet Fraction Pct 6.4 % (0.9-11.2); Mean Corpuscular HGB Conc 32.3 g/dl (32-36); Mean Corpuscular Hemoglobin 29.8 pg (26-34); Mean Corpuscular Volume 92.3 fl (80-100); Mean Platelet Volume 10.5 fl (7.4-10.4); Platelet Count Result 104 k/mm3 (150-375); Red Blood Count 2.85 M/mm3 (4.2-5.4); Red Cell Distribution Width 15.9 % (11.5-14.5); White Blood Count 3.6 K/mm3 (4.5-10.0)
[2022-09-16 04:03] LABS: Alanine Aminotransferase 27 U/L (6-35); Alkaline Phosphatase 90 U/L (38-126); Anion Gap 15 mmol/L (8-16); Aspartate Amino Transferase 24 U/L (14-36); Blood Urea Nitrogen 15 mg/dL (7-17); Carbon Dioxide 19 mmol/L (22-30); Chloride 112 mmol/L (98-107); Estimated Glomerular Filt Rate > 60; Glucose 94 mg/dL (65-110); Potassium 3.9 mmol/L (3.4-5.0); Sodium 146 mmol/L (137-145)
[2022-09-16 04:38] LABS: Band Neutrophils Percent 25 % (0-6); Basophils Absolute Manual 0.03 K/mm3 (0.0-0.1); Basophils Percent Manual 1 % (0-1); Giant Platelets Present; Metamyelocytes Percent 17 %; Monocytes Absolute Manual 0.25 K/mm3 (0.1-0.90); Monocytes Percent Manual 7 % (3-9); Myelocytes Percent 5 %; Neutrophils Absolute Manual 1.18 K/mm3 (1.7-7.2); Neutrophils Percent Manual 8 % (46-73); Nucleated Red Blood Cells 7 %; Platelet Estimate Adequate (Adequate); Promyelocytes Percent 2 %
[2022-09-16 04:39] LABS: Anisocytosis 1+ (NORMAL); Macrocytosis 1+ (NORMAL); Ovalocytes 1+ (NORMAL); Poikilocytosis 1+ (NORMAL); Tear Drop Cells 1+ (NORMAL)
[2022-09-16 04:40] LABS: Atypical Lymphocytes Present; Hypochromasia 2+ (NORMAL); Microcytosis 2+ (NORMAL); Schistocytes 1+ (NORMAL); Stomatocytes 1+ (NORMAL)
[2022-09-16 04:42] LABS: Total Cells Counted 100
[2022-09-16 04:46] LABS: Lymphocytes Absolute Manual 1.08 K/mm3 (1.1-4.5); Lymphocytes Percent Manual 30 % (18-44); Other Cell Type 5
[2022-09-16] MEDS: CENTRAL LINE FLUSH 10 ML IV PUSH ×6 (04:50→21:21)
[2022-09-16 06:21] LABS: Alveolar/Arterial O2 Gradient 263.4 mmHg; Base Excess ABG -1.9 mEq/l (+/-2.0); Carboxyhemoglobin 0.3 % THb (0-2.0); Fractional Inspired Oxygen 50 %; HCO3 ABG 23.2 mEq/l (22.0-26.0); Methemoglobin ABG 0.2 %THb (0-1.5); PCO2 ABG 40.8 mmHg (35.0-45.0); PO2 FiO2 Ratio Arterial Blood 0.94 %; Reduced Hemoglobin 15.2 %THb (0-5.0); Total Hemoglobin 9.3 g/dL (12.0-18.0); pH ABG 7.372 (7.350-7.450)
[2022-09-16 06:23] LABS: PO2 ABG 47.2 mmHg (80.0-100.0)
[2022-09-16 06:24] LABS: Oxygen Saturation ABG 82.1 % (95.0-100.0)
[2022-09-16 06:26] LABS: Modified Allen's Test Pass; Oxyhemoglobin 84.3 % THb (90.0-100.0); Site Drawn RIGHT RADIAL
[2022-09-16 06:28] LABS: Device BIPAP
[2022-09-16 06:29] LABS: Expiratory Pressure 6 cmH2O; Inspiratory Pressure 12 cmH2O
[2022-09-16] MEDS: ETOMIDATE 20 MG/10 ML AMPUL IV PUSH (08:44)
[2022-09-16] MEDS: ROCURONIUM BROMIDE 50 MG/5 ML VIAL IV PUSH ×2 (08:44→13:06)
[2022-09-16] MEDS: FENTANYL 2,500MCG/NS250ML(*CRX 2,500 MCG/250 ML BAG IV CONT (08:50)
[2022-09-16] MEDS: MIDAZOLAM 100MG/NS 100ML(*CRX) 100 MG/100 ML BAG IV CONT (08:50)
--- NOTE | 2022-09-16 08:58 | PM.IMPN ---
Progress Note: A&P Assessment and Plan (1) Septic shock: Code(s): A41.9 - Sepsis, unspecified organism; R65.21 - Severe sepsis with septic shock Status: Acute Assessment and Plan: Neutropenic fever from chemo + SCLC Weaned off pressors yesterday, started on zarxio, Post obstructive pneumonia, on broad spectrum abx with IV vanc + imipenem on stress dosing steroids (2) Pulmonary embolism: Qualifiers: Pulmonary embolism type: multiple subsegmental (without acute cor pulmonale) Qualified Code(s): I26.94 - Multiple subsegmental pulmonary emboli without acute cor pulmonale Code(s): I26.99 - Other pulmonary embolism without acute cor pulmonale Status: Acute Assessment and Plan: Cont arixtra, check echo and Dopplers pending Update: Platelets dropped in half, heparin drip discontinued, antibiotics ordered, Arixtra injection given (3) Mass of hilum: Code(s): R91.8 - Other nonspecific abnormal finding of lung field Status: Acute Assessment and Plan: PE with possible postobstructive pneumonia secondary to her underlying malignancy, oncology consultation pending Patient being treated for aggressive small cell lung cancer at [facility], due for chemotherapy (4) Pneumonia: Qualifiers: Laterality: left Lung location: upper lobe of lung Pneumonia type: due to unspecified organism Qualified Code(s): J18.9 - Pneumonia, unspecified organism Code(s): J18.9 - Pneumonia, unspecified organism Status: Acute Assessment and Plan: Continue vancomycin and cefepime, follow-up blood and sputum cultures (5) Perianal fistula due to Crohn's disease: Code(s): K50.913 - Crohn's disease, unspecified, with fistula Status: Acute Assessment and Plan: Transfer pending at [facility] Consult GI, patient due for Entyvio infusion (6) Hyponatremia: Code(s): E87.1 - Hypo-osmolality and hyponatremia Status: Acute Assessment and Plan: Stable, monitor (7) Anxiety and depression: Code(s): F41.9 - Anxiety disorder, unspecified; F32.A - Depression, unspecified Status: Acute Assessment and Plan: Continue Cymbalta (8) Anemia: Code(s): D64.9 - Anemia, unspecified Status: Chronic Assessment and Plan: Stable, baseline between 10 and 11 Plan DVT prophylaxis with arixtra GI prophylaxis with PPI Code status full code Subjective Date/time seen: 09/16/22 08:58 Interval history: Intubated this morning, sedated now. Review of Systems Review of Systems: ROS unobtainable: Yes unobtainable due to endotracheal tube Exam Narrative: General: Int/sed HEENT: Atraumatic, normocephalic, mucous membranes moist CV: Regular rate and rhythm, S1, S2 Lungs: unlabored breathing Abdomen: Soft, nondistended Extremities: Normal to inspection Skin: No rashes noted, no lesions or wounds seen Objective Data Vital Signs Vital Signs: Vital Signs - 24 hr 09/15/22 10:00 09/15/22 10:00 09/15/22 12:00 Temperature Pulse Rate 92 93 Respiratory Rate 18 Blood Pressure 108/78 Pulse Oximetry 96 97 Oxygen Delivery Room Air Oxygen Flow Rate Fraction of Inspired Oxygen 09/15/22 12:00 09/15/22 14:14 09/15/22 09:00 Temperature Pulse Rate 86 97 90 Respiratory Rate 20 22 H Blood Pressure Pulse Oximetry Oxygen Delivery Oxygen Flow Rate Fraction of Inspired Oxygen 09/15/22 12:00 09/15/22 14:00 09/15/22 14:00 Temperature 97.6 F Pulse Rate 88 89 89 Respiratory Rate 22 H 20 Blood Pressure 100/69 109/76 Pulse Oximetry 98 97 Oxygen Delivery Oxygen Flow Rate Fraction of Inspired Oxygen 09/15/22 15:02 09/15/22 15:18 09/15/22 16:00 Temperature 97 F L 96.8 F L Pulse Rate 91 90 Respiratory Rate 28 H 32 H Blood Pressure 108/77 108/77 Pulse Oximetry 96 97 94 Oxygen Delivery Nasal Cannula Oxygen Flow Rate 2 Fraction of Inspired Oxygen 1
[2022-09-16] MEDS: MIDAZOLAM HCL (*CRX) 2 MG/2 ML VIAL IV PUSH (09:32)
--- NOTE | 2022-09-16 09:52 | WPDPROCEDUR ---
Procedures Intubation Intubation Date: 09/16/22 Intubation Time: 08:36 Consent: Obtained from Patient A pre-procedural Time-Out was completed immediately before starting the procedure and confirmed: Patient Identification, Site, Procedure, Patient Position and the Availability of Requisite Equipment: Yes Sedative: etomidate Paralytic: rocuronium Laryngoscope: fiber optic video scope Assist device used: fiber optic device ET tube size: 7.5 Tube secured depth (cm): 21 Tube secured location: lips Tube placement confirmation: visualized tube passing through cords, no breath sounds over epigastrium and confirmation by capnometry Patient tolerated procedure: well Intubation complications: none
[2022-09-16] MEDS: FILGRASTIM-SNDZ 480 MCG/0.8 ML SYRINGE SUB-Q (09:56)
[2022-09-16 10:23] LABS: Alveolar/Arterial O2 Gradient 555.9 mmHg; Base Excess ABG -6.5 mEq/l (+/-2.0); Fractional Inspired Oxygen 100 %; HCO3 ABG 23.7 mEq/l (22.0-26.0); Oxygen Content ABG 14.4 %vol (16.0-22.0); Oxygen Saturation ABG 91.9 % (95.0-100.0); Oxyhemoglobin 92.3 % THb (90.0-100.0); PO2 FiO2 Ratio Arterial Blood 0.83 %
[2022-09-16 10:24] LABS: Device VENTILATOR; Modified Allen's Test Pass; PCO2 ABG 74.1 mmHg (35.0-45.0); Site Drawn RIGHT RADIAL; pH ABG 7.122 (7.350-7.450)
[2022-09-16 10:25] LABS: Arterial Blood Gas PEEP 12 cmH2O; Arterial Blood Gas Tidal Volume 270 ml; Arterial Blood Gas Vent Mode CMV; Arterial Blood Gas Ventilator rate 24 /MIN
--- NOTE | 2022-09-16 12:28 | WPDINTPN ---
Progress Note: A&P Assessment and Plan (1) Acute respiratory failure: Code(s): J96.00 - Acute respiratory failure, unspecified whether with hypoxia or hypercapnia Status: Acute Assessment and Plan: 09/16/2022: Increased oxygen requirements on BiPAP, tachypnea, increased respiratory distress and worsening shortness of breath, x-ray overnight showed possible pulmonary edema and was given diuretics with good urine output but did improve her respiratory status. I discussed with patient regarding intubation and mechanical ventilation to which she was agreeable -patient was successfully intubated on 09/16/2022 -likely related to worsening pneumonia, septic shock, PE, ARDS -low tidal volume strategy, high PEEP -currently on CMV mode of ventilation, peep of 12 and 100% FiO2 with adequate O2 sats -ABGs reviewed and respiratory rate increased -will start bronchodilators -sedated with fentanyl and Versed infusion (2) Septic shock: Code(s): A41.9 - Sepsis, unspecified organism; R65.21 - Severe sepsis with septic shock Status: Acute Assessment and Plan: Septic shock secondary to pneumonia which is likely postobstructive, peritonitis from perianal fistula and colitis She had received adequate amount of IV fluids on presentation and last night when she was hypotensive she was deemed not responsive to further IV fluid bolus by NICOM assessment IV fluids were discontinued Patient is off all pressors, will decrease stress dose steroids Received 4 doses of 25% albumin for intravascular volume expansion and minimize third-spacing 09/12/2022: Blood cultures negative x2 so far - Continue vancomycin and imipenem (09/14) (3) Perianal fistula due to Crohn's disease: Code(s): K50.913 - Crohn's disease, unspecified, with fistula Status: Acute Assessment and Plan: Patient has perianal fistula from a Crohn's disease CT scan showed Multiple perianal fistulas again seen. Some of the fistulas have loops of radiopaque material that may be for drainage. 09/14 Change antibiotics to imipenem Patient was seen by general surgery and Dr. Mcbride recommends conservative management (4) Neutropenia: Qualifiers: Neutropenia type: secondary to cancer chemotherapy Qualified Code(s): D70.1 - Agranulocytosis secondary to cancer chemotherapy; T45.1X5A - Adverse effect of antineoplastic and immunosuppressive drugs, initial encounter Code(s): D70.9 - Neutropenia, unspecified Status: Acute Assessment and Plan: Discussed with oncology. Patient currently on filgrastim, with improvement in WBC count and neutropenia (5) Pneumonia: Qualifiers: Laterality: left Lung location: upper lobe of lung Pneumonia type: due to unspecified organism Qualified Code(s): J18.9 - Pneumonia, unspecified organism Code(s): J18.9 - Pneumonia, unspecified organism Status: Acute Assessment and Plan: Postobstructive pneumonia secondary to small-cell lung cancer See above (6) Small cell lung cancer: Code(s): C34.90 - Malignant neoplasm of unspecified part of unspecified bronchus or lung Status: Acute Assessment and Plan: Recently received chemotherapy at [facility] (7) Pulmonary embolism: Qualifiers: Pulmonary embolism type: multiple subsegmental (without acute cor pulmonale) Qualified Code(s): I26.94 - Multiple subsegmental pulmonary emboli without acute cor pulmonale Code(s): I26.99 - Other pulmonary embolism without acute cor pulmonale Status: Acute Assessment and Plan: CT on admission showed PE She was started on heparin drip but heparin has been discontinued due to drop in her platelet count Patient currently on Arixtra, given her weight, decreased Arixtra dose to 5 mg q am Echocardiogram review a does not show RV strain She was hypotensive earlier but this is likely secondary to sepsis and not from PE She is not a candidate f
[2022-09-16] MEDS: FERROUS SULFATE 324 MG TABLET PO ×2 (12:54→17:11)
[2022-09-16] MEDS: MINERAL OIL/WHITE PETROLATUM OINTMENT 1 APPLIC EACH EYE ×2 (12:54→20:46)
[2022-09-16] MEDS: SODIUM BICARBONATE TAB 650 MG TABLET PO ×2 (12:54→17:10)
[2022-09-16] MEDS: FONDAPARINUX SODIUM 5 MG/0.4 ML SYRINGE SUB-Q (12:54)
[2022-09-16] MEDS: GABAPENTIN 300 MG CAPSULE PO ×2 (12:54→17:10)
[2022-09-16] MEDS: TOPIRAMATE 25 MG TABLET 50 MG PO ×2 (12:54→17:11)
[2022-09-16] MEDS: CISATRACURIUM BESYLATE 200 MG in DEXTROSE 5% 80 ML IV CONT (13:11)
[2022-09-16] MEDS: LEVALBUTEROL NEB 1.25 MG/3 ML 0.63 MG INHALATION ×2 (13:32→20:22)
--- NOTE | 2022-09-16 13:52 | WPDGIPROGNO ---
Progress Note: A&P Assessment and Plan (1) Acute respiratory failure: Code(s): J96.00 - Acute respiratory failure, unspecified whether with hypoxia or hypercapnia Status: Acute Assessment and Plan: Patient with continuing respiratory difficult. Was intubated today. Likely has pneumonia. Corona to be etiology of sepsis. She may have pulmonary embolus by recent scan and a ARDS. Management per caponizer at this time. (2) Pancytopenia: Code(s): D61.818 - Other pancytopenia Status: Acute Assessment and Plan: Pancytopenia improving. Likely secondary to recent chemotherapy for lung cancer. (3) Septic shock: Code(s): A41.9 - Sepsis, unspecified organism; R65.21 - Severe sepsis with septic shock Status: Acute Assessment and Plan: Patient admitted with sepsis. Corona to likely be from pneumonia. (4) Small cell lung cancer: Code(s): C34.90 - Malignant neoplasm of unspecified part of unspecified bronchus or lung Status: Acute (5) Pulmonary embolism: Qualifiers: Pulmonary embolism type: multiple subsegmental (without acute cor pulmonale) Qualified Code(s): I26.94 - Multiple subsegmental pulmonary emboli without acute cor pulmonale Code(s): I26.99 - Other pulmonary embolism without acute cor pulmonale Status: Acute (6) Perianal fistula due to Crohn's disease: Code(s): K50.913 - Crohn's disease, unspecified, with fistula Status: Acute Assessment and Plan: Perianal fistulas identified have been present because of Crohn's disease several drains in place. Surgical service following. Anticipate follow-up with [facility] surgeons when her overall status improves. Oral Flagyl may be of some benefit when she is able to tolerate oral intake. (7) Crohn's disease: Code(s): K50.90 - Crohn's disease, unspecified, without complications Status: Acute Assessment and Plan: Recent colonoscopy revealed active Crohn's disease in the left colon. Patient has previously had right hemicolectomy because of Crohn's disease and also has perianal disease. Currently on biologic agents including of entyvio and Humira in conjunction with gabapentin followed by the GI service at [facility]. Will hold biologic agents while she is immunocompromised currently. (8) History of colectomy: Code(s): Z90.49 - Acquired absence of other specified parts of digestive tract Status: Acute Subjective Date/time seen: 09/16/22 13:52 Patient has had significant respiratory decline now intubated because respiratory failure. Review of Systems Review of Systems: ROS unobtainable: Yes unobtainable due to endotracheal tube Exam Narrative: Physical exam reveals patient to be now intubated. Lungs reveal scattered rhonchi. Heart without murmur. Abdomen bowel sounds present soft unable to determine tenderness. No masses present. Rectal exam deferred today. Previous exams showed perianal draining of previous fistulous. Objective Data Vital Signs Vital Signs: Vital Signs - 24 hr 09/15/22 14:14 09/15/22 14:00 09/15/22 14:00 Temperature Pulse Rate 97 89 89 Respiratory Rate 20 20 Blood Pressure 109/76 Pulse Oximetry 97 Oxygen Delivery Oxygen Flow Rate Fraction of Inspired Oxygen 09/15/22 15:02 09/15/22 15:18 09/15/22 16:00 Temperature 97 F L 96.8 F L Pulse Rate 91 90 Respiratory Rate 28 H 32 H Blood Pressure 108/77 108/77 Pulse Oximetry 96 97 94 Oxygen Delivery Nasal Cannula Oxygen Flow Rate 2 Fraction of Inspired Oxygen 09/15/22 16:00 09/15/22 16:00 09/15/22 16:18 Temperature 97.5 F L 97.5 F L Pulse Rate 85 88 85 Respiratory Rate 26 H 20 Blood Pressure 104/78 102/81 Pulse Oximetry 95 96 Oxygen Delivery Oxygen Flow Rate Fraction of Inspired Oxygen 09/15/22 17:39 09/15/22 17:43 09/15/22 18:00 Temperature 97.5 F L 97.6 F Pulse Rat
[2022-09-16] MEDS: PANTOPRAZOLE SODIUM IV 40 MG VIAL IV PUSH (14:11)
[2022-09-16 14:29] LABS: Alveolar/Arterial O2 Gradient 472.2 mmHg; Base Excess ABG -4.3 mEq/l (+/-2.0); Fractional Inspired Oxygen 90 %; HCO3 ABG 25.3 mEq/l (22.0-26.0); Oxygen Content ABG 15.8 %vol (16.0-22.0); Oxygen Saturation ABG 95.3 % (95.0-100.0); Oxyhemoglobin 95.4 % THb (90.0-100.0); PO2 ABG 97.2 mmHg (80.0-100.0); PO2 FiO2 Ratio Arterial Blood 1.08 %; Total Hemoglobin 11.7 g/dL (12.0-18.0)
[2022-09-16 14:30] LABS: Device VENTILATOR; Modified Allen's Test Pass; PCO2 ABG 70.5 mmHg (35.0-45.0); Site Drawn RIGHT RADIAL; pH ABG 7.172 (7.350-7.450)
[2022-09-16 14:31] LABS: Arterial Blood Gas PEEP 12 cmH2O; Arterial Blood Gas Tidal Volume 270 ml; Arterial Blood Gas Vent Mode CMV; Arterial Blood Gas Ventilator rate 28 /MIN
[2022-09-16 20:07] LABS: Alveolar/Arterial O2 Gradient 483.9 mmHg; Base Excess ABG -2.8 mEq/l (+/-2.0); Fractional Inspired Oxygen 90 %; HCO3 ABG 23.9 mEq/l (22.0-26.0); Oxygen Content ABG 13.6 %vol (16.0-22.0); Oxygen Saturation ABG 97.2 % (95.0-100.0); Oxyhemoglobin 96.2 % THb (90.0-100.0); PCO2 ABG 50.9 mmHg (35.0-45.0); PO2 ABG 105.6 mmHg (80.0-100.0); PO2 FiO2 Ratio Arterial Blood 1.17 %; Total Hemoglobin 9.9 g/dL (12.0-18.0)
[2022-09-16 20:11] LABS: Arterial Blood Gas Vent Mode CMV; Arterial Blood Gas Ventilator rate 28 /MIN; Device VENTILATOR; Modified Allen's Test Pass; Site Drawn RIGHT BRACHIAL
[2022-09-16 20:12] LABS: Arterial Blood Gas PEEP 10 cmH2O; Arterial Blood Gas Tidal Volume 320 ml
[2022-09-16] MEDS: HYDROCORTISONE SODIUM SUCCINATE 100 MG/2 ML VIAL 50 MG IV PUSH (21:31)
[2022-09-17] VITALS (39 sets, daily range): BP systolic 90–108; BP diastolic 56–72; PULSE 75–96; RESP 28; TEMP 36.6–37; O2SAT 93–100
[2022-09-17] MEDS: IPRATROPIUM BR 0.02% INH SOLN 0.5 MG/2.5 ML VIAL INHALATION ×4 (01:45→20:18)
[2022-09-17] MEDS: LEVALBUTEROL NEB 1.25 MG/3 ML 0.63 MG INHALATION ×4 (01:45→20:17)
[2022-09-17 04:58] LABS: Alveolar/Arterial O2 Gradient 388.3 mmHg; Base Excess ABG -2.7 mEq/l (+/-2.0); Carboxyhemoglobin 0.3 % THb (0-2.0); Fractional Inspired Oxygen 70 %; HCO3 ABG 22.9 mEq/l (22.0-26.0); Methemoglobin ABG 0.1 %THb (0-1.5); Oxygen Content ABG 15.9 %vol (16.0-22.0); Oxygen Saturation ABG 91.5 % (95.0-100.0); Oxyhemoglobin 91.2 % THb (90.0-100.0); PCO2 ABG 43.1 mmHg (35.0-45.0); PO2 ABG 64.5 mmHg (80.0-100.0); PO2 FiO2 Ratio Arterial Blood 0.92 %; Reduced Hemoglobin 8.4 %THb (0-5.0); Total Hemoglobin 12.4 g/dL (12.0-18.0); pH ABG 7.344 (7.350-7.450)
[2022-09-17 05:00] LABS: Hematocrit 27.4 % (37.0-47.0); Hemoglobin 8.8 g/dL (12.0-15.0); Mean Corpuscular HGB Conc 32.1 g/dl (32-36); Mean Corpuscular Hemoglobin 30.3 pg (26-34); Mean Corpuscular Volume 94.5 fl (80-100); Mean Platelet Volume 11.2 fl (7.4-10.4); Platelet Count Result 138 k/mm3 (150-375); Red Cell Distribution Width 16.7 % (11.5-14.5); White Blood Count 22.4 K/mm3 (4.5-10.0)
[2022-09-17 05:02] LABS: Device VENTILATOR; Modified Allen's Test Unable to perform; Site Drawn RIGHT RADIAL
[2022-09-17 05:03] LABS: Arterial Blood Gas PEEP 10 cmH2O; Arterial Blood Gas Tidal Volume 320 ml; Arterial Blood Gas Vent Mode CMV; Arterial Blood Gas Ventilator rate 28 /MIN
[2022-09-17] MEDS: FENTANYL 2,500MCG/NS250ML(*CRX 2,500 MCG/250 ML BAG 12.5 MCG IV CONT (05:07)
[2022-09-17] MEDS: CENTRAL LINE FLUSH 10 ML IV PUSH ×6 (05:08→22:09)
[2022-09-17 05:17] LABS: Alanine Aminotransferase 23 U/L (6-35); Albumin Level 3.2 g/dL (3.5-5.1); Alkaline Phosphatase 104 U/L (38-126); Anion Gap 9 mmol/L (8-16); Aspartate Amino Transferase 29 U/L (14-36); Bilirubin,Total 0.6 mg/dL (0.2-1.3); Blood Urea Nitrogen 29 mg/dL (7-17); Calcium 8.7 mg/dL (8.4-10.2); Carbon Dioxide 24 mmol/L (22-30); Chloride 112 mmol/L (98-107); Estimated Glomerular Filt Rate > 60; Glucose 73 mg/dL (65-110); Sodium 145 mmol/L (137-145)
[2022-09-17 05:27] LABS: Band Neutrophils Percent 14 % (0-6); Blastocytes 1 %; Lymphocytes Absolute Manual 6.27 K/mm3 (1.1-4.5); Metamyelocytes Percent 3 %; Monocytes Absolute Manual 2.01 K/mm3 (0.1-0.90); Monocytes Percent Manual 9 % (3-9); Neutrophils Absolute Manual 12.99 K/mm3 (1.7-7.2); Neutrophils Percent Manual 44 % (46-73); Nucleated Red Blood Cells 4 %; Schistocytes None Seen (NORMAL); Total Cells Counted 100
[2022-09-17] MEDS: MIDAZOLAM 100MG/NS 100ML(*CRX) 100 MG/100 ML BAG IV CONT (07:45)
[2022-09-17] MEDS: CISATRACURIUM BESYLATE 200 MG in DEXTROSE 5% 80 ML IV CONT (07:45)
--- NOTE | 2022-09-17 08:38 | WPDINTPN ---
Progress Note: A&P Assessment and Plan (1) Acute respiratory failure: Code(s): J96.00 - Acute respiratory failure, unspecified whether with hypoxia or hypercapnia Status: Acute Assessment and Plan: 09/16/2022: Increased oxygen requirements on BiPAP, tachypnea, increased respiratory distress and worsening shortness of breath, x-ray overnight showed possible pulmonary edema and was given diuretics with good urine output but did improve her respiratory status. I discussed with patient regarding intubation and mechanical ventilation to which she was agreeable -patient was successfully intubated on 09/16/2022 -likely related to worsening pneumonia, septic shock, PE, ARDS -low tidal volume strategy, high PEEP -currently on CMV mode of ventilation, peep of 10 and 70% FiO2 with adequate O2 sats -chest x-ray this morning shows stable diffuse lung disease consistent with pneumonia, small pleural effusions -ABGs have improved will decrease tidal volume -continue bronchodilators -sedated with fentanyl and Versed infusion -Nimbex was added for ventilator synchrony on 09/16 (2) Septic shock: Code(s): A41.9 - Sepsis, unspecified organism; R65.21 - Severe sepsis with septic shock Status: Acute Assessment and Plan: Septic shock secondary to pneumonia which is likely postobstructive, peritonitis from perianal fistula and colitis She had received adequate amount of IV fluids on presentation and last night when she was hypotensive she was deemed not responsive to further IV fluid bolus by NICOM assessment IV fluids were discontinued, will add albumin for volume replacement and minimize third-spacing Continue to wean stress dose steroids 09/12/2022: Blood cultures negative x2 so far 09/16/2022: Urine culture pending Sputum cultures have been ordered - Continue vancomycin and imipenem (09/14) Patient is afebrile, increase in WBC count could be related to filgrastim, steroids, stress response -will hold filgrastim for now (3) Perianal fistula due to Crohn's disease: Code(s): K50.913 - Crohn's disease, unspecified, with fistula Status: Acute Assessment and Plan: Patient has perianal fistula from a Crohn's disease CT scan showed Multiple perianal fistulas again seen. Some of the fistulas have loops of radiopaque material that may be for drainage. 09/14 Change antibiotics to imipenem Patient was seen by general surgery and Dr. Mcbride recommends conservative management (4) Neutropenia: Qualifiers: Neutropenia type: secondary to cancer chemotherapy Qualified Code(s): D70.1 - Agranulocytosis secondary to cancer chemotherapy; T45.1X5A - Adverse effect of antineoplastic and immunosuppressive drugs, initial encounter Code(s): D70.9 - Neutropenia, unspecified Status: Acute Assessment and Plan: Discussed with oncology. Patient was started on filgrastim, with improvement in WBC count and neutropenia -will hold filgrastim (5) Pneumonia: Qualifiers: Laterality: left Lung location: upper lobe of lung Pneumonia type: due to unspecified organism Qualified Code(s): J18.9 - Pneumonia, unspecified organism Code(s): J18.9 - Pneumonia, unspecified organism Status: Acute Assessment and Plan: Postobstructive pneumonia secondary to small-cell lung cancer See above (6) Small cell lung cancer: Code(s): C34.90 - Malignant neoplasm of unspecified part of unspecified bronchus or lung Status: Acute Assessment and Plan: Recently received chemotherapy at [facility] (7) Pulmonary embolism: Qualifiers: Pulmonary embolism type: multiple subsegmental (without acute cor pulmonale) Qualified Code(s): I26.94 - Multiple subsegmental pulmonary emboli without acute cor pulmonale Code(s): I26.99 - Other pulmonary embolism without acute cor pulmonale Status: Acute Assessment and Plan: CT on admission showed PE She
[2022-09-17] MEDS: FERROUS SULFATE 324 MG TABLET PO (08:54)
[2022-09-17] MEDS: GABAPENTIN 300 MG CAPSULE PO ×3 (08:54→16:45)
[2022-09-17] MEDS: SODIUM BICARBONATE TAB 650 MG TABLET PO ×2 (08:54→16:45)
[2022-09-17] MEDS: TOPIRAMATE 25 MG TABLET 50 MG PO ×2 (08:55→16:45)
[2022-09-17] MEDS: HYDROCORTISONE SODIUM SUCCINATE 100 MG/2 ML VIAL 50 MG IV PUSH ×2 (08:55→20:00)
[2022-09-17] MEDS: FONDAPARINUX SODIUM 5 MG/0.4 ML SYRINGE SUB-Q (08:55)
[2022-09-17] MEDS: PANTOPRAZOLE SODIUM IV 40 MG VIAL IV PUSH (08:55)
[2022-09-17] MEDS: MINERAL OIL/WHITE PETROLATUM OINTMENT 1 APPLIC EACH EYE ×2 (08:56→20:00)
[2022-09-17] MEDS: ALBUMIN HUMAN 25% 25 GM/100 ML 100 ML IVPB ×4 (09:22→23:49)
--- NOTE | 2022-09-17 10:38 | PCFNICU ---
ICU Rounding Note: Pt current nutrition is Vital AF 1.2 at 20 ml/hr Nutrition recommendation: goal rate at 50 ml/hr. Last recorded weight is 63.2 kg Bowel Motility: +BM noted 09/16 Labs Reviewed:BUN 29, Alb 3.2,Hct 27.4,Hgb 8.8 Meds Noted:Versed, Fentanyl, Vancomycin, Albumin, Imipenem. Skin: WNL Additional Notes: Patient remains on mechanical vent. Tube feedings currently on hold due to elevated residuals. Plans for obstructive series today. Following daily in ICU rounds. Will monitor every Thursday and Thursday.
[2022-09-17 12:20] LABS: Glucose Point of Care 80 mg/dl (65-105)
--- NOTE | 2022-09-17 13:23 | WPDGIPROGNO ---
Progress Note: A&P Assessment and Plan (1) Acute respiratory failure: Code(s): J96.00 - Acute respiratory failure, unspecified whether with hypoxia or hypercapnia Status: Acute Assessment and Plan: Patient with acute respiratory failure now felt to be in shock on the ventilator. Appears to have pneumonia, pulmonary emboli. Possible ARDS. 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 (3) Small cell lung cancer: Code(s): C34.90 - Malignant neoplasm of unspecified part of unspecified bronchus or lung Status: Acute Assessment and Plan: Recent diagnosis of lung cancer. Is admitted the hospital with pancytopenia after chemotherapy. (4) Pulmonary embolism: Qualifiers: Pulmonary embolism type: multiple subsegmental (without acute cor pulmonale) Qualified Code(s): I26.94 - Multiple subsegmental pulmonary emboli without acute cor pulmonale Code(s): I26.99 - Other pulmonary embolism without acute cor pulmonale Status: Acute (5) Crohn's disease: Code(s): K50.90 - Crohn's disease, unspecified, without complications Status: Acute Assessment and Plan: Patient has a long history of Crohn's disease. Complicated by right hemicolectomy for terminal ileal disease she has perianal disease with fistulas. These have several drains in place. Evaluation by our surgeon has been appreciated. Patient should follow up ultimately with surgical services [facility]. (6) Crohn's colitis: Code(s): K50.10 - Crohn's disease of large intestine without complications Status: Chronic Assessment and Plan: Patient has active Crohn's colitis in left colon identified by colonoscopy during recent admission. Patient currently followed by [facility]. She is on Humira and Entyvio.. These may need to be held giving her immunosuppressed status at present and active pneumonia. Ultimately she should follow back with [facility]. Transfers being arranged as at this time. (7) History of colectomy: Code(s): Z90.49 - Acquired absence of other specified parts of digestive tract Status: Acute (8) Perianal fistula due to Crohn's disease: Code(s): K50.913 - Crohn's disease, unspecified, with fistula Status: Acute Assessment and Plan: Patient has had surgical therapy. Continued monitoring of these drains as appropriate. Subjective Date/time seen: 09/17/22 13:23 patient remains intubated the intensive care unit. Urania be in septic shock. No significant diarrhea reported. Review of Systems Review of Systems: ROS unobtainable: Yes unobtainable due to endotracheal tube Exam Narrative: Physical exam reveals patient be sedated intubated in the intensive care unit. HEENT exam reveals no icterus. Lungs reveal a few scattered rhonchi. Heart without murmur. Abdomen bowel sounds present soft with no obvious organomegaly. Healed abdominal scars. Objective Data Vital Signs Vital Signs: Vital Signs - 24 hr 09/16/22 13:35 09/16/22 13:38 09/16/22 13:47 Temperature Pulse Rate 126 H 126 H 125 H Respiratory Rate 28 H 28 H Blood Pressure Pulse Oximetry 96 Oxygen Delivery Mechanical Ventilation Fraction of Inspired Oxygen 100 09/16/22 14:16 09/16/22 16:45 09/16/22 17:18 Temperature Pulse Rate 122 H 103 H 101 H Respiratory Rate 28 H 28 H Blood Pressure 109/76 100/64 Pulse Oximetry 99 Oxygen Delivery Mechanical Ventilation Fraction of Inspired Oxygen 90 09/16/22 14:00 09/16/22 16:00 09/16/22 14:00 Temperature 98.1 F 98.3 F Pulse Rate 123 H 107 H 123 H Respiratory Rate 28 H 28 H Blood Pressure 114/76 104/65 Pulse Oximetry 97 99 Oxygen Delivery Fraction of Inspired Oxygen 09/16/22 16:00 09/16/22 1
[2022-09-17 13:54] LABS: UFH SRA Result Interpretation Negative (Negative)
--- NOTE | 2022-09-17 15:46 | PC.NURSE ---
[facility] transfer center called for update on patient and asked what drips the patient was on; told them fentanyl, versed, and nimbex; transfer center stated they are at max capacity but will keep her on the list
[2022-09-17 16:25] LABS: Glucose Point of Care 79 mg/dl (65-105)
[2022-09-17] MEDS: FERROUS SULFATE LIQUID 325 MG/7.4 ML ELIXIR PO (16:45)
[2022-09-17 19:56] LABS: Glucose Point of Care 88 mg/dl (65-105)
[2022-09-18] VITALS (34 sets, daily range): BP systolic 93–115; BP diastolic 63–81; PULSE 73–95; RESP 28; TEMP 36.7–37.1; O2SAT 90–100
[2022-09-18 00:09] LABS: Glucose Point of Care 87 mg/dl (65-105)
[2022-09-18] MEDS: FENTANYL 2,500MCG/NS250ML(*CRX 2,500 MCG/250 ML BAG 12.5 MCG IV CONT ×2 (01:00→21:44)
[2022-09-18] MEDS: IPRATROPIUM BR 0.02% INH SOLN 0.5 MG/2.5 ML VIAL INHALATION ×4 (02:25→20:43)
[2022-09-18] MEDS: LEVALBUTEROL NEB 1.25 MG/3 ML 0.63 MG INHALATION ×4 (02:25→20:44)
[2022-09-18 04:34] LABS: Glucose Point of Care 90 mg/dl (65-105)
[2022-09-18 05:32] LABS: Alveolar/Arterial O2 Gradient 385.6 mmHg; Base Excess ABG -0.3 mEq/l (+/-2.0); Carboxyhemoglobin 0.2 % THb (0-2.0); Fractional Inspired Oxygen 70 %; HCO3 ABG 26.2 mEq/l (22.0-26.0); Methemoglobin ABG 0.1 %THb (0-1.5); Oxygen Content ABG 11.7 %vol (16.0-22.0); PCO2 ABG 52.1 mmHg (35.0-45.0); PO2 ABG 57.5 mmHg (80.0-100.0); PO2 FiO2 Ratio Arterial Blood 0.82 %; Reduced Hemoglobin 11.9 %THb (0-5.0); Total Hemoglobin 9.4 g/dL (12.0-18.0); pH ABG 7.319 (7.350-7.450)
[2022-09-18 05:35] LABS: Oxygen Saturation ABG 87.3 % (95.0-100.0); Oxyhemoglobin 87.8 % THb (90.0-100.0); Site Drawn RIGHT RADIAL
[2022-09-18 05:36] LABS: Arterial Blood Gas PEEP 10 cmH2O; Arterial Blood Gas Vent Mode CMV; Arterial Blood Gas Ventilator rate 28 /MIN; Device VENTILATOR; Modified Allen's Test Pass
[2022-09-18 05:37] LABS: Arterial Blood Gas Tidal Volume 300 ml
[2022-09-18] MEDS: CISATRACURIUM BESYLATE 200 MG in DEXTROSE 5% 80 ML IV CONT (05:53)
[2022-09-18 05:54] LABS: Hematocrit 26.5 % (37.0-47.0); Hemoglobin 8.6 g/dL (12.0-15.0); Mean Corpuscular HGB Conc 32.5 g/dl (32-36); Mean Corpuscular Hemoglobin 30.4 pg (26-34); Mean Corpuscular Volume 93.6 fl (80-100); Mean Platelet Volume 10.8 fl (7.4-10.4); Platelet Count Result 163 k/mm3 (150-375); Red Blood Count 2.83 M/mm3 (4.2-5.4); White Blood Count 48.9 K/mm3 (4.5-10.0)
[2022-09-18] MEDS: ALBUMIN HUMAN 25% 25 GM/100 ML 100 ML IVPB ×2 (05:54→12:00)
[2022-09-18] MEDS: CENTRAL LINE FLUSH 10 ML IV PUSH ×6 (05:54→20:31)
[2022-09-18 06:00] LABS: Alanine Aminotransferase 16 U/L (6-35); Albumin Level 4.2 g/dL (3.5-5.1); Alkaline Phosphatase 89 U/L (38-126); Anion Gap 15 mmol/L (8-16); Aspartate Amino Transferase 24 U/L (14-36); Bilirubin,Total 0.4 mg/dL (0.2-1.3); Blood Urea Nitrogen 38 mg/dL (7-17); Calcium 8.6 mg/dL (8.4-10.2); Carbon Dioxide 26 mmol/L (22-30); Chloride 107 mmol/L (98-107); Estimated Glomerular Filt Rate > 60; Glucose 104 mg/dL (65-110); Potassium 3.4 mmol/L (3.4-5.0); Sodium 148 mmol/L (137-145)
[2022-09-18 06:17] LABS: Vancomycin Trough 34.9 ug/mL (10.0-20.0)
[2022-09-18 07:11] LABS: Anisocytosis 1+ (NORMAL); Band Neutrophils Percent 26 % (0-6); Hypochromasia 1+ (NORMAL); Large Platelets Present; Lymphocytes Absolute Manual 5.37 K/mm3 (1.1-4.5); Macrocytosis 1+ (NORMAL); Metamyelocytes Percent 15 %; Monocytes Absolute Manual 0.48 K/mm3 (0.1-0.90); Monocytes Percent Manual 1 % (3-9); Myelocytes Percent 6 %; Neutrophils Absolute Manual 32.76 K/mm3 (1.7-7.2); Neutrophils Percent Manual 41 % (46-73); Platelet Estimate Adequate (Adequate); Total Cells Counted 100
[2022-09-18 07:12] LABS: Atypical Lymphocytes Present; Ovalocytes 1+ (NORMAL); Schistocytes None Seen (NORMAL); Tear Drop Cells 1+ (NORMAL)
[2022-09-18 07:51] LABS: Glucose Point of Care 88 mg/dl (65-105)
[2022-09-18] MEDS: MIDAZOLAM 100MG/NS 100ML(*CRX) 100 MG/100 ML BAG IV CONT (07:54)
[2022-09-18] MEDS: HYDROCORTISONE SODIUM SUCCINATE 100 MG/2 ML VIAL 50 MG IV PUSH ×2 (08:11→20:30)
[2022-09-18] MEDS: GABAPENTIN 300 MG CAPSULE PO ×3 (08:11→16:20)
[2022-09-18] MEDS: SODIUM BICARBONATE TAB 650 MG TABLET PO ×2 (08:11→16:20)
[2022-09-18] MEDS: PANTOPRAZOLE SODIUM IV 40 MG VIAL IV PUSH (08:11)
[2022-09-18] MEDS: TOPIRAMATE 25 MG TABLET 50 MG PO ×2 (08:11→16:20)
[2022-09-18] MEDS: FONDAPARINUX SODIUM 5 MG/0.4 ML SYRINGE SUB-Q (08:11)
[2022-09-18] MEDS: FERROUS SULFATE LIQUID 325 MG/7.4 ML ELIXIR PO ×2 (08:11→16:20)
[2022-09-18] MEDS: MINERAL OIL/WHITE PETROLATUM OINTMENT 1 APPLIC EACH EYE ×2 (08:11→20:28)
[2022-09-18] MEDS: KCL 40 MEQ/WATER 100 ML 100 ML 25 ML IVPB (08:31)
--- NOTE | 2022-09-18 11:07 | WPDINTPN ---
Progress Note: A&P Assessment and Plan (1) Acute respiratory failure: Code(s): J96.00 - Acute respiratory failure, unspecified whether with hypoxia or hypercapnia Status: Acute Assessment and Plan: 09/16/2022: Increased oxygen requirements on BiPAP, tachypnea, increased respiratory distress and worsening shortness of breath, x-ray overnight showed possible pulmonary edema and was given diuretics with good urine output but did improve her respiratory status. I discussed with patient regarding intubation and mechanical ventilation to which she was agreeable -patient was successfully intubated on 09/16/2022 -likely related to worsening pneumonia, septic shock, PE, ARDS -low tidal volume strategy, high PEEP -currently on CMV mode of ventilation, peep of 10 and 70% FiO2 with adequate O2 sats -chest x-ray this morning shows Stable diffuse lung disease, consistent with pulmonary edema versus pneumonia versus acute respiratory distress syndrome (ARDS). Small pleural effusions with worsening on the right. -ABGs reviewed -continue bronchodilators -sedated with fentanyl and Versed infusion -Nimbex was added on 09/16, will continue for ventilator synchrony (2) Septic shock: Code(s): A41.9 - Sepsis, unspecified organism; R65.21 - Severe sepsis with septic shock Status: Acute Assessment and Plan: Septic shock secondary to pneumonia which is likely postobstructive, peritonitis from perianal fistula and colitis She had received adequate amount of IV fluids on presentation and last night when she was hypotensive she was deemed not responsive to further IV fluid bolus by NICOM assessment IV fluids were discontinued, will add albumin for volume replacement and minimize third-spacing Continue Solu-Cortef 50 mg IV q.12 hours -patient not on any pressors 09/12/2022: Blood cultures negative x2 so far 09/16/2022: Urine culture pending Sputum cultures have been ordered - Continue vancomycin and imipenem (09/14), given patient's immunocompromised and immunosuppressed state with diffuse infiltrates on the chest x-ray, will add Levaquin 750 mg IV Q daily (09/18) Patient is afebrile, elevated WBC count could be related to filgrastim, steroids, stress response -filgrastim has been on hold since 09/17/2022 (3) Perianal fistula due to Crohn's disease: Code(s): K50.913 - Crohn's disease, unspecified, with fistula Status: Acute Assessment and Plan: Patient has perianal fistula from a Crohn's disease CT scan showed Multiple perianal fistulas again seen. Some of the fistulas have loops of radiopaque material that may be for drainage. 09/14 Change antibiotics to imipenem Patient was seen by general surgery and Dr. Mcbride recommends conservative management (4) Neutropenia: Qualifiers: Neutropenia type: secondary to cancer chemotherapy Qualified Code(s): D70.1 - Agranulocytosis secondary to cancer chemotherapy; T45.1X5A - Adverse effect of antineoplastic and immunosuppressive drugs, initial encounter Code(s): D70.9 - Neutropenia, unspecified Status: Acute Assessment and Plan: Discussed with oncology. Patient was started on filgrastim, with improvement in WBC count and neutropenia -will hold filgrastim (5) Pneumonia: Qualifiers: Laterality: left Lung location: upper lobe of lung Pneumonia type: due to unspecified organism Qualified Code(s): J18.9 - Pneumonia, unspecified organism Code(s): J18.9 - Pneumonia, unspecified organism Status: Acute Assessment and Plan: Postobstructive pneumonia secondary to small-cell lung cancer See above (6) Small cell lung cancer: Code(s): C34.90 - Malignant neoplasm of unspecified part of unspecified bronchus or lung Status: Acute Assessment and Plan: Recently received chemotherapy at [facility] (7) Pulmonary embolism: Qualifiers: Pulmonary embolism type: multiple subsegmental (
--- NOTE | 2022-09-18 11:17 | PCFNICU ---
ICU Rounding Note: Pt current nutrition is Vital AF 1.2 at 20 ml/hr. Nutrition recommendation: Goal rate 50 ml/hr Last recorded weight is 67.9 kg, Nursing to get new weight. Admit weight 42.7kg. Bowel Motility:+Bm reported 09/16 Labs Reviewed:BUN 38, Na 148, Hct 26.5,Hgb 8.6 Meds Noted:Versed, Fentanyl, Vancomycin, Albumin,Imipenem,Levaquin. Skin: WNL Additional Notes: Patient remains on mechanical vent.Tube feedings being restarted on Vital AF 1.2 at 20 ml/hr. Flush 30 ml q 4 hours. Agree with diet orders. Following daily in ICU rounds. Will monitor every Thursday and Thursday.
[2022-09-18] MEDS: SODIUM CHLORIDE 0.9% IV 250 ML (11:28)
[2022-09-18 12:59] LABS: Glucose Point of Care 128 mg/dl (65-105)
[2022-09-18] MEDS: SODIUM CHLORIDE 0.9% IV 500 ML 999 ML IV CONT (15:30)
[2022-09-18 16:31] LABS: Glucose Point of Care 111 mg/dl (65-105)
[2022-09-18 20:55] LABS: Glucose Point of Care 118 mg/dl (65-105)
[2022-09-19] VITALS (45 sets, daily range): BP systolic 105–131; BP diastolic 69–92; PULSE 68–88; RESP 25–32; TEMP 36.6–37.5; O2SAT 90–98; BMI 33.8
[2022-09-19 00:30] LABS: Glucose Point of Care 139 mg/dl (65-105)
[2022-09-19] MEDS: CISATRACURIUM BESYLATE 200 MG in DEXTROSE 5% 80 ML IV CONT (04:15)
[2022-09-19] MEDS: CENTRAL LINE FLUSH 10 ML IV PUSH ×7 (04:56→23:00)
[2022-09-19 05:33] LABS: Glucose Point of Care 122 mg/dl (65-105)
[2022-09-19 05:56] LABS: Alanine Aminotransferase 21 U/L (6-35); Albumin Level 3.9 g/dL (3.5-5.1); Alkaline Phosphatase 113 U/L (38-126); Anion Gap 14 mmol/L (8-16); Aspartate Amino Transferase 32 U/L (14-36); Bilirubin,Total 0.4 mg/dL (0.2-1.3); Blood Urea Nitrogen 41 mg/dL (7-17); CRP 3.6 mg/dL (<1.0); Carbon Dioxide 27 mmol/L (22-30); Chloride 107 mmol/L (98-107); Estimated Glomerular Filt Rate > 60; Glucose 126 mg/dL (65-110); Magnesium 1.9 mg/dL (1.6-2.3); Phosphorus 2.6 mg/dL (2.5-4.5); Potassium 3.4 mmol/L (3.4-5.0); Sodium 148 mmol/L (137-145)
[2022-09-19 06:11] LABS: Lactic Acid Reflex 1.5 mmol/L (0.7-2.0)
[2022-09-19 06:28] LABS: Hematocrit 26.1 % (37.0-47.0); Hemoglobin 8.3 g/dL (12.0-15.0); Mean Corpuscular HGB Conc 31.8 g/dl (32-36); Mean Corpuscular Volume 94.2 fl (80-100); Mean Platelet Volume 11.6 fl (7.4-10.4); Platelet Count Result 183 k/mm3 (150-375); Red Blood Count 2.77 M/mm3 (4.2-5.4); Red Cell Distribution Width 17.2 % (11.5-14.5)
[2022-09-19 06:49] LABS: White Blood Count 56.8 K/mm3 (4.5-10.0)
[2022-09-19 06:58] LABS: Vancomycin Trough 16.5 ug/mL (10.0-20.0)
[2022-09-19] MEDS: MIDAZOLAM 100MG/NS 100ML(*CRX) 100 MG/100 ML BAG IV CONT (07:35)
[2022-09-19 07:39] LABS: HCO3 ABG 27.9 mEq/l (22.0-26.0); Oxygen Saturation ABG 95.4 % (95.0-100.0); PCO2 ABG 38.7 mmHg (35.0-45.0); PO2 ABG 71.6 mmHg (80.0-100.0); Total Hemoglobin 9.6 g/dL (12.0-18.0); pH ABG 7.475 (7.350-7.450)
[2022-09-19 07:40] LABS: Alveolar/Arterial O2 Gradient 458.2 mmHg; Carboxyhemoglobin 0.1 % THb (0-2.0); Methemoglobin ABG 0.1 %THb (0-1.5); Oxygen Content ABG 12.8 %vol (16.0-22.0); PO2 FiO2 Ratio Arterial Blood 0.89 %; Reduced Hemoglobin 5.8 %THb (0-5.0)
[2022-09-19 07:41] LABS: Arterial Blood Gas Vent Mode CMV; Arterial Blood Gas Ventilator rate 28 /MIN; Device VENTILATOR; Fractional Inspired Oxygen 80 %; Modified Allen's Test Unable to perform; Site Drawn RIGHT RADIAL
[2022-09-19 07:42] LABS: Arterial Blood Gas PEEP 12 cmH2O; Arterial Blood Gas Tidal Volume 300 ml
[2022-09-19] MEDS: FUROSEMIDE INJ 40 MG/4 ML VIAL IV PUSH (07:48)
[2022-09-19] MEDS: FERROUS SULFATE LIQUID 325 MG/7.4 ML ELIXIR PO (07:59)
[2022-09-19] MEDS: FONDAPARINUX SODIUM 2.5 MG/0.5 ML SYRINGE SUB-Q (07:59)
[2022-09-19] MEDS: GABAPENTIN 300 MG CAPSULE PO ×3 (07:59→16:28)
[2022-09-19] MEDS: PANTOPRAZOLE SODIUM IV 40 MG VIAL IV PUSH (07:59)
[2022-09-19] MEDS: FONDAPARINUX SODIUM 5 MG/0.4 ML SYRINGE SUB-Q (07:59)
[2022-09-19] MEDS: TOPIRAMATE 25 MG TABLET 50 MG PO ×2 (07:59→16:27)
[2022-09-19] MEDS: HYDROCORTISONE SODIUM SUCCINATE 100 MG/2 ML VIAL 50 MG IV PUSH (07:59)
[2022-09-19] MEDS: MINERAL OIL/WHITE PETROLATUM OINTMENT 1 APPLIC EACH EYE ×2 (07:59→20:17)
[2022-09-19 08:21] LABS: Heparin Induced Platelet Antib Negative
--- NOTE | 2022-09-19 08:25 | WPDINTPN ---
Progress Note: A&P Assessment and Plan (1) Acute respiratory failure: Code(s): J96.00 - Acute respiratory failure, unspecified whether with hypoxia or hypercapnia Status: Acute Assessment and Plan: 09/16/2022: Increased oxygen requirements on BiPAP, tachypnea, increased respiratory distress and worsening shortness of breath, x-ray overnight showed possible pulmonary edema and was given diuretics with good urine output but did improve her respiratory status. I discussed with patient regarding intubation and mechanical ventilation to which she was agreeable -patient was successfully intubated on 09/16/2022 -likely related to worsening pneumonia, septic shock, PE, ARDS -low tidal volume strategy, high PEEP -currently on CMV mode of ventilation, peep of 12 and 80% FiO2 with adequate O2 sats -chest x-ray this morning shows Stable diffuse lung disease, consistent with pulmonary edema versus pneumonia versus acute respiratory distress syndrome (ARDS).. Stable small pleural effusions. -ABGs reviewed -continue bronchodilators -sedated with fentanyl and Versed infusion -Nimbex was added on 09/16, will continue for ventilator synchrony, it was the bedside RN to wean the Nimbex -will diurese today (2) Septic shock: Code(s): A41.9 - Sepsis, unspecified organism; R65.21 - Severe sepsis with septic shock Status: Acute Assessment and Plan: Septic shock secondary to pneumonia which is likely postobstructive, peritonitis from perianal fistula and colitis She had received adequate amount of IV fluids on presentation and last night when she was hypotensive she was deemed not responsive to further IV fluid bolus by NICOM assessment IV fluids were discontinued, will add albumin for volume replacement and minimize third-spacing Wean stress dose steroids to off -patient not on any pressors 09/12/2022: Blood cultures negative x2 so far 09/16/2022: Urine culture Samantha glabrata Sputum cultures have been ordered - Continue vancomycin and imipenem (09/14), given patient's immunocompromised and immunosuppressed state with diffuse infiltrates on the chest x-ray, will add Levaquin 750 mg IV Q daily (09/18) -09/19: S Samantha glabrata in urine culture, will start Diflucan as patient is immunocompromised Patient is afebrile, elevated WBC count could be related to filgrastim, steroids, stress response -filgrastim has been on hold since 09/17/2022 (3) Perianal fistula due to Crohn's disease: Code(s): K50.913 - Crohn's disease, unspecified, with fistula Status: Acute Assessment and Plan: Patient has perianal fistula from a Crohn's disease CT scan showed Multiple perianal fistulas again seen. Some of the fistulas have loops of radiopaque material that may be for drainage. 09/14 Change antibiotics to imipenem Patient was seen by general surgery and Dr. Mcbride recommends conservative management -appreciate GI evaluation and recommendations (4) Neutropenia: Qualifiers: Neutropenia type: secondary to cancer chemotherapy Qualified Code(s): D70.1 - Agranulocytosis secondary to cancer chemotherapy; T45.1X5A - Adverse effect of antineoplastic and immunosuppressive drugs, initial encounter Code(s): D70.9 - Neutropenia, unspecified Status: Acute Assessment and Plan: Discussed with oncology. Patient was started on filgrastim, with improvement in WBC count and neutropenia -will hold filgrastim -will discuss with Oncology (5) Pneumonia: Qualifiers: Laterality: left Lung location: upper lobe of lung Pneumonia type: due to unspecified organism Qualified Code(s): J18.9 - Pneumonia, unspecified organism Code(s): J18.9 - Pneumonia, unspecified organism Status: Acute Assessment and Plan: Postobstructive pneumonia secondary to small-cell lung cancer See above (6) Small cell lung cancer: Code(s): C34.90 - Malignant neoplasm of unspecified part of unspecified bronchus
[2022-09-19 08:34] LABS: Glucose Point of Care 121 mg/dl (65-105)
[2022-09-19] MEDS: LEVALBUTEROL NEB 1.25 MG/3 ML 0.63 MG INHALATION ×3 (08:38→20:17)
[2022-09-19] MEDS: IPRATROPIUM BR 0.02% INH SOLN 0.5 MG/2.5 ML VIAL INHALATION ×3 (08:38→20:17)
[2022-09-19] MEDS: POTASSIUM CHLORIDE 20 MEQ PACKET (FOR LIQUID) 40 MEQ FEED TUBE (08:48)
--- NOTE | 2022-09-19 09:22 | PCNFU ---
Nutrition Follow-Up Complete: Inadequate Oral Intake as related to mechanical ventilation as evidenced by NPO. Goal: Meet estimated nutritional needs patient is slowly progressing towards goal. We will continue current goal. Pt current nutrition is Vital AF 1.2 at 20 ml/hr. Nutrition recommendation: goal rate at 50 ml/hr. Last recorded weight is 68.5 kg, admit weight was 42.7 kg, yesterday weigh 64.2 kg. Bowel Motility: last BM reported 09/16 Labs Reviewed:Glu 126, Na 148, Hgb 8.3,Hct 26.1 Meds Noted:Versed, Fentanyl, Albumin, Nimbex, Imipenem,Protonix Skin: WNL Additional Notes: Patient remains on mechanical vent and tube feedings of Vital AF 1.2 at 20 ml/hr. Residual around 100 ml this AM per nursing. Recommend goal rate at 50 ml/hr which will providing 1320 kcals/83 gms protein/892 ml water. Meeting 98% kcal needs and 100% protein needs. Flush 30 ml q 4 hours. Will monitor in ICU rounds and reassessing every Thursday and Thursday.
[2022-09-19 09:26] LABS: Band Neutrophils Percent 26 % (0-6); Lymphocytes Absolute Manual 7.38 K/mm3 (1.1-4.5); Metamyelocytes Percent 14 %; Monocytes Absolute Manual 0.56 K/mm3 (0.1-0.90); Monocytes Percent Manual 1 % (3-9); Myelocytes Percent 3 %; Neutrophils Absolute Manual 39.19 K/mm3 (1.7-7.2); Neutrophils Percent Manual 43 % (46-73); Platelet Estimate Adequate (Adequate); Schistocytes 1+ (NORMAL); Total Cells Counted 100
[2022-09-19 09:27] LABS: Anisocytosis 1+ (NORMAL); Hypochromasia 2+ (NORMAL); Macrocytosis 1+ (NORMAL); Microcytosis 1+ (NORMAL); Poikilocytosis 1+ (NORMAL); Tear Drop Cells 1+ (NORMAL)
[2022-09-19] MEDS: FLUCONAZOLE 200 MG/NACL 100 ML 200 MG/100 ML BAG 100 MG IVPB (10:23)
[2022-09-19 12:06] LABS: Glucose Point of Care 120 mg/dl (65-105)
[2022-09-19] MEDS: FENTANYL 2,500MCG/NS250ML(*CRX 2,500 MCG/250 ML BAG 15 MCG IV CONT (15:30)
[2022-09-19 15:53] LABS: Glucose Point of Care 114 mg/dl (65-105)
[2022-09-19 19:40] LABS: Glucose Point of Care 101 mg/dl (65-105)
[2022-09-19 23:46] LABS: Glucose Point of Care 145 mg/dl (65-105)
[2022-09-20] VITALS (43 sets, daily range): BP systolic 90–114; BP diastolic 6–75; PULSE 64–90; RESP 28–30; TEMP 36.9–37.3; O2SAT 92–100
[2022-09-20] MEDS: IPRATROPIUM BR 0.02% INH SOLN 0.5 MG/2.5 ML VIAL INHALATION ×4 (03:17→20:16)
[2022-09-20] MEDS: LEVALBUTEROL NEB 1.25 MG/3 ML 0.63 MG INHALATION ×4 (03:17→20:16)
[2022-09-20 04:32] LABS: Hematocrit 25.9 % (37.0-47.0); Hemoglobin 8.5 g/dL (12.0-15.0); Mean Corpuscular HGB Conc 32.8 g/dl (32-36); Mean Corpuscular Hemoglobin 30.5 pg (26-34); Mean Corpuscular Volume 92.8 fl (80-100); Mean Platelet Volume 11.1 fl (7.4-10.4); Platelet Count Result 182 k/mm3 (150-375); Red Blood Count 2.79 M/mm3 (4.2-5.4); Red Cell Distribution Width 16.6 % (11.5-14.5); White Blood Count 49.2 K/mm3 (4.5-10.0)
[2022-09-20 04:48] LABS: Alanine Aminotransferase 59 U/L (6-35); Albumin Level 3.7 g/dL (3.5-5.1); Alkaline Phosphatase 166 U/L (38-126); Anion Gap 9 mmol/L (8-16); Aspartate Amino Transferase 119 U/L (14-36); Bilirubin,Total 0.5 mg/dL (0.2-1.3); Blood Urea Nitrogen 41 mg/dL (7-17); Calcium 8.8 mg/dL (8.4-10.2); Carbon Dioxide 34 mmol/L (22-30); Chloride 103 mmol/L (98-107); Estimated Glomerular Filt Rate > 60; Glucose 99 mg/dL (65-110); Magnesium 1.8 mg/dL (1.6-2.3); Phosphorus 2.1 mg/dL (2.5-4.5); Potassium 2.4 mmol/L (3.4-5.0); Sodium 146 mmol/L (137-145)
[2022-09-20 05:06] LABS: Band Neutrophils Percent 21 % (0-6); Lymphocytes Absolute Manual 3.93 K/mm3 (1.1-4.5); Metamyelocytes Percent 4 %; Monocytes Absolute Manual 3.93 K/mm3 (0.1-0.90); Monocytes Percent Manual 8 % (3-9); Myelocytes Percent 1 %; Neutrophils Absolute Manual 38.86 K/mm3 (1.7-7.2); Neutrophils Percent Manual 58 % (46-73); Total Cells Counted 100
[2022-09-20] MEDS: CENTRAL LINE FLUSH 10 ML IV PUSH ×5 (05:06→21:30)
[2022-09-20 05:07] LABS: Platelet Estimate Adequate (Adequate)
[2022-09-20 05:53] LABS: Alveolar/Arterial O2 Gradient 388.6 mmHg; Base Excess ABG 7.8 mEq/l (+/-2.0); Carboxyhemoglobin 0.2 % THb (0-2.0); HCO3 ABG 31.2 mEq/l (22.0-26.0); Methemoglobin ABG 0.1 %THb (0-1.5); Oxygen Content ABG 14.7 %vol (16.0-22.0); Oxygen Saturation ABG 95.3 % (95.0-100.0); Oxyhemoglobin 94.2 % THb (90.0-100.0); PCO2 ABG 39.1 mmHg (35.0-45.0); PO2 ABG 68.5 mmHg (80.0-100.0); PO2 FiO2 Ratio Arterial Blood 0.98 %; Reduced Hemoglobin 5.5 %THb (0-5.0); Total Hemoglobin 11.1 g/dL (12.0-18.0)
[2022-09-20 05:57] LABS: Arterial Blood Gas Ventilator rate 28 /MIN; Device VENTILATOR; Fractional Inspired Oxygen 75 %; Modified Allen's Test Pass; Site Drawn RIGHT RADIAL
[2022-09-20 05:58] LABS: Arterial Blood Gas PEEP 12 cmH2O; Arterial Blood Gas Tidal Volume 300 ml; Arterial Blood Gas Vent Mode CMV
[2022-09-20] MEDS: POTASSIUM CHLORIDE 20 MEQ PACKET (FOR LIQUID) 40 MEQ PO (05:58)
[2022-09-20] MEDS: KCL 40 MEQ/WATER 100 ML 100 ML 25 ML IVPB (06:13)
[2022-09-20 08:20] LABS: Glucose Point of Care 107 mg/dl (65-105)
--- NOTE | 2022-09-20 08:30 | WPDINTPN ---
Progress Note: A&P Assessment and Plan (1) Acute respiratory failure: Code(s): J96.00 - Acute respiratory failure, unspecified whether with hypoxia or hypercapnia Status: Acute Assessment and Plan: 09/16/2022: Increased oxygen requirements on BiPAP, tachypnea, increased respiratory distress and worsening shortness of breath, x-ray overnight showed possible pulmonary edema and was given diuretics with good urine output but did improve her respiratory status. I discussed with patient regarding intubation and mechanical ventilation to which she was agreeable -patient was successfully intubated on 09/16/2022 -likely related to worsening pneumonia, septic shock, PE, ARDS -low tidal volume strategy, high PEEP -currently on CMV mode of ventilation, peep of 12 and 75% FiO2 -ABGs reviewed, will decrease tidal volume to 270 mL, decrease FiO2 to 65%, continue to wean FiO2 to maintain O2 sats >92% -chest x-ray this morning shows ?Unchanged scattered opacities throughout both lungs which could represent pulmonary edema, pneumonia or acute respiratory distress syndrome (ARDS).. Small bilateral pleural effusions. -continue bronchodilators -sedated with fentanyl and Versed infusion -Nimbex was added on 09/16, will continue for ventilator synchrony. On 09/19 Nimbex was discontinued, patient was desaturating, asynchronous with the ventilator despite sedation being increased. Nimbex had to be restarted on 09/19 -patient diuresed well on 09/19, blood pressures are borderline, so will hold diuresis today, unless her blood pressures improve (2) Septic shock: Code(s): A41.9 - Sepsis, unspecified organism; R65.21 - Severe sepsis with septic shock Status: Acute Assessment and Plan: Septic shock secondary to pneumonia which is likely postobstructive, peritonitis from perianal fistula and colitis She had received adequate amount of IV fluids on presentation and last night when she was hypotensive she was deemed not responsive to further IV fluid bolus by NICOM assessment IV fluids were discontinued, will add albumin for volume replacement and minimize third-spacing Wean stress dose steroids to off -patient not on any pressors 09/12/2022: Blood cultures negative x2 so far 09/16/2022: Urine culture Samantha glabrata Sputum cultures have been ordered - Continue vancomycin and imipenem (09/14), given patient's immunocompromised and immunosuppressed state with diffuse infiltrates on the chest x-ray, -also on Levaquin 750 mg IV Q daily (09/18) -09/19: S Samantha glabrata in urine culture, continue Diflucan as patient is immunocompromised Patient is afebrile, elevated WBC count could be related to filgrastim, steroids, stress response -filgrastim has been on hold since 09/17/2022 -WBC counts trending down (3) Perianal fistula due to Crohn's disease: Code(s): K50.913 - Crohn's disease, unspecified, with fistula Status: Acute Assessment and Plan: Patient has perianal fistula from a Crohn's disease CT scan showed Multiple perianal fistulas again seen. Some of the fistulas have loops of radiopaque material that may be for drainage. 09/14 Change antibiotics to imipenem Patient was seen by general surgery and Dr. Mcbride recommends conservative management -appreciate GI evaluation and recommendations (4) Neutropenia: Qualifiers: Neutropenia type: secondary to cancer chemotherapy Qualified Code(s): D70.1 - Agranulocytosis secondary to cancer chemotherapy; T45.1X5A - Adverse effect of antineoplastic and immunosuppressive drugs, initial encounter Code(s): D70.9 - Neutropenia, unspecified Status: Acute Assessment and Plan: Discussed with oncology. Patient was started on filgrastim, with improvement in WBC count and neutropenia -will hold filgrastim -will discuss with Oncology (5) Pneumonia: Qualifiers: Laterality: left Lung location: upper lobe of lung Pneumonia type: due to unspecified
[2022-09-20] MEDS: FENTANYL 2,500MCG/NS250ML(*CRX 2,500 MCG/250 ML BAG 15 MCG IV CONT (08:59)
[2022-09-20] MEDS: CISATRACURIUM BESYLATE 200 MG in DEXTROSE 5% 80 ML 5.12 ML IV CONT (08:59)
[2022-09-20] MEDS: MIDAZOLAM 100MG/NS 100ML(*CRX) 100 MG/100 ML BAG IV CONT (08:59)
[2022-09-20] MEDS: MAGNESIUM SULF 2 GM/WATER 50ML 2 GM/50 ML BAG IVPB (09:00)
[2022-09-20] MEDS: HYDROCORTISONE SODIUM SUCCINATE 100 MG/2 ML VIAL 50 MG IV PUSH (09:02)
[2022-09-20] MEDS: POTASSIUM/PHOSPHORUS/SODIUM 1.5 GM PACKET 1 PACKET PO (09:02)
[2022-09-20] MEDS: PANTOPRAZOLE SODIUM IV 40 MG VIAL IV PUSH (09:04)
[2022-09-20] MEDS: MINERAL OIL/WHITE PETROLATUM OINTMENT 1 APPLIC EACH EYE ×2 (09:04→21:30)
[2022-09-20] MEDS: FLUCONAZOLE 200 MG/NACL 100 ML 200 MG/100 ML BAG 100 MG IVPB (09:43)
[2022-09-20] MEDS: TOPIRAMATE 25 MG TABLET 50 MG PO ×2 (11:07→18:20)
[2022-09-20] MEDS: FERROUS SULFATE LIQUID 325 MG/7.4 ML ELIXIR PO ×2 (11:07→17:29)
[2022-09-20] MEDS: FONDAPARINUX SODIUM 5 MG/0.4 ML SYRINGE SUB-Q (11:07)
[2022-09-20] MEDS: FONDAPARINUX SODIUM 2.5 MG/0.5 ML SYRINGE SUB-Q (11:07)
[2022-09-20] MEDS: METOCLOPRAMIDE HCL INJ 10 MG/2 ML VIAL IV PUSH ×2 (11:23→17:29)
[2022-09-20 12:29] LABS: Glucose Point of Care 121 mg/dl (65-105)
[2022-09-20 13:10] LABS: Anion Gap 7 mmol/L (8-16); Blood Urea Nitrogen 38 mg/dL (7-17); Calcium 8.4 mg/dL (8.4-10.2); Carbon Dioxide 34 mmol/L (22-30); Chloride 105 mmol/L (98-107); Estimated Glomerular Filt Rate > 60; Glucose 113 mg/dL (65-110); Potassium 3.8 mmol/L (3.4-5.0); Sodium 146 mmol/L (137-145)
--- NOTE | 2022-09-20 14:52 | P.PNIM_ITS ---
Progress Note: A&P Assessment and Plan (1) Acute respiratory failure: Code(s): J96.00 - Acute respiratory failure, unspecified whether with hypoxia or hypercapnia Status: Acute Assessment and Plan: presented with sob. 09/16/2022: Increased oxygen requirements on BiPAP, tachypnea, increased respiratory distress and worsening shortness of breath, x-ray overnight showed possible pulmonary edema and was given diuretics with good urine output but did improve her respiratory status. 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 which was eventually tapepred off. 09/12/2022: Blood cultures negative x2 so far 09/16/2022: Urine culture Samantha glabrata Sputum cultures have been ordered - Continue vancomycin and imipenem (09/14), given patient's immunocompromised and immunosuppressed state with diffuse infiltrates on the chest x-ray, -also on Levaquin 750 mg IV Q daily (09/18) -09/19: S Samantha glabrata in urine culture, continue Diflucan as patient is immunocompromised Patient is afebrile, elevated WBC count could be related to filgrastim, steroids, stress response -filgrastim has been on hold since 09/17/2022 -WBC counts trending down (3) Perianal fistula due to Crohn's disease: Code(s): K50.913 - Crohn's disease, unspecified, with fistula Status: Acute Assessment and Plan: Patient has perianal fistula from a Crohn's disease CT scan showed Multiple perianal fistulas again seen. Some of the fistulas have loops of radiopaque material that may be for drainage. 09/14 Change antibiotics to imipenem Patient was seen by general surgery and Dr. Mcrbide recommends conservative management -appreciate GI evaluation and recommendations (4) Neutropenia: Qualifiers: Neutropenia type: secondary to cancer chemotherapy Qualified Code(s): D70.1 - Agranulocytosis secondary to cancer chemotherapy; T45.1X5A - Adverse effect of antineoplastic and immunosuppressive drugs, initial encounter Code(s): D70.9 - Neutropenia, unspecified Status: Acute Assessment and Plan: Discussed with oncology. Patient was started on filgrastim, with improvement in WBC count and neutropenia, filgastrim now on hold (5) Pneumonia: Qualifiers: Laterality: left Lung location: upper lobe of lung Pneumonia type: due to unspecified organism Qualified Code(s): J18.9 - Pneumonia, unspecified organism Code(s): J18.9 - Pneumonia, unspecified organism Status: Acute Assessment and Plan: Postobstructive pneumonia secondary to small-cell lung cancer See above (6) Small cell lung cancer: Code(s): C34.90 - Malignant neoplasm of unspecified part of unspecified bronchus or lung Status: Acute Assessment and Plan: Recently received chemotherapy at [facility] (7) Pulmonary embolism: Qualifiers: Pulmonary embolism type: multiple subsegmental (without acute cor pulmonale) Qualified Code(s): I26.94 - Multiple sub
[2022-09-20 16:36] LABS: Glucose Point of Care 140 mg/dl (65-105)
[2022-09-20 21:41] LABS: Glucose Point of Care 110 mg/dl (65-105)
[2022-09-20 23:35] LABS: Vancomycin Trough 18.8 ug/mL (10.0-20.0)
[2022-09-21] VITALS (55 sets, daily range): BP systolic 83–147; BP diastolic 47–82; PULSE 64–91; RESP 15–34; TEMP 36.9–37.9; O2SAT 87–97
[2022-09-21] MEDS: METOCLOPRAMIDE HCL INJ 10 MG/2 ML VIAL IV PUSH ×4 (01:00→17:41)
[2022-09-21] MEDS: CISATRACURIUM BESYLATE 200 MG in DEXTROSE 5% 80 ML 5.12 ML IV CONT (01:01)
[2022-09-21 01:12] LABS: Glucose Point of Care 104 mg/dl (65-105)
[2022-09-21] MEDS: FENTANYL 2,500MCG/NS250ML(*CRX 2,500 MCG/250 ML BAG 15 MCG IV CONT ×2 (01:28→17:47)
[2022-09-21] MEDS: LEVALBUTEROL NEB 1.25 MG/3 ML 0.63 MG INHALATION ×4 (02:45→21:22)
[2022-09-21] MEDS: IPRATROPIUM BR 0.02% INH SOLN 0.5 MG/2.5 ML VIAL INHALATION ×4 (02:45→21:23)
[2022-09-21] MEDS: CENTRAL LINE FLUSH 10 ML IV PUSH ×6 (04:35→20:21)
[2022-09-21 05:17] LABS: Base Excess ABG 6.3 mEq/l (+/-2.0); Carboxyhemoglobin 0.3 % THb (0-2.0); Fractional Inspired Oxygen 40 %; Methemoglobin ABG 0.2 %THb (0-1.5); Oxygen Saturation ABG 91.1 % (95.0-100.0); Oxyhemoglobin 89.2 % THb (90.0-100.0); PCO2 ABG 39.4 mmHg (35.0-45.0); PO2 ABG 54.9 mmHg (80.0-100.0); PO2 FiO2 Ratio Arterial Blood 1.37 %; Reduced Hemoglobin 10.3 %THb (0-5.0); Total Hemoglobin 9.5 g/dL (12.0-18.0); pH ABG 7.499 (7.350-7.450)
[2022-09-21 05:21] LABS: Arterial Blood Gas PEEP 12 cmH2O; Arterial Blood Gas Tidal Volume 270 ml; Arterial Blood Gas Vent Mode CMV; Arterial Blood Gas Ventilator rate 28 /MIN; Device VENTILATOR; Modified Allen's Test Pass; Site Drawn RIGHT RADIAL
[2022-09-21 06:01] LABS: Hematocrit 27.7 % (37.0-47.0); Hemoglobin 8.6 g/dL (12.0-15.0); Mean Corpuscular Hemoglobin 30.5 pg (26-34); Mean Corpuscular Volume 98.2 fl (80-100); Platelet Count Result 204 k/mm3 (150-375); Red Blood Count 2.82 M/mm3 (4.2-5.4); Red Cell Distribution Width 17.1 % (11.5-14.5); White Blood Count 44.8 K/mm3 (4.5-10.0)
[2022-09-21 06:11] LABS: Alanine Aminotransferase 45 U/L (6-35); Albumin Level 3.4 g/dL (3.5-5.1); Alkaline Phosphatase 156 U/L (38-126); Anion Gap 7 mmol/L (8-16); Aspartate Amino Transferase 43 U/L (14-36); Bilirubin,Total 0.5 mg/dL (0.2-1.3); Blood Urea Nitrogen 31 mg/dL (7-17); Calcium 8.6 mg/dL (8.4-10.2); Carbon Dioxide 32 mmol/L (22-30); Chloride 105 mmol/L (98-107); Estimated Glomerular Filt Rate > 60; Glucose 95 mg/dL (65-110); Magnesium 1.9 mg/dL (1.6-2.3); Phosphorus 1.8 mg/dL (2.5-4.5); Potassium 2.9 mmol/L (3.4-5.0); Sodium 144 mmol/L (137-145)
[2022-09-21 07:11] LABS: Anisocytosis 2+ (NORMAL); Hypochromasia 1+ (NORMAL); Lymphocytes Absolute Manual 11.64 K/mm3 (1.1-4.5); Monocytes Absolute Manual 1.79 K/mm3 (0.1-0.90); Monocytes Percent Manual 4 % (3-9); Neutrophils Percent Manual 70 % (46-73); Nucleated Red Blood Cells 2 %; Platelet Estimate Adequate (Adequate); Poikilocytosis 1+ (NORMAL); Schistocytes None Seen (NORMAL); Total Cells Counted 100
--- NOTE | 2022-09-21 07:49 | WPDINTPN ---
Progress Note: A&P Assessment and Plan (1) Acute respiratory failure: Code(s): J96.00 - Acute respiratory failure, unspecified whether with hypoxia or hypercapnia Status: Acute Assessment and Plan: 09/16/2022: Increased oxygen requirements on BiPAP, tachypnea, increased respiratory distress and worsening shortness of breath, x-ray overnight showed possible pulmonary edema and was given diuretics with good urine output but did improve her respiratory status. I discussed with patient regarding intubation and mechanical ventilation to which she was agreeable -patient was successfully intubated on 09/16/2022 -likely related to worsening pneumonia, septic shock, PE, ARDS -low tidal volume strategy, high PEEP -currently on CMV mode of ventilation, -ABGs reviewed, currently on low tidal volume at 270 mL, FiO2 of 40%, peep of 12. -chest x-ray this morning shows ?Unchanged scattered opacities throughout both lungs which could represent pulmonary edema, pneumonia or acute respiratory distress syndrome (ARDS).. Small bilateral pleural effusions. -continue bronchodilators -sedated with fentanyl and Versed infusion -Nimbex was added on 09/16, will continue for ventilator synchrony. On 09/19 Nimbex was discontinued, patient was desaturating, asynchronous with the ventilator despite sedation being increased. Nimbex had to be restarted on 09/19 - -blood pressures remain borderline, will hold diuresis again today -09/21 have asked bedside RN to start weaning the Nimbex again today (2) Septic shock: Code(s): A41.9 - Sepsis, unspecified organism; R65.21 - Severe sepsis with septic shock Status: Acute Assessment and Plan: Septic shock secondary to pneumonia which is likely postobstructive, peritonitis from perianal fistula and colitis She had received adequate amount of IV fluids on presentation and last night when she was hypotensive she was deemed not responsive to further IV fluid bolus by NICOM assessment IV fluids were discontinued, will add albumin for volume replacement and minimize third-spacing Wean stress dose steroids to off -patient not on any pressors since 09/1509/12/2022: Blood cultures negative x2 so far 09/16/2022: Urine culture Samantha glabrata Sputum cultures have been ordered - Continue vancomycin and imipenem (09/14), given patient's immunocompromised and immunosuppressed state with diffuse infiltrates on the chest x-ray, -also on Levaquin 750 mg IV Q daily (09/18) -09/19: S Samantha glabrata in urine culture, continue Diflucan as patient is immunocompromised Patient is afebrile, elevated WBC count could be related to filgrastim, steroids, stress response -filgrastim has been on hold since 09/17/2022 -WBC counts trending down, hemoglobin is stable and platelet counts are improving (3) Perianal fistula due to Crohn's disease: Code(s): K50.913 - Crohn's disease, unspecified, with fistula Status: Acute Assessment and Plan: Patient has perianal fistula from a Crohn's disease CT scan showed Multiple perianal fistulas again seen. Some of the fistulas have loops of radiopaque material that may be for drainage. 09/14 Change antibiotics to imipenem Patient was seen by general surgery and Dr. Mcbride recommends conservative management -appreciate GI evaluation and recommendations (4) Neutropenia: Qualifiers: Neutropenia type: secondary to cancer chemotherapy Qualified Code(s): D70.1 - Agranulocytosis secondary to cancer chemotherapy; T45.1X5A - Adverse effect of antineoplastic and immunosuppressive drugs, initial encounter Code(s): D70.9 - Neutropenia, unspecified Status: Acute Assessment and Plan: Discussed with oncology. Patient was started on filgrastim, with improvement in WBC count and neutropenia -will hold filgrastim -will discuss with Oncology (5) Pneumonia: Qualifiers: Laterality: left Lung location: upper lobe of lung Pneumonia type
[2022-09-21] MEDS: POTASSIUM/PHOSPHORUS/SODIUM 1.5 GM PACKET 1 PACKET PO (07:55)
[2022-09-21] MEDS: MAGNESIUM SULF 2 GM/WATER 50ML 2 GM/50 ML BAG IVPB (07:55)
[2022-09-21] MEDS: KCL 40 MEQ/WATER 100 ML 100 ML 25 ML IVPB (07:55)
[2022-09-21] MEDS: POTASSIUM CHLORIDE 20 MEQ PACKET (FOR LIQUID) 40 MEQ FEED TUBE (07:55)
[2022-09-21] MEDS: FLUCONAZOLE 200 MG/NACL 100 ML 200 MG/100 ML BAG 100 MG IVPB (08:08)
[2022-09-21] MEDS: PANTOPRAZOLE SODIUM IV 40 MG VIAL IV PUSH (08:13)
[2022-09-21] MEDS: FERROUS SULFATE LIQUID 325 MG/7.4 ML ELIXIR PO ×2 (08:14→16:09)
[2022-09-21] MEDS: TOPIRAMATE 25 MG TABLET 50 MG PO ×2 (08:14→16:24)
[2022-09-21] MEDS: MINERAL OIL/WHITE PETROLATUM OINTMENT 1 APPLIC EACH EYE ×2 (08:14→20:21)
[2022-09-21] MEDS: FONDAPARINUX SODIUM 5 MG/0.4 ML SYRINGE SUB-Q (08:15)
[2022-09-21] MEDS: FONDAPARINUX SODIUM 2.5 MG/0.5 ML SYRINGE SUB-Q (08:15)
[2022-09-21 08:37] LABS: Glucose Point of Care 91 mg/dl (65-105)
[2022-09-21] MEDS: MIDAZOLAM 100MG/NS 100ML(*CRX) 100 MG/100 ML BAG IV CONT (10:21)
[2022-09-21 11:34] LABS: Glucose Point of Care 136 mg/dl (65-105)
[2022-09-21] MEDS: NOREPINEPHRINE 8 MG/D5W 250 ML 8 MG/250 ML BAG 9.38 MG IV CONT (13:00)
--- NOTE | 2022-09-21 14:33 | PM.IMPN ---
Progress Note: A&P Assessment and Plan (1) Acute respiratory failure: Code(s): J96.00 - Acute respiratory failure, unspecified whether with hypoxia or hypercapnia Status: Acute Assessment and Plan: presented with sob. 09/16/2022: Increased oxygen requirements on BiPAP, tachypnea, increased respiratory distress and worsening shortness of breath, x-ray overnight showed possible pulmonary edema and was given diuretics with good urine output but did improve her respiratory status. I discussed with patient regarding intubation and mechanical ventilation to which she was agreeable -patient was successfully intubated on 09/16/2022 -likely related to worsening pneumonia, septic shock, PE, ARDS on mechanical ventilation per neuro intensivist physician (2) Septic shock: Code(s): A41.9 - Sepsis, unspecified organism; R65.21 - Severe sepsis with septic shock Status: Acute Assessment and Plan: Septic shock secondary to pneumonia which is likely postobstructive, peritonitis from perianal fistula and colitis She had received adequate amount of IV fluids on presentation, subseuqently was still hypotensie which was fluid non responsive and hence started on pressors. which was eventually tapepred off. 09/12/2022: Blood cultures negative x2 so far 09/16/2022: Urine culture Samantha glabrata Sputum cultures have been ordered - Continue vancomycin and imipenem (09/14), given patient's immunocompromised and immunosuppressed state with diffuse infiltrates on the chest x-ray, -also on Levaquin 750 mg IV Q daily (09/18) -09/19: S Samantha glabrata in urine culture, continue Diflucan as patient is immunocompromised Patient is afebrile, elevated WBC count could be related to filgrastim, steroids, stress response -filgrastim has been on hold since 09/17/2022 -WBC counts trending down (3) Perianal fistula due to Crohn's disease: Code(s): K50.913 - Crohn's disease, unspecified, with fistula Status: Acute Assessment and Plan: Patient has perianal fistula from a Crohn's disease CT scan showed Multiple perianal fistulas again seen. Some of the fistulas have loops of radiopaque material that may be for drainage. 09/14 Change antibiotics to imipenem Patient was seen by general surgery and Dr. Mcbride recommends conservative management -appreciate GI evaluation and recommendations (4) Neutropenia: Qualifiers: Neutropenia type: secondary to cancer chemotherapy Qualified Code(s): D70.1 - Agranulocytosis secondary to cancer chemotherapy; T45.1X5A - Adverse effect of antineoplastic and immunosuppressive drugs, initial encounter Code(s): D70.9 - Neutropenia, unspecified Status: Acute Assessment and Plan: Discussed with oncology. Patient was started on filgrastim, with improvement in WBC count and neutropenia, filgastrim now on hold (5) Pneumonia: Qualifiers: Laterality: left Lung location: upper lobe of lung Pneumonia type: due to unspecified organism Qualified Code(s): J18.9 - Pneumonia, unspecified organism Code(s): J18.9 - Pneumonia, unspecified organism Status: Acute Assessment and Plan: Postobstructive pneumonia secondary to small-cell lung cancer See above (6) Small cell lung cancer: Code(s): C34.90 - Malignant neoplasm of unspecified part of unspecified bronchus or lung Status: Acute Assessment and Plan: Recently received chemotherapy at [facility] (7) Pulmonary embolism: Qualifiers: Pulmonary embolism type: multiple subsegmental (without acute cor pulmonale) Qualified Code(s): I26.94 - Multiple subsegmental pulmonary emboli without acute cor pulmonale Code(s): I26.99 - Other pulmonary embolism without acute cor pulmonale Status: Acute Assessment and Plan: CT on admission showed PE She was started on heparin drip but heparin has been discontinued due to drop in her platelet count Patient currently
[2022-09-21 16:52] LABS: Glucose Point of Care 92 mg/dl (65-105)
[2022-09-21 20:56] LABS: Glucose Point of Care 83 mg/dl (65-105)
--- NOTE | 2022-09-21 23:00 | PC.NURSE ---
Resumed care of pt at this time. Report received from JORDAN Ambriz.
[2022-09-22] VITALS (36 sets, daily range): BP systolic 85–108; BP diastolic 56–67; PULSE 83–98; RESP 14–32; TEMP 37.9–38.2; O2SAT 92–98
[2022-09-22] MEDS: METOCLOPRAMIDE HCL INJ 10 MG/2 ML VIAL IV PUSH ×2 (00:32→06:07)
[2022-09-22 00:43] LABS: Glucose Point of Care 126 mg/dl (65-105)
[2022-09-22] MEDS: LEVALBUTEROL NEB 1.25 MG/3 ML 0.63 MG INHALATION ×4 (02:34→19:43)
[2022-09-22] MEDS: IPRATROPIUM BR 0.02% INH SOLN 0.5 MG/2.5 ML VIAL INHALATION ×4 (02:34→19:43)
[2022-09-22 04:57] LABS: Hematocrit 29.2 % (37.0-47.0); Hemoglobin 8.9 g/dL (12.0-15.0); Mean Corpuscular HGB Conc 30.5 g/dl (32-36); Mean Corpuscular Hemoglobin 29.9 pg (26-34); Mean Platelet Volume 11.1 fl (7.4-10.4); Platelet Count Result 248 k/mm3 (150-375); Red Blood Count 2.98 M/mm3 (4.2-5.4)
[2022-09-22 05:07] LABS: Alanine Aminotransferase 39 U/L (6-35); Albumin Level 3.5 g/dL (3.5-5.1); Alkaline Phosphatase 207 U/L (38-126); Anion Gap 6 mmol/L (8-16); Aspartate Amino Transferase 54 U/L (14-36); Bilirubin,Total 0.8 mg/dL (0.2-1.3); Blood Urea Nitrogen 25 mg/dL (7-17); Calcium 8.5 mg/dL (8.4-10.2); Carbon Dioxide 30 mmol/L (22-30); Chloride 106 mmol/L (98-107); Estimated Glomerular Filt Rate > 60; Glucose 119 mg/dL (65-110); Magnesium 1.9 mg/dL (1.6-2.3); Phosphorus 2.8 mg/dL (2.5-4.5); Potassium 3.6 mmol/L (3.4-5.0); Sodium 142 mmol/L (137-145)
[2022-09-22 05:20] LABS: White Blood Count 50.5 K/mm3 (4.5-10.0)
[2022-09-22 05:27] LABS: Atypical Lymphocytes Present; Band Neutrophils Percent 10 % (0-6); Lymphocytes Absolute Manual 8.58 K/mm3 (1.1-4.5); Metamyelocytes Percent 16 %; Monocytes Absolute Manual 2.52 K/mm3 (0.1-0.90); Monocytes Percent Manual 5 % (3-9); Myelocytes Percent 6 %; Neutrophils Absolute Manual 27.77 K/mm3 (1.7-7.2); Neutrophils Percent Manual 45 % (46-73); Nucleated Red Blood Cells 3 %; Platelet Estimate Adequate (Adequate); Promyelocytes Percent 1 %; Total Cells Counted 100
[2022-09-22 05:33] LABS: Alveolar/Arterial O2 Gradient 372.1 mmHg; Base Excess ABG 6.2 mEq/l (+/-2.0); Carboxyhemoglobin 0.3 % THb (0-2.0); Fractional Inspired Oxygen 70 %; HCO3 ABG 32.6 mEq/l (22.0-26.0); Methemoglobin ABG 0.2 %THb (0-1.5); Oxygen Content ABG 15.8 %vol (16.0-22.0); Oxygen Saturation ABG 92.8 % (95.0-100.0); Oxyhemoglobin 92.1 % THb (90.0-100.0); PCO2 ABG 55.6 mmHg (35.0-45.0); PO2 ABG 67.2 mmHg (80.0-100.0); PO2 FiO2 Ratio Arterial Blood 0.96 %; Reduced Hemoglobin 7.4 %THb (0-5.0); Total Hemoglobin 12.2 g/dL (12.0-18.0); pH ABG 7.386 (7.350-7.450)
[2022-09-22 05:46] LABS: Arterial Blood Gas Vent Mode CMV; Arterial Blood Gas Ventilator rate 26 /MIN; Device VENTILATOR; Modified Allen's Test Pass; Site Drawn RIGHT RADIAL
[2022-09-22 05:47] LABS: Arterial Blood Gas PEEP 12 cmH2O; Arterial Blood Gas Tidal Volume 270 ml
[2022-09-22] MEDS: CENTRAL LINE FLUSH 10 ML IV PUSH ×6 (06:07→20:35)
[2022-09-22 07:29] LABS: Glucose Point of Care 132 mg/dl (65-105)
[2022-09-22] MEDS: FUROSEMIDE INJ 40 MG/4 ML VIAL IV PUSH (08:01)
[2022-09-22] MEDS: POTASSIUM CHLORIDE 20 MEQ PACKET (FOR LIQUID) 40 MEQ FEED TUBE (08:01)
--- NOTE | 2022-09-22 08:17 | WPDINTPN ---
Progress Note: A&P Assessment and Plan (1) Acute respiratory failure: Code(s): J96.00 - Acute respiratory failure, unspecified whether with hypoxia or hypercapnia Status: Acute Assessment and Plan: 09/16/2022: Increased oxygen requirements on BiPAP, tachypnea, increased respiratory distress and worsening shortness of breath, x-ray overnight showed possible pulmonary edema and was given diuretics with good urine output but did improve her respiratory status. I discussed with patient regarding intubation and mechanical ventilation to which she was agreeable -patient was successfully intubated on 09/16/2022 -likely related to worsening pneumonia, septic shock, PE, ARDS -low tidal volume strategy, high PEEP -currently on CMV mode of ventilation, -ABGs reviewed, currently on low tidal volume at 270 mL, FiO2 of 70%, peep of 12. -chest x-ray this morning shows ?Diffuse lung disease with worsening on the right, consistent with pneumonia versus pulmonary edema versus acute respiratory distress syndrome (ARDS). -continue bronchodilators -sedated with fentanyl and Versed infusion -off Nimbex -will give Lasix today (2) Septic shock: Code(s): A41.9 - Sepsis, unspecified organism; R65.21 - Severe sepsis with septic shock Status: Acute Assessment and Plan: Septic shock secondary to pneumonia which is likely postobstructive, peritonitis from perianal fistula and colitis She had received adequate amount of IV fluids on presentation and last night when she was hypotensive she was deemed not responsive to further IV fluid bolus by NICOM assessment IV fluids were discontinued, will add albumin for volume replacement and minimize third-spacing Stress dose steroids weaned off -patient not on any pressors since 09/1509/12/2022: Blood cultures negative x2 so far 09/16/2022: Urine culture Samantha glabrata Sputum cultures have been ordered - Continue vancomycin and imipenem (09/14), given patient's immunocompromised and immunosuppressed state with diffuse infiltrates on the chest x-ray, -also on Levaquin 750 mg IV Q daily (09/18) -09/19: S Samantha glabrata in urine culture, continue Diflucan as patient is immunocompromised Patient is afebrile, elevated WBC count could be related to filgrastim, steroids, stress response -filgrastim has been on hold since 09/17/2022 -WBC counts remains high, hemoglobin is stable and platelet counts are improving -will repeat cultures (3) Perianal fistula due to Crohn's disease: Code(s): K50.913 - Crohn's disease, unspecified, with fistula Status: Acute Assessment and Plan: Patient has perianal fistula from a Crohn's disease CT scan showed Multiple perianal fistulas again seen. Some of the fistulas have loops of radiopaque material that may be for drainage. 09/14 Change antibiotics to imipenem Patient was seen by general surgery and Dr. Mcbride recommends conservative management -appreciate GI evaluation and recommendations (4) Neutropenia: Qualifiers: Neutropenia type: secondary to cancer chemotherapy Qualified Code(s): D70.1 - Agranulocytosis secondary to cancer chemotherapy; T45.1X5A - Adverse effect of antineoplastic and immunosuppressive drugs, initial encounter Code(s): D70.9 - Neutropenia, unspecified Status: Acute Assessment and Plan: Patient seen by oncology. Patient was given on filgrastim, with improvement in WBC count and neutropenia (5) Pneumonia: Qualifiers: Laterality: left Lung location: upper lobe of lung Pneumonia type: due to unspecified organism Qualified Code(s): J18.9 - Pneumonia, unspecified organism Code(s): J18.9 - Pneumonia, unspecified organism Status: Acute Assessment and Plan: Postobstructive pneumonia secondary to small-cell lung cancer See above (6) Small cell lung cancer: Code(s): C34.90 - Malignant neoplasm of unspecified part of unspecified bronchus or lung
[2022-09-22] MEDS: FONDAPARINUX SODIUM 5 MG/0.4 ML SYRINGE SUB-Q (08:50)
[2022-09-22] MEDS: FERROUS SULFATE LIQUID 325 MG/7.4 ML ELIXIR PO ×2 (08:50→17:39)
[2022-09-22] MEDS: FLUCONAZOLE 200 MG/NACL 100 ML 200 MG/100 ML BAG 100 MG IVPB (08:50)
[2022-09-22] MEDS: FONDAPARINUX SODIUM 2.5 MG/0.5 ML SYRINGE SUB-Q (08:51)
[2022-09-22] MEDS: MINERAL OIL/WHITE PETROLATUM OINTMENT 1 APPLIC EACH EYE ×2 (08:51→20:35)
[2022-09-22] MEDS: PANTOPRAZOLE SODIUM IV 40 MG VIAL IV PUSH (08:51)
[2022-09-22] MEDS: TOPIRAMATE 25 MG TABLET 50 MG PO ×2 (08:52→17:39)
[2022-09-22] MEDS: MIDAZOLAM 100MG/NS 100ML(*CRX) 100 MG/100 ML BAG IV CONT (09:07)
--- NOTE | 2022-09-22 10:38 | PCFNICU ---
ICU Rounding Note: Pt current nutrition is Vital 1.2 @ 30 ml/h. Flushes 30 ml q 4 hours. Nutrition recommendation: Continue current tube feeding order and flushes Last recorded weight is 62.3 kg. Bowel Motility: No BMs charted Labs Reviewed: Hgb 8.9, Hct 29.2 Meds Noted: Fentanyl, versed, Levaquin, Vanco Skin: Mepilex dressing to R buttock for prevention Additional Notes: Last levophed given 09/21/22. Vital 1.2 running at 30 ml/h with goal of 50 ml/h. Held overnight due to poor tolerance. Residuals 120 ml. Reglan is on board. Agree with current tube feeding orders and free water flushes Following daily in ICU rounds. Will monitor every Thursday and Thursday. .
[2022-09-22] MEDS: FENTANYL 2,500MCG/NS250ML(*CRX 2,500 MCG/250 ML BAG 17.5 MCG IV CONT (10:59)
[2022-09-22 12:07] LABS: Glucose Point of Care 171 mg/dl (65-105)
[2022-09-22] MEDS: METOCLOPRAMIDE HCL 10 MG/10 ML SOLN UDC FEED TUBE ×2 (12:15→17:39)
[2022-09-22 16:09] LABS: Glucose Point of Care 114 mg/dl (65-105)
--- NOTE | 2022-09-22 18:28 | PM.IMPN ---
Progress Note: A&P Assessment and Plan (1) Acute respiratory failure: Code(s): J96.00 - Acute respiratory failure, unspecified whether with hypoxia or hypercapnia Status: Acute Assessment and Plan: presented with sob. 09/16/2022: Increased oxygen requirements on BiPAP, tachypnea, increased respiratory distress and worsening shortness of breath, x-ray overnight showed possible pulmonary edema and was given diuretics with good urine output but did improve her respiratory status. I discussed with patient regarding intubation and mechanical ventilation to which she was agreeable -patient was successfully intubated on 09/16/2022 -likely related to worsening pneumonia, septic shock, PE, ARDS on mechanical ventilation per copy chief (2) Septic shock: Code(s): A41.9 - Sepsis, unspecified organism; R65.21 - Severe sepsis with septic shock Status: Acute Assessment and Plan: Septic shock secondary to pneumonia which is likely postobstructive, peritonitis from perianal fistula and colitis She had received adequate amount of IV fluids on presentation, subseuqently was still hypotensie which was fluid non responsive and hence started on pressors. which was eventually tapepred off. 09/12/2022: Blood cultures negative x2 so far 09/16/2022: Urine culture Samantha glabrata Sputum cultures have been ordered - Continue vancomycin and imipenem (09/14), given patient's immunocompromised and immunosuppressed state with diffuse infiltrates on the chest x-ray, -also on Levaquin 750 mg IV Q daily (09/18) -09/19: S Samantha glabrata in urine culture, continue Diflucan as patient is immunocompromised Patient is spiking fever elevated WBC count could be related to filgrastim, steroids, stress response -filgrastim has been on hold since 09/17/2022 (3) Perianal fistula due to Crohn's disease: Code(s): K50.913 - Crohn's disease, unspecified, with fistula Status: Acute Assessment and Plan: Patient has perianal fistula from a Crohn's disease CT scan showed Multiple perianal fistulas again seen. Some of the fistulas have loops of radiopaque material that may be for drainage. 09/14 Change antibiotics to imipenem Patient was seen by general surgery and Dr. Mcbride recommends conservative management -appreciate GI evaluation and recommendations (4) Neutropenia: Qualifiers: Neutropenia type: secondary to cancer chemotherapy Qualified Code(s): D70.1 - Agranulocytosis secondary to cancer chemotherapy; T45.1X5A - Adverse effect of antineoplastic and immunosuppressive drugs, initial encounter Code(s): D70.9 - Neutropenia, unspecified Status: Acute Assessment and Plan: Discussed with oncology. Patient was started on filgrastim, with improvement in WBC count and neutropenia, filgastrim now on hold (5) Pneumonia: Qualifiers: Laterality: left Lung location: upper lobe of lung Pneumonia type: due to unspecified organism Qualified Code(s): J18.9 - Pneumonia, unspecified organism Code(s): J18.9 - Pneumonia, unspecified organism Status: Acute Assessment and Plan: Postobstructive pneumonia secondary to small-cell lung cancer See above (6) Small cell lung cancer: Code(s): C34.90 - Malignant neoplasm of unspecified part of unspecified bronchus or lung Status: Acute Assessment and Plan: Recently received chemotherapy at [facility] (7) Pulmonary embolism: Qualifiers: Pulmonary embolism type: multiple subsegmental (without acute cor pulmonale) Qualified Code(s): I26.94 - Multiple subsegmental pulmonary emboli without acute cor pulmonale Code(s): I26.99 - Other pulmonary embolism without acute cor pulmonale Status: Acute Assessment and Plan: CT on admission showed PE She was started on heparin drip but heparin has been discontinued due to drop in her platelet count Patient currently on Arixtra, will incr
[2022-09-22 19:59] LABS: Glucose Point of Care 114 mg/dl (65-105)
[2022-09-23] VITALS (36 sets, daily range): BP systolic 85–110; BP diastolic 46–69; PULSE 74–109; RESP 14–32; TEMP 37.4–38.7; O2SAT 92–99
[2022-09-23 00:47] LABS: Glucose Point of Care 129 mg/dl (65-105)
[2022-09-23] MEDS: METOCLOPRAMIDE HCL 10 MG/10 ML SOLN UDC FEED TUBE ×4 (00:47→16:57)
[2022-09-23] MEDS: FENTANYL 2,500MCG/NS250ML(*CRX 2,500 MCG/250 ML BAG 17.5 MCG IV CONT ×2 (01:30→16:06)
[2022-09-23] MEDS: LEVALBUTEROL NEB 1.25 MG/3 ML 0.63 MG INHALATION ×4 (02:12→20:50)
[2022-09-23] MEDS: IPRATROPIUM BR 0.02% INH SOLN 0.5 MG/2.5 ML VIAL INHALATION ×4 (02:12→20:49)
[2022-09-23 04:00] LABS: Hematocrit 29.1 % (37.0-47.0); Hemoglobin 8.8 g/dL (12.0-15.0); Mean Corpuscular HGB Conc 30.2 g/dl (32-36); Mean Corpuscular Hemoglobin 29.9 pg (26-34); Mean Platelet Volume 10.9 fl (7.4-10.4); Platelet Count Result 238 k/mm3 (150-375); Red Blood Count 2.94 M/mm3 (4.2-5.4); Red Cell Distribution Width 17.4 % (11.5-14.5); White Blood Count 35.4 K/mm3 (4.5-10.0)
[2022-09-23] MEDS: MIDAZOLAM 100MG/NS 100ML(*CRX) 100 MG/100 ML BAG IV CONT (04:06)
[2022-09-23] MEDS: NOREPINEPHRINE 8 MG/D5W 250 ML 8 MG/250 ML BAG 7.5 MG IV CONT (04:08)
[2022-09-23 04:13] LABS: Alanine Aminotransferase 30 U/L (6-35); Albumin Level 3.4 g/dL (3.5-5.1); Alkaline Phosphatase 197 U/L (38-126); Anion Gap 6 mmol/L (8-16); Aspartate Amino Transferase 45 U/L (14-36); Bilirubin,Total 0.9 mg/dL (0.2-1.3); Blood Urea Nitrogen 23 mg/dL (7-17); Calcium 8.7 mg/dL (8.4-10.2); Carbon Dioxide 33 mmol/L (22-30); Chloride 100 mmol/L (98-107); Estimated Glomerular Filt Rate > 60; Glucose 160 mg/dL (65-110); Magnesium 1.6 mg/dL (1.6-2.3); Phosphorus 3.7 mg/dL (2.5-4.5); Potassium 3.7 mmol/L (3.4-5.0); Sodium 139 mmol/L (137-145)
[2022-09-23 04:52] LABS: Anisocytosis 1+ (NORMAL); Band Neutrophils Percent 24 % (0-6); Basophils Absolute Manual 0.35 K/mm3 (0.0-0.1); Basophils Percent Manual 1 % (0-1); Hypochromasia 1+ (NORMAL); Lymphocytes Absolute Manual 2.83 K/mm3 (1.1-4.5); Metamyelocytes Percent 25 %; Monocytes Percent Manual 2 % (3-9); Myelocytes Percent 9 %; Neutrophils Absolute Manual 19.47 K/mm3 (1.7-7.2); Neutrophils Percent Manual 31 % (46-73); Platelet Estimate Adequate (Adequate); Total Cells Counted 100
[2022-09-23 04:53] LABS: Microcytosis 1+ (NORMAL); Schistocytes None Seen (NORMAL)
[2022-09-23 04:54] LABS: Atypical Lymphocytes Present
[2022-09-23 05:29] LABS: Alveolar/Arterial O2 Gradient 397.5 mmHg; Base Excess ABG 7.3 mEq/l (+/-2.0); Carboxyhemoglobin 0.3 % THb (0-2.0); Fractional Inspired Oxygen 75 %; HCO3 ABG 32.6 mEq/l (22.0-26.0); Methemoglobin ABG 0.2 %THb (0-1.5); Oxygen Content ABG 12.4 %vol (16.0-22.0); Oxygen Saturation ABG 96.4 % (95.0-100.0); PCO2 ABG 50.4 mmHg (35.0-45.0); PO2 ABG 83.7 mmHg (80.0-100.0); PO2 FiO2 Ratio Arterial Blood 1.12 %; Reduced Hemoglobin 4.5 %THb (0-5.0); Total Hemoglobin 9.2 g/dL (12.0-18.0); pH ABG 7.429 (7.350-7.450)
[2022-09-23 05:30] LABS: Device VENTILATOR; Modified Allen's Test Pass; Site Drawn RIGHT RADIAL
[2022-09-23 05:31] LABS: Arterial Blood Gas Vent Mode CMV; Arterial Blood Gas Ventilator rate 26 /MIN
[2022-09-23 05:32] LABS: Arterial Blood Gas PEEP 12 cmH2O; Arterial Blood Gas Tidal Volume 270 ml
[2022-09-23] MEDS: CENTRAL LINE FLUSH 10 ML IV PUSH ×6 (05:59→20:14)
--- NOTE | 2022-09-23 08:24 | WPDINTPN ---
Progress Note: A&P Assessment and Plan (1) Acute respiratory failure: Code(s): J96.00 - Acute respiratory failure, unspecified whether with hypoxia or hypercapnia Status: Acute Assessment and Plan: 09/16/2022: Increased oxygen requirements on BiPAP, tachypnea, increased respiratory distress and worsening shortness of breath, x-ray overnight showed possible pulmonary edema and was given diuretics with good urine output but did improve her respiratory status. I discussed with patient regarding intubation and mechanical ventilation to which she was agreeable -patient was successfully intubated on 09/16/2022 -likely related to worsening pneumonia, septic shock, PE, ARDS -low tidal volume strategy, high PEEP -currently on CMV mode of ventilation, -ABGs reviewed, currently on low tidal volume at 270 mL, FiO2 of 75%, peep of 12. -chest x-ray this morning shows ?Diffuse lung disease with worsening on the right, consistent with pneumonia versus pulmonary edema versus acute respiratory distress syndrome (ARDS). -continue bronchodilators -sedated with fentanyl and Versed infusion -off Nimbex -hold Lasix today due to fever, vasopressor requirement (2) Septic shock: Code(s): A41.9 - Sepsis, unspecified organism; R65.21 - Severe sepsis with septic shock Status: Acute Assessment and Plan: Septic shock secondary to pneumonia which is likely postobstructive, peritonitis from perianal fistula and colitis She had received adequate amount of IV fluids on presentation and last night when she was hypotensive she was deemed not responsive to further IV fluid bolus by NICOM assessment IV fluids were discontinued, will add albumin for volume replacement and minimize third-spacing Stress dose steroids were weaned off Patient came of Levophed but now back on 09/12/2022: Blood cultures negative x2 so far 09/16/2022: Urine culture Samantha glabrata Sputum cultures have been ordered - Continue vancomycin and imipenem (09/14), given patient's immunocompromised and immunosuppressed state with diffuse infiltrates on the chest x-ray, -also on Levaquin 750 mg IV Q daily (09/18) -09/19: S Samantha glabrata in urine culture, continue Diflucan as patient is immunocompromised Elevated WBC count could be related to filgrastim, steroids, stress response and is decreased -filgrastim has been on hold since 09/17/2022 -patient febrile for last 24-48 hours -will repeat cultures -urine sputum and blood -change Clemens -repeat CT scan chest abdomen pelvis (3) Perianal fistula due to Crohn's disease: Code(s): K50.913 - Crohn's disease, unspecified, with fistula Status: Acute Assessment and Plan: Patient has perianal fistula from a Crohn's disease CT scan showed Multiple perianal fistulas again seen. Some of the fistulas have loops of radiopaque material that may be for drainage. 09/14 Change antibiotics to imipenem Patient was seen by general surgery and Dr. Mcbride recommends conservative management -appreciate GI evaluation and recommendations -repeat CT scan ordered in light of recurrent fevers (4) Neutropenia: Qualifiers: Neutropenia type: secondary to cancer chemotherapy Qualified Code(s): D70.1 - Agranulocytosis secondary to cancer chemotherapy; T45.1X5A - Adverse effect of antineoplastic and immunosuppressive drugs, initial encounter Code(s): D70.9 - Neutropenia, unspecified Status: Acute Assessment and Plan: Patient seen by oncology. Patient was given on filgrastim, with improvement in WBC count and neutropenia (5) Pneumonia: Qualifiers: Laterality: left Lung location: upper lobe of lung Pneumonia type: due to unspecified organism Qualified Code(s): J18.9 - Pneumonia, unspecified organism Code(s): J18.9 - Pneumonia, unspecified organism Status: Acute Assessment and Plan: Postobstructive pneumonia secondary to small-cell lung cancer See above (6) Small
[2022-09-23] MEDS: POTASSIUM CHLORIDE 20 MEQ PACKET (FOR LIQUID) 40 MEQ FEED TUBE (09:30)
[2022-09-23] MEDS: FLUCONAZOLE 200 MG/NACL 100 ML 200 MG/100 ML BAG 100 MG IVPB (09:31)
[2022-09-23] MEDS: FONDAPARINUX SODIUM 2.5 MG/0.5 ML SYRINGE SUB-Q (09:31)
[2022-09-23] MEDS: FERROUS SULFATE LIQUID 325 MG/7.4 ML ELIXIR PO ×2 (09:31→16:57)
[2022-09-23] MEDS: FONDAPARINUX SODIUM 5 MG/0.4 ML SYRINGE SUB-Q (09:32)
[2022-09-23] MEDS: PANTOPRAZOLE SODIUM IV 40 MG VIAL IV PUSH (09:32)
[2022-09-23] MEDS: MINERAL OIL/WHITE PETROLATUM OINTMENT 1 APPLIC EACH EYE ×2 (09:32→20:13)
[2022-09-23] MEDS: TOPIRAMATE 25 MG TABLET 50 MG PO ×2 (09:33→16:57)
--- NOTE | 2022-09-23 10:25 | PCNFU ---
Nutrition Follow-Up Complete: Inadequate Oral Intake as related to mechanical ventilation as evidenced by NPO. Goal:Meet estimated nutritional needs Patient has limited progress towards goal. We will continue current goal. Pt current nutrition is Vital AF 1.2 at 20 ml/hr. Last recorded weight is 63.6 kg, down from 64.2 kg. Bowel Motility::Last BM reported 09/22-small Labs Reviewed:BUN 23, Cr 0.6,Glu 160, Alb 3.4 Meds Noted: Fentanyl, Versed, Vancomycin, Imipenem,Reglan,Levophed Skin: WNL Additional Notes: Patient remains on mechanical vent. Tube feedings have been on hold due to elevated residuals of 350+. Plans to restart tube feeding at 20ml/hr. Reglan has been given. When advancing tube feedings, recommend Vital AF 1.2 at 50 ml/hr which will provide 1320 kcals/83 gms protein/892 ml water. Meeting 98% kcal needs and 100% protein needs. Flush 30 ml q 4 hours. Will monitor every Thursday and Thursday.
[2022-09-23 11:46] LABS: Appearance Urine Cloudy (Clear); Bilirubin Urine 1+ (Negative); Blood Urine 3+ (Negative); Color Urine Yellow (Yellow); Glucose Urine UA Negative (Negative); Ketones Urine Trace mg/dL (Negative); Leukocyte Esterase Ur 2+ LEU/UL (Negative); Nitrate Urine Negative (Negative); Protein Urine 2+ mg/dL (Negative)
[2022-09-23 12:12] LABS: Glucose Point of Care 152 mg/dl (65-105)
[2022-09-23 12:25] LABS: Budding Yeast Urine Present /hpf; Mucus Urine Rare /lpf; RBC Urine >75 /hpf (0-2); Squamous Epithelial Cell Urine Many /hpf (Few); Transitional Epi Cells Urine Few /hpf (None Seen); WBC Urine >75 /hpf
[2022-09-23 12:28] LABS: Add Urine Microscopic? YES
[2022-09-23 16:16] LABS: Glucose Point of Care 129 mg/dl (65-105)
--- NOTE | 2022-09-23 17:29 | PM.IMPN ---
Progress Note: A&P Assessment and Plan (1) Acute respiratory failure: Code(s): J96.00 - Acute respiratory failure, unspecified whether with hypoxia or hypercapnia Status: Acute Assessment and Plan: presented with sob. 09/16/2022: Increased oxygen requirements on BiPAP, tachypnea, increased respiratory distress and worsening shortness of breath, x-ray overnight showed possible pulmonary edema and was given diuretics with good urine output but did improve her respiratory status. I discussed with patient regarding intubation and mechanical ventilation to which she was agreeable -patient was successfully intubated on 09/16/2022 -likely related to worsening pneumonia, septic shock, PE, ARDS on mechanical ventilation per child development specialist (2) Septic shock: Code(s): A41.9 - Sepsis, unspecified organism; R65.21 - Severe sepsis with septic shock Status: Acute Assessment and Plan: Septic shock secondary to pneumonia which is likely postobstructive, peritonitis from perianal fistula and colitis She had received adequate amount of IV fluids on presentation, subseuqently was still hypotensie which was fluid non responsive and hence started on pressors. which was eventually tapepred off. 09/12/2022: Blood cultures negative x2 so far 09/16/2022: Urine culture Samantha glabrata Sputum cultures have been ordered - Continue vancomycin and imipenem (09/14), given patient's immunocompromised and immunosuppressed state with diffuse infiltrates on the chest x-ray, -also on Levaquin 750 mg IV Q daily (09/18) -09/19: S Samantha glabrata in urine culture, continue Diflucan as patient is immunocompromised Patient is spiking fever elevated WBC count could be related to filgrastim, steroids, stress response -filgrastim has been on hold since 09/17/2022 UA positive, CT chest abdomen pelvis with diffuse lung disease combination of pneumonia pulmonary edema in diffuse alveolar damage cirrhosis of liver multiple. A fistula was wall thickening of the descending colon consistent with Crohn's disease Blood culture x2 performed 09/23/2022 (3) Perianal fistula due to Crohn's disease: Code(s): K50.913 - Crohn's disease, unspecified, with fistula Status: Acute Assessment and Plan: Patient has perianal fistula from a Crohn's disease CT scan showed Multiple perianal fistulas again seen. Some of the fistulas have loops of radiopaque material that may be for drainage. 11/13 Change antibiotics to imipenem Patient was seen by general surgery and Dr. Mcbride recommends conservative management -appreciate GI evaluation and recommendations (4) Neutropenia: Qualifiers: Neutropenia type: secondary to cancer chemotherapy Qualified Code(s): D70.1 - Agranulocytosis secondary to cancer chemotherapy; T45.1X5A - Adverse effect of antineoplastic and immunosuppressive drugs, initial encounter Code(s): D70.9 - Neutropenia, unspecified Status: Acute Assessment and Plan: Discussed with oncology. Patient was started on filgrastim, with improvement in WBC count and neutropenia, filgastrim now on hold WBC count lowering (5) Pneumonia: Qualifiers: Laterality: left Lung location: upper lobe of lung Pneumonia type: due to unspecified organism Qualified Code(s): J18.9 - Pneumonia, unspecified organism Code(s): J18.9 - Pneumonia, unspecified organism Status: Acute Assessment and Plan: Postobstructive pneumonia secondary to small-cell lung cancer See above (6) Small cell lung cancer: Code(s): C34.90 - Malignant neoplasm of unspecified part of unspecified bronchus or lung Status: Acute Assessment and Plan: Recently received chemotherapy at [facility] (7) Pulmonary embolism: Qualifiers: Pulmonary embolism type: multiple subsegmental (without acute cor pulmonale) Qualified Code(s): I26.94 - Multiple subsegmental pulmonary emboli without acute cor
[2022-09-23] MEDS: ACETAMINOPHEN 500 MG TABLET PO (20:13)
[2022-09-23 21:25] LABS: Glucose Point of Care 123 mg/dl (65-105)
[2022-09-24] VITALS (35 sets, daily range): BP systolic 91–113; BP diastolic 51–69; PULSE 63–92; RESP 22–28; TEMP 36.7–37.7; O2SAT 94–100
[2022-09-24] LABS: Glucose Point of Care 174 mg/dl (65-105)
[2022-09-24] MEDS: METOCLOPRAMIDE HCL 10 MG/10 ML SOLN UDC FEED TUBE ×4 (00:03→17:17)
[2022-09-24] MEDS: MIDAZOLAM 100MG/NS 100ML(*CRX) 100 MG/100 ML BAG IV CONT (01:36)
[2022-09-24] MEDS: IPRATROPIUM BR 0.02% INH SOLN 0.5 MG/2.5 ML VIAL INHALATION ×4 (02:07→20:06)
[2022-09-24] MEDS: LEVALBUTEROL NEB 1.25 MG/3 ML 0.63 MG INHALATION ×4 (02:07→20:06)
[2022-09-24] MEDS: NOREPINEPHRINE 8 MG/D5W 250 ML 8 MG/250 ML BAG 9.38 MG IV CONT (04:52)
[2022-09-24 05:21] LABS: Estimated Glomerular Filt Rate > 60; Hematocrit 28.7 % (37.0-47.0); Hemoglobin 8.7 g/dL (12.0-15.0); Mean Corpuscular HGB Conc 30.3 g/dl (32-36); Mean Corpuscular Hemoglobin 29.2 pg (26-34); Mean Corpuscular Volume 96.3 fl (80-100); Mean Platelet Volume 11.1 fl (7.4-10.4); Platelet Count Result 203 k/mm3 (150-375); Red Blood Count 2.98 M/mm3 (4.2-5.4); Red Cell Distribution Width 16.9 % (11.5-14.5); White Blood Count 23.6 K/mm3 (4.5-10.0)
[2022-09-24 05:44] LABS: Anisocytosis 1+ (NORMAL); Band Neutrophils Percent 8 % (0-6); Lymphocytes Absolute Manual 4.95 K/mm3 (1.1-4.5); Metamyelocytes Percent 3 %; Monocytes Absolute Manual 1.41 K/mm3 (0.1-0.90); Monocytes Percent Manual 6 % (3-9); Neutrophils Absolute Manual 16.52 K/mm3 (1.7-7.2); Neutrophils Percent Manual 62 % (46-73); Ovalocytes 1+ (NORMAL); Platelet Estimate Adequate (Adequate); Schistocytes None Seen (NORMAL); Total Cells Counted 100
[2022-09-24] MEDS: FENTANYL 2,500MCG/NS250ML(*CRX 2,500 MCG/250 ML BAG 17.5 MCG IV CONT (06:06)
[2022-09-24] MEDS: CENTRAL LINE FLUSH 10 ML IV PUSH ×5 (06:08→21:11)
[2022-09-24 06:16] LABS: Alveolar/Arterial O2 Gradient 309.7 mmHg; Base Excess ABG 3.4 mEq/l (+/-2.0); Carboxyhemoglobin 0.3 % THb (0-2.0); Device VENTILATOR; Fractional Inspired Oxygen 65 %; HCO3 ABG 30.9 mEq/l (22.0-26.0); Methemoglobin ABG 0.1 %THb (0-1.5); Modified Allen's Test Unable to perform; Oxygen Saturation ABG 94.9 % (95.0-100.0); Oxyhemoglobin 93.7 % THb (90.0-100.0); PCO2 ABG 64.4 mmHg (35.0-45.0); PO2 ABG 83.7 mmHg (80.0-100.0); PO2 FiO2 Ratio Arterial Blood 1.29 %; Reduced Hemoglobin 5.9 %THb (0-5.0); Site Drawn RIGHT RADIAL; Total Hemoglobin 9.8 g/dL (12.0-18.0); pH ABG 7.299 (7.350-7.450)
[2022-09-24 06:17] LABS: Arterial Blood Gas PEEP 12 cmH2O; Arterial Blood Gas Tidal Volume 270 ml; Arterial Blood Gas Vent Mode CMV; Arterial Blood Gas Ventilator rate 26 /MIN
[2022-09-24 06:31] LABS: Glucose Point of Care 116 mg/dl (65-105)
[2022-09-24 06:43] LABS: Anion Gap 8 mmol/L (8-16); Blood Urea Nitrogen 15 mg/dL (7-17); Calcium 8.7 mg/dL (8.4-10.2); Carbon Dioxide 31 mmol/L (22-30); Chloride 101 mmol/L (98-107); Glucose 128 mg/dL (65-110); Potassium 3.9 mmol/L (3.4-5.0); Sodium 140 mmol/L (137-145)
[2022-09-24 07:25] LABS: Glucose Point of Care 121 mg/dl (65-105)
[2022-09-24] MEDS: FERROUS SULFATE LIQUID 325 MG/7.4 ML ELIXIR PO ×2 (08:07→17:17)
[2022-09-24] MEDS: FONDAPARINUX SODIUM 2.5 MG/0.5 ML SYRINGE SUB-Q (08:07)
[2022-09-24] MEDS: FLUCONAZOLE 200 MG/NACL 100 ML 200 MG/100 ML BAG 100 MG IVPB (08:07)
[2022-09-24] MEDS: MINERAL OIL/WHITE PETROLATUM OINTMENT 1 APPLIC EACH EYE ×2 (08:08→21:11)
[2022-09-24] MEDS: PANTOPRAZOLE SODIUM IV 40 MG VIAL IV PUSH (08:08)
[2022-09-24] MEDS: FONDAPARINUX SODIUM 5 MG/0.4 ML SYRINGE SUB-Q (08:08)
[2022-09-24] MEDS: TOPIRAMATE 25 MG TABLET 50 MG PO ×2 (08:09→17:17)
--- NOTE | 2022-09-24 10:38 | WPDINTPN ---
Progress Note: A&P Assessment and Plan (1) Acute respiratory failure: Code(s): J96.00 - Acute respiratory failure, unspecified whether with hypoxia or hypercapnia Status: Acute Assessment and Plan: 09/16/2022: Increased oxygen requirements on BiPAP, tachypnea, increased respiratory distress and worsening shortness of breath, x-ray overnight showed possible pulmonary edema and was given diuretics with good urine output but did improve her respiratory status. I discussed with patient regarding intubation and mechanical ventilation to which she was agreeable -patient was successfully intubated on 09/16/2022 -likely related to worsening pneumonia, septic shock, PE, ARDS -low tidal volume strategy, high PEEP -currently on CMV mode of ventilation, -ABGs reviewed - increase tidal volume to 300 rate to 28 and FiO2 is down to 55% -chest x-ray this morning shows Stable diffuse lung disease, consistent with pneumonia versus pulmonary edema versus acute respiratory distress syndrome (ARDS).). -continue bronchodilators -sedated with fentanyl and Versed infusion. Appears overly sedated. Placed on sedation holiday -off Nimbex for few days now -hold Lasix today due to fever, vasopressor requirement (2) Septic shock: Code(s): A41.9 - Sepsis, unspecified organism; R65.21 - Severe sepsis with septic shock Status: Acute Assessment and Plan: Septic shock secondary to pneumonia which is likely postobstructive, peritonitis from perianal fistula and colitis She had received adequate amount of IV fluids on presentation and last night when she was hypotensive she was deemed not responsive to further IV fluid bolus by NICOM assessment IV fluids were discontinued, will add albumin for volume replacement and minimize third-spacing Stress dose steroids were weaned off Patient came of Levophed but now back on 09/12/2022: Blood cultures negative x2 so far 09/16/2022: Urine culture Samantha glabrata Sputum cultures have been ordered - Continue vancomycin and imipenem (09/14), given patient's immunocompromised and immunosuppressed state with diffuse infiltrates on the chest x-ray, -also on Levaquin 750 mg IV Q daily (09/18) -09/19: S Samantha glabrata in urine culture, continue Diflucan as patient is immunocompromised Elevated WBC count could be related to filgrastim, steroids, stress response and is decreasing -filgrastim has been on hold since 09/17/2022 -09/23 -repeat sputum blood and urine culture sent, UA suggests UTI, Clemens catheter change -will repeat cultures -urine sputum and blood -change Clemens Repeat CT chest abdomen pelvis does not show any significant change IMPRESSION: 1. Diffuse lung disease, likely some combination of pneumonia, pulmonary edema, and diffuse alveolar damage. 2. Small right and trace left pleural effusions. 3. Cirrhosis of the liver. 4. Multiple perianal fistulas again seen. Some of the fistulas have loops of radiopaque material that may be for drainage. 5. Intermittent wall thickening of the descending colon, consistent with Crohn disease. (3) Perianal fistula due to Crohn's disease: Code(s): K50.913 - Crohn's disease, unspecified, with fistula Status: Acute Assessment and Plan: Patient has perianal fistula from a Crohn's disease CT scan showed Multiple perianal fistulas again seen. Some of the fistulas have loops of radiopaque material that may be for drainage. 09/14 Change antibiotics to imipenem Patient was seen by general surgery and Dr. Mcbride recommends conservative management -appreciate GI and General surgery evaluation and recommendations -repeat CT scan does not show any significant change (4) Neutropenia: Qualifiers: Neutropenia type: secondary to cancer chemotherapy Qualified Code(s): D70.1 - Agranulocytosis secondary to cancer chemotherapy; T45.1X5A - Adverse effect of antineoplastic and immunosuppressive drugs, initial encounter Code(s): D70.9 - Neutrope
--- NOTE | 2022-09-24 10:39 | PCFNICU ---
ICU Rounding Note: Pt current nutrition is Vital AF 1.2 at 20 ml/hr. Nutrition recommendation: goal rate at 50 ml/hr. Last recorded weight is 64.1 kg. Bowel Motility: +Bm reported 09/24 Labs Reviewed:Glu 128, Cr 0.5,Hct 28.7,Hgb 8.7 Meds Noted: Vancomycin, Imipenem,Reglan,Levophed Skin: WNL Additional Notes: Patient remains on mechanical vent. sedation off. Tube feedings remain of Vital AF 1.2 at 20 ml/hr due to elevated residuals. When advancing tube feedings recommend goal rate at 50 ml/hr. Flush 30 ml q 4 hours. Following daily in ICU rounds. Will monitor every Thursday and Thursday.
[2022-09-24 11:58] LABS: Glucose Point of Care 140 mg/dl (65-105)
[2022-09-24 16:02] LABS: Glucose Point of Care 119 mg/dl (65-105)
[2022-09-24 21:21] LABS: Glucose Point of Care 114 mg/dl (65-105)
[2022-09-25] VITALS (24 sets, daily range): BP systolic 68–117; BP diastolic 56–77; PULSE 72–131; RESP 26–30; TEMP 37.1–37.9; O2SAT 95–100
[2022-09-25] MEDS: IPRATROPIUM BR 0.02% INH SOLN 0.5 MG/2.5 ML VIAL INHALATION ×3 (01:02→13:19)
[2022-09-25] MEDS: LEVALBUTEROL NEB 1.25 MG/3 ML 0.63 MG INHALATION ×3 (01:02→13:19)
[2022-09-25 01:09] LABS: Glucose Point of Care 120 mg/dl (65-105)
[2022-09-25] MEDS: METOCLOPRAMIDE HCL 10 MG/10 ML SOLN UDC FEED TUBE ×4 (01:41→17:50)
[2022-09-25 04:18] LABS: Glucose Point of Care 123 mg/dl (65-105)
[2022-09-25 05:21] LABS: Alveolar/Arterial O2 Gradient 104.9 mmHg; Base Excess ABG 7.2 mEq/l (+/-2.0); Carboxyhemoglobin 0.2 % THb (0-2.0); Fractional Inspired Oxygen 40 %; HCO3 ABG 31.4 mEq/l (22.0-26.0); Methemoglobin ABG 0.1 %THb (0-1.5); Oxygen Content ABG 14.2 %vol (16.0-22.0); Oxygen Saturation ABG 98.8 % (95.0-100.0); Oxyhemoglobin 97.3 % THb (90.0-100.0); PCO2 ABG 42.9 mmHg (35.0-45.0); PO2 FiO2 Ratio Arterial Blood 3.28 %; Reduced Hemoglobin 2.4 %THb (0-5.0); Total Hemoglobin 10.2 g/dL (12.0-18.0); pH ABG 7.482 (7.350-7.450)
[2022-09-25 05:22] LABS: Arterial Blood Gas Ventilator rate 28 /MIN; Device VENTILATOR; Modified Allen's Test Pass; Site Drawn RIGHT RADIAL
[2022-09-25 05:23] LABS: Arterial Blood Gas PEEP 12 cmH2O; Arterial Blood Gas Tidal Volume 300 ml; Arterial Blood Gas Vent Mode CMV
[2022-09-25] MEDS: CENTRAL LINE FLUSH 10 ML IV PUSH ×3 (05:23→15:29)
[2022-09-25 07:27] LABS: Glucose Point of Care 124 mg/dl (65-105)
[2022-09-25 09:18] LABS: Hematocrit 29.4 % (37.0-47.0); Hemoglobin 9.1 g/dL (12.0-15.0); Mean Platelet Volume 10.6 fl (7.4-10.4); Platelet Count Result 234 k/mm3 (150-375); Red Blood Count 3.03 M/mm3 (4.2-5.4); Red Cell Distribution Width 16.8 % (11.5-14.5); White Blood Count 21.5 K/mm3 (4.5-10.0)
[2022-09-25] MEDS: FLUCONAZOLE 200 MG/NACL 100 ML 200 MG/100 ML BAG 100 MG IVPB (09:22)
[2022-09-25] MEDS: TOPIRAMATE 25 MG TABLET 50 MG PO ×2 (09:24→17:50)
[2022-09-25] MEDS: FONDAPARINUX SODIUM 2.5 MG/0.5 ML SYRINGE SUB-Q (09:24)
[2022-09-25] MEDS: FONDAPARINUX SODIUM 5 MG/0.4 ML SYRINGE SUB-Q (09:24)
[2022-09-25] MEDS: PANTOPRAZOLE SODIUM IV 40 MG VIAL IV PUSH (09:24)
[2022-09-25] MEDS: MINERAL OIL/WHITE PETROLATUM OINTMENT 1 APPLIC EACH EYE (09:24)
[2022-09-25 09:30] LABS: Alanine Aminotransferase 19 U/L (6-35); Albumin Level 3.2 g/dL (3.5-5.1); Alkaline Phosphatase 189 U/L (38-126); Anion Gap 1 mmol/L (8-16); Aspartate Amino Transferase 28 U/L (14-36); Bilirubin,Total 0.6 mg/dL (0.2-1.3); Blood Urea Nitrogen 15 mg/dL (7-17); Calcium 9.1 mg/dL (8.4-10.2); Carbon Dioxide 31 mmol/L (22-30); Chloride 103 mmol/L (98-107); Estimated Glomerular Filt Rate > 60; Glucose 119 mg/dL (65-110); Magnesium 1.5 mg/dL (1.6-2.3); Phosphorus 3.3 mg/dL (2.5-4.5); Sodium 135 mmol/L (137-145)
[2022-09-25 09:35] LABS: Band Neutrophils Percent 4 % (0-6); Basophils Absolute Manual 0.43 K/mm3 (0.0-0.1); Basophils Percent Manual 2 % (0-1); Lymphocytes Absolute Manual 3.22 K/mm3 (1.1-4.5); Metamyelocytes Percent 2 %; Monocytes Absolute Manual 1.29 K/mm3 (0.1-0.90); Monocytes Percent Manual 6 % (3-9); Neutrophils Absolute Manual 16.12 K/mm3 (1.7-7.2); Neutrophils Percent Manual 71 % (46-73); Platelet Estimate Adequate (Adequate); Total Cells Counted 100
[2022-09-25 09:36] LABS: Polychromasia 1+ (NORMAL); Schistocytes None Seen (NORMAL); Stomatocytes 1+ (NORMAL)
--- NOTE | 2022-09-25 10:01 | PC.NURSE ---
Pt has become tachycardic with Hr in the 130's. Pt's BP stable at 102/61. New order received from Dr. Jones to hold Levophed and give 2G Mg IVPB x1 for Mag level of 1.5.
[2022-09-25] MEDS: MAGNESIUM SULF 2 GM/WATER 50ML 2 GM/50 ML BAG IVPB (10:06)
[2022-09-25 10:09] LABS: Vancomycin Trough 10.9 ug/mL (10.0-20.0)
--- NOTE | 2022-09-25 10:11 | WPDINTPN ---
Progress Note: A&P Assessment and Plan (1) Acute respiratory failure: Code(s): J96.00 - Acute respiratory failure, unspecified whether with hypoxia or hypercapnia Status: Acute Assessment and Plan: 09/16/2022: Increased oxygen requirements on BiPAP, tachypnea, increased respiratory distress and worsening shortness of breath, x-ray overnight showed possible pulmonary edema and was given diuretics with good urine output but did improve her respiratory status. I discussed with patient regarding intubation and mechanical ventilation to which she was agreeable -patient was successfully intubated on 09/16/2022 -likely related to worsening pneumonia, septic shock, PE, ARDS -low tidal volume strategy, high PEEP -currently on CMV mode of ventilation, -ABGs reviewed -continue tidal volume to 300, decrease rate to 26, FiO2 is at 40%. I will decrease the PEEP to 10 -chest x-ray this morning reviewed -continue bronchodilators -sedation is currently on hold -off Nimbex for many days now -hold Lasix today due to fever, vasopressor requirement CT chest 09/23 1. Diffuse lung disease, likely some combination of pneumonia, pulmonary edema, and diffuse alveolar damage. 2. Small right and trace left pleural effusions (2) Septic shock: Code(s): A41.9 - Sepsis, unspecified organism; R65.21 - Severe sepsis with septic shock Status: Acute Assessment and Plan: Septic shock secondary to pneumonia which is likely postobstructive, peritonitis from perianal fistula and colitis She had received adequate amount of IV fluids on presentation and last night when she was hypotensive she was deemed not responsive to further IV fluid bolus by NICOM assessment IV fluids were discontinued, will add albumin for volume replacement and minimize third-spacing Stress dose steroids were weaned off On low-dose Levophed will try to wean it off 09/12/2022: Blood cultures negative x2 so far 09/16/2022: Urine culture Samantha glabrata Sputum cultures have been ordered - Continue vancomycin and imipenem (09/14), given patient's immunocompromised and immunosuppressed state with diffuse infiltrates on the chest x-ray, -also on Levaquin 750 mg IV Q daily (09/18) -09/19: S Samantha glabrata in urine culture, continue Diflucan as patient is immunocompromised Elevated WBC count could be related to filgrastim, steroids, stress response and is decreasing -filgrastim has been on hold since 09/17/2022 -09/23 -repeat sputum blood and urine culture sent, UA suggests UTI, Clemens catheter change -will repeat cultures -urine sputum and blood -change Clemens Repeat CT chest abdomen pelvis does not show any significant change IMPRESSION: 1. Diffuse lung disease, likely some combination of pneumonia, pulmonary edema, and diffuse alveolar damage. 2. Small right and trace left pleural effusions. 3. Cirrhosis of the liver. 4. Multiple perianal fistulas again seen. Some of the fistulas have loops of radiopaque material that may be for drainage. 5. Intermittent wall thickening of the descending colon, consistent with Crohn disease. (3) Perianal fistula due to Crohn's disease: Code(s): K50.913 - Crohn's disease, unspecified, with fistula Status: Acute Assessment and Plan: Patient has perianal fistula from a Crohn's disease CT scan showed Multiple perianal fistulas again seen. Some of the fistulas have loops of radiopaque material that may be for drainage. 09/14 Change antibiotics to imipenem Patient was seen by general surgery and Dr. Mcbride recommends conservative management -appreciate GI and General surgery evaluation and recommendations -repeat CT scan does not show any significant change (4) Neutropenia: Qualifiers: Neutropenia type: secondary to cancer chemotherapy Qualified Code(s): D70.1 - Agranulocytosis secondary to cancer chemotherapy; T45.1X5A - Adverse effect of antineoplastic and immunosuppressive drugs, initial encounter Code(s)
[2022-09-25 12:32] LABS: Glucose Point of Care 117 mg/dl (65-105)
--- NOTE | 2022-09-25 12:52 | PM.IMPN ---
Progress Note: A&P Assessment and Plan (1) Acute respiratory failure: Code(s): J96.00 - Acute respiratory failure, unspecified whether with hypoxia or hypercapnia Status: Acute Assessment and Plan: presented with sob. 09/16/2022: Increased oxygen requirements on BiPAP, tachypnea, increased respiratory distress and worsening shortness of breath, x-ray overnight showed possible pulmonary edema and was given diuretics with good urine output but did improve her respiratory status. I discussed with patient regarding intubation and mechanical ventilation to which she was agreeable -patient was successfully intubated on 09/16/2022 -likely related to worsening pneumonia, septic shock, PE, ARDS on mechanical ventilation per stripping shovel oiler 09/25/2022 interval history: continues to remain febrile with low grade fever, on 09/24 stripping shovel oiler had a long discussion with patient sister who is her POA and her mother as patient in unmarried does not have any children, patient is critically ill and on vent for sometime and her prognosis is poor, patient is now DNR, patient intubated and remains sedated on mechanical ventilation. on 09/24 i was called to assess patient right lower extremity, it felt cold compared to left lower extremity, patient cap refills were close 5sec to futher evaluate venous dopplor was ordered did not show any DVT, discussed with stripping shovel oiler today the extremity is much warmer today. will continue to monitor and appreciate stripping shovel oiler. (2) Septic shock: Code(s): A41.9 - Sepsis, unspecified organism; R65.21 - Severe sepsis with septic shock Status: Acute Assessment and Plan: Septic shock secondary to pneumonia which is likely postobstructive, peritonitis from perianal fistula and colitis She had received adequate amount of IV fluids on presentation, subseuqently was still hypotensie which was fluid non responsive and hence started on pressors. which was eventually tapepred off. 09/12/2022: Blood cultures negative x2 so far 09/16/2022: Urine culture Samantha glabrata Sputum cultures have been ordered - Continue vancomycin and imipenem (09/14), given patient's immunocompromised and immunosuppressed state with diffuse infiltrates on the chest x-ray, -also on Levaquin 750 mg IV Q daily (09/18) -09/19: S Samantha glabrata in urine culture, continue Diflucan as patient is immunocompromised Patient is spiking fever elevated WBC count could be related to filgrastim, steroids, stress response -filgrastim has been on hold since 09/17/2022 UA positive, CT chest abdomen pelvis with diffuse lung disease combination of pneumonia pulmonary edema in diffuse alveolar damage cirrhosis of liver multiple. A fistula was wall thickening of the descending colon consistent with Crohn's disease Blood culture x2 performed 09/23/2022 (3) Perianal fistula due to Crohn's disease: Code(s): K50.913 - Crohn's disease, unspecified, with fistula Status: Acute Assessment and Plan: Patient has perianal fistula from a Crohn's disease CT scan showed Multiple perianal fistulas again seen. Some of the fistulas have loops of radiopaque material that may be for drainage. 09/14 Change antibiotics to imipenem Patient was seen by general surgery and Dr. Mcbride recommends conservative management -appreciate GI evaluation and recommendations (4) Neutropenia: Qualifiers: Neutropenia type: secondary to cancer chemotherapy Qualified Code(s): D70.1 - Agranulocytosis secondary to cancer chemotherapy; T45.1X5A - Adverse effect of antineoplastic and immunosuppressive drugs, initial encounter Code(s): D70.9 - Neutropenia, unspecified Status: Acute Assessment and Plan: Discussed with oncology. Patient was started on filgrastim, with improvement in WBC count and neutropenia, filgastrim now on hold WBC count lowering (5) Pneumonia: Qualifiers: Laterality: left Lung location: upper lobe of lung P
[2022-09-25 16:53] LABS: Glucose Point of Care 101 mg/dl (65-105)
--- NOTE | 2022-09-26 07:43 | PM.TDS ---
Transfer Discharge Sum: Prov Provider Date of admission: 09/12/22 18:00 Primary care physician: Elizabeth Lamb, Admitting clinician: Ginger John MD Consults: 09/12/22 Consult to Physician Routine Comment: Consulting Provider: Ramon Adam call center professional/MD group to consult: Dr. Adam Reason for consultation: Lung cancer Has provider been notified: Yes 09/13/22 Consult to Physician Routine Comment: Consulting Provider: Rocael Triana call center professional/MD group to consult: Gastroenterology Reason for consultation: Crohn's, needs Entyvio infusion, severe diarrhea Has provider been notified: Yes Wound/ET Consult Routine Reason for Consult:: Buttocks wound 09/14/22 Consult to Physician Routine Comment: spoke with exchange @ [phone] (, ) Consulting Provider: Cornelio Mcbride call center professional/MD group to consult: Surgery Reason for consultation: Perianal fistula, Sepsis Has provider been notified: Yes 09/14/22 01:16 Consult to Physician Routine Comment: Consulting Provider: Hugo Jones call center professional/MD group to consult: [employer] Reason for consultation: Shock, neutropenia fever Has provider been notified: Yes DS: Admitting Diagnosis Discharge Date 09/25/22 Admitting Diagnosis fever and headache DS: Discharge Diagnosis Discharge Diagnosis (1) Acute respiratory failure: Code(s): J96.00 - Acute respiratory failure, unspecified whether with hypoxia or hypercapnia Status: Acute Assessment and Plan: presented with sob. 09/16/2022: Increased oxygen requirements on BiPAP, tachypnea, increased respiratory distress and worsening shortness of breath, x-ray overnight showed possible pulmonary edema and was given diuretics with good urine output but did improve her respiratory status. I discussed with patient regarding intubation and mechanical ventilation to which she was agreeable -patient was successfully intubated on 09/16/2022 -likely related to worsening pneumonia, septic shock, PE, ARDS on mechanical ventilation per roof bolting coal miner 09/25/2022 interval history: continues to remain febrile with low grade fever, on 09/24 roof bolting coal miner had a long discussion with patient sister who is her POA and her mother as patient in unmarried does not have any children, patient is critically ill and on vent for sometime and her prognosis is poor, patient is now DNR, patient intubated and remains sedated on mechanical ventilation. on 09/24 i was called to assess patient right lower extremity, it felt cold compared to left lower extremity, patient cap refills were close 5sec to futher evaluate venous dopplor was ordered did not show any DVT, discussed with roof bolting coal miner today the extremity is much warmer today. will continue to monitor and appreciate roof bolting coal miner. (2) Septic shock: Code(s): A41.9 - Sepsis, unspecified organism; R65.21 - Severe sepsis with septic shock Status: Acute Assessment and Plan: Septic shock secondary to pneumonia which is likely postobstructive, peritonitis from perianal fistula and colitis She had received adequate amount of IV fluids on presentation, subseuqently was still hypotensie which was fluid non responsive and hence started on pressors. which was eventually tapepred off. 09/12/2022: Blood cultures negative x2 so far 09/16/2022: Urine culture Samantha glabrata Sputum cultures have been ordered - Continue vancomycin and imipenem (09/14), given patient's immunocompromised and immunosuppressed state with diffuse infiltrates on the chest x-ray, -also on Levaquin 750 mg IV Q daily (09/18) -09/19: S Samantha glabrata in urine culture, continue Diflucan as patient is immunocompromised Patient is spiking fever elevated WBC count could be related to filgrastim, steroids, stress response -filgrastim has been on hold since 09/17/2022 UA positive, CT chest abdomen pelvis with diffuse lung disease combination of pneumonia pulmonary edema in diffuse al
== END 2022-09-25 19:30 | disposition short-term general hospital (02) | DRG 870 ==
LOC: ANHED 17:19 → ANHIMU 21:19 → ANHICU 09-14 01:43
PROVIDERS: Internal Medicine; Nurse Practitioner; Physician Assistant; Student in an Organized Health Care Education/Training Program; Admitting Provider Family Medicine; Emergency Provider Emergency Medicine; PCP Internal Medicine; Visit Provider Internal Medicine
DX: A41.9 Sepsis, unspecified organism (principal); D61.810 Antineoplastic chemotherapy induced pancytopenia; I26.94 Multiple subsegmental thrombotic pulmonary emboli without acute cor pulmonale; J18.8 Other pneumonia, unspecified organism; R65.21 Severe sepsis with septic shock; J96.00 Acute respiratory failure, unspecified whether with hypoxia or hypercapnia; K50.913 Crohn's disease, unspecified, with fistula; C34.90 Malignant neoplasm of unspecified part of unspecified bronchus or lung; E87.21 Acute metabolic acidosis; E87.1 Hypo-osmolality and hyponatremia; D84.821 Immunodeficiency due to drugs; D70.1 Agranulocytosis secondary to cancer chemotherapy; T45.1X5A Adverse effect of antineoplastic and immunosuppressive drugs, initial encounter; F41.9 Anxiety disorder, unspecified; F32.A Depression, unspecified; F17.210 Nicotine dependence, cigarettes, uncomplicated; Z79.899 Other long term (current) drug therapy; Z20.822 Contact with and (suspected) exposure to COVID-19; Z90.49 Acquired absence of other specified parts of digestive tract; Z66 Do not resuscitate
CPT/HCPCS: 31500; 36415; 36430; 36569; 36600; 51701; 71045; 71046; 71250; 71275; 74019; 74176; 74177; 80048; 80053; 80202; 81001; 82375; 82565; 82805; 82948; 83050; 83605; 83735; 84100; 84484; 85025; 85055; 85610; 85730; 86022; 86140; 86850; 86900; 86901; 86923; 87040; 87070; 87086; 87088; 87106; 87205; 87493; 87636; 93005; 93306; 93923; 93970; 94002; 94003; 94640; 96374; 99285; A9270; C1751; C9113; J0500; J0610; J0692; J0743; J1450; J1642; J1644; J1652; J1720; J1940; J1956; J2250; J2270; J2765; J3010; J3370; J3475; J3480; J7030; J7040; J7050; J7070; P9016; P9034; P9047; Q5101; Q9967